=== PATIENT | female | born 1935 | race Caucasian/White ===

== ENCOUNTER 2018-05-22 12:25 | Inpatient (IN) | payer OTHER ==
[2018-05-22 13:43] LABS: Absolute Monocytes 0.8 K/uL (0.1-1.3); Basophils % 2.3 % (0-1.3); Eosinophils % 0.6 % (0-4.4); Hematocrit 46.8 % (36.0-45.0); Lymphocytes % 16.2 % (15.3-44.8); MPV 9.7 fL (7.6-11.3); Monocytes % 6.2 % (3.3-12.3); RBC Red Blood Cell Count 5.02 M/uL (3.86-4.86)
[2018-05-22] MEDS ORDERED: NA CHLORIDE 0.9% 500 ML ONE (13:52)
[2018-05-22 13:54] LABS: Albumin 3.4 g/dL (3.4-5.0); Bilirubin Direct 0.4 mg/dL (0-0.2); Bilirubin Total 2.5 mg/dL (0.2-1.0); Potassium 3.9 mmol/L (3.5-5.1); Protein, Total 7.4 g/dL (6.4-8.2)
--- NOTE | 2018-05-22 15:28 | RAD REPORT ---
EXAM DESCRIPTION: CT - Abdomen Pelvis W Contrast - 05/22/2018 3:15 pm CLINICAL HISTORY: Abdominal pain. Left lower quadrant pain COMPARISON: 2015 TECHNIQUE: Computed axial tomography of the abdomen and pelvis was obtained. 100 cc Isovue-300 is ad ministered intravenously. Oral contrast was given. All CT scans are performed using dose optimization technique as appropriate and may include automated exposure control or mA/KV adjustment according to patient size. FINDINGS: The liver, spleen, pancreas, adrenals and kidneys do not demonstrate a significant abnormality. . Diverticula stem from the colon. Mild to moderate stranding is present adjacent to the distal descend ing colon. The wall is thickened. An abscess is not noted. Free air is not seen 5.5 centimeter submucosal fibroid suspected. Spondylosis involves lumbar spine resulting in spinal stenosis IMPRESSION: Mild to moderate diverticulitis involving the descending colon
--- NOTE | 2018-05-22 15:42 | ER ---
Nurse's Notes [facility] Name: Sigifredo Kiran Age: 83 yrs Sex: Female : 1935 Arrival Date: 05/22/2018 Time: 12:36 Bed 13 Private MD: Victoriano Nava Diagnosis: Diverticulitis of large intestine without perforation or abscess without bleeding Presentation: 05/22 12:47 Presenting complaint: Patient states: LLQ abd pain for one day, had normal BM this la1 yesterday. Pain is worse if she lays on her right side. Denies N/V/D. Transition of care: patient was not received from another setting of care. Onset of symptoms was May 22, 2018. Risk Assessment: Do you want to hurt yourself or someone else? Patient reports no desire to harm self or others. Initial Sepsis Screen: Does the patient meet any 2 criteria? No. Patient's initial sepsis screen is negative. Does the patient have a suspected source of infection? No. Patient's initial sepsis screen is negative. Care prior to arrival: None. 12:47 Method Of Arrival: Ambulatory la1 12:47 Acuity: CLARI 3 la1 Historical: - Allergies: 12:47 Levaquin; la1 12:47 PENICILLINS; la1 - PMHx: 12:47 Atrial Fib; Hypertension; Hypothyroidism; la1 - PSHx: 12:49 Appendectomy; Cholecystectomy; Knee surgery; shoulder sx; la1 - Immunization history:: Adult Immunizations up to date. - Social history:: Smoking status: Patient/guardian denies using tobacco. - Ebola Screening: : No symptoms or risks identified at this time. - Family history:: not pertinent. - Hospitalizations: : No recent hospitalization is reported. Screenin:55 Abuse screen: Denies threats or abuse. Nutritional screening: decreased appetite . rb1 Tuberculosis screening: No symptoms or risk factors identified. Fall Risk None identified. Assessment: 12:55 General: Appears in no apparent distress. comfortable, obese, Behavior is calm, rb1 cooperative, Denies fever. Pain: Complains of pain in left upper quadrant and left lower quadrant Pain currently is 7 out of 10 on a pain scale. Quality of pain is described as crampy, Aggravated by increased activity. Neuro: Level of Consciousness is awake, alert, obeys commands, Oriented to person, place, time, situation. Cardiovascular: Capillary refill < 3 seconds is brisk in bilateral fingers. Respiratory: Airway is patent Respiratory effort is even, unlabored, Respiratory pattern is regular, symmetrical. GI: No signs and/or symptoms were reported involving the gastrointestinal system. : No signs and/or symptoms were reported regarding the genitourinary system. Derm: Skin is pink, warm \T\ dry. Musculoskeletal: Range of motion: intact in all extremities. 13:55 Reassessment: Patient appears in no apparent distress at this time. No changes from rb1 previously documented assessment. Family at bedside. 14:55 Reassessment: Patient appears in no apparent distress at this time. Patient and/or rb1 family updated on plan of care and expected duration. Pain level reassessed. Patient is alert, oriented x 3, equal unlabored respirations, skin warm/dry/pink. 16:08 Reassessment: Patient appears in no apparent distress at this time. Patient and/or rb1 family updated on plan of care and expected duration. Pain level reassessed. Patient is alert, oriented x 3, equal unlabored respirations, skin warm/dry/pink. 17:17 Reassessment: Attempted to call report, COOKIE Mclean will call me back. rb1 17:34 Reassessment: COOKIE Hays called to get report. Information from the SBAR was sent. All rb1 questions asked and answered. Vital Signs: 12:50 BP 118 / 80; Pulse 104; Resp 18; Temp 99.0; Pulse Ox 98% on R/A; Weight 104.33 kg; la1 Height 5 ft. 7 in. (170.18 cm); Pain 7/10; 13:50 BP 147 / 96; Pulse 95; Resp 19; Pulse Ox 95% on R/A; rb1 14:50 BP 139 / 69; Pulse 78; Resp 17; Pulse Ox 96% ; Pain 6/10; rb1 15:50 BP 139 / 89; Pulse 79; Resp 17; Pulse Ox 97% on R/A; rb1 16:50 BP 115 / 72; Pulse 71; Resp 16; Temp 97.8(O); Pulse Ox 98% on R/A; Pain 5/10; rb1 17:40 BP 124 / 76; Pulse 81; Resp 19; Pulse Ox 99% on R/A; rb1 12:50 Body Mass Index 36.02 (104.33 kg, 170.18 cm) la1 ED Course: 12:36 Patient arrived in ED. sb2 12:36 Victoriano Nava MD is Private Physician. sb2 12:49 Triage completed. la1 12:49 Arm band placed on right wrist. la1 12:55 José Manuel Ramesh MD is Attending Physician. rn 12:55 Patient has correct armband on for positive identification. Placed in gown. Bed in low rb1 position. Call light in reach. Side rails up X 1. Pulse ox on. NIBP on. Warm blanket given. 13:16 Niyah Glass, RN is Primary Nurse. rb1 13:18 Missed attempt(s): 22 gauge in right antecubital area. Bleeding controlled, band aid dh3 applied, catheter tip intact. 13:20 Initial lab(s) drawn, by me, sent to lab. Inserted saline lock: 20 gauge in left dh3 antecubital area, using aseptic technique. Blood collected. 15:[address] via stretcher. kw1 15:15 CT Abd/Pelvis - W/Contrast In Process Unspecified. EDMS 15:16 CT completed. Patient tolerated procedure well. Patient moved back from CT. kw1 15:40 Reinier Manning DO is Hospitalizing Provider. rn 15:59 Hospitalizing Provider role handed off by Reinier Manning DO rn 15:59 Victoriano Nava MD is Hospitalizing Provider. rn 17:45 No provider procedures requiring assistance completed. Patient admitted, IV remains in rb1 place. Administered Medications: 13:45 Drug: NS 0.9% 500 ml Route: IV; Rate: bolus; Site: left antecubital; rb1 14:27 Follow up: IV Status: Completed infusion rb1 15:55 Drug: Rocephin - (cefTRIAXone) 1 grams Route: IVPB; Infused Over: 30 mins; Site: left rb1 antecubital; 16:25 Follow up: Response: No adverse reaction; IV Status: Completed infusion rb1 16:00 Drug: Flagyl 500 mg Volume: 100 ml; Route: IVPB; Rate: 200 ml/hr; Infused Over: 30 rb1 mins; Site: left antecubital; 16:34 Follow up: Response: No adverse reaction; IV Status: Completed infusion rb1 Outcome: 15:40 Decision to Hospitalize by Provider. rn 17:45 Patient left the ED. rb1 17:45 Admitted to Tele accompanied by tech, via wheelchair, room 406, with chart, Report rb1 called to COOKIE Rodriguez. Information from the SBAR was given. All questions asked and answered. 17:45 Condition: stable 17:45 Instructed on the need for admit. Signatures: Dispatcher [employer] EDMS José Manuel Ramesh MD MD rn Attema, Lee, RN RN la1 Niyah Glass RN RN rb1 Francine Jordan 3 Ruthie Art1 Hilda Hidalgo sb2 Corrections: (The following items were deleted from the chart) 12:52 12:47 Presenting complaint: Patient states: LLQ abd pain for one day, had normal BM la1 this morning. Pain is worse if she lays on her right side. Denies N/V/D. la1 19:41 19:03 Patient left the ED. rb1 rb1
--- NOTE | 2018-05-22 15:42 | EDPHYS ---
Physician Documentation [facility] Name: Sigifredo Kiran Age: 83 yrs Sex: Female : 1935 Arrival Date: 05/22/2018 Time: 12:36 Bed 13 Private MD: Victoriano Nava ED Physician José Manuel Ramesh HPI: 05/22 13:18 This 83 yrs old Female presents to ER via Ambulatory with complaints of LEFT rn SIDE ABD PAIN. 13:18 The patient presents with abdominal pain in the left lower quadrant. Onset: The rn symptoms/episode began/occurred today. The symptoms do not radiate. Associated signs and symptoms: none. Pertinent negatives: nausea and vomiting, anorexia, diarrhea, dysuria, fever, shortness of breath, vomiting. The symptoms are described as achy, crampy. Modifying factors: The symptoms are alleviated by nothing, the symptoms are aggravated by movement, pressure, touching the area. Severity of pain: At its worst the pain was moderate in the emergency department the pain is unchanged. The patient has not experienced similar symptoms in the past. Historical: - Allergies: 12:47 Levaquin; la1 12:47 PENICILLINS; la1 - PMHx: 12:47 Atrial Fib; Hypertension; Hypothyroidism; la1 - PSHx: 12:49 Appendectomy; Cholecystectomy; Knee surgery; shoulder sx; la1 - Immunization history:: Adult Immunizations up to date. - Social history:: Smoking status: Patient/guardian denies using tobacco. - Ebola Screening: : No symptoms or risks identified at this time. - Family history:: not pertinent. - Hospitalizations: : No recent hospitalization is reported. ROS: 13:18 Constitutional: Negative for fever, chills, and weight loss, Eyes: Negative for injury, rn pain, redness, and discharge, Neck: Negative for injury, pain, and swelling, Cardiovascular: Negative for chest pain, palpitations, and edema, Respiratory: Negative for shortness of breath, cough, wheezing, and pleuritic chest pain, Abdomen/GI: Negative for nausea, vomiting, diarrhea, and constipation MS/Extremity: Negative for injury and deformity, Skin: Negative for injury, rash, and discoloration, Neuro: Negative for headache, weakness, numbness, tingling, and seizure. Exam: 13:18 Constitutional: This is a well developed, well nourished patient who is awake, alert, rn and in no acute distress. Head/Face: Normocephalic, atraumatic. Cardiovascular: Regular rate and rhythm. No pulse deficits. Respiratory: Lungs have equal breath sounds bilaterally, clear to auscultation. No increased work of breathing, no retractions or nasal flaring. Abdomen/GI: soft, + LLQ tenderness, no rebound Skin: Warm, dry with normal turgor. Normal color with no rashes, no lesions, and no evidence of cellulitis. MS/ Extremity: Pulses equal, no cyanosis. Neurovascular intact. Full, normal range of motion. Equal circumference. Neuro: Awake and alert, GCS 15, oriented to person, place, time, and situation. Cranial nerves II-XII grossly intact. Motor strength 5/5 in all extremities. Sensory grossly intact. Vital Signs: 12:50 BP 118 / 80; Pulse 104; Resp 18; Temp 99.0; Pulse Ox 98% on R/A; Weight 104.33 kg; la1 Height 5 ft. 7 in. (170.18 cm); Pain 7/10; 13:50 BP 147 / 96; Pulse 95; Resp 19; Pulse Ox 95% on R/A; rb1 14:50 BP 139 / 69; Pulse 78; Resp 17; Pulse Ox 96% ; Pain 6/10; rb1 15:50 BP 139 / 89; Pulse 79; Resp 17; Pulse Ox 97% on R/A; rb1 16:50 BP 115 / 72; Pulse 71; Resp 16; Temp 97.8(O); Pulse Ox 98% on R/A; Pain 5/10; rb1 17:40 BP 124 / 76; Pulse 81; Resp 19; Pulse Ox 99% on R/A; rb1 12:50 Body Mass Index 36.02 (104.33 kg, 170.18 cm) la1 MDM: 12:55 Patient medically screened. rn 15:39 Differential diagnosis: diverticulitis, non-specific abd pain. Data reviewed: vital rn signs, nurses notes, lab test result(s), radiologic studies, CT scan, and as a result, I will admit patient. Counseling: I had a detailed discussion with the patient and/or guardian regarding: the historical points, exam findings, and any diagnostic results supporting the discharge/admit diagnosis, lab results, radiology results, the need for further work-up and treatment in the hospital. Response to treatment: the patient's symptoms have mildly improved after treatment, and as a result, I will admit patient. Admission orders: after a detailed discussion of the patient's condition and case, the admit orders are written by me. ED course: Pt still in pain and uncomfortable going home, will admit with IV abx and pain control to Dr. Manning. . 05/22 13:02 Order name: Basic Metabolic Panel; Complete Time: 13:55 rn 05/22 13:02 Order name: CBC with Diff rn 05/22 13:02 Order name: Hepatic Function; Complete Time: 13:55 rn 05/22 13:02 Order name: Lipase; Complete Time: 13:55 rn 05/22 13:02 Order name: CT Abd/Pelvis - W/Contrast; Complete Time: 15:29 rn 05/22 17:24 Order name: CBC Smear Scan EDNJ 05/22 13:02 Order name: IV Saline Lock; Complete Time: 13:16 rn 05/22 13:02 Order name: Labs collected and sent; Complete Time: 13:16 rn Administered Medications: 13:45 Drug: NS 0.9% 500 ml Route: IV; Rate: bolus; Site: left antecubital; rb1 14:27 Follow up: IV Status: Completed infusion rb1 15:55 Drug: Rocephin - (cefTRIAXone) 1 grams Route: IVPB; Infused Over: 30 mins; Site: left rb1 antecubital; 16:25 Follow up: Response: No adverse reaction; IV Status: Completed infusion rb1 16:00 Drug: Flagyl 500 mg Volume: 100 ml; Route: IVPB; Rate: 200 ml/hr; Infused Over: 30 rb1 mins; Site: left antecubital; 16:34 Follow up: Response: No adverse reaction; IV Status: Completed infusion rb1 Disposition: 05/22/18 15:40 Hospitalization ordered by Victoriano Nava for Inpatient Admission. Preliminary diagnosis is Diverticulitis of large intestine without perforation or abscess without bleeding. - Bed requested for Telemetry/MedSurg (Inpatient). - Status is Inpatient Admission. rb1 - Condition is Stable. - Problem is new. - Symptoms have improved. UTI on Admission? No Signatures: Dispatcher [employer] EDNJ José Manuel Ramesh MD MD rn Attema, Lee, RN RN la1 Niyah Glass, RN RN rb1 Monik Mckeon eb Corrections: (The following items were deleted from the chart) 15:59 15:40 Hospitalization Ordered by Reinier Manning DO for Inpatient Admission. Preliminary rn diagnosis is Diverticulitis of large intestine without perforation or abscess without bleeding. Bed requested for Telemetry/MedSurg (Inpatient). Status is Inpatient Admission. Condition is Stable. Problem is new. Symptoms have improved. UTI on Admission? No. rn 16:56 15:59 05/22/2018 15:40 Hospitalization Ordered by Victoriano Nava MD for Inpatient eb Admission. Preliminary diagnosis is Diverticulitis of large intestine without perforation or abscess without bleeding. Bed requested for Telemetry/MedSurg (Inpatient). Status is Inpatient Admission. Condition is Stable. Problem is new. Symptoms have improved. UTI on Admission? No. rn 19:03 16:56 05/22/2018 15:40 Hospitalization Ordered by Victoriano Nava MD for Inpatient rb1 Admission. Preliminary diagnosis is Diverticulitis of large intestine without perforation or abscess without bleeding. Bed requested for Telemetry/MedSurg (Inpatient). Status is Inpatient Admission. Condition is Stable. Problem is new. Symptoms have improved. UTI on Admission? No. eb
[2018-05-22] MEDS ORDERED: CEFTRIAXONE/SWI 1gm 1 GM/10 ML SYR ONE (16:06)
[2018-05-22] MEDS ORDERED: METRONIDAZOLE 500mg IVPB 500 MG/100 ML BAG IV ONE (16:06)
[2018-05-22 17:23] LABS: Blood Morphology Comment NOT SEEN (NOT SEEN); Platelet Estimate ADEQ; Urine White Blood Cell Casts OK
[2018-05-22] MEDS ORDERED: ONDANSETRON 4 MG/2 ML VIAL IV PRN (18:21)
[2018-05-22] MEDS ORDERED: MORPHINE 2 MG/ML SYR IV PRN (18:21)
[2018-05-22] MEDS: ACETAMINOPHEN 500 MG TAB PO PRN (18:41)
[2018-05-22 18:42] VITALS: BMI 36.0
[2018-05-22] MEDS: D5 0.45 NS 1,000 ML IV SCH (18:42)
[2018-05-22] MEDS: RIVAROXABAN 10 MG TABLET PO SCH (21:52)
[2018-05-22] MEDS: METRONIDAZOLE 500mg IVPB 500 MG/100 ML BAG IV SCH (23:50)
[2018-05-23] MEDS: D5 0.45 NS 1,000 ML IV SCH ×4 (04:07→16:23)
[2018-05-23] MEDS: LEVOTHYROXINE SOD 0.075 MG TAB PO SCH (05:41)
[2018-05-23 06:18] LABS: Absolute Lymphocytes (CBC) 2.3 K/uL (0.7-4.9); Absolute Monocytes 0.8 K/uL (0.1-1.3); Absolute Neutrophil 4.1 K/uL (1.8-8.0); Basophils % 0.5 % (0-1.3); Eosinophils % 3.5 % (0-4.4); Hematocrit 43.2 % (36.0-45.0); Lymphocytes % 30.6 % (15.3-44.8); MPV 9.6 fL (7.6-11.3); Monocytes % 10.9 % (3.3-12.3); RBC Red Blood Cell Count 4.62 M/uL (3.86-4.86)
[2018-05-23] MEDS: METOPROLOL TAR 50 MG TAB PO SCH (08:57)
[2018-05-23] MEDS: METRONIDAZOLE 500mg IVPB 500 MG/100 ML BAG IV SCH ×2 (08:58→16:21)
[2018-05-23] MEDS: DIGOXIN 0.125 MG TABLET PO SCH (08:58)
[2018-05-23] MEDS: ACETAMINOPHEN 500 MG TAB PO PRN (11:17)
[2018-05-23] MEDS ORDERED: CEFTRIAXONE 1 GM/NS 50 ML 1 GM/50 ML BAG IV SCH (16:00)
[2018-05-23] MEDS: RIVAROXABAN 10 MG TABLET PO SCH (16:20)
[2018-05-23] MEDS: CEFTRIAXONE/SWI 1gm 1 GM/10 ML SYR IV SCH (16:22)
--- NOTE | 2018-05-23 19:25 | PN ---
Date of Progress Note: 05/23/2018 The patient states she feels considerably better today. She still has some tenderness on deep palpat ion and questionable rebound tenderness. Otherwise, she feels things are improving. Her appetite gonzalez s improved somewhat. She has been mobile. We will continue IV antibiotics at least another 24 hours . Her vital signs are stable. HR/MODL Voice ID: [id number] Report ID: [id number]
[2018-05-23 20:21] LABS: Digoxin Level 0.6 ng/mL (0.80-2.00); Thyroid Stimulating Hormone 2.77 uIU/mL (0.360-3.740)
--- NOTE | 2018-05-23 20:34 | HP ---
Date of Admission: 05/22/2018 Entrance Complaint: Abdominal pain. History Of Present Illness: The patient states 2 days prior to coming to the emergency room, she sta rted to have some discomfort in the left lower quadrant and states she just did not quite feel well o idlaia the next period of time; however, she developed what she felt was a chill, although it was not a tremor associated with increasing discomfort. It kept her awake, has not had prior episodes of such, and therefore, she presented to the emergency room with a diagnosis of acute diverticulitis, mild-to -moderate was made on the CT scan. Past History: The patient had an appendectomy many years ago, had a colonoscopy a number of times wi th numerous polyps. No mention apparently was made of diverticular disease and to her knowledge, she has never been diagnosed with diverticulitis. She denies a history of back problems, cardiovascular problem all of which seem to be under relatively good control. She is quite active for her age. Family History: Noncontributory. Social History: Nonsmoker, nondrinker, although the patient does state she drinks a fair amount of c affeine in the form of coffee and Cokes. She was told this might be aggravating factor temporarily w hile the diverticular disease is going on. Physical Examination: General: The patient is obviously uncomfortable, moderately obese, elderly female. Vital Signs: Stable. Head/Neck: Normocephalic. Pupils equal and react to light and accommodation. Fundi negative. Trac hea midline. Thyroid not palpable. ENT: Negative. Chest: Clear to P and A. Cardiovascular: PMI in midclavicular line. Heart sounds normal. Peripheral pulses present and equa l bilaterally. Abdomen: Tenderness in left lower quadrant. No guarding. Rebound tenderness is questionable. No r igidity. Bowel sounds hyperactive. Extremities: Minimally dehydrated. Good tone and movement bilaterally. Reflexes are physiologic. Rectal/Pelvic: Deferred. Impression: Acute diverticulitis. Plan: The patient will be placed on IV antibiotics, dietary control. Maintain her usual cardiac med ications. Depending on her progress, may or may not require GI consultation. HR/MODL Voice ID: [id number]
[2018-05-24] MEDS: METRONIDAZOLE 500mg IVPB 500 MG/100 ML BAG IV SCH ×3 (00:17→16:37)
[2018-05-24] MEDS: D5 0.45 NS 1,000 ML IV SCH ×4 (00:23→22:52)
[2018-05-24] MEDS: METOPROLOL TAR 50 MG TAB PO SCH (10:10)
[2018-05-24] MEDS: DIGOXIN 0.125 MG TABLET PO SCH (10:21)
[2018-05-24] MEDS: LEVOTHYROXINE SOD 0.075 MG TAB PO SCH (10:22)
[2018-05-24] MEDS: RIVAROXABAN 10 MG TABLET PO SCH (16:00)
[2018-05-24] MEDS: CEFTRIAXONE/SWI 1gm 1 GM/10 ML SYR IV SCH (16:37)
[2018-05-24] MEDS: DICYCLOMINE HCL 10 MG CAP PO SCH (20:36)
[2018-05-24] MEDS ORDERED: TEMAZEPAM 15 MG CAP PO ONE (22:10)
[2018-05-25] MEDS: METRONIDAZOLE 500mg IVPB 500 MG/100 ML BAG IV SCH ×3 (00:38→16:13)
[2018-05-25] MEDS: LEVOTHYROXINE SOD 0.075 MG TAB PO SCH (05:38)
[2018-05-25] MEDS: DIGOXIN 0.125 MG TABLET PO SCH (08:29)
[2018-05-25] MEDS: DICYCLOMINE HCL 10 MG CAP PO SCH (08:29)
[2018-05-25] MEDS: METOPROLOL TAR 50 MG TAB PO SCH (08:29)
[2018-05-25 10:00] VITALS: O2SAT 96
[2018-05-25] MEDS: ACETAMINOPHEN 500 MG TAB PO PRN (11:01)
[2018-05-25] MEDS: D5 0.45 NS 1,000 ML IV SCH (11:02)
[2018-05-25 14:40] LABS: Urine Appearance CLEAR; Urine Bilirubin NEGATIVE (NEG); Urine Blood NEGATIVE (NEG); Urine Color YELLOW; Urine Glucose NEGATIVE (NEG); Urine Protein NEGATIVE (NEG); Urine Specific Gravity <=1.005 (1.005-1.030); Urine Urobilinogen 0.2 mg/dL (0.2-1.0)
[2018-05-25 14:47] LABS: Urine Microscopic Reflex NO UMIC
--- NOTE | 2018-05-25 14:54 | PN ---
Date of Progress Note: 05/24/2018 She says she is feeling somewhat better. Appetite has improved. Tender. Advance her diet in the mo rning as tolerated. Probably can be discharged on p.o. antibiotics. HR/MODL Voice ID: [id number] Report ID: [id number]
[2018-05-25] MEDS: CEFTRIAXONE/SWI 1gm 1 GM/10 ML SYR IV SCH (16:12)
[2018-05-25 16:29] VITALS: BP 154/99; TEMP 98
[2018-05-25] MEDS ORDERED: RIVAROXABAN 20 MG TABLET PO SCH (17:00)
--- NOTE | 2018-05-26 00:47 | PN ---
Date of Progress Note: 05/25/2018 The patient feels much better today. She is eating, more active. Minimal tenderness on deep palpati on of the left lower quadrant. She was discharged on Keflex, Flagyl, and Bentyl, to follow up in 2 w [facility]. HR/MODL Voice ID: [id number] Report ID: [id number]
[2018-05-26] MEDS ORDERED: METOPROLOL TAR 25 MG TAB PO SCH (08:00)
== END 2018-05-25 16:53 | disposition home or self-care (01) | DRG 392 ==
LOC: ER 12:25 → ERHOLD 16:04 → 4TH 17:36
PROVIDERS: ADMIT Family Medicine; ATTEND Family Medicine
DX: K57.32 Diverticulitis of large intestine without perforation or abscess without bleeding (principal); Z88.0 Allergy status to penicillin; I10 Essential (primary) hypertension; E03.9 Hypothyroidism, unspecified; I48.91 Unspecified atrial fibrillation; E66.9 Obesity, unspecified; Z68.36 Body mass index [BMI] 36.0-36.9, adult
CPT/HCPCS: 36415; 74177; 80048; 80076; 80162; 81003; 83690; 84443; 85025; 87493; 96361; 96365; 99285; J0696; Q9967

== ENCOUNTER 2018-06-26 12:17 | Emergency (ER) | payer OTHER ==
--- NOTE | 2018-06-26 14:42 | ER ---
Nurse's Notes [facility] Name: Sigifredo Kiran Age: 83 yrs Sex: Female : 1935 Arrival Date: 06/26/2018 Time: 12:19 Bed 23 Private MD: Victoriano Nava Diagnosis: Sebaceous cyst Presentation: 06/26 12:32 Presenting complaint: Patient states: "I've had a cyst on my head for years and this aa5 morning it decided to rupture so I went to urgent care but they don't want to take care of it so they sent me here". Transition of care: patient was not received from another setting of care. Onset of symptoms was June 26, 2018. Risk Assessment: Do you want to hurt yourself or someone else? Patient reports no desire to harm self or others. Initial Sepsis Screen: Does the patient meet any 2 criteria? No. Patient's initial sepsis screen is negative. Does the patient have a suspected source of infection? No. Patient's initial sepsis screen is negative. Care prior to arrival: None. 12:32 Method Of Arrival: Ambulatory aa5 12:32 Acuity: CLARI 4 aa5 Historical: - Allergies: 12:34 Levaquin; aa5 12:34 PENICILLINS; aa5 - PMHx: 12:34 Atrial Fib; Hypertension; Hypothyroidism; aa5 - PSHx: 12:34 Appendectomy; Cholecystectomy; Knee surgery; shoulder sx; aa5 - Immunization history:: Flu vaccine is up to date. - Social history:: Smoking status: Patient/guardian denies using tobacco. - Ebola Screening: : No symptoms or risks identified at this time. Screenin:05 Abuse screen: Denies threats or abuse. Nutritional screening: No deficits noted. la1 Tuberculosis screening: No symptoms or risk factors identified. Fall Risk None identified. Assessment: 15:04 General: Appears in no apparent distress. Behavior is calm, cooperative. Pain: Denies la1 pain. Neuro: No deficits noted. Cardiovascular: No deficits noted. Derm: cyst noted scalp. Vital Signs: 12:34 BP 147 / 91; Pulse 76; Resp 16 S; Temp 98.2(TE); Pulse Ox 98% on R/A; Weight 102.06 kg aa5 (R); Height 5 ft. 7 in. (170.18 cm) (R); Pain 0/10; 12:34 Body Mass Index 35.24 (102.06 kg, 170.18 cm) aa5 ED Course: 12:19 Patient arrived in ED. mr 12:20 Victoriano Nava MD is Private Physician. mr 12:32 Arm band placed on. aa5 12:34 Triage completed. aa5 14:30 Hamlet Hernandez, RN is Primary Nurse. la1 14:32 [facility] pm1 14:32 José Manuel Ramesh MD is Attending Physician. pm1 15:05 No provider procedures requiring assistance completed. Patient did not have IV access la1 during this emergency room visit. 15:06 Call light in reach. la1 Administered Medications: No medications were administered Outcome: 14:42 Discharge ordered by . pm1 15:05 Discharged to home ambulatory. la1 15:05 Condition: stable 15:05 Discharge instructions given to patient, Instructed on discharge instructions, follow up and referral plans. medication usage, Demonstrated understanding of instructions, follow-up care, medications. 15:06 Patient left the ED. la1 Signatures: Denisha Pettit mr FraserStephanie, RN RN aa5 Hamlet Hernandez RN RN la1 Lb Tellez NP PORT[employer] MANAGER pm1
--- NOTE | 2018-06-26 14:43 | EDPHYS ---
Physician Documentation [facility] Name: Sigifredo Kiran Age: 83 yrs Sex: Female : 1935 Arrival Date: 06/26/2018 Time: 12:19 Bed 23 Private MD: Victoriano Nava ED Physician José Manuel Ramesh HPI: 06/26 14:41 This 83 yrs old Female presents to ER via Ambulatory with complaints of Cyst. pm1 14:41 the patient presents with a swollen area of the top of head. Description: sebaceous pm1 cyst. Onset: The symptoms/episode began/occurred today. Associated signs and symptoms: Pertinent negatives: fever. Modifying factors: the symptoms are alleviated by nothing, the symptoms are aggravated by nothing. The patient has experienced similar episodes in the past, chronically. The patient has been recently seen at an urgent care, just prior to arrival. Patient with sebaceous cyst on her scalp that opened ant drained spontaneously today. Went to urgent care and was redirected to the ER for evaluation. No fever or prior redness to area prior to spontaneous discharge. Historical: - Allergies: 12:34 Levaquin; aa5 12:34 PENICILLINS; aa5 - PMHx: 12:34 Atrial Fib; Hypertension; Hypothyroidism; aa5 - PSHx: 12:34 Appendectomy; Cholecystectomy; Knee surgery; shoulder sx; aa5 - Immunization history:: Flu vaccine is up to date. - Social history:: Smoking status: Patient/guardian denies using tobacco. - Ebola Screening: : No symptoms or risks identified at this time. ROS: 14:41 Constitutional: Negative for fever, chills, and weight loss, Eyes: Negative for injury, pm1 pain, redness, and discharge, ENT: Negative for injury, pain, and discharge, Neck: Negative for injury, pain, and swelling, Cardiovascular: Negative for chest pain, palpitations, and edema, Respiratory: Negative for shortness of breath, cough, wheezing, and pleuritic chest pain, Abdomen/GI: Negative for abdominal pain, nausea, vomiting, diarrhea, and constipation, Back: Negative for injury and pain, : Negative for injury, bleeding, discharge, and swelling, MS/Extremity: Negative for injury and deformity. 14:41 Skin: Positive for of the top of head, cyst, Negative for cellulitis. Exam: 14:41 Constitutional: This is a well developed, well nourished patient who is awake, alert, pm1 and in no acute distress. Head/Face: Normocephalic, atraumatic. Eyes: Pupils equal round and reactive to light, extra-ocular motions intact. Lids and lashes normal. Conjunctiva and sclera are non-icteric and not injected. Cornea within normal limits. Periorbital areas with no swelling, redness, or edema. ENT: Nares patent. No nasal discharge, no septal abnormalities noted. Tympanic membranes are normal and external auditory canals are clear. Oropharynx with no redness, swelling, or masses, exudates, or evidence of obstruction, uvula midline. Mucous membranes moist. Neck: Trachea midline, no thyromegaly or masses palpated, and no cervical lymphadenopathy. Supple, full range of motion without nuchal rigidity, or vertebral point tenderness. No Meningismus. Chest/axilla: Normal chest wall appearance and motion. Nontender with no deformity. No lesions are appreciated. Cardiovascular: Regular rate and rhythm with a normal S1 and S2. No gallops, murmurs, or rubs. Normal PMI, no JVD. No pulse deficits. Respiratory: Lungs have equal breath sounds bilaterally, clear to auscultation and percussion. No rales, rhonchi or wheezes noted. No increased work of breathing, no retractions or nasal flaring. Abdomen/GI: Soft, non-tender, with normal bowel sounds. No distension or tympany. No guarding or rebound. No evidence of tenderness throughout. Back: No spinal tenderness. No costovertebral tenderness. Full range of motion. 14:41 Skin: Appearance: normal except for affected area, abscess, not appreciated, cellulitis, is not appreciated, sebaceous cyst on scalp without any discharge, redness, surround cellulitis. Vital Signs: 12:34 BP 147 / 91; Pulse 76; Resp 16 S; Temp 98.2(TE); Pulse Ox 98% on R/A; Weight 102.06 kg aa5 (R); Height 5 ft. 7 in. (170.18 cm) (R); Pain 0/10; 12:34 Body Mass Index 35.24 (102.06 kg, 170.18 cm) aa5 MDM: 14:35 Patient medically screened. pm1 14:41 Data reviewed: vital signs. Data interpreted: Pulse oximetry: on room air is 98 %. pm1 Interpretation: normal. Counseling: I had a detailed discussion with the patient and/or guardian regarding: the historical points, exam findings, and any diagnostic results supporting the discharge/admit diagnosis, the need for outpatient follow up, for definitive care, a general surgeon, a plastic surgeon, to return to the emergency department if symptoms worsen or persist or if there are any questions or concerns that arise at home. Administered Medications: No medications were administered Disposition: 15:41 Co-signature as Attending Physician, José Manuel Ramesh MD. rn Disposition: 06/26/18 14:42 Discharged to Home. Impression: Sebaceous cyst. - Condition is Stable. - Discharge Instructions: Epidermal Cyst. - Prescriptions for Bactrim DS 800- 160 mg Oral Tablet - take 1 tablet by ORAL route every 12 hours for 10 days; 20 tablet. - Medication Reconciliation Form, Thank You Letter, Antibiotic Education form. - Follow up: Emergency Department; When: As needed; Reason: Worsening of condition. Follow up: Private Physician; When: 2 - 3 days; Reason: Recheck today's complaints, Continuance of care, Re-evaluation by your physician. - Problem is new. - Symptoms have improved. Signatures: José Manuel Ramesh MD MD rn Calderon, Audri RN RN aa5 Hamlet Hernandez RN RN la1 Lb Tellez, TASHA LIGHTNING PROTECTION INSTALLER pm1 Corrections: (The following items were deleted from the chart) 15:06 14:42 06/26/2018 14:42 Discharged to Home. Impression: Sebaceous cyst. Condition is la1 Stable. Forms are Medication Reconciliation Form, Thank You Letter, Antibiotic Education, Prescription Opioid Use. Follow up: Emergency Department; When: As needed; Reason: Worsening of condition. Follow up: Private Physician; When: 2 - 3 days; Reason: Recheck today's complaints, Continuance of care, Re-evaluation by your physician. Problem is new. Symptoms have improved. pm1
[2018-06-26 15:13] VITALS: BP 147/91; TEMP 98.2; O2SAT 98
== END 2018-06-26 15:06 | disposition home or self-care (01) ==
LOC: ER 12:17
DX: L72.3 Sebaceous cyst (principal); I48.91 Unspecified atrial fibrillation; I10 Essential (primary) hypertension; E03.9 Hypothyroidism, unspecified; Z88.1 Allergy status to other antibiotic agents; Z88.0 Allergy status to penicillin
CPT/HCPCS: 99281

== ENCOUNTER 2018-07-01 18:34 | Emergency (ER) | payer OTHER ==
[2018-07-01 21:56] LABS: Potassium 4.1 mmol/L (3.5-5.1)
[2018-07-01 21:58] LABS: Absolute Lymphocytes (CBC) 2.1 K/uL (0.7-4.9); Absolute Monocytes 1.1 K/uL (0.1-1.3); Absolute Neutrophil 2.5 K/uL (1.8-8.0); Basophils % 0.7 % (0-1.3); Eosinophils % 1.4 % (0-4.4); Hematocrit 49.3 % (36.0-45.0); Lymphocytes % 35.7 % (15.3-44.8); MPV 9.5 fL (7.6-11.3); Monocytes % 18.3 % (3.3-12.3); RBC Red Blood Cell Count 5.26 M/uL (3.86-4.86)
[2018-07-01 22:33] LABS: Urine Blood 1+ (NEG); Urine Glucose NEGATIVE (NEG); Urine Protein TRACE (NEG); Urine Specific Gravity >1.030 (1.005-1.030); Urine pH 5.5 (5.0-7.0)
[2018-07-01 22:34] LABS: Urine Mucus 1+ /HPF (NONE SEEN)
[2018-07-01 22:35] LABS: Urine Culture Reflex Order NOT NEEDED
[2018-07-01 22:36] LABS: Urine Bacteria <20 /HPF (<20); Urine RBC NONE SEEN /HPF (NONE SEEN)
[2018-07-01 23:31] LABS: Blood Morphology Comment NOT SEEN (NOT SEEN); Platelet Estimate ADEQ
[2018-07-01] MEDS ORDERED: NA CHLORIDE 0.9% 500 ML ONE (23:39)
--- NOTE | 2018-07-02 00:30 | EDPHYS ---
Physician Documentation [facility] Name: Sigifredo Kiran Age: 83 yrs Sex: Female : 1935 Arrival Date: 07/01/2018 Time: 18:36 Bed 5 Private MD: Victroiano Nava ED Physician José Manuel Ramesh HPI: 07/01 21:33 This 83 yrs old Female presents to ER via Wheelchair with complaints of rn Dizziness, Cough. 21:33 The patient presents with dizziness, feeling faint, generalized weakness. Onset: The rn symptoms/episode began/occurred at an unknown time. Modifying factors: The symptoms are alleviated by holding head still, the symptoms are aggravated by standing up, changing position. Severity of symptoms: At their worst the symptoms were mild in the emergency department the symptoms are unchanged. The patient has experienced similar episodes in the past. Reports long standing vertigo/dizzy spells, worse over last few days, fell while trying to sit on commode, + mild fever, + mild cough, no sob, no abd pain/vomiting/diarrhea, no chest pain. NO LOC or syncope. NO focal neurological problems or complaints. NO urinary symptoms.. Historical: - Allergies: 19:27 PENICILLINS; jd3 19:27 Levaquin; jd3 - PMHx: 19:27 Atrial Fib; Hypertension; Hypothyroidism; jd3 - PSHx: 19:27 Appendectomy; Cholecystectomy; Knee surgery; shoulder sx; D \T\ C; jd3 - Immunization history:: Adult Immunizations up to date. - Social history:: Smoking status: Patient/guardian denies using tobacco. - Ebola Screening: : Patient negative for fever greater than or equal to 101.5 degrees Fahrenheit, and additional compatible Ebola Virus Disease symptoms. - Family history:: not pertinent. - Hospitalizations: : No recent hospitalization is reported. ROS: 21:33 Constitutional: + fever Eyes: Negative for injury, pain, redness, and discharge, ENT: rn Negative for injury, pain, and discharge, Neck: Negative for injury, pain, and swelling, Cardiovascular: Negative for chest pain, palpitations, and edema, Respiratory: + cough, neg for sob Abdomen/GI: Negative for abdominal pain, nausea, vomiting, diarrhea, and constipation, MS/Extremity: Negative for injury and deformity, Skin: Negative for injury, rash, and discoloration, Neuro: + generalized weakness and dizziness Exam: 21:33 Constitutional: This is a well developed, well nourished patient who is awake, alert, rn and in no acute distress. Head/Face: Normocephalic, atraumatic. Eyes: Pupils equal round and reactive to light, extra-ocular motions intact. Lids and lashes normal. Conjunctiva and sclera are non-icteric and not injected. Cornea within normal limits. Periorbital areas with no swelling, redness, or edema. ENT: dry MM, no stridor Neck: Trachea midline, no thyromegaly or masses palpated, and no cervical lymphadenopathy. Supple, full range of motion without nuchal rigidity, or vertebral point tenderness. No Meningismus. Cardiovascular: Irregular rate and rhythm, no murmur Respiratory: Lungs have equal breath sounds bilaterally, clear to auscultation. No increased work of breathing, no retractions or nasal flaring. Abdomen/GI: soft, non-tender Skin: Warm, dry MS/ Extremity: Pulses equal, no cyanosis. Neurovascular intact. Full, normal range of motion. Equal circumference. Neuro: Awake and alert, GCS 15, oriented to person, place, time, and situation. Cranial nerves II-XII grossly intact. Motor strength 5/5 in all extremities. Sensory grossly intact. Cerebellar exam normal. Vital Signs: 19:27 BP 110 / 80; Pulse 90; Resp 18 S; Temp 99.1(O); Pulse Ox 97% on R/A; Weight 102.06 kg jd3 (R); Height 5 ft. 7 in. (170.18 cm) (R); Pain 0/10; 20:30 BP 133 / 94; Pulse 73; Resp 20; Pulse Ox 95% on R/A; aa1 21:30 BP 161 / 95; Pulse 95; Resp 18; Pulse Ox 94% on R/A; aa1 22:30 BP 167 / 100; Pulse 83; Resp 18; Temp 98.9; Pulse Ox 94% on R/A; aa1 23:30 BP 137 / 98; Pulse 88; Resp 18; Pulse Ox 94% on R/A; Pain 0/10; aa1 07/02 00:50 BP 121 / 91; Pulse 92; Resp 20; Pulse Ox 96% on R/A; Pain 0/10; aa1 07/01 19:27 Body Mass Index 35.24 (102.06 kg, 170.18 cm) jd3 MDM: 07/01 20:41 Patient medically screened. rn 07/02 00:28 Differential diagnosis: generalized weakness, hypovolemia, idiopathic dizziness, rn vertigo, influenza, pneumonia. Data reviewed: vital signs, nurses notes, lab test result(s), EKG, radiologic studies, CT scan, plain films, and as a result, I will discharge patient. Counseling: I had a detailed discussion with the patient and/or guardian regarding: the historical points, exam findings, and any diagnostic results supporting the discharge/admit diagnosis, lab results, radiology results, the need for outpatient follow up, to return to the emergency department if symptoms worsen or persist or if there are any questions or concerns that arise at home. Response to treatment: the patient's symptoms have markedly improved after treatment, and as a result, I will discharge patient. Special discussion: I discussed with the patient/guardian in detail that at this point there is no indication for admission to the hospital. It is understood, however, that if the symptoms persist or worsen the patient needs to return immediately for re-evaluation. 07/01 20:58 Order name: CBC with Diff; Complete Time: 23:35 rn 07/01 20:58 Order name: Basic Metabolic Panel; Complete Time: 22:51 07/01 20:58 Order name: Urine Culture rn 07/01 20:58 Order name: Urine Microscopic Only; Complete Time: 22:51 07/01 20:58 Order name: Flu; Complete Time: 23:35 07/01 22:01 Order name: Manual Differential; Complete Time: 23:35 EDMS 07/01 20:58 Order name: IV Start; Complete Time: 21:51 rn 07/01 20:58 Order name: XRAY Chest (1 view) rn 07/01 20:58 Order name: CT Head Brain wo Cont rn 07/01 20:58 Order name: EKG; Complete Time: 20:58 rn 07/01 22:24 Order name: Urine Dipstick--Ancillary (enter results); Complete Time: 22:51 ar5 07/01 22:24 Order name: Urine --Ancillary (enter results); Complete Time: 22:51 [facility] 07/01 20:58 Order name: Urine Dipstick-Ancillary (obtain specimen); Complete Time: 22:21 rn 07/01 20:58 Order name: EKG - Nurse/Tech; Complete Time: 21:51 rn Administered Medications: 07/01 23:35 Drug: NS 0.9% 500 ml Route: IV; Rate: bolus; Site: left antecubital; aa1 07/02 00:45 Drug: Tamiflu 75 mg Route: PO; aa1 00:55 Follow up: Response: Medication administered at discharge. aa Disposition: 07/02/18 00:29 Discharged to Home. Impression: Influenza due to identified novel influenza A virus, Dehydration. - Condition is Stable. - Discharge Instructions: Influenza, Adult, Dehydration, Adult, [id number]. - Prescriptions for Tamiflu 75 mg Oral Capsule - take 1 capsule by ORAL route every 12 hours for 5 days; 10 capsule. - Medication Reconciliation Form, Thank You Letter, Antibiotic Education, Prescription Opioid Use form. - Follow up: Private Physician; When: As needed; Reason: Recheck today's complaints, Re-evaluation by your physician. - Problem is new. - Symptoms have improved. Signatures: Dispatcher [employer] EDMS Leticia Roberts RN RN aa1 José Manuel Ramesh MD MD rn Davies, Jonathon, RN RN jd3 Corrections: (The following items were deleted from the chart) 00:57 00:29 07/02/2018 00:29 Discharged to Home. Impression: Influenza due to identified aa1 novel influenza A virus; Dehydration. Condition is Stable. Forms are Medication Reconciliation Form, Thank You Letter, Antibiotic Education, Prescription Opioid Use. Follow up: Private Physician; When: As needed; Reason: Recheck today's complaints, Re-evaluation by your physician. Problem is new. Symptoms have improved. rn
--- NOTE | 2018-07-02 00:30 | ER ---
Nurse's Notes [facility] Name: Sigifredo Kiran Age: 83 yrs Sex: Female : 1935 Arrival Date: 07/01/2018 Time: 18:36 Bed 5 Private MD: Victoriano Nava Diagnosis: Influenza due to identified novel influenza A virus;Dehydration Presentation: 07/01 19:25 Presenting complaint: Patient states: "I am having vertigo as well as a cough that jd3 causes a headache.". Transition of care: patient was not received from another setting of care. Onset of symptoms was July 01, 2018. Risk Assessment: Do you want to hurt yourself or someone else? Patient reports no desire to harm self or others. Initial Sepsis Screen: Does the patient meet any 2 criteria? No. Patient's initial sepsis screen is negative. Does the patient have a suspected source of infection? No. Patient's initial sepsis screen is negative. Care prior to arrival: None. 19:25 Method Of Arrival: Wheelchair jd3 19:25 Acuity: CLARI 3 jd3 Historical: - Allergies: 19:27 PENICILLINS; jd3 19:27 Levaquin; jd3 - PMHx: 19:27 Atrial Fib; Hypertension; Hypothyroidism; jd3 - PSHx: 19:27 Appendectomy; Cholecystectomy; Knee surgery; shoulder sx; D \\T\\ C; jd3 - Immunization history:: Adult Immunizations up to date. - Social history:: Smoking status: Patient/guardian denies using tobacco. - Ebola Screening: : Patient negative for fever greater than or equal to 101.5 degrees Fahrenheit, and additional compatible Ebola Virus Disease symptoms. - Family history:: not pertinent. - Hospitalizations: : No recent hospitalization is reported. Screenin:50 Abuse screen: Denies threats or abuse. Denies injuries from another. Nutritional aa1 screening: No deficits noted. Tuberculosis screening: No symptoms or risk factors identified. Fall Risk None identified. Assessment: 20:50 General: Appears in no apparent distress. comfortable, Behavior is calm, cooperative, aa1 appropriate for age. Pain: Denies pain. Neuro: Level of Consciousness is awake, alert, obeys commands, Oriented to person, place, time, situation, Moves all extremities. Full function. Neuro: Reports headache. Cardiovascular: Heart tones S1 S2 present Rhythm is regular. Respiratory: Reports cough that is non-productive, persistent Airway is patent Respiratory effort is even, unlabored, Respiratory pattern is regular, symmetrical, Breath sounds are clear bilaterally. GI: No signs and/or symptoms were reported involving the gastrointestinal system. : No signs and/or symptoms were reported regarding the genitourinary system. EENT: No signs and/or symptoms were reported regarding the EENT system. Derm: Skin is intact, is healthy with good turgor, Skin is pink, warm \\T\\ dry. Musculoskeletal: Circulation, motion, and sensation intact. Capillary refill < 3 seconds. 21:40 Reassessment: Patient appears in no apparent distress at this time. Patient and/or aa1 family updated on plan of care and expected duration. Pain level reassessed. Patient is alert, oriented x 3, equal unlabored respirations, skin warm/dry/pink. biological science technician fish reports pt's IV accidentally came out. Will reinsert IV after labs resulted if needed. 22:30 Reassessment: Patient appears in no apparent distress at this time. Patient and/or aa1 family updated on plan of care and expected duration. Pain level reassessed. Patient is alert, oriented x 3, equal unlabored respirations, skin warm/dry/pink. Awaiting completion of test results Patient denies pain at this time. 23:30 Reassessment: Patient appears in no apparent distress at this time. Patient and/or aa1 family updated on plan of care and expected duration. Pain level reassessed. Patient is alert, oriented x 3, equal unlabored respirations, skin warm/dry/pink. NS bolus initiated at this time. 07/02 00:50 Reassessment: Patient appears in no apparent distress at this time. Patient is alert, aa1 oriented x 3, equal unlabored respirations, skin warm/dry/pink. Discussed d/c \\T\\ f/u instructions with pt \\T\\ family; denies questions or concerns at this time Patient denies pain at this time. Vital Signs: 07/01 19:27 BP 110 / 80; Pulse 90; Resp 18 S; Temp 99.1(O); Pulse Ox 97% on R/A; Weight 102.06 kg jd3 (R); Height 5 ft. 7 in. (170.18 cm) (R); Pain 0/10; 20:30 BP 133 / 94; Pulse 73; Resp 20; Pulse Ox 95% on R/A; aa1 21:30 BP 161 / 95; Pulse 95; Resp 18; Pulse Ox 94% on R/A; aa1 22:30 BP 167 / 100; Pulse 83; Resp 18; Temp 98.9; Pulse Ox 94% on R/A; aa1 23:30 BP 137 / 98; Pulse 88; Resp 18; Pulse Ox 94% on R/A; Pain 0/10; aa1 07/02 00:50 BP 121 / 91; Pulse 92; Resp 20; Pulse Ox 96% on R/A; Pain 0/10; aa1 07/01 19:27 Body Mass Index 35.24 (102.06 kg, 170.18 cm) jd3 ED Course: 07/01 18:36 Patient arrived in ED. rg4 18:36 Victoriano Nava MD is Private Physician. rg4 19:26 Triage completed. jd3 19:28 Arm band placed on Patient notified of wait time. jd3 20:41 José Manuel Ramesh MD is Attending Physician. rn 20:50 Patient has correct armband on for positive identification. Placed in gown. Bed in low aa1 position. Call light in reach. Pulse ox on. NIBP on. Warm blanket given. 21:07 Leticia Roberts, COOKIE is Primary Nurse. aa1 21:28 XRAY Chest (1 view) In Process Unspecified. EDMS 21:36 CT completed. Patient tolerated procedure well. Patient moved to CT via wheelchair. nj Patient moved back from CT. 21:36 Inserted saline lock: 22 gauge in left antecubital area, using aseptic technique. Blood ag4 collected. 21:45 CT Head Brain wo Cont In Process Unspecified. EDMS 23:30 Inserted saline lock: 20 gauge in left antecubital area, using aseptic technique. aa1 07/02 00:55 No provider procedures requiring assistance completed. IV discontinued, intact, aa1 bleeding controlled, No redness/swelling at site. Pressure dressing applied. Administered Medications: 07/01 23:35 Drug: NS 0.9% 500 ml Route: IV; Rate: bolus; Site: left antecubital; aa1 07/02 00:45 Drug: Tamiflu 75 mg Route: PO; aa1 00:55 Follow up: Response: Medication administered at discharge. aa1 Outcome: 00:29 Discharge ordered by . rn 00:55 Discharged to home via wheelchair, with family. aa1 00:55 Condition: good 00:55 Discharge instructions given to patient, family, Instructed on discharge instructions, follow up and referral plans. medication usage, Demonstrated understanding of instructions, follow-up care, medications, Prescriptions given X 1. 00:57 Patient left the ED. aa1 Signatures: Dispatcher [employer] EDLeticia Manning RN RN aa1 José Manuel Ramesh MD MD rn Garcia, Joselyn rg4 Augie Schultz Jonathon, RN RN jd3 Dawson, Talha ag4
[2018-07-02] MEDS ORDERED: OSELTAMIVIR 75 MG CAP ONE (00:50)
[2018-07-02 01:17] VITALS: O2SAT 94
[2018-07-02 01:18] VITALS: TEMP 98.9
[2018-07-02 01:20] VITALS: BP 137/98
--- NOTE | 2018-07-02 06:00 | EKG ---
Test Date: 2018-07-01 Test Time: 21:14:53 Spiral Runner: AG3 MEASUREMENT RESULTS: Intervals: Rate: 108 UT: QRSD: 84 QT: 308 QTc: 412 [place]: P: UT: QRS: -26 T: 37 INTERPRETIVE STATEMENTS: Atrial fibrillation with rapid ventricular response Possible Anterior infarct, age undetermined Abnormal ECG Compared to ECG 05/14/2014 06:05:35 Myocardial infarct finding now present Electronically Signed On 07-02-18 05:59:17 CDT by Crispin Timmons
--- NOTE | 2018-07-02 07:26 | RAD REPORT ---
EXAM DESCRIPTION: RAD - Chest Single View - 07/01/2018 9:28 pm CLINICAL HISTORY: Cough COMPARISON: March 2017 TECHNIQUE: AP portable chest image was obtained 2114 hours . FINDINGS: Lung volumes are low accentuating baseline interstitial pattern. Substantial change from 2 017 is not suspected. No mass, consolidation or significant failure. Heart size and vasculature are n ormal range and stable. No measurable pleural effusion and no pneumothorax. No acute bone findings se en. Postsurgical changes are present in the right shoulder. No acute aortic findings suspected. IMPRESSION: No acute cardiopulmonary process. No significant change from comparison.
--- NOTE | 2018-07-02 11:10 | RAD REPORT ---
EXAM DESCRIPTION: CT - Head Brain Wo Cont - 07/01/2018 10:04 pm CLINICAL HISTORY: 83 years old and is Female; dizziness, fall, head injury TECHNIQUE: Axial computed tomography images of the head/brain without intravenous contrast. Sagitt al and coronal reformatted images were created and reviewed. EXAM COMPLETED DATE AND APPROX. TIME: 07/01/2018 9:[address] exam was performed using one or more of the following dose reducti on techniques: automated exposure control, adjustment of the mA and/or kV according to patient size , and/or use of iterative reconstruction technique. COMPARISON: No relevant prior studies available. FINDINGS: Limitations: None. Brain: There is age related cortical atrophy and periventricular white matter hypodensity most c onsistent with chronic small ischemic change. No acute infarct, hemorrhage or mass. Ventricles: Unremarkable. No ventriculomegaly. Bones/joints: Unremarkable. No acute fracture. Soft tissues: Multiple incidental calcified scalp nodules compatible with sebaceous cysts or luisa rofibromas. Vasculature: Vertebral and carotid artery calcification present. Sinuses: Unremarkable as visualized. No acute sinusitis. Mastoid air cells: Unremarkable as visualized. No mastoid effusion. IMPRESSION: No acute findings. Electronically signed by: Gianna Monroy MD 07/01/2018 9:53 PM CDT Due to temporary technical issues with the PACS/Fluency reporting system, reports are being signed by the in house radiologist as a courtesy to ensure prompt reporting. The interpreting radiologist is f ully responsible for the content of the report.
== END 2018-07-02 00:57 | disposition home or self-care (01) ==
LOC: ER 18:34
DX: J10.1 Influenza due to other identified influenza virus with other respiratory manifestations (principal); E86.0 Dehydration; I48.2 Chronic atrial fibrillation; I10 Essential (primary) hypertension; E03.9 Hypothyroidism, unspecified; Z88.1 Allergy status to other antibiotic agents; Z88.0 Allergy status to penicillin
CPT/HCPCS: 36415; 70450; 71045; 80048; 81003; 81015; 81025; 85025; 87086; 87088; 87804; 93005; 99284

== ENCOUNTER 2018-08-03 07:00 | Day surgery (SDC) | payer OTHER ==
[2018-08-03] MEDS ORDERED: Ringers Lactate 1,000 ML IV ONE (07:27)
[2018-08-03] MEDS: BUPIVACA 0.25%/EPI 0.0005% MDV 50 ML VIAL ONE ×2 (07:41→08:00)
[2018-08-03] MEDS ORDERED: PROPOFOL 200 MG/20 ML VIAL IV ONE (07:55)
[2018-08-03] MEDS ORDERED: FENTANYL CITR 100 MCG/2 ML ONE (07:56)
[2018-08-03] MEDS ORDERED: LIDOCAINE 2% MPF 5 ML VIAL ONE (07:56)
--- NOTE | 2018-08-03 08:33 | P.OP ---
Preoperative diagnosis: LEFT scalp infected sebaceous cyst Postoperative diagnosis: LEFT scalp infected sebaceous cyst Primary procedure: Excision of LEFT scalp infected sebaceous cyst Anesthesia: MAC + Local Estimated blood loss: <2cc Specimen: Sebaceous cysts Findings: LEFT scalp infected sebaceous cyst Complications: None Transferred to: Recovery Room Condition: Good
[2018-08-03] MEDS ORDERED: ONDANSETRON 4 MG/2 ML VIAL ONE (08:47)
[2018-08-03 09:01] VITALS: TEMP 97; O2SAT 99
[2018-08-03 09:21] VITALS: BP 117/63
--- NOTE | 2018-08-03 19:34 | OP ---
Date of Procedure: 08/03/2018 Surgeon: Jessee Perez MD, Preoperative Diagnosis: Left scalp infected sebaceous cyst. Postoperative Diagnosis: Left scalp infected sebaceous cyst. Procedure Performed: Excision of left scalp infected sebaceous cyst. Anesthesia: MAC plus local with 0.25% Marcaine with epinephrine. Estimated Blood Loss: Less than 2 cc. Specimen: Sebaceous cyst. Findings: Left scalp infected sebaceous cyst of approximately 4 cm x 3 cm down to the galea, but not involving the galea. It was in the region of the left scalp just approximately 0.5 cm into the hair line. Disposition: Transferred to recovery room in good condition. Procedure In Detail: After informed consent was obtained, the patient was brought to the operating r oom, prepped and draped in the usual sterile fashion. After adequate anesthesia was achieved, an ell ipse of skin was taken out around the draining site from an infected sebaceous cyst of the left scalp as described above. The ellipse of skin was taken down with the scalpel down to subcutaneous tissue s. Electrocautery was used to dissect down into the subcutaneous layer and dissection continued down to both blunt dissection as well as electrocautery to circumferentially dissect out the ruptured joseph aceous cyst sac. This was removed in its entirety in a piecemeal fashion. The area was copiously ir rigated and was noted to go down to the galea but not investing into the galea. Electrocautery was u sed to achieve hemostasis quite easily. The area was copiously irrigated once again and closed with 3 sutures, 2 vertical mattress sutures and 1 simple interrupted suture of a 2-0 Prolene type. A ster ile dressing was then placed over the top. The patient tolerated the procedure well without evidence of complication, transferred to the PACU in good condition. All counts were correct at the end of the case. MYRANDA/DES Voice ID: [id number] Report ID: [id number]
== END 2018-08-03 09:25 | disposition home or self-care (01) ==
LOC: OR 07:00
PROVIDERS: ATTEND Surgery
PROC: 0JB00ZX Excision of Scalp Subcutaneous Tissue and Fascia, Open Approach, Diagnostic (ICD-10-PCS; principal; 2018-08-03 08:00)
DX: L72.11 Pilar cyst (principal); E03.8 Other specified hypothyroidism; I10 Essential (primary) hypertension; I48.91 Unspecified atrial fibrillation; Z79.01 Long term (current) use of anticoagulants; Z79.899 Other long term (current) drug therapy
CPT/HCPCS: 11426; 12032; 88304; J2704; J3010; J2405

== ENCOUNTER 2018-08-20 14:41 | Emergency (ER) | payer OTHER ==
--- NOTE | 2018-08-20 15:11 | RAD REPORT ---
EXAM DESCRIPTION: CT - Ct Stroke Brain Wo Cont - 08/20/2018 3:02 pm CLINICAL HISTORY: Right-sided weakness, facial numbness CLINICAL HISTORY: Comparison CT July 01, 2018, CT head July 2009 TECHNIQUE: Axial 5 millimeter thick images of the head were obtained without IV contrast. All CT scans are performed using dose optimization technique as appropriate and may include automated exposure control or mA/KV adjustment according to patient size. FINDINGS: No intracranial hemorrhage, mass, or cerebral edema. No acute infarction identifiable. No cortical edema or sulcal effacement. Billingsley matter-white matter differentiation is preserved. Moderate atrophy changes are present with ventricular size in proportion. This is similar to comparis on. Mild to moderate chronic ischemic changes are present also seen as stable from the short interval 2018 study. Visualized portions of the mastoid air cells, paranasal sinuses, and orbits are unremarkable. Findings telephoned to Rachelle in the emergency department at 1457 hours. The comparison study was not available at time of the verbal report. IMPRESSION: No intracranial hemorrhage and no acute cortical based infarction identified. Moderate atrophy and chronic ischemic changes are present. These match the July 01, 2018 study. Corporate Auditor bryant ischemic change can mask nonhemorrhagic acute CVA.
[2018-08-20 15:18] LABS: Absolute Monocytes 0.7 K/uL (0.1-1.3); Absolute Neutrophil 3.9 K/uL (1.8-8.0); Basophils % 0.7 % (0-1.3); Lymphocytes % 38.1 % (15.3-44.8); MPV 9.3 fL (7.6-11.3); Monocytes % 9.2 % (3.3-12.3); RBC Red Blood Cell Count 4.97 M/uL (3.86-4.86)
[2018-08-20 15:21] LABS: Protime INR 1.61
[2018-08-20 15:26] LABS: Potassium 4.4 mmol/L (3.5-5.1)
[2018-08-20 15:43] LABS: Magnesium 2.2 mg/dL (1.8-2.4); Troponin (Emerg Dept Use Only) < 0.02 ng/mL (0.0-0.045)
--- NOTE | 2018-08-20 15:50 | RAD REPORT ---
EXAM DESCRIPTION: RAD - Chest Single View - 08/20/2018 3:24 pm CLINICAL HISTORY: Code stroke chest film COMPARISON: July 01, 2018 TECHNIQUE: AP portable chest image was obtained 1522 hours . FINDINGS: Lung volumes are low. No peripheral mass or consolidation. Lung markings are similar to co mparison. Heart and vasculature are normal. No measurable pleural effusion and no pneumothorax. No ac renetta bony abnormality seen. No acute aortic findings suspected. IMPRESSION: No acute cardiopulmonary process. No significant change comparison.
--- NOTE | 2018-08-20 16:12 | EKG ---
Test Date: 2018-08-20 Test Time: 14:59:43 Teletype Technician: AMANDA MEASUREMENT RESULTS: Intervals: Rate: 98 CT: QRSD: 84 QT: 326 QTc: 416 [place]: P: CT: QRS: -26 T: 20 INTERPRETIVE STATEMENTS: Atrial fibrillation Abnormal ECG Compared to ECG 07/01/2018 21:14:53 Myocardial infarct finding no longer present Electronically Signed On 08-20-18 16:11:32 CDT by Tomy Menezes
--- NOTE | 2018-08-20 16:28 | RAD REPORT ---
EXAM DESCRIPTION: MRI - Brain Wo Cont - 08/20/2018 4:05 pm CLINICAL HISTORY: Right-sided leg weakness and tingling, stroke-like symptoms COMPARISON: CT head same date, MR brain October 2012 TECHNIQUE: Sagittal T1-weighted images were obtained along with axial PD, heavily T2-weighted and T2 -FLAIR images. Axial DWI and ADC mapping sequences were also obtained along with coronal heavily T2-w eighted images. FINDINGS: No intracranial hemorrhage is present. Diffusion-weighted imaging shows a 10 x 3 mm area o f abnormal diffusion signal in the lateral left thalamus near the posterior limb internal capsule. In this location this could explain right extremity symptoms. There is a corresponding diminished signa l on ADC mapping. No other area of an acute infarction. No mass lesions seen. No cerebral edema. Patient has moderate atrophy and moderate chronic ischemic c hange in the cerebral white matter. Ventricles are in proportion to volume loss. No cerebral edema or shift of midline structures. No extra-axial fluid collections. Billingsley-matter/white matter junction is preserved. Signal voids are seen as a normal finding in the major intracranial vessels. No globe or orbital content abnormality. No sella or supra sella abnormality. Mastoid air cells and paranasal sinuses are clear. IMPRESSION: Acute nonhemorrhagic CVA 10 x 3 mm in size lateral margin of the left thalamus at the po sterior limb internal capsule. Right extremity symptoms would be explained by a CVA in this location. Underlying moderate atrophy and chronic ischemic change. Ventricles are in proportion. No other acute finding.
--- NOTE | 2018-08-20 17:04 | ER ---
Nurse's Notes [facility] Name: Sigifredo Kiran Age: 83 yrs Sex: Female : 1935 Arrival Date: 08/20/2018 Time: 14:42 Bed 4 Private MD: Victoriano Nava Diagnosis: Acute non-hemorrhagic left thalamic CVA Presentation: 08/20 14:45 Presenting complaint: Child states: about 2 hours ago she noticed right arm tingling tw2 and my face tingling and my right leg. Transition of care: patient was not received from another setting of care. Onset of symptoms was August 20, 2018. Risk Assessment: Do you want to hurt yourself or someone else? Patient reports no desire to harm self or others. Initial Sepsis Screen: Does the patient meet any 2 criteria? No. Patient's initial sepsis screen is negative. Does the patient have a suspected source of infection? No. Patient's initial sepsis screen is negative. Care prior to arrival: None. 14:45 Method Of Arrival: Wheelchair tw2 14:45 Acuity: CLARI 2 tw2 14:48 An acute neurological deficit is present. The patient has been moved to a treatment aa5 area. Pre-hospital glucose is not applicable to this patient. Triage Assessment: 14:48 General: Appears in no apparent distress. obese, Behavior is calm, cooperative, tw2 appropriate for age. Pain: Denies pain. Neuro: Level of Consciousness is awake, alert, obeys commands, Exterminator Helper are weak on right Weakness in right hand(s) Gait is unsteady, Speech is normal, Facial droop on right, pt reports tingling on right face, right arm, and right leg. 15:00 The onset of the patients symptoms was August 20, 2018 at 12:48. aa5 Stroke Activation: Symptom onset < 3 hours Physician: Stroke Attending; Name: ; Notified At: ; Arrived At: Physician: Chief Stroke Resident; Name: ; Notified At: ; Arrived At: Physician: Stroke Resident; Name: ; Notified At: ; Arrived At: Physician: ED Attending; Name: ; Notified At: ; Arrived At: Physician: ED Resident; Name: ; Notified At: ; Arrived At: Historical: - Allergies: 14:47 Levaquin; tw2 14:47 PENICILLINS; tw2 - Home Meds: 15:10 Xarelto oral oral [Active]; metoprolol [Active]; unknown thyroid medication [Active]; aa5 - PMHx: 14:47 Atrial Fib; Hypertension; Hypothyroidism; tw2 - PSHx: 14:47 Appendectomy; Knee surgery; Cholecystectomy; shoulder sx; D \T\ C; tw2 - Immunization history:: Adult Immunizations. - Social history:: Smoking status: . - Ebola Screening: : Patient denies travel to an Ebola-affected area in the 21 days before illness onset. Screenin:20 Abuse screen: Denies threats or abuse. Nutritional screening: No deficits noted. aa5 Tuberculosis screening: No symptoms or risk factors identified. Fall Risk Secondary diagnosis (15 points) possible CVA at this time. . IV access (20 points). Total Chapin Fall Scale indicates Low Risk Score (25-44 pts). Fall prevention measures have been instituted. Side Rails Up X 2 Placed close to Nursing Station. Assessment: 14:59 Reassessment: Pt back from CT via wheelchair, pt was accompanied by Desi Tena RN to CT aa5 . 15:00 VAN Scoring: Arm Drift: Minor drift Visual Disturbance: No visual disturbance noted. aa5 Aphasia: No aphasia noted. Neglect: No neglect noted. 15:00 General: Appears comfortable, Behavior is calm, cooperative. Pain: Denies pain. Neuro: aa5 Level of Consciousness is awake, alert, obeys commands, Oriented to person, place, time, situation, Exterminator Helper are weak on right Weakness in right arm(s) leg(s) Speech is normal, Facial symmetry appears normal, Pupils are PERRLA, Reports numbness in right side of face, right arm, and right leg. Cardiovascular: Heart tones S1 S2 present Rhythm is atrial fibrillation. Respiratory: Airway is patent Respiratory effort is even, unlabored, Respiratory pattern is regular, symmetrical, Breath sounds are clear bilaterally. GI: Abdomen is round Bowel sounds present X 4 quads. Abd is soft and non tender X 4 quads. : No signs and/or symptoms were reported regarding the genitourinary system. EENT: No signs and/or symptoms were reported regarding the EENT system. Derm: Skin is pink, warm \T\ dry. Musculoskeletal: Range of motion: intact in all extremities. 15:08 Reassessment: Dr. Aguilera at bedside . aa5 15:10 T-PA (Activase) Screening: Indications: No evidence of intracranial hemorrhage or CT of aa5 head and no evidence of peripheral hemorrhage or recent CVA: Yes. 15:15 Reassessment: Patient is alert, oriented x 3, equal unlabored respirations, skin aa5 warm/dry/pink. 15:40 Patient has been NPO before screening. The patient is alert, and able to follow aa5 commands. The patient does not exhibit slurred or garbled speech. The patient is not exhibiting difficulty speaking. The patient does not exhibit difficulty understanding words. The patient is able to swallow own secretions with no drooling or need for suction. Patient tolerated one teaspoon of water. No drooling, immediate coughing, gurgling, or clearing of the throat was noted. The patient tolerated 90mL of water. No drooling, immediate coughing, gurgling, or clearing of the throat was noted. The patient passed the bedside swallow screening. Oral medications may be given as ordered. Contact Physician for further diet orders. Provider notified of bedside swallow screening results: Ramez Aguilera MD. Reassessment: Patient is alert, oriented x 3, equal unlabored respirations, skin warm/dry/pink. Patient denies pain at this time. Awaiting MRI, pt notified of wait time. . 15:42 Reassessment: MD contacting Dr. Moser (neurologist), PT and PTT elevated at this aa5 time and anticoagulant use of Xarelto. . 16:20 Reassessment: Patient is alert, oriented x 3, equal unlabored respirations, skin aa5 warm/dry/pink. Pt back from MRI. Pt assisted with bedpan, pt voided x 1. . 17:20 Reassessment: Patient is alert, oriented x 3, equal unlabored respirations, skin aa5 warm/dry/pink. Patient denies pain at this time. 18:20 Reassessment: Report given to COOKIE Baca at [facility] . aa5 18:28 Reassessment: Patient is alert, oriented x 3, equal unlabored respirations, skin aa5 warm/dry/pink. Patient denies pain at this time. Awaiting EMS for transfer, pt notified of wait time. . Vital Signs: 14:48 BP 147 / 124; Pulse 97; Resp 18; Temp 97.3(TE); Pulse Ox 98% on R/A; Weight 104.33 kg iw (R); Height 5 ft. 7 in. (170.18 cm) (R); Pain 0/10; 15:09 BP 129 / 74; Pulse 93; Resp 16 S; Pulse Ox 98% on R/A; Pain 0/10; aa5 16:20 BP 137 / 98; Pulse 74; Resp 18 S; Pulse Ox 99% on R/A; aa5 17:15 BP 147 / 99; Pulse 88; Resp 16 S; Temp 98.1(O); Pulse Ox 99% on R/A; Pain 0/10; aa5 18:45 BP 149 / 85; Pulse 83; Resp 16 S; Pulse Ox 98% on R/A; Pain 0/10; aa5 14:48 Body Mass Index 36.02 (104.33 kg, 170.18 cm) iw NIH Stroke Scale Scores: 15:00 NIHSS Score: 4 aa5 15:15 NIHSS Score: 3 aa5 15:20 NIHSS Score: 2 kdr 15:40 NIHSS Score: 3 aa5 16:20 NIHSS Score: 3 aa5 17:20 NIHSS Score: 3 aa5 18:28 NIHSS Score: 3 aa5 ED Course: 14:42 Patient arrived in ED. mr 14:44 Victoriano Nava MD is Private Physician. mr 14:46 Triage completed. tw2 14:48 Arm band placed on. tw2 14:52 Stephanie Fraser, RN is Primary Nurse. aa5 14:59 EKG done, by client technologies analyst. reviewed by Victoriano Nava MD. at1 15:00 Patient has correct armband on for positive identification. Placed in gown. Bed in low aa5 position. Call light in reach. Side rails up X2. 15:00 Initial lab(s) drawn, by me, sent to lab. Inserted saline lock: 20 gauge in left aa5 antecubital area, using aseptic technique. Blood collected. 15:02 CT Stroke Brain w/o Contrast In Process Unspecified. EDMS 15:13 Ramez Aguilera MD is Attending Physician. kdr 15:23 Stroke CXR 1 View In Process Unspecified. EDMS 16:05 Patient moved to MRI via stretcher. em2 16:06 MRI - Brain Wo Cont In Process Unspecified. EDMS 16:31 MRI completed. Patient tolerated well. Patient moved back from MRI. em2 17:06 initiated a transfer with Gissel Saleem RN and the [facility]. eb 17:[address] Diaz the neurologist talent acquisition relationship manager for [facility] with Dr. Aguilera for eb patient transfer consultation. 17:[address] Dukes the medical hospitalist talent acquisition relationship manager for. [facility] with Dr. Willy martínez for patient transfer consultation. 18:04 administrative approval given by Gissel Saleem RN/ patient has been accepted at the [facility] 22 tower Bed 2219/ report to be called [phone]/ jeanine Royal has accepted the patient in transfer/. 19:00 Report given to COOKIE Thomson and COOKIE Kelly. aa5 19:49 No provider procedures requiring assistance completed. Patient transferred, IV remains tl2 in place. Administered Medications: No medications were administered Point of Care Testing: Blood Glucose: 15:02 Blood Glucose: 109 mg/dL; aa5 Ranges: Outcome: 17:03 ER care complete, transfer ordered by MD. kdr 19:49 Transferred by ground EMS Transfer form completed. tl2 19:49 Condition: stable 19:49 Discharge instructions given to patient, family, Instructed on the need for transfer. 19:51 Patient left the ED. tl2 NIH Stroke Scale - NIH Stroke Score Date: 08/20/2018 Time: 15:00 Total Score = 4 1a. Level of Consciousness (LOC) - 0(Alert) 1b. Level of Consciousness (LOC) (Year \T\ Age) - 0(Both) 1c. LOC Commands (Open \T\ Closes Eyes/Senior Vice President And Chief Information Officer) - 0(Both) 2. Best Gaze (Lateral Gaze Paresis) - 0(Normal) 3. Visual Field Loss - 0(No visual loss) 4. Facial Palsy - 0(Normal) 5a. Left Arm: Motor (10-second hold) - 0(No drift) 5b. Right Arm: Motor (10-second hold) - 1(Drift) 6a. Left Leg: Motor (5-second hold - always test supine) - 0(No drift) 6b. Right Leg: Motor (5-second hold - always test supine) - 2(Drift, some effort against gravity) 7. Limb Ataxia (finger/nose \T\ heel/shipley - test with eyes open) - 0(Absent) 8. Sensory Loss (pinprick arms/legs/face) - 1(Mild to moderate loss) 9. Best Language: Aphasia (description/naming/reading) - 0(No aphasia) 10. Dysarthria (speech clarity - read or repeat words) - 0(Normal) 11. Extinction and Inattention (visual/tactile/auditory/spatial/personal) - 0(No abnormality) Initials: aa5 NIH Stroke Scale - NIH Stroke Score Date: 08/20/2018 Time: 15:15 Total Score = 3 1a. Level of Consciousness (LOC) - 0(Alert) 1b. Level of Consciousness (LOC) (Year \T\ Age) - 0(Both) 1c. LOC Commands (Open \T\ Closes Eyes/Senior Vice President And Chief Information Officer) - 0(Both) 2. Best Gaze (Lateral Gaze Paresis) - 0(Normal) 3. Visual Field Loss - 0(No visual loss) 4. Facial Palsy - 0(Normal) 5a. Left Arm: Motor (10-second hold) - 0(No drift) 5b. Right Arm: Motor (10-second hold) - 1(Drift) 6a. Left Leg: Motor (5-second hold - always test supine) - 0(No drift) 6b. Right Leg: Motor (5-second hold - always test supine) - 1(Drift) 7. Limb Ataxia (finger/nose \T\ heel/shipley - test with eyes open) - 0(Absent) 8. Sensory Loss (pinprick arms/legs/face) - 1(Mild to moderate loss) 9. Best Language: Aphasia (description/naming/reading) - 0(No aphasia) 10. Dysarthria (speech clarity - read or repeat words) - 0(Normal) 11. Extinction and Inattention (visual/tactile/auditory/spatial/personal) - 0(No abnormality) Initials: aa5 NIH Stroke Scale - NIH Stroke Score Date: 08/20/2018 Time: 15:20 Total Score = 2 1a. Level of Consciousness (LOC) - 0(Alert) 1b. Level of Consciousness (LOC) (Year \T\ Age) - 0(Both) 1c. LOC Commands (Open \T\ Closes Eyes/Senior Vice President And Chief Information Officer) - 0(Both) 2. Best Gaze (Lateral Gaze Paresis) - 0(Normal) 3. Visual Field Loss - 0(No visual loss) 4. Facial Palsy - 0(Normal) 5a. Left Arm: Motor (10-second hold) - 0(No drift) 5b. Right Arm: Motor (10-second hold) - 1(Drift) 6a. Left Leg: Motor (5-second hold - always test supine) - 0(No drift) 6b. Right Leg: Motor (5-second hold - always test supine) - 0(No drift) 7. Limb Ataxia (finger/nose \T\ heel/shipley - test with eyes open) - 0(Absent) 8. Sensory Loss (pinprick arms/legs/face) - 1(Mild to moderate loss) 9. Best Language: Aphasia (description/naming/reading) - 0(No aphasia) 10. Dysarthria (speech clarity - read or repeat words) - 0(Normal) 11. Extinction and Inattention (visual/tactile/auditory/spatial/personal) - 0(No abnormality) Initials: [facility] NIH Stroke Scale - NIH Stroke Score Date: 08/20/2018 Time: 15:40 Total Score = 3 1a. Level of Consciousness (LOC) - 0(Alert) 1b. Level of Consciousness (LOC) (Year \T\ Age) - 0(Both) 1c. LOC Commands (Open \T\ Closes Eyes/Senior Vice President And Chief Information Officer) - 0(Both) 2. Best Gaze (Lateral Gaze Paresis) - 0(Normal) 3. Visual Field Loss - 0(No visual loss) 4. Facial Palsy - 0(Normal) 5a. Left Arm: Motor (10-second hold) - 0(No drift) 5b. Right Arm: Motor (10-second hold) - 1(Drift) 6a. Left Leg: Motor (5-second hold - always test supine) - 0(No drift) 6b. Right Leg: Motor (5-second hold - always test supine) - 1(Drift) 7. Limb Ataxia (finger/nose \T\ heel/shipley - test with eyes open) - 0(Absent) 8. Sensory Loss (pinprick arms/legs/face) - 1(Mild to moderate loss) 9. Best Language: Aphasia (description/naming/reading) - 0(No aphasia) 10. Dysarthria (speech clarity - read or repeat words) - 0(Normal) 11. Extinction and Inattention (visual/tactile/auditory/spatial/personal) - 0(No abnormality) Initials: aa5 NIH Stroke Scale - NIH Stroke Score Date: 08/20/2018 Time: 16:20 Total Score = 3 1a. Level of Consciousness (LOC) - 0(Alert) 1b. Level of Consciousness (LOC) (Year \T\ Age) - 0(Both) 1c. LOC Commands (Open \T\ Closes Eyes/Senior Vice President And Chief Information Officer) - 0(Both) 2. Best Gaze (Lateral Gaze Paresis) - 0(Normal) 3. Visual Field Loss - 0(No visual loss) 4. Facial Palsy - 0(Normal) 5a. Left Arm: Motor (10-second hold) - 0(No drift) 5b. Right Arm: Motor (10-second hold) - 1(Drift) 6a. Left Leg: Motor (5-second hold - always test supine) - 0(No drift) 6b. Right Leg: Motor (5-second hold - always test supine) - 1(Drift) 7. Limb Ataxia (finger/nose \T\ heel/shipley - test with eyes open) - 0(Absent) 8. Sensory Loss (pinprick arms/legs/face) - 1(Mild to moderate loss) 9. Best Language: Aphasia (description/naming/reading) - 0(No aphasia) 10. Dysarthria (speech clarity - read or repeat words) - 0(Normal) 11. Extinction and Inattention (visual/tactile/auditory/spatial/personal) - 0(No abnormality) Initials: aa5 NIH Stroke Scale - NIH Stroke Score Date: 08/20/2018 Time: 17:20 Total Score = 3 1a. Level of Consciousness (LOC) - 0(Alert) 1b. Level of Consciousness (LOC) (Year \T\ Age) - 0(Both) 1c. LOC Commands (Open \T\ Closes Eyes/Senior Vice President And Chief Information Officer) - 0(Both) 2. Best Gaze (Lateral Gaze Paresis) - 0(Normal) 3. Visual Field Loss - 0(No visual loss) 4. Facial Palsy - 0(Normal) 5a. Left Arm: Motor (10-second hold) - 0(No drift) 5b. Right Arm: Motor (10-second hold) - 1(Drift) 6a. Left Leg: Motor (5-second hold - always test supine) - 0(No drift) 6b. Right Leg: Motor (5-second hold - always test supine) - 1(Drift) 7. Limb Ataxia (finger/nose \T\ heel/shipley - test with eyes open) - 0(Absent) 8. Sensory Loss (pinprick arms/legs/face) - 1(Mild to moderate loss) 9. Best Language: Aphasia (description/naming/reading) - 0(No aphasia) 10. Dysarthria (speech clarity - read or repeat words) - 0(Normal) 11. Extinction and Inattention (visual/tactile/auditory/spatial/personal) - 0(No abnormality) Initials: aa5 NIH Stroke Scale - NIH Stroke Score Date: 08/20/2018 Time: 18:28 Total Score = 3 1a. Level of Consciousness (LOC) - 0(Alert) 1b. Level of Consciousness (LOC) (Year \T\ Age) - 0(Both) 1c. LOC Commands (Open \T\ Closes Eyes/Senior Vice President And Chief Information Officer) - 0(Both) 2. Best Gaze (Lateral Gaze Paresis) - 0(Normal) 3. Visual Field Loss - 0(No visual loss) 4. Facial Palsy - 0(Normal) 5a. Left Arm: Motor (10-second hold) - 0(No drift) 5b. Right Arm: Motor (10-second hold) - 1(Drift) 6a. Left Leg: Motor (5-second hold - always test supine) - 0(No drift) 6b. Right Leg: Motor (5-second hold - always test supine) - 1(Drift) 7. Limb Ataxia (finger/nose \T\ heel/shipley - test with eyes open) - 0(Absent) 8. Sensory Loss (pinprick arms/legs/face) - 1(Mild to moderate loss) 9. Best Language: Aphasia (description/naming/reading) - 0(No aphasia) 10. Dysarthria (speech clarity - read or repeat words) - 0(Normal) 11. Extinction and Inattention (visual/tactile/auditory/spatial/personal) - 0(No abnormality) Initials: aa5 Signatures: Dispatcher [employer] Ramez Ocampo MD MD [facility] Wilver, Denisha mr Keyonna Pena RN RN iw Stephanie Fraser RN RN aa5 Kiran Lange em2 Kateryna Paul, airport attendant EKG Tat1 Desi Tena RN RN tw2 Alix Clark, RN RN tl2 Monik Mckeon Corrections: (The following items were deleted from the chart) 15:01 15:00 BP 147 / 124; Pulse 97bpm; Resp 18bpm; Pulse Ox 98% RA; Temp 97.3F iw Temporal; 104.33 kg Reported; Height 5 ft. 7 in. Reported; BMI: 36.0; Pain 0/10; iw 15:48 15:40 Reassessment: Patient is alert, oriented x 3, equal unlabored aa5 respirations, skin warm/dry/pink. Patient denies pain at this time. aa5 19:14 18:28 Reassessment: Patient is alert, oriented x 3, equal unlabored aa5 respirations, skin warm/dry/pink. Patient denies pain at this time. aa5
--- NOTE | 2018-08-20 17:04 | EDPHYS ---
Physician Documentation [facility] Name: Sigifredo Kiran Age: 83 yrs Sex: Female : 1935 Arrival Date: 08/20/2018 Time: 14:42 Bed 4 Private MD: Victoriano Nava ED Physician Ramez Aguilera HPI: 08/20 18:41 This 83 yrs old Female presents to ER via Wheelchair with complaints of kdr Numbness Of Face, right side weakness. 18:41 The patient's problem is reported as a facial droop, on right, paresthesias, in right kdr upper extremity, in right lower extremity, in right side of face, weakness, in the right upper extremity, in the right lower extremity, in the right side of face. 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 Duration: This was a single incident, The episode is continuous. Context: the episode(s) was witnessed, by family, occurred at home, occurred while the patient was at rest. The symptoms are alleviated by nothing. The symptoms are aggravated by nothing. Associated signs and symptoms: The patient has no apparent associated signs or symptoms. Severity of symptoms: At their worst the symptoms were mild in the emergency department the symptoms have improved moderately. Patient's baseline: Neuro: alert and fully oriented, Motor: no deficits, Ambulation: walks without assistance, Speech: normal. The patient has not experienced similar symptoms in the past. The patient has not recently seen a physician. Historical: - Allergies: 14:47 Levaquin; tw2 14:47 PENICILLINS; tw2 - Home Meds: 15:10 Xarelto oral oral [Active]; metoprolol [Active]; unknown thyroid medication [Active]; aa5 - PMHx: 14:47 Atrial Fib; Hypertension; Hypothyroidism; tw2 - PSHx: 14:47 Appendectomy; Knee surgery; Cholecystectomy; shoulder sx; D \T\ C; tw2 - Immunization history:: Adult Immunizations. - Social history:: Smoking status: . - Ebola Screening: : Patient denies travel to an Ebola-affected area in the 21 days before illness onset. ROS: 18:41 Constitutional: Negative for fever, chills, and weight loss, Eyes: Negative for injury, kdr pain, redness, and discharge, ENT: Negative for injury, pain, and discharge, Neck: Negative for injury, pain, and swelling, Cardiovascular: Negative for chest pain, palpitations, and edema, Respiratory: Negative for shortness of breath, cough, wheezing, and pleuritic chest pain, Abdomen/GI: Negative for abdominal pain, nausea, vomiting, diarrhea, and constipation, Back: Negative for injury and pain, : Negative for injury, bleeding, discharge, and swelling, MS/Extremity: Negative for injury and deformity, Skin: Negative for injury, rash, and discoloration, Psych: Negative for depression, anxiety, suicide ideation, homicidal ideation, and hallucinations, Allergy/Immunology: Negative for hives, rash, and allergies, Endocrine: Negative for neck swelling, polydipsia, polyuria, polyphagia, and marked weight changes, Hematologic/Lymphatic: Negative for swollen nodes, abnormal bleeding, and unusual bruising. 18:41 Neuro: Positive for tingling, weakness, of the right side of head, right arm and right leg. Exam: 18:41 Constitutional: This is a well developed, well nourished patient who is awake, alert, kdr and in no acute distress. Head/Face: Normocephalic, atraumatic. Eyes: Pupils equal round and reactive to light, extra-ocular motions intact. Lids and lashes normal. Conjunctiva and sclera are non-icteric and not injected. Cornea within normal limits. Periorbital areas with no swelling, redness, or edema. ENT: Nares patent. No nasal discharge, no septal abnormalities noted. Tympanic membranes are normal and external auditory canals are clear. Oropharynx with no redness, swelling, or masses, exudates, or evidence of obstruction, uvula midline. Mucous membranes moist. Neck: Trachea midline, no thyromegaly or masses palpated, and no cervical lymphadenopathy. Supple, full range of motion without nuchal rigidity, or vertebral point tenderness. No Meningismus. Chest/axilla: Normal chest wall appearance and motion. Nontender with no deformity. No lesions are appreciated. Cardiovascular: Regular rate and rhythm with a normal S1 and S2. No gallops, murmurs, or rubs. Normal PMI, no JVD. No pulse deficits. Respiratory: Lungs have equal breath sounds bilaterally, clear to auscultation and percussion. No rales, rhonchi or wheezes noted. No increased work of breathing, no retractions or nasal flaring. Abdomen/GI: Soft, non-tender, with normal bowel sounds. No distension or tympany. No guarding or rebound. No evidence of tenderness throughout. Back: No spinal tenderness. No costovertebral tenderness. Full range of motion. Skin: Warm, dry with normal turgor. Normal color with no rashes, no lesions, and no evidence of cellulitis. MS/ Extremity: Pulses equal, no cyanosis. Neurovascular intact. Full, normal range of motion. Psych: Awake, alert, with orientation to person, place and time. Behavior, mood, and affect are within normal limits. 18:41 Neuro: Orientation: is normal, Mentation: is normal, Cranial nerves: is grossly normal based on the patient's age, no acute changes, Cerebellar function: is grossly normal based on the patient's age, normal finger to nose testing, heel to shipley testing is normal, Sensation: slightly diminished on the RLE. 18:46 Radiologist reports: Age related changes kdr Vital Signs: 14:48 BP 147 / 124; Pulse 97; Resp 18; Temp 97.3(TE); Pulse Ox 98% on R/A; Weight 104.33 kg iw (R); Height 5 ft. 7 in. (170.18 cm) (R); Pain 0/10; 15:09 BP 129 / 74; Pulse 93; Resp 16 S; Pulse Ox 98% on R/A; Pain 0/10; aa5 16:20 BP 137 / 98; Pulse 74; Resp 18 S; Pulse Ox 99% on R/A; aa5 17:15 BP 147 / 99; Pulse 88; Resp 16 S; Temp 98.1(O); Pulse Ox 99% on R/A; Pain 0/10; aa5 18:45 BP 149 / 85; Pulse 83; Resp 16 S; Pulse Ox 98% on R/A; Pain 0/10; aa5 14:48 Body Mass Index 36.02 (104.33 kg, 170.18 cm) NIH Stroke Scale Scores: 15:00 NIHSS Score: 4 aa5 15:15 NIHSS Score: 3 aa5 15:20 NIHSS Score: 2 kdr 15:40 NIHSS Score: 3 aa5 16:20 NIHSS Score: 3 aa5 17:20 NIHSS Score: 3 aa5 18:28 NIHSS Score: 3 aa5 MDM: 15:20 ED course: tPA not given due to Xerelto. kdr 15:46 ED course: D/w Dr. Moser, agrees that given minimal defecits, on Xarelto, elevated kdr INR, risk currently outweighs the benefit.. 17:03 Patient medically screened. kdr 18:41 Data reviewed: vital signs, nurses notes, lab test result(s), radiologic studies. kdr Counseling: I had a detailed discussion with the patient and/or guardian regarding: the historical points, exam findings, and any diagnostic results supporting the discharge/admit diagnosis, lab results, radiology results, the need to transfer to another facility. 08/20 15:10 Order name: Basic Metabolic Panel 08/20 15:10 Order name: CBC with Diff; Complete Time: 17:00 08/20 15:10 Order name: Protime (+inr); Complete Time: 17: 08/20 15:10 Order name: Ptt, Activated; Complete Time: 17: 08/20 15:11 Order name: Basic Metabolic Panel; Complete Time: 17:00 EDSD 08/20 15:00 Order name: CT Stroke Brain w/o Contrast; Complete Time: 17: 08/20 15:10 Order name: Stroke CXR 1 View; Complete Time: 17:00 08/20 15:10 Order name: EKG; Complete Time: 15:12 08/20 15:10 Order name: Accucheck; Complete Time: 15:45 08/20 15:10 Order name: Cardiac monitoring; Complete Time: 15: 08/20 15:15 Order name: Troponin (emerg Dept Use Only); Complete Time: 17:00 [facility] 08/20 15:15 Order name: Magnesium; Complete Time: 17:00 [facility] 08/20 15:20 Order name: MRI - Brain Wo Cont; Complete Time: 17: [facility] 08/20 15:10 Order name: EKG - Nurse/Tech; Complete Time: 15:25 08/20 15:10 Order name: IV Saline Lock; Complete Time: 15:25 08/20 15:10 Order name: Labs collected and sent; Complete Time: 15: 08/20 15:10 Order name: NPO; Complete Time: : 08/20 15:10 Order name: O2 Per Protocol; Complete Time: 15:25 iw 08/20 15:10 Order name: O2 Sat Monitoring; Complete Time: 15: iw 08/20 15:10 Order name: Stroke Swallow Screen; Complete Time: 15:46 iw Administered Medications: No medications were administered Point of Care Testing: Blood Glucose: 15:02 Blood Glucose: 109 mg/dL; aa5 Ranges: Critical Glucose Levels:Adult <50 mg/dl or >400 mg/dl <40 mg/dl or >180 mg/dl Disposition: 08/20/18 17:03 Transfer ordered to [facility]. Diagnosis is Acute non-hemorrhagic left thalamic CVA. - Reason for transfer: Higher level of care. - Accepting physician is Brielleoni. - Condition is Fair. - Problem is new. - Symptoms have improved. NIH Stroke Scale - NIH Stroke Score Date: 08/20/2018 Time: 15:00 Total Score = 4 1a. Level of Consciousness (LOC) - 0(Alert) 1b. Level of Consciousness (LOC) (Year \T\ Age) - 0(Both) 1c. LOC Commands (Open \T\ Closes Eyes/Wellness Educator) - 0(Both) 2. Best Gaze (Lateral Gaze Paresis) - 0(Normal) 3. Visual Field Loss - 0(No visual loss) 4. Facial Palsy - 0(Normal) 5a. Left Arm: Motor (10-second hold) - 0(No drift) 5b. Right Arm: Motor (10-second hold) - 1(Drift) 6a. Left Leg: Motor (5-second hold - always test supine) - 0(No drift) 6b. Right Leg: Motor (5-second hold - always test supine) - 2(Drift, some effort against gravity) 7. Limb Ataxia (finger/nose \T\ heel/shipley - test with eyes open) - 0(Absent) 8. Sensory Loss (pinprick arms/legs/face) - 1(Mild to moderate loss) 9. Best Language: Aphasia (description/naming/reading) - 0(No aphasia) 10. Dysarthria (speech clarity - read or repeat words) - 0(Normal) 11. Extinction and Inattention (visual/tactile/auditory/spatial/personal) - 0(No abnormality) Initials: aa5 NIH Stroke Scale - NIH Stroke Score Date: 08/20/2018 Time: 15:15 Total Score = 3 1a. Level of Consciousness (LOC) - 0(Alert) 1b. Level of Consciousness (LOC) (Year \T\ Age) - 0(Both) 1c. LOC Commands (Open \T\ Closes Eyes/Wellness Educator) - 0(Both) 2. Best Gaze (Lateral Gaze Paresis) - 0(Normal) 3. Visual Field Loss - 0(No visual loss) 4. Facial Palsy - 0(Normal) 5a. Left Arm: Motor (10-second hold) - 0(No drift) 5b. Right Arm: Motor (10-second hold) - 1(Drift) 6a. Left Leg: Motor (5-second hold - always test supine) - 0(No drift) 6b. Right Leg: Motor (5-second hold - always test supine) - 1(Drift) 7. Limb Ataxia (finger/nose \T\ heel/shipley - test with eyes open) - 0(Absent) 8. Sensory Loss (pinprick arms/legs/face) - 1(Mild to moderate loss) 9. Best Language: Aphasia (description/naming/reading) - 0(No aphasia) 10. Dysarthria (speech clarity - read or repeat words) - 0(Normal) 11. Extinction and Inattention (visual/tactile/auditory/spatial/personal) - 0(No abnormality) Initials: aa5 NIH Stroke Scale - NIH Stroke Score Date: 08/20/2018 Time: 15:20 Total Score = 2 1a. Level of Consciousness (LOC) - 0(Alert) 1b. Level of Consciousness (LOC) (Year \T\ Age) - 0(Both) 1c. LOC Commands (Open \T\ Closes Eyes/Wellness Educator) - 0(Both) 2. Best Gaze (Lateral Gaze Paresis) - 0(Normal) 3. Visual Field Loss - 0(No visual loss) 4. Facial Palsy - 0(Normal) 5a. Left Arm: Motor (10-second hold) - 0(No drift) 5b. Right Arm: Motor (10-second hold) - 1(Drift) 6a. Left Leg: Motor (5-second hold - always test supine) - 0(No drift) 6b. Right Leg: Motor (5-second hold - always test supine) - 0(No drift) 7. Limb Ataxia (finger/nose \T\ heel/shipley - test with eyes open) - 0(Absent) 8. Sensory Loss (pinprick arms/legs/face) - 1(Mild to moderate loss) 9. Best Language: Aphasia (description/naming/reading) - 0(No aphasia) 10. Dysarthria (speech clarity - read or repeat words) - 0(Normal) 11. Extinction and Inattention (visual/tactile/auditory/spatial/personal) - 0(No abnormality) Initials: kdr NIH Stroke Scale - NIH Stroke Score Date: 08/20/2018 Time: 15:40 Total Score = 3 1a. Level of Consciousness (LOC) - 0(Alert) 1b. Level of Consciousness (LOC) (Year \T\ Age) - 0(Both) 1c. LOC Commands (Open \T\ Closes Eyes/Wellness Educator) - 0(Both) 2. Best Gaze (Lateral Gaze Paresis) - 0(Normal) 3. Visual Field Loss - 0(No visual loss) 4. Facial Palsy - 0(Normal) 5a. Left Arm: Motor (10-second hold) - 0(No drift) 5b. Right Arm: Motor (10-second hold) - 1(Drift) 6a. Left Leg: Motor (5-second hold - always test supine) - 0(No drift) 6b. Right Leg: Motor (5-second hold - always test supine) - 1(Drift) 7. Limb Ataxia (finger/nose \T\ heel/shipley - test with eyes open) - 0(Absent) 8. Sensory Loss (pinprick arms/legs/face) - 1(Mild to moderate loss) 9. Best Language: Aphasia (description/naming/reading) - 0(No aphasia) 10. Dysarthria (speech clarity - read or repeat words) - 0(Normal) 11. Extinction and Inattention (visual/tactile/auditory/spatial/personal) - 0(No abnormality) Initials: aa5 NIH Stroke Scale - NIH Stroke Score Date: 08/20/2018 Time: 16:20 Total Score = 3 1a. Level of Consciousness (LOC) - 0(Alert) 1b. Level of Consciousness (LOC) (Year \T\ Age) - 0(Both) 1c. LOC Commands (Open \T\ Closes Eyes/Wellness Educator) - 0(Both) 2. Best Gaze (Lateral Gaze Paresis) - 0(Normal) 3. Visual Field Loss - 0(No visual loss) 4. Facial Palsy - 0(Normal) 5a. Left Arm: Motor (10-second hold) - 0(No drift) 5b. Right Arm: Motor (10-second hold) - 1(Drift) 6a. Left Leg: Motor (5-second hold - always test supine) - 0(No drift) 6b. Right Leg: Motor (5-second hold - always test supine) - 1(Drift) 7. Limb Ataxia (finger/nose \T\ heel/shipley - test with eyes open) - 0(Absent) 8. Sensory Loss (pinprick arms/legs/face) - 1(Mild to moderate loss) 9. Best Language: Aphasia (description/naming/reading) - 0(No aphasia) 10. Dysarthria (speech clarity - read or repeat words) - 0(Normal) 11. Extinction and Inattention (visual/tactile/auditory/spatial/personal) - 0(No abnormality) Initials: aa5 NIH Stroke Scale - NIH Stroke Score Date: 08/20/2018 Time: 17:20 Total Score = 3 1a. Level of Consciousness (LOC) - 0(Alert) 1b. Level of Consciousness (LOC) (Year \T\ Age) - 0(Both) 1c. LOC Commands (Open \T\ Closes Eyes/Wellness Educator) - 0(Both) 2. Best Gaze (Lateral Gaze Paresis) - 0(Normal) 3. Visual Field Loss - 0(No visual loss) 4. Facial Palsy - 0(Normal) 5a. Left Arm: Motor (10-second hold) - 0(No drift) 5b. Right Arm: Motor (10-second hold) - 1(Drift) 6a. Left Leg: Motor (5-second hold - always test supine) - 0(No drift) 6b. Right Leg: Motor (5-second hold - always test supine) - 1(Drift) 7. Limb Ataxia (finger/nose \T\ heel/shipley - test with eyes open) - 0(Absent) 8. Sensory Loss (pinprick arms/legs/face) - 1(Mild to moderate loss) 9. Best Language: Aphasia (description/naming/reading) - 0(No aphasia) 10. Dysarthria (speech clarity - read or repeat words) - 0(Normal) 11. Extinction and Inattention (visual/tactile/auditory/spatial/personal) - 0(No abnormality) Initials: aa5 NIH Stroke Scale - NIH Stroke Score Date: 08/20/2018 Time: 18:28 Total Score = 3 1a. Level of Consciousness (LOC) - 0(Alert) 1b. Level of Consciousness (LOC) (Year \T\ Age) - 0(Both) 1c. LOC Commands (Open \T\ Closes Eyes/Wellness Educator) - 0(Both) 2. Best Gaze (Lateral Gaze Paresis) - 0(Normal) 3. Visual Field Loss - 0(No visual loss) 4. Facial Palsy - 0(Normal) 5a. Left Arm: Motor (10-second hold) - 0(No drift) 5b. Right Arm: Motor (10-second hold) - 1(Drift) 6a. Left Leg: Motor (5-second hold - always test supine) - 0(No drift) 6b. Right Leg: Motor (5-second hold - always test supine) - 1(Drift) 7. Limb Ataxia (finger/nose \T\ heel/shipley - test with eyes open) - 0(Absent) 8. Sensory Loss (pinprick arms/legs/face) - 1(Mild to moderate loss) 9. Best Language: Aphasia (description/naming/reading) - 0(No aphasia) 10. Dysarthria (speech clarity - read or repeat words) - 0(Normal) 11. Extinction and Inattention (visual/tactile/auditory/spatial/personal) - 0(No abnormality) Initials: aa5 Signatures: Dispatcher [employer] EDSD Ramez Aguilera MD MD kdr Keyonna Pena RN RN iw Stephanie Fraser RN RN aa5 Desi Tena RN RN tw2 Alix Clark, COOKIE RN tl2 Corrections: (The following items were deleted from the chart) 15:23 15:16 BASIC METABOLIC PANEL+[id number].LAB.BRZ ordered. [facility] 19:51 17:03 08/20/2018 17:03 Transfer ordered to [facility]. tl2 Diagnosis is Acute non-hemorrhagic left thalamic CVA. Reason for transfer: Higher level of care. Accepting physician is Brielleoni. Condition is Fair. Problem is new. Symptoms have improved. kdr
[2018-08-20 21:08] VITALS: TEMP 98.1
[2018-08-20 21:09] VITALS: BP 149/85; O2SAT 98
== END 2018-08-20 19:51 | disposition short-term general hospital (02) ==
LOC: ER 14:41
DX: I63.89 Other cerebral infarction (principal); I48.91 Unspecified atrial fibrillation; I10 Essential (primary) hypertension; E78.5 Hyperlipidemia, unspecified; Z79.01 Long term (current) use of anticoagulants; Z88.1 Allergy status to other antibiotic agents; Z88.0 Allergy status to penicillin
CPT/HCPCS: 36415; 70450; 70551; 71045; 80048; 82962; 83735; 84484; 85025; 85610; 85730; 93005; 99285

== ENCOUNTER 2019-01-16 14:08 | Emergency (ER) | payer OTHER ==
[2019-01-16 16:05] LABS: Absolute Lymphocytes (CBC) 2.6 K/uL (0.7-4.9); Basophils % 0.6 % (0-1.3); Hematocrit 42.2 % (36.0-45.0); Lymphocytes % 30.2 % (15.3-44.8); MPV 9.6 fL (7.6-11.3); RBC Red Blood Cell Count 4.54 M/uL (3.86-4.86)
[2019-01-16 16:23] LABS: Albumin 3.7 g/dL (3.4-5.0); Bilirubin Direct 0.3 mg/dL (0-0.2); Bilirubin Total 2.5 mg/dL (0.2-1.0); Potassium 4.2 mmol/L (3.5-5.1); Protein, Total 7.5 g/dL (6.4-8.2)
--- NOTE | 2019-01-16 17:11 | RAD REPORT ---
EXAM DESCRIPTION: CT - Abdomen Pelvis W Contrast - 01/16/2019 5:01 pm CLINICAL HISTORY: left flank pain COMPARISON: CT imaging May 2018 TECHNIQUE: Biphasic, helical CT imaging of the abdomen and pelvis was performed following 100 ml non -ionic IV contrast. Oral contrast was given. All CT scans are performed using dose optimization technique as appropriate and may include automated exposure control or mA/KV adjustment according to patient size. FINDINGS: No suspicious findings in the lung bases. The liver, spleen, and pancreas show no suspicious findings. Cholecystectomy clips are present. No bi liary tree dilatation. Symmetric renal function is seen with no hydronephrosis or suspicious renal mass. No pyelonephritis o r acute parenchymal process. No bladder abnormalities. No adrenal abnormalities. No stomach or small bowel acute finding. Right-side colon and transverse colon show no acute findings . Distal descending colon shows 5 centimeter long segment of circumferential wall thickening. There i s adjacent inflammatory stranding. No abscess or extraluminal free air. Prominent diverticulosis of t he sigmoid colon. No free air, free fluid or pneumatosis. No other site of inflammatory stranding. No hernia, mass or bulky lymphadenopathy. Large bulky uterus is present. No ovarian acute finding. No suspicious bony findings. IMPRESSION: Acute diverticulitis of the distal descending colon. No abscess, free air or other surgi krish emergent complication. May study showed diverticulitis in a similar location.
[2019-01-16 17:27] LABS: Urine Bacteria <20 /HPF (<20); Urine Culture Reflex Order NOT NEEDED; Urine RBC <5 /HPF (NONE SEEN)
[2019-01-16 17:28] LABS: Urine Blood TRACE (NEG); Urine Glucose NEGATIVE (NEG); Urine Protein NEGATIVE (NEG); Urine Specific Gravity 1.015 (1.005-1.030)
--- NOTE | 2019-01-16 17:36 | ER ---
Nurse's Notes [facility] Name: Sigifredo Kiran Age: 83 yrs Sex: Female : 1935 Arrival Date: 01/16/2019 Time: 14:10 Bed 13 Private MD: Victoriano Nava Diagnosis: Diverticulitis of large intestine without perforation or abscess without bleeding Presentation: 01/16 14:41 Presenting complaint: Patient states: "I think its diverticulitis, I've had it before aj1 and its just the same pain in my left side" Patient reports LLQ pain since this morning. Denies N/V/D. Denies fever. Transition of care: patient was not received from another setting of care. Onset of symptoms was January 16, 2019. Risk Assessment: Do you want to hurt yourself or someone else? Patient reports no desire to harm self or others. Initial Sepsis Screen: Does the patient meet any 2 criteria? HR > 90 bpm. No. Patient's initial sepsis screen is negative. Does the patient have a suspected source of infection? No. Patient's initial sepsis screen is negative. Care prior to arrival: None. 14:41 Method Of Arrival: Ambulatory aj 14:41 Acuity: CLARI 3 aj1 Triage Assessment: 14:45 General: Appears in no apparent distress. uncomfortable, Behavior is calm, cooperative, aj1 appropriate for age. Pain: Complains of pain in left lower quadrant Pain currently is 5 out of 10 on a pain scale. Neuro: Level of Consciousness is awake, alert, obeys commands. Cardiovascular: Patient's skin is warm and dry. Respiratory: Airway is patent Respiratory effort is even, unlabored, Respiratory pattern is regular, symmetrical. GI: Reports lower abdominal pain. Historical: - Allergies: 14:45 Levaquin; aj1 14:45 PENICILLINS; aj1 - Home Meds: 14:45 Vitamin B-12 Oral [Active]; atorvastatin 20 mg oral tab 1 tab once daily [Active]; aj1 metoprolol [Active]; levothyroxine oral [Active]; Xarelto Oral [Active]; - PMHx: 14:45 Atrial Fib; Hypertension; Hypothyroidism; CVA; Diverticulitis; aj1 - PSHx: 15:10 Appendectomy; Knee surgery; Cholecystectomy; shoulder sx; D \\T\\ C; rb1 - Immunization history:: Flu vaccine is not up to date. - Social history:: Smoking status: Patient/guardian denies using tobacco. - Ebola Screening: : Patient denies travel to an Ebola-affected area in the 21 days before illness onset. Screenin:10 Abuse screen: Denies threats or abuse. Nutritional screening: No deficits noted. rb1 Tuberculosis screening: No symptoms or risk factors identified. Fall Risk None identified. Assessment: 15:10 General: Appears in no apparent distress. comfortable, Behavior is calm, cooperative, rb1 Denies fever. Pain: Complains of pain in left lower quadrant Pain began this morning. Neuro: Level of Consciousness is awake, alert, obeys commands, Oriented to person, place, time, situation. Cardiovascular: Capillary refill < 3 seconds is brisk in bilateral fingers. Respiratory: Airway is patent Respiratory effort is even, unlabored, Respiratory pattern is regular, symmetrical. GI: Bowel sounds present X 4 quads. : No signs and/or symptoms were reported regarding the genitourinary system. Derm: Skin is pink, warm \\T\\ dry. Musculoskeletal: Range of motion: intact in all extremities. 16:10 Reassessment: Patient appears in no apparent distress at this time. No changes from rb1 previously documented assessment. Family at bedside. 17:10 Reassessment: Patient appears in no apparent distress at this time. Patient and/or rb1 family updated on plan of care and expected duration. Pain level reassessed. Patient is alert, oriented x 3, equal unlabored respirations, skin warm/dry/pink. Pain 6/10. 17:56 Reassessment: Discharge pending completion of IV ABX. hb 18:10 Reassessment: Patient appears in no apparent distress at this time. No changes from rb1 previously documented assessment. IV infusing. 18:50 Reassessment: Patient appears in no apparent distress at this time. Patient and/or rb1 family updated on plan of care and expected duration. Pain level reassessed. Patient is alert, oriented x 3, equal unlabored respirations, skin warm/dry/pink. Patient states feeling better. Vital Signs: 14:45 BP 119 / 90; Pulse 96; Resp 20; Temp 97.0; Pulse Ox 96% on R/A; Weight 106.59 kg (R); aj1 Height 5 ft. 7 in. (170.18 cm) (R); Pain 5/10; 17:10 BP 136 / 91; Pulse 76; Resp 19; Pulse Ox 97% on R/A; Pain 6/10; rb1 18:10 BP 128 / 74; Pulse 88; Resp 17; Temp 97.8(TE); Pulse Ox 99% on R/A; rb1 14:45 Body Mass Index 36.81 (106.59 kg, 170.18 cm) aj1 ED Course: 14:10 Patient arrived in ED. as 14:11 Victoriano Nava MD is Private Physician. as 14:43 Triage completed. aj1 14:45 Arm band placed on Patient placed in waiting room, Patient notified of wait time. aj1 15:10 Patient has correct armband on for positive identification. Bed in low position. Call rb1 light in reach. Side rails up X 1. Pulse ox on. NIBP on. 15:10 Warm blanket given. rb1 15:16 Eric Valles PA is PHCP. cp 15:16 José Manuel Ramesh MD is Attending Physician. cp 15:35 Niyah Glass, COOKIE is Primary Nurse. rb1 15:45 Radiology exam delayed due to lab results not completed at this time. (BUN/Creatinine). mw3 16:03 Inserted saline lock: 22 gauge in left antecubital area, using aseptic technique. jd2 17:02 CT Abd/Pelvis - IV Contrast Only In Process Unspecified. EDMS 17:03 CT completed. Patient tolerated procedure well. Patient moved back from CT. mw3 17:35 Jakob Mijares MD is Referral Physician. cp 18:54 No provider procedures requiring assistance completed. IV discontinued, intact, rb1 bleeding controlled, No redness/swelling at site. Pressure dressing applied. Administered Medications: 17:55 Drug: Rocephin - (cefTRIAXone) 1 grams Route: IVPB; Infused Over: 30 mins; Site: left hb antecubital; 18:21 Follow up: Response: No adverse reaction; IV Status: Completed infusion hb 17:55 Drug: metroNIDAZOLE 500 mg Volume: 100 ml; Route: IVPB; Infused Over: 30 mins; Site: hb left antecubital; 18:21 Follow up: Response: No adverse reaction; IV Status: Completed infusion hb Outcome: 17:35 Discharge ordered by . cp 18:54 Patient left the ED. rb1 18:54 Discharged to home ambulatory, with family. rb1 18:54 Condition: stable 18:54 Discharge instructions given to patient, Instructed on discharge instructions, follow up and referral plans. medication usage, Demonstrated understanding of instructions, follow-up care, medications, Prescriptions given X 4. Signatures: Dispatcher [employer] EDMS Olinda Cortes RN RN aj1 Missy Armijo Corey, PA PA cp Barber, Rebecca, RN RN rb1 Dolores Patel RN RN Marco Antonio Singhd2 Jessica Hernandez mw3 Corrections: (The following items were deleted from the chart) 16:53 15:10 Patient has correct armband on for positive identification. Bed in low position. rb1 Call light in reach. Side rails up X 1. rb1
--- NOTE | 2019-01-16 17:36 | EDPHYS ---
Physician Documentation [facility] Name: Sigifredo Kiran Age: 83 yrs Sex: Female : 1935 Arrival Date: 01/16/2019 Time: 14:10 Bed 13 Private MD: Victoriano Nava ED Physician José Manuel Ramesh HPI: 01/16 15:35 This 83 yrs old Female presents to ER via Ambulatory with complaints of cp Abdominal Pain. 15:35 The patient presents with abdominal pain left flank. Onset: The symptoms/episode cp began/occurred intermittent since last week, became persistent this morning. The symptoms do not radiate. The patient has experienced similar episodes in the past, today's symptoms are similar, to when the patient was apparently diagnosed with diverticulitis. 15:35 Associated signs and symptoms: Pertinent negatives: anorexia, blood in stools, chest cp pain, constipation, diarrhea, fever. Historical: - Allergies: 14:45 Levaquin; aj1 14:45 PENICILLINS; aj1 - Home Meds: 14:45 Vitamin B-12 Oral [Active]; atorvastatin 20 mg oral tab 1 tab once daily [Active]; aj1 metoprolol [Active]; levothyroxine oral [Active]; Xarelto Oral [Active]; - PMHx: 14:45 Atrial Fib; Hypertension; Hypothyroidism; CVA; Diverticulitis; aj1 - PSHx: 15:10 Appendectomy; Knee surgery; Cholecystectomy; shoulder sx; D \T\ C; rb1 - Immunization history:: Flu vaccine is not up to date. - Social history:: Smoking status: Patient/guardian denies using tobacco. - Ebola Screening: : Patient denies travel to an Ebola-affected area in the 21 days before illness onset. ROS: 15:45 Constitutional: Negative for body aches, chills, fever, poor PO intake. cp 15:45 Eyes: Negative for injury, pain, redness, and discharge. cp 15:45 Cardiovascular: Negative for chest pain, palpitations. 15:45 Respiratory: Negative for cough, shortness of breath, wheezing. 15:45 Abdomen/GI: Positive for abdominal pain, Negative for vomiting, diarrhea, constipation, black/tarry stool, rectal bleeding. 15:45 Back: Negative for radiated pain. 15:45 : Positive for flank pain, Negative for urinary symptoms. 15:45 Skin: Negative for rash. 15:45 Neuro: Negative for altered mental status, dizziness, headache, weakness. 15:45 All other systems are negative. Exam: 15:50 Constitutional: The patient appears in no acute distress, alert, awake, cp non-diaphoretic, non-toxic, well developed, well nourished. 15:50 Head/Face: Normocephalic, atraumatic. cp 15:50 Eyes: Periorbital structures: appear normal, Conjunctiva: normal, no exudate, no cp injection, Sclera: no appreciated abnormality, Lids and lashes: appear normal, bilaterally. 15:50 ENT: External ear(s): are unremarkable, Nose: is normal, Mouth: is normal, Posterior pharynx: is normal, airway is patent, no erythema, no exudate. 15:50 Chest/axilla: Inspection: normal, Palpation: is normal, no crepitus, no tenderness. 15:50 Cardiovascular: Rate: normal, Rhythm: regular. 15:50 Respiratory: the patient does not display signs of respiratory distress, Respirations: normal, no use of accessory muscles, no retractions, no splinting, no tachypnea, labored breathing, is not present, Breath sounds: are clear throughout, no decreased breath sounds, no stridor, no wheezing. 15:50 Abdomen/GI: Inspection: abdomen appears normal, Bowel sounds: active, all quadrants, Palpation: soft, in all quadrants, mild abdominal tenderness, in the anterior aspect of left lateral abdomen, rebound tenderness, is not appreciated, voluntary guarding, is not appreciated, involuntary guarding, is not appreciated. 15:50 Back: pain, is absent, ROM is normal. 15:50 Skin: no rash present. cp Vital Signs: 14:45 BP 119 / 90; Pulse 96; Resp 20; Temp 97.0; Pulse Ox 96% on R/A; Weight 106.59 kg (R); aj1 Height 5 ft. 7 in. (170.18 cm) (R); Pain 5/10; 17:10 BP 136 / 91; Pulse 76; Resp 19; Pulse Ox 97% on R/A; Pain 6/10; rb1 18:10 BP 128 / 74; Pulse 88; Resp 17; Temp 97.8(TE); Pulse Ox 99% on R/A; rb1 14:45 Body Mass Index 36.81 (106.59 kg, 170.18 cm) aj1 MDM: 15:23 Patient medically screened. cp 16:00 Differential diagnosis: diverticulitis, Pyelonephritis, Ureterolithiasis, urinary tract cp infection, colitis. 17:35 Data reviewed: vital signs, nurses notes, lab test result(s), radiologic studies, CT cp scan, I have discussed the patient's presentation/case with the attending Emergency Department Physician; and as a result, I will discharge patient. 17:35 Counseling: I had a detailed discussion with the patient and/or guardian regarding: the cp historical points, exam findings, and any diagnostic results supporting the discharge/admit diagnosis, lab results, radiology results, the need for outpatient follow up, a director of pediatric rehabilitation, to return to the emergency department if symptoms worsen or persist or if there are any questions or concerns that arise at home. Response to treatment: the patient's symptoms have markedly improved after treatment, VSS. Pain controlled. Will discharge to home for continued monitoring. 01/16 15:27 Order name: Basic Metabolic Panel; Complete Time: 17:10 cp 01/16 17:10 Interpretation: Normal except: GFR 65. cp 01/16 15:27 Order name: CBC with Diff; Complete Time: 16:17 cp 01/16 16:17 Interpretation: Normal except: PLT 137. cp 01/16 15:27 Order name: Creatinine for Radiology; Complete Time: 17:10 cp 01/16 15:27 Order name: Hepatic Function; Complete Time: 17:10 01/16 17:11 Interpretation: Normal except: BILIT 2.5; BILID 0.3; GLOB 3.8; A/G 1.0. cp 01/16 15:27 Order name: Lipase; Complete Time: 17:10 cp 01/16 15:27 Order name: Urine Microscopic Only; Complete Time: 17:28 cp 01/16 15:27 Order name: IV Saline Lock; Complete Time: 16:05 cp 01/16 15:27 Order name: Labs collected and sent; Complete Time: 16:05 cp 01/16 15:27 Order name: Urine Dipstick-Ancillary (obtain specimen); Complete Time: 16:29 cp 01/16 15:27 Order name: CT Abd/Pelvis - IV Contrast Only; Complete Time: 17:24 cp 10/06 16:37 Order name: Urine Dipstick--Ancillary (enter results); Complete Time: 17:31 gm 01/16 17:28 Order name: PO challenge; Complete Time: 17:35 cp Administered Medications: 17:55 Drug: Rocephin - (cefTRIAXone) 1 grams Route: IVPB; Infused Over: 30 mins; Site: left antecubital; 18:21 Follow up: Response: No adverse reaction; IV Status: Completed infusion hb 17:55 Drug: metroNIDAZOLE 500 mg Volume: 100 ml; Route: IVPB; Infused Over: 30 mins; Site: left antecubital; 18:21 Follow up: Response: No adverse reaction; IV Status: Completed infusion hb Disposition: 18:57 Co-signature as Attending Physician, José Manuel Ramesh MD. rn Disposition: 01/16/19 17:35 Discharged to Home. Impression: Diverticulitis of large intestine without perforation or abscess without bleeding. - Condition is Stable. - Discharge Instructions: Clear Liquid Diet, Adult, High-Fiber Diet, Diverticulitis. - Prescriptions for Metronidazole 500 mg Oral Tablet - take 1 tablet by ORAL route every 8 hours; 30 tablet. cefpodoxime 200 mg Oral Tablet - take 1 tablet by ORAL route every 12 hours for 10 days with food; 20 tablet. Bentyl 20 mg Oral Tablet - take 1 tablet by ORAL route every 6 hours As needed; 20 tablet. Zofran 4 mg Oral Tablet - take 1 tablet by ORAL route every 12 hours As needed; 20 tablet. - Medication Reconciliation Form, Thank You Letter, Antibiotic Education, Prescription Opioid Use form. - Follow up: Jakob Mijares MD; When: 2 - 3 days; Reason: Recheck today's complaints. - Problem is new. - Symptoms have improved. Signatures: Dispatcher [employer] Olinda Cordero RN RN aj1 José Manuel Ramesh MD MD rn Page, Corey, PA PA cp Niyah Glass RN RN rb1 Dolores Patel RN RN Corrections: (The following items were deleted from the chart) 18:54 17:35 01/16/2019 17:35 Discharged to Home. Impression: Diverticulitis of large rb1 intestine without perforation or abscess without bleeding. Condition is Stable. Forms are Medication Reconciliation Form, Thank You Letter, Antibiotic Education, Prescription Opioid Use. Follow up: Jakob Mijares; When: 2 - 3 days; Reason: Recheck today's complaints. Problem is new. Symptoms have improved. cp
[2019-01-16] MEDS ORDERED: CEFTRIAXONE/SWI 1gm 1 GM/10 ML SYR ONE (17:49)
[2019-01-16] MEDS ORDERED: METRONIDAZOLE 500mg IVPB 500 MG/100 ML BAG IV ONE (17:49)
[2019-01-16 19:32] VITALS: BP 136/91; O2SAT 97
[2019-01-16 19:33] VITALS: TEMP 97
== END 2019-01-16 18:54 | disposition home or self-care (01) ==
LOC: ER 14:08
DX: K57.92 Diverticulitis of intestine, part unspecified, without perforation or abscess without bleeding (principal); I10 Essential (primary) hypertension; E03.9 Hypothyroidism, unspecified; I48.91 Unspecified atrial fibrillation; Z79.01 Long term (current) use of anticoagulants; Z88.0 Allergy status to penicillin; Z88.1 Allergy status to other antibiotic agents
CPT/HCPCS: 96365; 96368; 85025; 80048; 36415; 80076; 83690; 74177; 99284; Q9967; J0696; 81003; 81015

== ENCOUNTER 2019-03-21 08:49 | Day surgery (SDC) | payer OTHER ==
[2019-03-17 17:01] LABS: Absolute Lymphocytes (CBC) 2.5 K/uL (0.7-4.9); Basophils % 0.5 % (0-1.3); Hematocrit 41.7 % (36.0-45.0); Lymphocytes % 38.3 % (15.3-44.8); MPV 9.6 fL (7.6-11.3); RBC Red Blood Cell Count 4.44 M/uL (3.86-4.86)
[2019-03-17 17:14] LABS: Potassium 4.4 mmol/L (3.5-5.1)
[2019-03-21] MEDS ORDERED: propofoL 200 MG/20 ML VIAL IV ONE (08:57)
[2019-03-21] MEDS ORDERED: FENTANYL CITR 100 MCG/2 ML ONE (08:58)
[2019-03-21] MEDS ORDERED: LIDOCAINE 2% MPF 5 ML VIAL ONE (08:58)
[2019-03-21] MEDS ORDERED: Ringers Lactate 1,000 ML IV ONE (09:13)
--- OUTSIDE RECORDS SUMMARY | 2019-03-21 09:20 | XMS REPORT ---
:1935 [facility] Address [address] [place] [address] [address] [place] [address] Care Team Providers Name Role Phone GE DIAZ Unavailable Unavailable Problems This patient has no known problems. Allergies, Adverse Reactions, Alerts This patient has no known allergies or adverse reactions. Medications This patient has no known medications. Results Test Description Test Time Test Comments Text Results Atomic Results Result Comments BASIC METABOLIC PANEL 2018-08-23 06:31:00 Test Item Value Reference Range Comments SODIUM (BEAKER) (test 138 meq/L 136-145 tqcq=122) POTASSIUM (BEAKER) (test 4.0 meq/L 3.5-5.1 ziyr=425) CHLORIDE (BEAKER) (test 105 meq/L 98-107 xpkm=692) CO2 (BEAKER) (test zqru=082) 26 meq/L 22-29 BLOOD UREA NITROGEN (BEAKER) 15 mg/dL 7-21 (test crne=188) CREATININE (BEAKER) (test 0.75 mg/dL 0.57-1.25 havt=670) GLUCOSE RANDOM (BEAKER) 106 mg/dL 70-105 (test gajz=912) CALCIUM (BEAKER) (test 9.5 mg/dL 8.4-10.2 jspd=863) EGFR (BEAKER) (test 74 mL/min/1.73 sq m ESTIMATED GFR IS NOT noko=6019) ACCURATE CREATININE CLEARANCE IN PREDICTING GLOMERULAR FILTRATION RATE. ESTIMATED GFR IS NOT APPLICABLE FOR DIALYSIS PATIENTS. BASIC METABOLIC [id number] 06:27:00 Test Item Value Reference Range Comments SODIUM (BEAKER) (test 140 meq/L 136-145 kqtc=690) POTASSIUM (BEAKER) (test 4.0 meq/L 3.5-5.1 Specimen slightly supj=254) hemolyzed CHLORIDE (BEAKER) (test 106 meq/L 98-107 plel=188) CO2 (BEAKER) (test 24 meq/L 22-29 jrkc=205) BLOOD UREA NITROGEN 16 mg/dL 7-21 (BEAKER) (test pndo=375) CREATININE (BEAKER) (test 0.77 mg/dL 0.57-1.25 Specimen slightly aeke=334) hemolyzed GLUCOSE RANDOM (BEAKER) 131 mg/dL 70-105 (test jubv=641) CALCIUM (BEAKER) (test 9.3 mg/dL 8.4-10.2 eeag=832) EGFR (BEAKER) (test 72 mL/min/1.73 sq m ESTIMATED GFR IS NOT iias=2408) ACCURATE CREATININE CLEARANCE IN PREDICTING GLOMERULAR FILTRATION RATE. ESTIMATED GFR IS NOT APPLICABLE FOR DIALYSIS PATIENTS. CT, CTANG [id number] 12:08:00FINAL REPORT CLINICAL HISTORY: Stroke TECHNIQUE: Initially, noncontrast head CT images were performed. Contiguous contrast-enhanced axial images through the neck followed by axial images through the head with coronal and sagittal reformations to assess the arterial circulation. 3-D reconstructions were performed using a volume rendered technique separately on a workstation. This exam was performed according to the departmental dose optimization program which includes automatedexposure control, adjustment of the mA and/or kV according to the patient size, and/or use of an iterative reconstruction technique. COMPARISON: MRI 08/10/2009 FINDINGS: There is no CT evidence of acuteinfarct or hemorrhage. There is periventricular and subcortical white matter hypodensity which is nonspecific but compatible with chronic microvascular ischemic change. There are atherosclerotic calcifications of the intracranial circulation. There is generalized parenchymal volume loss without hydrocephalus, midline shift, or apparent mass effect. The skull is intact. There is no evidence for a [place] proximal branch vessel occlusion. No aneurysms are seen. There is a origin of theleft posterior cerebral artery. The major intradural venous sinuses are patent. There is mild atherosclerotic disease at the bilateral carotid bifurcations without hemodynamically significant stenosis of either cervical internal carotid artery by NASCET criteria. The vertebral arteries in the neckare patent including their origins. There is left vertebral dominance. The nondominant right vertebral artery essentially terminates in the posterior inferior cerebellar artery. There are dorsal spondylitic changes in the cervical spine. There are scattered subcentimeter lymph nodes in the neck. Thereare patchy groundglass opacities in the visualized lung apices. IMPRESSION : No CT evidence of acuteinfarct or hemorrhage. No evidence for a [place] proximal branch vessel occlusion. No evidence of hemodynamically significant stenosis in the cervical carotid or vertebral arteries by NASCET criteria. Signed: Escobar Galdamez MDReport Verified Date/Time: 08/21/2018 12:08: 39 Reading Location: [address] Neuro Reading Room CT, CAROTID, [id number] 12: 08:00FINAL REPORT CLINICAL HISTORY: Stroke TECHNIQUE: Initially, noncontrast head CT images were performed. Contiguous contrast- enhanced axial images through the neck followed by axial images through the head with coronal and sagittal reformations to assess the arterial circulation. 3-D reconstructions were performed using a volume rendered technique separately on a workstation. This exam was performed according to the departmental dose optimization program which includes automatedexposure control, adjustment of the mA and/or kV according to the patient size, and/or use of an iterative reconstruction technique. COMPARISON: MRI 08/10/2009 FINDINGS: There is no CT evidence of acuteinfarct or hemorrhage. There is periventricular and subcortical white matter hypodensity which is nonspecific but compatible with chronic microvascular ischemic change. There are atherosclerotic calcifications of the intracranial circulation. There is generalized parenchymal volume loss without hydrocephalus, midline shift, or apparent mass effect. The skull is intact. There is no evidence for a [place] proximal branch vessel occlusion. No aneurysms are seen. There is a origin of theleft posterior cerebral artery. The major intradural venous sinuses are patent. There is mild atherosclerotic disease at the bilateral carotid bifurcations without hemodynamically significant stenosis of either cervical internal carotid artery by NASCET criteria. The vertebral arteries in the neckare patent including their origins. There is left vertebral dominance. The nondominant right vertebral artery essentially terminates in the posterior inferior cerebellar artery. There are dorsal spondylitic changes in the cervical spine. There are scattered subcentimeter lymph nodes in the neck. Thereare patchy groundglass opacities in the visualized lung apices. IMPRESSION: No CT evidence of acuteinfarct or hemorrhage. No evidence for a [place] proximal branch vessel occlusion. No evidence of hemodynamically significant stenosis in the cervical carotid or vertebral arteries by NASCET criteria. Signed: Escobar Galdamez MDReport Verified Date/Time: 08/21/2018 12:08:39 Reading Location: [facility] Neuro Reading Room HEMOGLOBIN [id number] 07:01:00 Test Item Value Reference Range Comments HEMOGLOBIN A1C (BEAKER) (test nvqj=572) 5.9 % 4.3-6.1 TSH/FREE T4 IF [id number] 06:21:00 Test Item Value Reference Range Comments THYROID STIMULATING HORMONE (BEAKER) (test 2.41 uIU/mL 0.35-4.94 txzn=171) VITAMIN B12 AND [id number] 06:21:00 Test Item Value Reference Range Comments VITAMIN B12 (BEAKER) (test rmvj=607) 341 pg/mL 213-816 FOLATE (BEAKER) (test icmg=569) 3.9 ng/mL >=7.0 BASIC METABOLIC [id number] 06:02:00 Test Item Value Reference Range Comments SODIUM (BEAKER) (test 137 meq/L 136-145 pvzz=341) POTASSIUM (BEAKER) (test 4.0 meq/L 3.5-5.1 npll=292) CHLORIDE (BEAKER) (test 101 meq/L 98-107 emrq=450) CO2 (BEAKER) (test 28 meq/L 22-29 ytyo=412) BLOOD UREA NITROGEN 14 mg/dL 7-21 (BEAKER) (test qfed=610) CREATININE (BEAKER) (test 0.77 mg/dL 0.57-1.25 aqvp=741) GLUCOSE RANDOM (BEAKER) 98 mg/dL 70-105 (test wegt=678) CALCIUM (BEAKER) (test 9.8 mg/dL 8.4-10.2 dmtq=387) EGFR (BEAKER) (test 72 mL/min/1.73 sq m ESTIMATED GFR IS NOT uqcw=8179) ACCURATE CREATININE CLEARANCE IN PREDICTING GLOMERULAR FILTRATION RATE. ESTIMATED GFR IS NOT APPLICABLE FOR DIALYSIS PATIENTS. Specimen slightly ictericLIPID [id number] 06:02:00 Test Item Value Reference Range Comments TRIGLYCERIDES (BEAKER) (test plcr=118) 104 mg/dL CHOLESTEROL (BEAKER) (test ztpl=837) 169 mg/dL HDL CHOLESTEROL (BEAKER) (test yyyo=648) 42 mg/dL LDL CHOLESTEROL CALCULATED (BEAKER) (test 106 mg/dL lcmv=248) Triglyceride Reference Range: Low Risk <150 Borderline 150- 199 High Risk 200-499 Very High Risk >=500Cholesterol Reference Range: Low Risk <200 Borderline 200-239 High Risk > 240HDL Cholesterol Reference Range: Low Risk >=60 High Risk <40LDL Cholesterol Reference Range: Optimal <100 Near Optimal 100-129 Borderline 130-159 High 160-189 Very High >=190 Specimen slightly ictericCBC W/PLT COUNT & AUTO [id number] 05:29:00 Test Item Value Reference Range Comments WHITE BLOOD CELL COUNT (BEAKER) (test gevi=123) 7.4 K/ L 3.5-10.5 RED BLOOD CELL COUNT (BEAKER) (test ltfn=971) 4.81 M/ L 3.93-5.22 HEMOGLOBIN (BEAKER) (test pieh=168) 15.1 GM/DL 11.2-15.7 HEMATOCRIT (BEAKER) (test auuy=627) 45.1 % 34.1-44.9 MEAN CORPUSCULAR VOLUME (BEAKER) (test ixsg=882) 93.8 fL 79.4-94.8 MEAN CORPUSCULAR HEMOGLOBIN (BEAKER) (test 31.4 pg 25.6-32.2 yguz=944) MEAN CORPUSCULAR HEMOGLOBIN CONC (BEAKER) (test 33.5 GM/DL 32.2-35.5 yasw=325) RED CELL DISTRIBUTION WIDTH (BEAKER) (test 13.0 % 11.7-14.4 xltq=779) PLATELET COUNT (BEAKER) (test dhhx=611) 157 K/CU MM 150-450 MEAN PLATELET VOLUME (BEAKER) (test tzrg=823) 10.8 fL 9.4-12.3 NUCLEATED RED BLOOD CELLS (BEAKER) (test 0 /100 WBC 0-0 tzhs=083) NEUTROPHILS RELATIVE PERCENT (BEAKER) (test 49 % jsnl=067) LYMPHOCYTES RELATIVE PERCENT (BEAKER) (test 39 % yarx=241) MONOCYTES RELATIVE PERCENT (BEAKER) (test 8 % hgud=622) EOSINOPHILS RELATIVE PERCENT (BEAKER) (test 3 % fydu=725) BASOPHILS RELATIVE PERCENT (BEAKER) (test 1 % gziq=495) NEUTROPHILS ABSOLUTE COUNT (BEAKER) (test 3.65 K/ L 1.56-6.13 yopi=654) LYMPHOCYTES ABSOLUTE COUNT (BEAKER) (test 2.90 K/ L 1.18-3.74 vvmh=609) MONOCYTES ABSOLUTE COUNT (BEAKER) (test 0.60 K/ L 0.24-0.36 lhzz=129) EOSINOPHILS ABSOLUTE COUNT (BEAKER) (test 0.19 K/ L 0.04-0.36 lkjf=777) BASOPHILS ABSOLUTE COUNT (BEAKER) (test 0.05 K/ L 0.01-0.08 hlzc=296) IMMATURE GRANULOCYTES-RELATIVE PERCENT (BEAKER) 0 % 0-1 (test cywr=9977)
[2019-03-21] MEDS ORDERED: ONDANSETRON 4 MG/2 ML VIAL ONE (09:23)
--- NOTE | 2019-03-21 10:25 | P.BOP ---
Preoperative diagnosis: ulcerated tender scalp mass Postoperative diagnosis: same Primary procedure: Wide excision of ulcerated tender scalp mass 3x3 cm Pourer Off: Patricia Rodriguez) Estimated blood loss: <10cc Specimen: mass Findings: cystic mass with ulceration Anesthesia: General Complications: None Transferred to: Recovery Room Condition: Good
[2019-03-21 10:48] VITALS: O2SAT 94
[2019-03-21] MEDS ORDERED: CODEINE 30MG/APAP 300MG TAB ONE (11:44)
[2019-03-21 15:47] VITALS: BP 149/97; TEMP 97.5
--- NOTE | 2019-03-21 21:56 | OP ---
Date of Procedure: 03/21/2019 Surgeon: Mario Armijo MD Assistant Dean: Patricia Vale. Preoperative Diagnosis: Ulcerated tender scalp mass. Postoperative Diagnosis: Ulcerated tender scalp mass. Procedure: Wide excision of ulcerated tender scalp mass, 3 x 3 cm. Estimated Blood Loss: Less than 10 mL. Anesthesia: General plus local. Findings: Cystic mass with ulceration. Indication: This is the case of an 84-year-old patient with a mass on the right temporal region scal p area, that has an ulceration associated with it. Benefits, alternatives, and risks of excision ful ly explained which include, but are not limited to infection, bleeding, damage to adjacent structures , anesthesia complication, OK, or even . She also understands this may not relieve any symptoms . She might need more than one surgical intervention. She understood and signed a consent. Description Of Procedure: Patient was brought to the operating room, placed in supine position. Ane sthesia was done without complication. Prior to that, marked the area by me and the patient in the h olding room. A time-out was called. Local anesthetic was applied. We made a wedge incision in the skin to do wide excision of this mass. The mass was completely excised. It looked like it was a cys tic component associated with it. Mass was completely excised. The area was irrigated. Hemostasis obtained. Then, the area was closed with the a 3-0 nylon in a suture mattress fashion interrupted mu ltiple. Patient tolerated procedure well. Patient was sent to recovery in stable condition. Sponge count and instrument counts were correct. Disposition: Home. Activity: As tolerated. No heavy lifting. Followup: Follow up in my office in 1 week. Call for appointment [phone]. Keep area dry for 48 ho urs, then may shower. May place triple antibiotics over the area. Medications: Include Bactrim DS p.o. b.i.d., and Tylenol No. 3 q.4 hours p.r.n. pain. VIELKA/DES Voice ID: [id number] Report ID: [id number]
== END 2019-03-21 12:15 | disposition home or self-care (01) ==
LOC: OR 08:49
PROVIDERS: ATTEND Surgery
PROC: 0HB0XZZ Excision of Scalp Skin, External Approach (ICD-10-PCS; principal; 2019-03-21 10:00)
DX: L72.9 Follicular cyst of the skin and subcutaneous tissue, unspecified (principal); I10 Essential (primary) hypertension; I48.91 Unspecified atrial fibrillation; E07.9 Disorder of thyroid, unspecified; Z79.01 Long term (current) use of anticoagulants; Z79.899 Other long term (current) drug therapy; Z88.0 Allergy status to penicillin; Z88.3 Allergy status to other anti-infective agents; Z86.73 Personal history of transient ischemic attack (TIA), and cerebral infarction without residual deficits; Z90.49 Acquired absence of other specified parts of digestive tract
CPT/HCPCS: 85025; 80048; 36415; 88304; 11423; J2704; J3010; J7120; J2405

== ENCOUNTER 2019-03-24 18:17 | Observation (INO) | payer OTHER ==
--- OUTSIDE RECORDS SUMMARY | 2019-03-24 18:19 | XMS REPORT ---
:1935 [facility] Address [address] [place] [address] Care Team Providers Name Role Phone GE DIAZ CHANDRA Unavailable Unavailable Problems This patient has no known problems. Allergies, Adverse Reactions, Alerts This patient has no known allergies or adverse reactions. Medications This patient has no known medications. Results Test Description Test Time Test Comments Text Results Atomic Results Result Comments BASIC METABOLIC PANEL 2018-08-23 06:31:00 Test Item Value Reference Range Comments SODIUM (BEAKER) (test 138 meq/L 136-145 mgsd=693) POTASSIUM (BEAKER) (test 4.0 meq/L 3.5-5.1 hllo=121) CHLORIDE (BEAKER) (test 105 meq/L 98-107 lafd=721) CO2 (BEAKER) (test bjxi=651) 26 meq/L 22-29 BLOOD UREA NITROGEN (BEAKER) 15 mg/dL 7-21 (test wuqw=324) CREATININE (BEAKER) (test 0.75 mg/dL 0.57-1.25 ndfg=463) GLUCOSE RANDOM (BEAKER) 106 mg/dL 70-105 (test xola=381) CALCIUM (BEAKER) (test 9.5 mg/dL 8.4-10.2 fadg=862) EGFR (BEAKER) (test 74 mL/min/1.73 sq m ESTIMATED GFR IS NOT xwge=5635) ACCURATE CREATININE CLEARANCE IN PREDICTING GLOMERULAR FILTRATION RATE. ESTIMATED GFR IS NOT APPLICABLE FOR DIALYSIS PATIENTS. BASIC METABOLIC [id number] 06:27:00 Test Item Value Reference Range Comments SODIUM (BEAKER) (test 140 meq/L 136-145 opyc=099) POTASSIUM (BEAKER) (test 4.0 meq/L 3.5-5.1 Specimen slightly drny=314) hemolyzed CHLORIDE (BEAKER) (test 106 meq/L 98-107 zuwm=212) CO2 (BEAKER) (test 24 meq/L 22-29 yjvd=761) BLOOD UREA NITROGEN 16 mg/dL 7-21 (BEAKER) (test eitm=529) CREATININE (BEAKER) (test 0.77 mg/dL 0.57-1.25 Specimen slightly dvxv=043) hemolyzed GLUCOSE RANDOM (BEAKER) 131 mg/dL 70-105 (test syfw=825) CALCIUM (BEAKER) (test 9.3 mg/dL 8.4-10.2 dxir=490) EGFR (BEAKER) (test 72 mL/min/1.73 sq m ESTIMATED GFR IS NOT guft=7570) ACCURATE CREATININE CLEARANCE IN PREDICTING GLOMERULAR FILTRATION RATE. ESTIMATED GFR IS NOT APPLICABLE FOR DIALYSIS PATIENTS. CT, [facility] [id number] 12:08:00FINAL REPORT CLINICAL HISTORY: Stroke TECHNIQUE: Initially, [...] intact. There is no evidence for a [place] proximal branch vessel occlusion. No [...] acuteinfarct or hemorrhage. No evidence for a [place] proximal branch vessel occlusion. No evidence of hemodynamically significant stenosis in the cervical carotid or vertebral arteries by NASCET criteria. Signed: Escobar Galdamez MDReport Verified Date/Time: 08/21/2018 12:08: 39 Reading Location: [address] Neuro Reading Room CT, CAROTID, [id number] 12: 08:00FINAL REPORT CLINICAL HISTORY: Stroke TECHNIQUE: [...] intact. There is no evidence for a [place] proximal branch vessel occlusion. No [...] acuteinfarct or hemorrhage. No evidence for a [place] proximal branch vessel occlusion. No evidence of hemodynamically significant stenosis in the cervical carotid or vertebral arteries by NASCET criteria. Signed: Escobar Galdamez MDReport Verified Date/Time: 08/21/2018 12:08:39 Reading Location: [facility] C013V Neuro Reading Room HEMOGLOBIN [id number] 07:01:00 Test Item Value Reference Range Comments HEMOGLOBIN A1C (BEAKER) (test lbev=515) 5.9 % 4.3-6.1 TSH/FREE T4 IF [id number] 06:21:00 Test Item Value Reference Range Comments THYROID STIMULATING HORMONE (BEAKER) (test 2.41 uIU/mL 0.35-4.94 urld=407) VITAMIN B12 AND [id number] 06:21:00 Test Item Value Reference Range Comments VITAMIN B12 (BEAKER) (test gncc=353) 341 pg/mL 213-816 FOLATE (BEAKER) (test utqi=658) 3.9 ng/mL >=7.0 BASIC METABOLIC [id number] 06:02:00 Test Item Value Reference Range Comments SODIUM (BEAKER) (test 137 meq/L 136-145 vopc=999) POTASSIUM (BEAKER) (test 4.0 meq/L 3.5-5.1 klbz=517) CHLORIDE (BEAKER) (test 101 meq/L 98-107 jqrj=299) CO2 (BEAKER) (test 28 meq/L 22-29 moof=654) BLOOD UREA NITROGEN 14 mg/dL 7-21 (BEAKER) (test tylw=791) CREATININE (BEAKER) (test 0.77 mg/dL 0.57-1.25 lijo=403) GLUCOSE RANDOM (BEAKER) 98 mg/dL 70-105 (test pdhh=624) CALCIUM (BEAKER) (test 9.8 mg/dL 8.4-10.2 ften=624) EGFR (BEAKER) (test 72 mL/min/1.73 sq m ESTIMATED GFR IS NOT gwrv=6378) ACCURATE CREATININE CLEARANCE IN PREDICTING GLOMERULAR FILTRATION RATE. ESTIMATED GFR IS NOT APPLICABLE FOR DIALYSIS PATIENTS. Specimen slightly ictericLIPID [id number] 06:02:00 Test Item Value Reference Range Comments TRIGLYCERIDES (BEAKER) (test yiqy=255) 104 mg/dL CHOLESTEROL (BEAKER) (test gale=259) 169 mg/dL HDL CHOLESTEROL (BEAKER) (test zwrb=277) 42 mg/dL LDL CHOLESTEROL CALCULATED (BEAKER) (test 106 mg/dL dyuq=169) Triglyceride Reference Range: Low Risk <150 Borderline 150- 199 High Risk 200-499 Very High Risk >=500Cholesterol Reference Range: Low Risk <200 Borderline 200-239 High Risk > 240HDL Cholesterol Reference Range: Low Risk >=60 High Risk <40LDL Cholesterol Reference Range: Optimal <100 Near Optimal 100-129 Borderline 130-159 High 160-189 Very High >=190 Specimen slightly ictericCBC W/PLT COUNT & AUTO [id number] 05:29:00 Test Item Value Reference Range Comments WHITE BLOOD CELL COUNT (BEAKER) (test wxsc=207) 7.4 K/ L 3.5-10.5 RED BLOOD CELL COUNT (BEAKER) (test hlhq=976) 4.81 M/ L 3.93-5.22 HEMOGLOBIN (BEAKER) (test zpba=711) 15.1 GM/DL 11.2-15.7 HEMATOCRIT (BEAKER) (test zlfj=186) 45.1 % 34.1-44.9 MEAN CORPUSCULAR VOLUME (BEAKER) (test pnps=863) 93.8 fL 79.4-94.8 MEAN CORPUSCULAR HEMOGLOBIN (BEAKER) (test 31.4 pg 25.6-32.2 syrk=179) MEAN CORPUSCULAR HEMOGLOBIN CONC (BEAKER) (test 33.5 GM/DL 32.2-35.5 vewm=887) RED CELL DISTRIBUTION WIDTH (BEAKER) (test 13.0 % 11.7-14.4 quax=725) PLATELET COUNT (BEAKER) (test yatz=349) 157 K/CU MM 150-450 MEAN PLATELET VOLUME (BEAKER) (test ssoz=777) 10.8 fL 9.4-12.3 NUCLEATED RED BLOOD CELLS (BEAKER) (test 0 /100 WBC 0-0 zjul=114) NEUTROPHILS RELATIVE PERCENT (BEAKER) (test 49 % qnfk=447) LYMPHOCYTES RELATIVE PERCENT (BEAKER) (test 39 % tlaq=299) MONOCYTES RELATIVE PERCENT (BEAKER) (test 8 % xllb=429) EOSINOPHILS RELATIVE PERCENT (BEAKER) (test 3 % kmri=898) BASOPHILS RELATIVE PERCENT (BEAKER) (test 1 % jumx=386) NEUTROPHILS ABSOLUTE COUNT (BEAKER) (test 3.65 K/ L 1.56-6.13 wnsi=615) LYMPHOCYTES ABSOLUTE COUNT (BEAKER) (test 2.90 K/ L 1.18-3.74 nvmi=242) MONOCYTES ABSOLUTE COUNT (BEAKER) (test 0.60 K/ L 0.24-0.36 dgeb=790) EOSINOPHILS ABSOLUTE COUNT (BEAKER) (test 0.19 K/ L 0.04-0.36 ghaw=414) BASOPHILS ABSOLUTE COUNT (BEAKER) (test 0.05 K/ L 0.01-0.08 hmxp=008) IMMATURE GRANULOCYTES-RELATIVE PERCENT (BEAKER) 0 % 0-1 (test kpqu=1559)
[2019-03-24 21:13] LABS: Absolute Lymphocytes (CBC) 2.7 K/uL (0.7-4.9); Basophils % 0.7 % (0-1.3); Hematocrit 43.6 % (36.0-45.0); MPV 9.3 fL (7.6-11.3); RBC Red Blood Cell Count 4.61 M/uL (3.86-4.86)
[2019-03-24 21:18] LABS: Protime INR 1.63
[2019-03-24 21:27] LABS: ALT/SGPT 25 U/L (12-78); AST/SGOT 23 U/L (15-37); Albumin 3.6 g/dL (3.4-5.0); Alkaline Phosphatase 104 U/L (45-117); BUN Blood Urea Nitrogen 15 mg/dL (7-18); Bicarbonate 31 mmol/L (21-32); Bilirubin Direct 0.4 mg/dL (0-0.2); Bilirubin Total 1.1 mg/dL (0.2-1.0); CKMB Creatine Kinase MB 1.2 ng/mL (0.3-3.6); Creatine Phosphokinase 80 U/L (26-192); Glucose Level 102 mg/dL (74-106); Lipase 120 U/L (73-393); Magnesium 2.3 mg/dL (1.8-2.4); Potassium 4.2 mmol/L (3.5-5.1); Protein, Total 7.7 g/dL (6.4-8.2); Sodium Level 138 mmol/L (136-145); Troponin (Emerg Dept Use Only) < 0.02 ng/mL (0.0-0.045)
[2019-03-24 21:29] LABS: Urine Blood TRACE (NEG); Urine Glucose NEGATIVE (NEG); Urine Protein NEGATIVE (NEG)
--- NOTE | 2019-03-25 00:15 | ER ---
Nurse's Notes [facility] Name: Sigifredo Kiran Age: 84 yrs Sex: Female : 1935 Arrival Date: 03/24/2019 Time: 18:19 Bed 17 Private MD: Victoriano Nava Diagnosis: Ataxia, unspecified Presentation: 03/24 18:20 Presenting complaint: Patient states: i had a stroke in August, i am feeling weak and it tw2 started earlier today, daughter: after her mammogram today she just said she felt weak. Transition of care: patient was not received from another setting of care. Onset of symptoms was March 24, 2019. Risk Assessment: Do you want to hurt yourself or someone else? Patient reports no desire to harm self or others. Initial Sepsis Screen: Does the patient meet any 2 criteria? No. Patient's initial sepsis screen is negative. Does the patient have a suspected source of infection? No. Patient's initial sepsis screen is negative. Care prior to arrival: None. 18:20 Method Of Arrival: Wheelchair tw2 18:20 Acuity: CLARI 3 tw2 Triage Assessment: 18:21 General: Appears in no apparent distress. well groomed, Behavior is calm, cooperative, tw2 appropriate for age. Pain: Denies pain. Historical: - Allergies: 18:23 PENICILLINS; tw2 18:23 Levaquin; tw2 - Home Meds: 18:23 Xarelto Oral [Active]; metoprolol [Active]; Vitamin B-12 Oral [Active]; levothyroxine tw2 oral [Active]; atorvastatin 20 mg Oral tab 1 tab once daily [Active]; - PMHx: 18:23 Atrial Fib; CVA; Diverticulitis; Hypertension; Hypothyroidism; tw2 - PSHx: 18:23 Appendectomy; Knee surgery; Cholecystectomy; shoulder sx; D \T\ C; cyst removed thursday, tw2 behind Right ear; - Immunization history:: Adult Immunizations. - Social history:: Smoking status: . - Ebola Screening: : Patient denies travel to an Ebola-affected area in the 21 days before illness onset. Screenin:40 Abuse screen: Denies threats or abuse. Denies injuries from another. Nutritional aj1 screening: No deficits noted. Tuberculosis screening: No symptoms or risk factors identified. 22:35 Fall Risk Total Chapin Fall Scale indicates High Risk Score (45 or more points). Fall lp1 prevention measures have been instituted. Side Rails Up X 2 As available patient and family educated on Fall Prevention Program and Strategies. Assessment: 18:40 General: Appears in no apparent distress. comfortable, Behavior is calm, cooperative, aj1 appropriate for age. Pain: Complains of pain in neck Pain does not radiate. Pain currently is 6 out of 10 on a pain scale. Neuro: Level of Consciousness is awake, alert, obeys commands, Oriented to person, place, time, situation, Moves all extremities. Speech is normal, Facial symmetry appears normal, Reports dizziness, generalized weakness. Denies blurred vision paresthesias numbness headache unilateral weakness. Cardiovascular: Denies chest pain, nausea, palpitations, shortness of breath, syncope, Heart tones S1 S2 S4 Patient's skin is warm and dry. Rhythm is atrial fibrillation. Respiratory: Airway is patent Respiratory effort is even, unlabored, Respiratory pattern is regular, symmetrical, Denies shortness of breath. GI: No signs and/or symptoms were reported involving the gastrointestinal system. : No signs and/or symptoms were reported regarding the genitourinary system. EENT: No signs and/or symptoms were reported regarding the EENT system. Derm: No signs and/or symptoms reported regarding the dermatologic system. Skin is pink, warm \T\ dry. normal. Musculoskeletal: No signs and/or symptoms reported regarding the musculoskeletal system. Circulation, motion, and sensation intact. 19:56 Reassessment: Patient appears in no apparent distress at this time. Patient is alert, lp1 oriented x 3, equal unlabored respirations, skin warm/dry/pink. Pain: Denies pain. Neuro: Reports weakness in right leg and left leg since this afternoon. Derm: Wound noted Other: site to scalp with scab, no redness, hx of cyst removal to right side of scalp. 20:45 Reassessment: Patient appears in no apparent distress at this time. Assisted patient to lp1 bedside commode, states feeling unsteady on her feet. 22:35 Reassessment: Patient appears in no apparent distress at this time. Patient and/or lp1 family updated on plan of care and expected duration. Pain level reassessed. Patient is alert, oriented x 3, equal unlabored respirations, skin warm/dry/pink. Patient aware of waiting for lab and radiology results. 23:30 Reassessment: Patient appears in no apparent distress at this time. No changes from lp1 previously documented assessment. Patient and/or family updated on plan of care and expected duration. Pain level reassessed. 03/25 00:03 Reassessment: Hospitalist at bedside with patient and family. lp1 01:00 Reassessment: Patient appears in no apparent distress at this time. Patient and/or lp1 family updated on plan of care and expected duration. Pain level reassessed. Daughter going home at this time, aware of waiting for room assignment. Vital Signs: 03/24 18:21 BP 119 / 83; Pulse 58; Resp 18; Temp 97.5(TE); Pulse Ox 95% on R/A; Weight 104.33 kg tw2 (R); Height 5 ft. 7 in. (170.18 cm) (R); Pain 0/10; 19:58 BP 118 / 75; Pulse 90; Resp 20; Pulse Ox 97% on R/A; Pain 0/10; lp1 20:45 BP 117 / 80; Pulse 87; Resp 14; Pulse Ox 97% on R/A; lp1 22:30 BP 120 / 89; Pulse 89; Resp 19; Pulse Ox 95% on R/A; lp1 23:30 BP 103 / 66; Pulse 81; Resp 20; Pulse Ox 96% on R/A; lp1 03/25 00:30 BP 143 / 97; Pulse 93; Resp 18; Pulse Ox 98% on R/A; lp1 01:30 BP 108 / 71; Pulse 89; Resp 19; Pulse Ox 98% on R/A; Pain 0/10; lp1 03/24 18:21 Body Mass Index 36.02 (104.33 kg, 170.18 cm) tw2 ED Course: 03/24 18:19 Patient arrived in ED. mr 18:20 Victoriano Nava MD is Private Physician. mr 18:21 Triage completed. tw2 18:21 Arm band placed on. tw2 18:40 Patient has correct armband on for positive identification. aj1 18:40 No provider procedures requiring assistance completed. aj1 18:42 monitoring analyst on. Pulse ox on. NIBP on. aj1 19:16 Wicho uV MD is Attending Physician. tw4 19:36 Garrett, Zeina, RN is Primary Nurse. lp1 21:04 Inserted saline lock: 20 gauge in right antecubital area, using aseptic technique. oe Blood collected. 21:25 CT Head Brain wo Cont In Process Unspecified. EDMS 03/25 00:13 Jennifer Bernal MD is Hospitalizing Provider. tw4 01:29 Patient admitted, IV remains in place. lp1 Administered Medications: No medications were administered Outcome: 00:14 Decision to Hospitalize by Provider. tw4 01:29 Condition: stable lp1 01:29 Instructed on the need for admit. 01:46 Admitted to Tele via wheelchair, room 404, with chart, Report called to COOKIE Kwan lp1 01:51 Patient left the ED. lp1 Signatures: Dispatcher [employer] EDAR Olinda Cortes, RN RN aj1 Denisha Pettit mr Zeina Garrett, RN RN lp1 Desi Tena RN RN tw2 Yazan Arguello Terrence, MD MD tw4
--- NOTE | 2019-03-25 00:16 | EDPHYS ---
Physician Documentation [facility] Name: Sigifredo Kiran Age: 84 yrs Sex: Female : 1935 Arrival Date: 03/24/2019 Time: 18:19 Bed 17 Private MD: Victoriano Nava ED Physician Wicho Vu HPI: 03/25 04:44 This 84 yrs old Female presents to ER via Wheelchair with complaints of tw4 Trouble Walking. 04:44 The patient presents to the emergency department with difficult walking, the patient is tw4 off balance. Onset: The symptoms/episode began/occurred today. Context: occurred at home. Associated signs and symptoms: The patient has no apparent associated signs or symptoms. Severity of symptoms: At their worst the symptoms were mild in the emergency department the symptoms are unchanged. Patient's baseline: Neuro: alert and fully oriented, Motor: no deficits, Ambulation: walks without assistance. The patient has experienced a previous episode. Historical: - Allergies: 03/24 18:23 PENICILLINS; tw2 18:23 Levaquin; tw2 - Home Meds: 18:23 Xarelto Oral [Active]; metoprolol [Active]; Vitamin B-12 Oral [Active]; levothyroxine tw2 oral [Active]; atorvastatin 20 mg Oral tab 1 tab once daily [Active]; - PMHx: 18:23 Atrial Fib; CVA; Diverticulitis; Hypertension; Hypothyroidism; tw2 - PSHx: 18:23 Appendectomy; Knee surgery; Cholecystectomy; shoulder sx; D \T\ C; cyst removed thursday, tw behind Right ear; - Immunization history:: Adult Immunizations. - Social history:: Smoking status: . - Ebola Screening: : Patient denies travel to an Ebola-affected area in the 21 days before illness onset. ROS: 03/25 04:44 Constitutional: Negative for fever, chills, and weight loss, Eyes: Negative for injury, tw4 pain, redness, and discharge, Cardiovascular: Negative for chest pain, palpitations, and edema, Respiratory: Negative for shortness of breath, cough, wheezing, and pleuritic chest pain, Abdomen/GI: Negative for abdominal pain, nausea, vomiting, diarrhea, and constipation, Back: Negative for injury and pain, MS/Extremity: Negative for injury and deformity, Skin: Negative for injury, rash, and discoloration. Neuro: Positive for gait disturbance, weakness, Negative for altered mental status, dizziness, numbness, speech changes, syncope, near syncope. Exam: 04:44 Constitutional: This is a well developed, well nourished patient who is awake, alert, tw4 and in no acute distress. Head/Face: Normocephalic, atraumatic. Eyes: Pupils equal round and reactive to light, extra-ocular motions intact. Lids and lashes normal. Conjunctiva and sclera are non-icteric and not injected. Cornea within normal limits. Periorbital areas with no swelling, redness, or edema. Chest/axilla: Normal chest wall appearance and motion. Nontender with no deformity. No lesions are appreciated. Cardiovascular: Regular rate and rhythm with a normal S1 and S2. No gallops, murmurs, or rubs. Normal PMI, no JVD. No pulse deficits. Respiratory: Lungs have equal breath sounds bilaterally, clear to auscultation and percussion. No rales, rhonchi or wheezes noted. No increased work of breathing, no retractions or nasal flaring. Abdomen/GI: Soft, non-tender, with normal bowel sounds. No distension or tympany. No guarding or rebound. No evidence of tenderness throughout. Back: No spinal tenderness. No costovertebral tenderness. Full range of motion. MS/ Extremity: Pulses equal, no cyanosis. Neurovascular intact. Full, normal range of motion. Neuro: Awake and alert, GCS 15, oriented to person, place, time, and situation. Cranial nerves II-XII grossly intact. Motor strength 5/5 in all extremities. Sensory grossly intact. Cerebellar exam normal. Normal gait. Vital Signs: 03/24 18:21 BP 119 / 83; Pulse 58; Resp 18; Temp 97.5(TE); Pulse Ox 95% on R/A; Weight 104.33 kg tw2 (R); Height 5 ft. 7 in. (170.18 cm) (R); Pain 0/10; 19:58 BP 118 / 75; Pulse 90; Resp 20; Pulse Ox 97% on R/A; Pain 0/10; lp1 20:45 BP 117 / 80; Pulse 87; Resp 14; Pulse Ox 97% on R/A; lp1 22:30 BP 120 / 89; Pulse 89; Resp 19; Pulse Ox 95% on R/A; lp1 23:30 BP 103 / 66; Pulse 81; Resp 20; Pulse Ox 96% on R/A; lp1 03/25 00:30 BP 143 / 97; Pulse 93; Resp 18; Pulse Ox 98% on R/A; lp1 01:30 BP 108 / 71; Pulse 89; Resp 19; Pulse Ox 98% on R/A; Pain 0/10; lp1 03/24 18:21 Body Mass Index 36.02 (104.33 kg, 170.18 cm) tw2 MDM: 03/24 22:34 Patient medically screened. tw4 03/25 04:44 Data reviewed: vital signs, nurses notes. Data interpreted: cadastral engineer: Pulse tw4 oximetry:. Counseling: I had a detailed discussion with the patient and/or guardian regarding: the historical points, exam findings, and any diagnostic results supporting the discharge/admit diagnosis. Special discussion: I discussed with the patient/guardian in detail that at this point there is no indication for admission to the hospital. It is understood, however, that if the symptoms persist or worsen the patient needs to return immediately for re-evaluation. 03/24 20:35 Order name: Basic Metabolic Panel; Complete Time: 22:23 tw4 03/24 22:24 Interpretation: Normal except: GFR 51. tw03/24 20:35 Order name: CBC with Diff; Complete Time: 22:23 tw4 03/24 22:24 Interpretation: Normal except: WBC 8.6; PLT 142. tw4 03/24 20:35 Order name: Ckmb; Complete Time: 22:23 tw4 03/24 22:25 Interpretation: Within normal limits: CKMB 1.2. tw03/24 20:35 Order name: CPK; Complete Time: 22:23 tw4 03/24 20:35 Order name: Hepatic Function; Complete Time: 22:23 tw4 03/24 22:24 Interpretation: Normal except: BILIT 1.1; BILID 0.4; A/G 0.9; GLOB 4.1. tw4 03/24 20:35 Order name: Lipase; Complete Time: 22:23 tw4 03/24 22:25 Interpretation: Normal except: LIP 120. tw03/24 20:35 Order name: CT Head Brain wo Cont tw4 03/24 20:35 Order name: Magnesium; Complete Time: 22:23 tw4 03/24 22:25 Interpretation: Within normal limits: MG 2.3. tw4 03/24 20:35 Order name: Protime (+inr); Complete Time: 22:23 tw4 03/24 22:24 Interpretation: Normal except: PT 18.9. tw4 03/24 20:35 Order name: Ptt, Activated; Complete Time: 22:23 tw4 03/24 22:24 Interpretation: Normal except: PTT 42.6. tw4 03/24 20:35 Order name: Troponin (emerg Dept Use Only); Complete Time: 22:23 tw4 03/24 22:25 Interpretation: Within normal limits: TROPED < 0.02. tw4 03/24 20:35 Order name: EKG; Complete Time: 20:37 tw4 03/24 20:35 Order name: Cardiac monitoring; Complete Time: 20:50 tw4 03/24 21:07 Order name: Urine Dipstick--Ancillary (enter results); Complete Time: 22:23 tn5 03/24 22:25 Interpretation: Normal except: UBLD TRACE. tw4 03/24 20:35 Order name: EKG - Nurse/Tech; Complete Time: 21:40 tw4 03/24 20:35 Order name: IV Saline Lock; Complete Time: 21:40 tw4 03/24 20:35 Order name: Labs collected and sent; Complete Time: 21:40 tw4 03/24 20:35 Order name: NPO; Complete Time: 20:50 tw4 03/24 20:35 Order name: O2 Per Protocol; Complete Time: 20:50 tw4 03/24 20:35 Order name: O2 Sat Monitoring; Complete Time: 20:50 tw4 03/24 20:35 Order name: Urine Dipstick-Ancillary (obtain specimen); Complete Time: 20:50 tw4 EC/12 23:46 Rate is 87 beats/min. Rhythm is irregularly irregular, A fib. QRS [place] is Normal. [place] tw4 interval is normal. QRS interval is normal. QT interval is normal. No Q waves. T waves are Normal. No ST changes noted. Clinical impression: Atrial Fibrillation. Interpreted by me. Reviewed by me. Administered Medications: No medications were administered Disposition: 03/25/19 00:14 Hospitalization ordered by Jennifer Bernal for Inpatient Admission. Preliminary diagnosis is Ataxia, unspecified. - Bed requested for Telemetry/MedSurg (Inpatient). - Status is Inpatient Admission. lp1 - Condition is Stable. - Problem is new. - Symptoms have improved. UTI on Admission? No Signatures: Dispatcher [employer] EDMS Zeina Garrett RN RN lp1 Franci Hernandez RN RN Desi Tena RN RN tw2 Wicho Vu MD MD tw4 Corrections: (The following items were deleted from the chart) 03/25 01:23 00:14 Hospitalization Ordered by Jennifer Bernal MD for Inpatient Admission. Preliminary cg diagnosis is Ataxia, unspecified. Bed requested for Telemetry/MedSurg (Inpatient). Status is Inpatient Admission. Condition is Stable. Problem is new. Symptoms have improved. UTI on Admission? No. tw4 01:51 01:23 03/25/2019 00:14 Hospitalization Ordered by Jennifer Bernal MD for Inpatient lp1 Admission. Preliminary diagnosis is Ataxia, unspecified. Bed requested for Telemetry/MedSurg (Inpatient). Status is Inpatient Admission. Condition is Stable. Problem is new. Symptoms have improved. UTI on Admission? No. cg
[2019-03-25] MEDS ORDERED: ACETAMINOPHEN 500 MG TAB PO PRN (01:28)
[2019-03-25] MEDS ORDERED: ONDANSETRON 4 MG/2 ML VIAL IV PRN (01:28)
[2019-03-25] MEDS ORDERED: DOCUSATE NA 100 MG CAP PO PRN (01:34)
[2019-03-25] MEDS ORDERED: MELATONIN 3 MG TABLET PO PRN (01:34)
[2019-03-25] MEDS ORDERED: HYDROCODONE/APAP 5/325 MG TAB PO PRN (01:34)
--- NOTE | 2019-03-25 01:39 | P.HP ---
Certification for Inpatient Patient admitted to: Observation With expected LOS: <2 Midnights Practitioner: I am a practitioner with admitting privileges, knowledge of patient current condition, hospital course, and medical plan of care. Services: Services provided to patient in accordance with Admission requirements found in Title 42 Section 412.3 of the Code of Federal Regulations Patient History Date of Service: 03/25/19 Reason for admission: ataxia History of Present Illness: shirin carlson is a 84yoF w/ pmhx of HTN, chronic Afib on chronic AC, hypothyroidism, diverticulitis, and recent CVA (august 2018) who presents to the [facility] with ataxia and weakness. she reports that she was in her normal state of health when she awoke this morning however, per her daughter and grand- daughter she had notable disequilibrium progressed by the afternoon that progressively worsened. she states that she was sitting on the sofa and when standing immediately fell back into the chair - this happened 3x until she was able to stand up. she states she was unable to stand due to her legs feeling weak. she states that similar s/s on the last episode of CVA. she had plans to attend a meeting and thus due to her weakness, used her walker, but per the family she almost fell even with the walker. she denies cp,n/v/gonzalez/f/c/sob/ le swelling. she denies etoh and drugs and is a former tobacco use. Allergies levofloxacin [From Levaquin] Allergy (Intermediate, Verified 03/25/19 02:17) Unknown Penicillins Allergy (Verified 03/25/19 02:17) Shortness of breath, swollen tongue Home Medications: Metoprolol Tartrate [Lopressor*] 25 mg PO DAILY WITH BREAKFAST 02/16/14 Rivaroxaban [Xarelto] 20 mg PO DAILY 6PM 02/16/14 Levothyroxine [Synthroid*] 88 mcg PO DAILY 05/22/18 Sulfamethoxazole/Trimethoprim [Bactrim Ds Tablet] 1 each PO BID #12 tablet 03/21 Atorvastatin Calcium [Lipitor] 20 mg PO BEDTIME 03/25/19 - Past Medical/Surgical History Diabetic: No -: BRONCHITIS -: CHRONIC BACK PAIN -: OSTEOARTHRITIS -: HTN -: AFIB -: MRSA (MORE THAN 5 YRS AGO) -: HYPOTHYROIDISM -: CATARACT SX BILATERAL EYES -: CHOLECYSTECTOMY -: SHOULDER/RIGHT ROTATOR CUFF -: APPENDECTOMY -: R KNEE ARTHROPLASTY -: I/D BACK -: CHOLECYSTECTOMY -: ROTATOR CUFF - Family History Mother -: Heart disease - Social History Alcohol use: Yes CD- Drugs: No Caffeine use: Yes Review of Systems General: Weakness, As per HPI Eyes: Unremarkable ENT: Unremarkable Respiratory: Unremarkable Cardiovascular: Unremarkable Gastrointestinal: Unremarkable Genitourinary: Unremarkable Musculoskeletal: Neck Pain, As per HPI, Unremarkable Integumentary: Unremarkable Neurological: Weakness, Incoordination Physical Examination - Physical Exam General: Alert, In no apparent distress, Oriented x3, Cooperative, Other (very jovial interactive, conversational, a/ox3, NAD) HEENT: Atraumatic, EOMI Neck: Supple, Other (discomfort) Respiratory: Clear to auscultation bilaterally, Normal air movement Cardiovascular: No edema, No murmurs, Other (tachycardia ), Irregular heart rate /rhythm Capillary refill: <2 Seconds Gastrointestinal: Normal bowel sounds, Soft and benign, Non-distended, No rebound, No guarding Musculoskeletal: No swelling Integumentary: No rashes, No cyanosis Neurological: Normal speech, Cranial nerves 3-12 intact, Other (gait not tested ) External genitalia: Deferred Rectal: Deferred - Studies Laboratory Data (last 24 hrs) 03/24/19 21:00: PT 18.9 H, INR 1.63, APTT 42.6 H 03/24/19 21:00: WBC 8.6 D, Hgb 14.7, Hct 43.6, Plt Count 142 L 03/24/19 21:00: Sodium 138, Potassium 4.2, BUN 15, Creatinine 1.04, Glucose 102 , Magnesium 2.3, Total Bilirubin 1.1 H, AST 23, ALT 25, Alkaline Phosphatase 104 , Lipase 120 Assessment and Plan - Plan 84yoF admitted w/ ataxia - concern for new onset CVA will obtain a1c, tsh, lipid panel MRI/MRA brain and neck, carotid US 2/2 pt w/ hx of atherosclerosis will consult PT, speech and neuro will obtain TTE and monitor on tele will trend CE supplemental o2 as needed will obtain MRI c-spine : pt mentions vague neck pain x 1 month afib w/ chronic AC c/w AC therapy and BB will c/t monitor for signs of RVR trend CE h/o CVA Plan as above HTN monitor BP restart home meds add PRN as needed DVT ppx - c/w AC and SCD - Advance Directives Does patient have a Living Will: No Does patient have a Durable POA for Healthcare: No
[2019-03-25 02:22] LABS: CKMB Creatine Kinase MB 1.3 ng/mL (0.3-3.6); Troponin I < 0.02 ng/mL (0.0-0.045)
[2019-03-25 02:30] VITALS: BMI 36.0
[2019-03-25 04:50] LABS: Basophils % 0.6 % (0-1.3); Hematocrit 39.6 % (36.0-45.0); Lymphocytes % 40.4 % (15.3-44.8); MPV 9.2 fL (7.6-11.3); RBC Red Blood Cell Count 4.27 M/uL (3.86-4.86)
[2019-03-25 05:07] LABS: Albumin 3.1 g/dL (3.4-5.0); Bilirubin Total 1.6 mg/dL (0.2-1.0); Magnesium 2.2 mg/dL (1.8-2.4); Potassium 4.2 mmol/L (3.5-5.1); Protein, Total 6.7 g/dL (6.4-8.2); Thyroid Stimulating Hormone 1.78 uIU/mL (0.360-3.740)
[2019-03-25 05:08] LABS: Protime INR 1.54
--- NOTE | 2019-03-25 07:07 | EKG ---
Test Date: 2019-03-24 Test Time: 21:24:41 Hair Mixer: SARA MEASUREMENT RESULTS: Intervals: Rate: 87 ID: [id number] QT: 366 QTc: 440 [place]: P: ID: [id number] T: 32 INTERPRETIVE STATEMENTS: Atrial fibrillation Abnormal ECG Compared to ECG 08/20/2018 14:59:43 No significant changes Electronically Signed On 03-25-19 07:06:45 PAID SEARCH MARKETING ANALYST by Tomy Menezes
--- NOTE | 2019-03-25 10:05 | RAD REPORT ---
EXAM DESCRIPTION: MRI - Brain W/Wo Cont - 03/25/2019 9:21 am CLINICAL HISTORY: TIA/ataxia COMPARISON: August 2018 TECHNIQUE: Axial, sagittal, and coronal magnetic images of the brain were obtained. 20 cc MultiHance administered intravenously FINDINGS: Mild to moderate signal within periventricular, deep and subcortical white matter probably ischemic changes secondary to small vessel disease Small relatively old left thalamic infarct. The ventricles are normal in caliber. Diffusion-weighted/ ADC mapping sequences do not demonstrate evidence of an acute infarction. No abnormal enhancement within the brain is seen. An extra-axial fluid collection is not noted. Stable skin lesions likely benign Fluid within the sinuses/mastoids is not seen IMPRESSION: No acute abnormality displayed
--- NOTE | 2019-03-25 10:08 | RAD REPORT ---
EXAM DESCRIPTION: MRI - MRA Head Wo Cont - 03/25/2019 9:21 am CLINICAL HISTORY: TIA COMPARISON: None. TECHNIQUE: Magnetic resonance angiogram was performed. 3D MIPS reconstruction performed FINDINGS: origin left posterior cerebral artery The anterior cerebral, middle cerebral, posterior cerebral, distal internal carotid and basilar arter ies do not demonstrate a significant stenosis. An aneurysm is not displayed. IMPRESSION: No acute abnormalities displayed
--- NOTE | 2019-03-25 10:15 | RAD REPORT ---
EXAM DESCRIPTION: MRI - MRA Neck W/Wo Cont - 03/25/2019 9:21 am CLINICAL HISTORY: TIA COMPARISON: None. TECHNIQUE: Magnetic resonance angiogram of the neck was performed. 20 cc MultiHance was administered intravenously. 3D MIPS reconstruction performed FINDINGS: Mild plaque is present within the left internal carotid artery. The bilateral common carotid, external carotid and right internal carotid artery are unremarkable Not demonstrate a significant stenosis. An aneurysm is not seen. The left vertebral artery is more dominant than the right. No abnormality noted IMPRESSION: Mild plaque within the left internal carotid artery NASCET criteria used. Mild 0-49% stenosis Moderate 50-69% stenosis Severe 70-99% stenosis
--- NOTE | 2019-03-25 10:24 | RAD REPORT ---
EXAM DESCRIPTION: USCarotid Artery Byjyeaahz82/13/2019 9:39 am CLINICAL HISTORY: TIA COMPARISON: None FINDINGS: The velocity of the right internal carotid artery equals 95 cm/sec. The right ICA/CCA rati o 1.2 The velocity of the left internal carotid artery equals 66 cm/sec. The left ICA/CCA ratio 1.3 Mild plaque is present within the left internal carotid artery The vertebral arteries demonstrate antegrade flow IMPRESSION: Mild plaque within the left internal carotid artery without evidence of a hemodynamicall y significant stenosis NASCET criteria used. Mild 0-49% stenosis Moderate 50-69% stenosis Severe 70-99% stenosis
[2019-03-25 10:32] LABS: CKMB Creatine Kinase MB 1.5 ng/mL (0.3-3.6); Troponin I < 0.02 ng/mL (0.0-0.045)
--- NOTE | 2019-03-25 10:33 | RAD REPORT ---
EXAM DESCRIPTION: MRI - C Spine Wo Cont - 03/25/2019 9:20 am CLINICAL HISTORY: Ataxia COMPARISON: 2016 TECHNIQUE: Magnetic resonance imaging of the cervical spine was obtained with coronal and sagittal r econstruction FINDINGS: Minimal spondylosis C2-3 Disc bulge with annular fissure C3-4. Osteophytes. Thecal sac measures 6.5 millimeters. Mild to moder ate narrowing of the right neural foramina. Facet hypertrophy Disc bulge, osteophytes and facet hypertrophy C4-5. Thecal sac measures 8 millimeters. Mild narrowing of the left and moderate narrowing of the right neural foramina Disc bulge and osteophytes C5-6. Thecal sac measures 9 millimeters. Mild narrowing of the left and mo derate narrowing of the right neural foramina Disc bulge and osteophytes C6-7. Thecal sac measures 8 millimeters. Mild to moderate narrowing of the neural foramina Mild spondylosis C7-T1 Mild spondylosis T1-2 . Spinal cord demonstrates normal signal. 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
--- NOTE | 2019-03-25 10:49 | RAD REPORT ---
EXAM DESCRIPTION: CT - Head Brain Wo Cont - 03/24/2019 9:25 pm CLINICAL HISTORY: 84 years Female WEAKNESS COMPARISON: CT abdomen MRI brain without contrast dated 08/20/2018 TECHNIQUE: Contiguous axial images of the brain were obtained without the administration of intraven ous contrast.This exam was performed according to our departmental dose-optimization program which in cludes use of Automated Exposure Control, adjustment of the mA and/or kV according to patient size an d/or use of iterative reconstruction technique. DLP: 869 mGy*cm FINDINGS: Brain: Scattered bilateral ill-defined gangliocapsular hypodensities, likely prior lacunar infarct. No acute intracranial hemorrhage. No extra-axial collection. No mass effect or herniation. Prominence of the sulci and cisterns. Confluent periventricular and subcortical white matter hypode nsity is noted. Ventricles: Allowing for underlying cerebral volume loss, ventricular size appears within normal limi ts.. Globes and orbits: Prior cataract surgery. No acute abnormality. Bones: No acute osseous finding Paranasal sinuses: Paranasal sinuses are clear. Mastoid air cells: Well pneumatized. Soft tissues: Within normal limits. Partially calcified right frontal scalp soft tissue nodule. IMPRESSION: No acute intracranial hemorrhage, hydrocephalus or herniation.. Cerebral volume loss, chronic small vessel ischemic changes and prior gangliocapsular lacunar infarct s. If persistent clinical concern for acute ischemia, consider MRI brain without contrast for further evaluation. Electronically signed by: Pascual Richards DO 03/24/2019 9:54 PM END MAKER Due to temporary technical issues with the PACS/Fluency reporting system, reports are being signed by the in house radiologist as a courtesy to ensure prompt reporting. The interpreting radiologist is f ully responsible for the content of the report.
--- NOTE | 2019-03-25 15:57 | ECHO ---
HEIGHT: 5 ft 7 in WEIGHT: 229 lb 14.4 oz DATE OF STUDY: 03/25/[address]: Jennifer Bernal 2-DIMENSIONAL: YES M.MODE: YES DOPPLER: YES COLOR FLOW: YES TDS: NO PORTABLE: NO DEFINITY: NO BUBBLE STUDY: NO DIAGNOSIS: STROKE CARDIAC HISTORY: CATHERIZATION: NO SURGERY: NO PROSTHETIC VALVE: NO PACEMAKER: NO MEASUREMENTS (cm) DIASTOLIC (NORMALS) SYSTOLIC (NORMALS) IVSd 1.4 (0.6-1.2) LA Diam 4.8 (1.9-4.0) LVEF 53% LVIDd 3.6 (3.5-5.7) LVIDs 2.6 (2.0-3.5) %FS 27% LVPWd 1.5 (0.6-1.2) Ao Diam 3.1 (2.0-3.7) 2 DIMENSIONAL ASSESSMENT: RIGHT ATRIUM: NORMAL LEFT ATRIUM: DILATED RIGHT VENTRICLE: NORMAL LEFT VENTRICLE: LEFT VENTRICULAR HYPERTROPHY TRICUSPID VALVE: NORMAL MITRAL VALVE: MITRAL ANNULAR CALCIFICATION PULMONIC VALVE: NORMAL AORTIC VALVE: SCLEROSIS PERICARDIAL EFFUSION: NONE AORTIC ROOT: NORMAL LEFT VENTRICULAR WALL MOTION: NORMAL DOPPLER/COLOR FLOW: MILD TRICUSPID REGURGITATION. COMMENTS: NORMAL LEFT VENTRICULAR FUNCTION. MILD TRICUSPID REGURGITATION. NORMAL RIGHT VENTRICULAR SYSTOLIC PRESSURE. MITRAL ANNULAR CALCIFICATION. AORTIC SCLEROSIS WITH NO STENOSIS. LEFT VENTRICULAR HYPERTROPHY. NO THROMBUS. NO VEGETATION. TECHNOLOGIST: Aman BURGOS
[2019-03-25 18:05] LABS: CKMB Creatine Kinase MB 1.2 ng/mL (0.3-3.6); Troponin I < 0.02 ng/mL (0.0-0.045)
[2019-03-25] MEDS ORDERED: ATORVASTATIN 20 MG TAB PO SCH (21:00)
--- NOTE | 2019-03-25 22:12 | PN ---
Date of Progress Note: 03/25/2019 Subjective: Patient is seen and examined. Chart reviewed and case discussed with RN as well as Dr. Moser. Patient reports difficulty ambulating and weakness. Medications: List reviewed. Code Status: Full. Physical Examination: Vital Signs: Temperature 96.9, heart rate 85, blood pressure 106/72, respirations 20, O2 of 95% on r oom air. General: Awake, alert, oriented x3, not in any acute distress. Elderly female, obese, BMI 36. CV: S1, S2. Irregularly irregular rhythm. Peripheral pulses present. Respiratory: Moving air well bilaterally. No wheezing or stridor. Gastrointestinal: Abdomen is soft, nontender, nondistended. Positive bowel sounds. No guarding or rigidity. Extremities: No clubbing, cyanosis, or edema. Neurologic: Nonfocal. Laboratory Data: Sodium 139, potassium 4.2, chloride 106, CO2 of 29, BUN 14, creatinine 1.04, glucos e 146. Hemoglobin A1c is 5.7%. Calcium 8.9, magnesium 2.2, total bilirubin 1.6. Troponin less than 0.02. Albumin 3.1. Triglycerides 66, cholesterol 100, LDL 30, HDL 57, TSH 1.7. WBC 7.4, H and H o f 13.9 and 39.6, platelets 117. INR 1.54. Echocardiogram shows EF 53%. Mitral annular calcificatio n. Aortic sclerosis with no stenosis. Left ventricular hypertrophy. No thrombus. No vegetation. Neck MRA shows some mild plaque within the left internal carotid artery. Cervical spine MRI shows sp ondylosis, most marked at C3-4 resulting in moderate central spinal stenosis. Brain MRI with MRA magnolia ws no acute abnormalities. MRI of the brain shows no acute abnormality. Carotid artery ultrasound s hows mild plaque within the left internal carotid artery without evidence of hemodynamically signific ant stenosis. Patient does have chronic small-vessel ischemic changes on head CT scan and prior gang lial capsular lacunar infarcts. Assessment: An 84-year-old female with: 1.Ataxia, possible transient ischemic attack versus cerebrovascular accident. MRI is negative. Cer ebrovascular accident has been ruled out. Dr. Moser of Neurology has been consulted. Continue wi statin, aspirin. Patient does have some mild plaquing in the carotids. Echocardiogram showed nor mal EF. We will continue to monitor on telemetry. 2.Neck pain. C-spine MRI does show some central spinal canal stenosis. We will give steroids. Fol low up with Neurology. 3.Atrial fibrillation, chronic, permanent. Continue anticoagulation and beta-blockers. 4.Previous history of cerebrovascular accident. Patient has lacunar infarcts. 5.Essential hypertension. Resume home medications as appropriate. 6.Obesity, BMI 36. 7.Chronic back pain. 8.Generalized osteoarthritis. 9.Hyperbilirubinemia, likely acute phase reactant. 10.Hypertensive heart disease. Echocardiogram shows left ventricular hypertrophy. Plan: DVT prophylaxis with Lovenox. Continue workup. PT/OT eval. Speech eval. Patient will likel y benefit from physical therapy versus rehab. SA/MODL Voice ID: [id number] Report ID: [id number]
--- NOTE | 2019-03-26 01:58 | CON ---
Reason For Consultation: Consultation called because of possible stroke. History Of Present Illness: Qiana is an 84-year-old right-handed patient with multiple str tierney risk factors including hypertension, chronic atrial fibrillation, prior stroke with good recovery , who comes to [facility] earlier on the after having noticed more difficulty with her ba ranjana and coordination when she tried to get up from a sofa. She was unable to stand and fell backwa rd several times and had vertiginous symptoms. She did not have any new focal weakness in the face, arm, or leg, but her daughters were worried that she may have a new stroke and they brought her for e valuation at [facility] her head CT scan showed no acute ischemic or hemorrhagic change. St udy was done at 9:25 p.m. on 03/24. The study did show old small-vessel ischemic disease and prior g anglial capsular lacunar infarcts. Subsequent brain MRI done the following day as , today ruled ou t the presence of an acute ischemic or hemorrhagic stroke, but did identify small-vessel ischemic dis ease and has mild to moderate changes. No mention of any significant deficits related to a prior str tierney and this was expected to be lacunar strokes. She did have a cervical spine, MRI identifying spon dylosis most marked at C3-4 resulting in moderate central spinal stenosis. Carotid artery ultrasound showed no evidence of hemodynamically significant stenosis. There was mild plaque in the left inter nal carotid artery by NASCET criteria. She was given IV fluids, and continue on the Lipitor and Xare lto for atrial fibrillation, with beta pippa and Synthroid and the patient does report that her sym ptoms are significantly improved since hospitalization. Past Medical History: As indicated in addition to chronic back pain, osteoarthritis, history of MRSA many years ago, hypothyroidism. Past Surgical History: Cataracts, bilaterally then removed; cholecystectomy; shoulder rotator cuff s urgery; appendectomy; right knee arthroscopy. Family History: Heart disease in mother. Allergies: OFLOXACIN AND PENICILLIN. Medications: At home, metoprolol 25 mg twice daily, Xarelto 20 mg daily, Synthroid 88 mcg daily, tri methoprim sulfamethoxazole twice daily and she is completing a 6-day course, Lipitor 20 mg at bedtime . Review of Systems: Aside from above, no recent fevers, chills, nausea, vomiting, myalgias, arthralgias, headaches, weigh t change, psychiatric complaints. No gastrointestinal or genitourinary issues. Physical Examination: Vital Signs: Blood pressure 112/62, pulse 89, respiratory rate 16, temperature 97.2, oxygen saturati on 98% on room air. Weight 222 pounds, height 5 feet 7 inches, BMI 36. General: Ms. Kiran is resting in bed. She is in no acute distress. HEENT: She is normocephalic, atraumatic. Sclerae anicteric. Oropharynx pink and moist. Neck: Supple. Chest: Clear. Heart: Irregular irregular. Abdomen: Soft. Extremities: No significant edema or cyanosis. Neurological: She is alert and oriented to situation, place, and person. Follows all commands appro priately. Cranial nerve examination revealed no focal deficits on 2 through 12. Motor examination i n the upper lower extremity, mild weakness in the upper and lower extremities without focal findings. She has 5-/5 bilaterally. Sensory exam, mild stocking-glove, loss to light touch, temperature. Re flexes are increased slightly in the lower extremities compared to upper extremities at 2 to 3+ and s he does have a slightly unsteady, wide-based gait. Laboratory Studies: Complete blood count with differential is normal. INR 1.54. Chemistries remark able for slightly elevated glucose of 146. Hemoglobin A1c 5.7. Liver function studies are normal. Total bilirubin elevated to 1.6. Albumin is low at 3.1. TSH 1.78, that is normal. HDL cholesterol 57, LDL cholesterol 30. Her cholesterol HDL ratio is 1.7. Lipase 120. Urinalysis shows trace of bl ood. Assessment: Ms. Kiran is an 84-year-old patient with multiple stroke risk factors. She has not had a stroke by clinical examination by MRI. Her risk factors, however, strong for stroke. She does hav e cervical cord compression, which may be a component for her gait instability. She should be evalua tyrone by Neurosurgery for possible decompression. Plan: 1.Patient may be discharged with outpatient physical therapy and then evaluated by Neurosurgery. 2.Continue Xarelto for atrial fibrillation, stroke risk reduction. 3.Continue Lipitor for dyslipidemia. 4.Aggressive management of hypertension and she is actually doing well at this point. 5.She should follow up with Dr. Moser 1 month after discharge. DEBBI/DES Voice ID: [id number] Report ID: [id number]
[2019-03-26] MEDS ORDERED: LEVOTHYROXINE SOD 0.088 MG TAB PO SCH (06:30)
[2019-03-26 06:41] LABS: Absolute Lymphocytes (CBC) 2.6 K/uL (0.7-4.9); Basophils % 0.6 % (0-1.3); Hematocrit 42.6 % (36.0-45.0); Lymphocytes % 41.6 % (15.3-44.8); MPV 9.6 fL (7.6-11.3); RBC Red Blood Cell Count 4.55 M/uL (3.86-4.86)
[2019-03-26 06:58] LABS: Albumin 3.2 g/dL (3.4-5.0); Bilirubin Total 1.7 mg/dL (0.2-1.0); Potassium 4.4 mmol/L (3.5-5.1); Protein, Total 6.9 g/dL (6.4-8.2)
[2019-03-26] MEDS ORDERED: METOPROLOL TAR 25 MG TAB PO SCH (08:00)
[2019-03-26 08:08] VITALS: O2SAT 97
[2019-03-26 13:02] VITALS: BP 109/72; TEMP 99.2
[2019-03-26] MEDS ORDERED: RIVAROXABAN 20 MG TABLET PO SCH (18:00)
--- NOTE | 2019-03-27 01:11 | DS ---
Date of Discharge: 03/26/2019 Consultants: Dr. Moser with Neurology. Admitting Diagnoses: 1.Ataxia, transient ischemic attack versus new-onset cerebrovascular accident. 2.Atrial fibrillation, chronic, rate controlled, permanent on anticoagulation. 3.History of cerebrovascular accident with minimal ataxia. 4.Essential hypertension. 5.Obesity BMI 36. Discharge Diagnoses: 1.Ataxia, possible transient ischemic attack, cerebrovascular accident was ruled out. 2.Central cervical spine canal stenosis. 3.Atrial fibrillation, chronic permanent, on anticoagulation, rate controlled. 4.Prior history of cerebrovascular accident with lacunar infarcts. 5.Essential hypertension. 6.Obesity, BMI 36. 7.Chronic back pain, midline, without sciatica. 8.Generalized osteoarthritis. 9.Hyperbilirubinemia. 10.Hypertensive heart disease. Hospital Course: Patient is an 84-year-old female with past medical history of hypertension, stroke, atrial fibrillation, on anticoagulation, comes in with ataxia and weakness. Patient was admitted to rule out new-onset stroke. Workup including MRI of the brain, MRA of the brain, and neck MRA was do ne, which did not reveal any new strokes. Did show her old lacunar strokes. Patient was also seen b kecia Moser with Neurology, who recommended continuing the Xarelto for stroke prophylaxis and sett ing up home health with PT. The patient's echocardiogram showed hypertensive heart disease, EF was n ormal. Patient's ataxia improved. She did complain of neck pain and cervical spine MRI was done to rule out any stenosis. She was found to have central spinal canal stenosis in the cervical spine. S he will need to be evaluated by Neurosurgery for possible decompression. This may be leading to her ataxia. Patient did well with physical therapy, ambulated with assist. She will need to be set up w [facility], with PT and to follow up with Neurology in 1 month and to follow up with Neurosurger y in 1-2 weeks. She can contact Dr. Moser's office for referral. She is to follow up with [facility] care physician Dr. Victoriano Nava in 2-3 days once he is back in town. Diet: Heart healthy. Activity: Fall precautions, ambulate with assist. Physical Examination: General: Awake, alert, and oriented x3. Elderly female, obese. CV: S1, S2. Irregularly irregular. Respiratory: Moving air well bilaterally. Abdomen: Soft, nontender, nondistended. Positive bowel sounds. Extremities: No clubbing, cyanosis, or edema. Neurologic: Nonfocal. SA/MODL Voice ID: [id number] Report ID: [id number]
== END 2019-03-26 12:39 | disposition home health service (06) ==
LOC: ER 18:17 → ERHOLD 03-25 01:25 → 4TH 03-25 01:47
PROVIDERS: ADMIT Internal Medicine; ATTEND Internal Medicine
DX: R27.0 Ataxia, unspecified (principal); M48.02 Spinal stenosis, cervical region; I48.20 Chronic atrial fibrillation, unspecified; E03.9 Hypothyroidism, unspecified; E66.9 Obesity, unspecified; Z68.36 Body mass index [BMI] 36.0-36.9, adult; M54.9 Dorsalgia, unspecified; M15.9 Polyosteoarthritis, unspecified; E80.6 Other disorders of bilirubin metabolism; I11.9 Hypertensive heart disease without heart failure; Z86.73 Personal history of transient ischemic attack (TIA), and cerebral infarction without residual deficits; Z79.01 Long term (current) use of anticoagulants; Z88.0 Allergy status to penicillin
CPT/HCPCS: 93005; 93306; 85025 ×3; 80048; 36415 ×2; 83735 ×2; 82550; 85610 ×2; 80061; 80076; 85730; 84443; 81003; 83036; 84484 ×4; 82553 ×4; 83690; 80053 ×2; 70450; 93880; 72141; 70553; 70544; 70549; 92610; 97110; 97116; 97161; 94760 ×4; 99285; A9577; G0378 ×3

== ENCOUNTER 2020-10-19 19:23 | Emergency (ER) | payer OTHER ==
--- OUTSIDE RECORDS SUMMARY | 2020-10-19 19:27 | XMS REPORT | Continuity of Care Document ---
:1935 Author Organization [facility] t Address [address] [place] [address] Care Team Providers Name Role Phone Brandy CORTEZ Primary Care Physician CHANDRA DIAZ Attending Clinician Unavailable CHANDRA DIAZ Admitting Clinician Unavailable Problems Condition Condition Condition Status Onset Resolution Last Treating Co mments Source Name Details Category Date Date Treatment Clinician Date Stroke Stroke Disease Active [facility] 5-10 Barbara kes - [facility]:00: Medical 00 Center Allergies, Adverse Reactions, Alerts Allergy Allergy Status Severity Reaction(s) Onset Inactive Treating Comm ents Source Name Type Date Date Clinician Penicill Propensi Active [facility] reaction 00 Center s Social History Social Habit Start Date Stop Date Quantity Comments Source Sex Assigned At [facility] History of tobacco [facility] sm[facility] Tobacco use and 2018-08-23 2018-08-23 Never used [facility] St Barbara kes - exposure 00:00:00 00:00:00 [facility] Cigarettes smoked 2018-08-23 2018-08-[address] [facility] - current (pack per 00:00:00 00:00:00 Medical Center day) - Reported Cigarette 2018-08-23 2018-08-[address] [facility] - pack-years 00:00:00 00:00:00 Medical Center Smoking Status Start Date Stop Date Source Former smoker 2018-08-23 00:00:00 2018-08-23 00:00:[address] [facility] [address] [facility] Medications Ordered Filled Start Stop Current Ordering Indication Dosage Frequency Signature Comments Components Source Medication Medication Date Date Medication? Clinician (SIG) Name Name metoprolol Yes 25mg QD Take [address] (TOPROL-XL) 5-13 by mouth [facility] - 25 MG 24 hr 14:48: daily. Medi kitty tablet 48 Center levothyroxi Yes 75ug Take [address] ne 5-13 mcg by [facility] - (SYNTHROID, 14:48: mouth Medic al LEVOTHROID) 48 Every Center 75 MCG morning on tablet an empty stomach. rivaroxaban Yes Take by [facility] (XARELTO) 5-13 mouth [facility] - 20 mg Tab 14:48: daily with Me dical tablet 48 dinner. Center Procedures This patient has no known procedures. Plan of Care Planned Activity Planned Date Details Comments Source Future Scheduled 2019-12-13 INFLUENZA VACCINE (#1) [facility] - Test 00:00:00 [code = INFLUENZA Medical Ce nter VACCINE (#1)] Future Scheduled 2019-04-[address] [facility] - Test 00:00:00 WELLNESS (YEAR 2 or Medical Center FIRST YEAR if no IPPE) [code = MEDICARE ANNUAL WELLNESS (YEAR 2 or FIRST YEAR if no IPPE)] Future Scheduled 2001-01-19 PNEUMOCOCCAL 65+ YRS [facility] - Test 00:00:00 (1 of 1 - Medical Center [id number]) [code = PNEUMOCOCCAL 65+ YRS (1 of 1 - [id number] PCV13)] Results Test Description Test Time Test Comments Results Result Comments Source BASIC METABOLIC PANEL 2018-08-23 06:31:00 Test Item Value Reference Range Interpretation Comme nts SODIUM (BEAKER) (test code 138 meq/L 136-145 = 381) POTASSIUM (BEAKER) (test 4.0 meq/L 3.5-5.1 code = 379) CHLORIDE (BEAKER) (test 105 meq/L 98-107 code = 382) CO2 (BEAKER) (test code = 26 meq/L 22-29 355) BLOOD UREA NITROGEN 15 mg/dL 7-21 (BEAKER) (test code = 354) CREATININE (BEAKER) (test 0.75 mg/dL 0.57-1.25 code = 358) GLUCOSE RANDOM (BEAKER) 106 mg/dL 70-105 H (test code = 652) CALCIUM (BEAKER) (test code 9.5 mg/dL 8.4-10.2 = 697) EGFR (BEAKER) (test code = 74 mL/min/1.73 sq m ESTIMATED GFR IS NOT 1092) ACCURATE CRE ATININE CLEARANCE IN [place] EDICTING GLOMERULAR FILT RATION RATE. ESTIMATED GFR IS NOT APPLICABLE FOR DIALYSIS PATIENTS. BASIC METABOLIC [id number] 06:27:00 Test Item Value Reference Range Interpretation Comments SODIUM (BEAKER) 140 meq/L 136-145 (test code = 381) POTASSIUM (BEAKER) 4.0 meq/L 3.5-5.1 Specimen slightly (test code = 379) hemolyzed CHLORIDE (BEAKER) 106 meq/L 98-107 (test code = 382) CO2 (BEAKER) (test 24 meq/L 22-29 code = 355) BLOOD UREA NITROGEN 16 mg/dL 7-21 (BEAKER) (test code = 354) CREATININE (BEAKER) 0.77 mg/dL 0.57-1.25 Specimen slightly (test code = 358) hemolyzed GLUCOSE RANDOM 131 mg/dL 70-105 H (BEAKER) (test code = 652) CALCIUM (BEAKER) 9.3 mg/dL 8.4-10.2 (test code = 697) EGFR (BEAKER) (test 72 mL/min/1.73 ESTIMA YURY GFR IS code = 1092) sq m NOT ACCURATE CREATININE CLEARANCE IN PREDICTING GLOMERULAR FILTRATION RATE . ESTIMATED GFR I S NOT APPLICABLE FOR DIALYSIS PATIEN TS. CT, CTANGIO [id number] 12:08:00FINAL REPORT CLINICAL HISTORY: Stroke TECHNIQUE: Initially, noncontrast head CT images were performed. Contiguous contrast-enhanced axial images through the neck followed by axial images through the head with coronal and sagittal reformations to assess the arterial circulation. 3-D reconstructions were performed using a volume rendered technique separately on a workstation. This exam was performed according to the departmental dose optimization program which includes automated exposure control, adjustment of the mA and/or kV [...] intact. There is no evidence for a [place] proximal branch vessel occlusion. No [...] acuteinfarct or hemorrhage. No evidence for a [place] proximal branch vessel occlusion. No evidence of hemodynamically significant stenosis in the cervical carotid or vertebral arteries by NASCET criteria. Signed: Escobar Galdamez MDReport Verified Date/Time: 08/21/2018 12:08:39 Reading Location: [facility] C013 Neuro Reading [facility] CAROTID, [id number] 12:08:00FINAL REPORT CLINICAL HISTORY: Stroke TECHNIQUE: Initially, [...] intact. There is no evidence for a [place] proximal branch vessel occlusion. No aneurysms are seen. There is a origin of theleft posterior cerebral artery. The major intradural venous sinuses are patent. There is mild atheros clerotic disease at the bilateral carotid bifurcations without [...] acuteinfarct or hemorrhage. No evidence for a [place] proximal branch vessel occlusion. No evidence of hemodynamically significant stenosis in the cervical carotid or vertebral arteries by NASCET criteria. Signed: Escobar Galdamez MDReport Verified Date/Time: 08/21/2018 12:08:39 Reading Location: [address] Neuro Reading Room GLOBIN [id number] 07:01:00 Test Item Value Reference Range Interpretation Comments HEMOGLOBIN A1C (BEAKER) (test code = 5.9 % 4.3-6.1 368) TSH/FREE T4 IF [id number] 06:21:00 Test Item Value Reference Range Interpretation Comments THYROID STIMULATING HORMONE 2.41 uIU/mL 0.35-4.94 (BEAKER) (test code = 772) VITAMIN B12 AND [id number] 06:21:00 Test Item Value Reference Range Interpretation Comments VITAMIN B12 (BEAKER) (test code = 341 pg/mL 213-816 774) FOLATE (BEAKER) (test code = 362) 3.9 ng/mL >=7.0 L BASIC METABOLIC [id number] 06:02:00 Test Item Value Reference Range Interpretation Comments SODIUM (BEAKER) 137 meq/L 136-145 (test code = 381) POTASSIUM (BEAKER) 4.0 meq/L 3.5-5.1 (test code = 379) CHLORIDE (BEAKER) 101 meq/L 98-107 (test code = 382) CO2 (BEAKER) (test 28 meq/L 22-29 code = 355) BLOOD UREA NITROGEN 14 mg/dL 7-21 (BEAKER) (test code = 354) CREATININE (BEAKER) 0.77 mg/dL 0.57-1.25 (test code = 358) GLUCOSE RANDOM 98 mg/dL 70-105 (BEAKER) (test code = 652) CALCIUM (BEAKER) 9.8 mg/dL 8.4-10.2 (test code = 697) EGFR (BEAKER) (test 72 mL/min/1.73 ESTIMA YURY GFR IS code = 1092) sq m NOT ACCURATE CREATININE CLEARANCE IN PREDICTING GLOMERULAR FILTRATION RATE . ESTIMATED GFR I S NOT APPLICABLE FOR DIALYSIS PATIEN TS. Specimen slightly ictericLIPID [id number] 06:02:00 Test Item Value Reference Range Interpretation Comments TRIGLYCERIDES (BEAKER) (test code = 104 mg/dL 540) CHOLESTEROL (BEAKER) (test code = 169 mg/dL 631) HDL CHOLESTEROL (BEAKER) (test code 42 mg/dL = 976) LDL CHOLESTEROL CALCULATED (BEAKER) 106 mg/dL (test code = 633) Triglyceride Reference Range: Low Risk <150 Borderline 150-199 High Risk 200-499 Very High Risk >=500Cholesterol Reference Range: Low Risk <200 Borderline 200-239 High Risk >240HDL Cholesterol Reference Range: Low Risk >=60 High Risk <40LDL Cholesterol Reference Range: Optimal <100 Near Optimal 100-129 Borderline 130-159 High 160-189 Very High >=190 Specimen slightly ictericCBC W/PLT COUNT & AUTO DIFFERENTIAL 2018-08-21 05:29:00 Test Item Value Reference Range Interpretation Comments WHITE BLOOD CELL COUNT (BEAKER) 7.4 K/ L 3.5-10.5 (test code = 775) RED BLOOD CELL COUNT (BEAKER) 4.81 M/ L 3.93-5.22 (test code = 761) HEMOGLOBIN (BEAKER) (test code = 15.1 GM/DL 11.2-15.7 410) HEMATOCRIT (BEAKER) (test code = 45.1 % 34.1-44.9 H 411) MEAN CORPUSCULAR VOLUME (BEAKER) 93.8 fL 79.4-94.8 (test code = 753) MEAN CORPUSCULAR HEMOGLOBIN 31.4 pg 25.6-32.2 (BEAKER) (test code = 751) MEAN CORPUSCULAR HEMOGLOBIN CONC 33.5 GM/DL 32.2-35.5 (BEAKER) (test code = 752) RED CELL DISTRIBUTION WIDTH 13.0 % 11.7-14.4 (BEAKER) (test code = 412) PLATELET COUNT (BEAKER) (test 157 K/CU MM 150-450 code = 756) MEAN PLATELET VOLUME (BEAKER) 10.8 fL 9.4-12.3 (test code = 754) NUCLEATED RED BLOOD CELLS 0 /100 WBC 0-0 (BEAKER) (test code = 413) NEUTROPHILS RELATIVE PERCENT 49 % (BEAKER) (test code = 429) LYMPHOCYTES RELATIVE PERCENT 39 % (BEAKER) (test code = 430) MONOCYTES RELATIVE PERCENT 8 % (BEAKER) (test code = 431) EOSINOPHILS RELATIVE PERCENT 3 % (BEAKER) (test code = 432) BASOPHILS RELATIVE PERCENT 1 % (BEAKER) (test code = 437) NEUTROPHILS ABSOLUTE COUNT 3.65 K/ L 1.56-6.13 (BEAKER) (test code = 670) LYMPHOCYTES ABSOLUTE COUNT 2.90 K/ L 1.18-3.74 (BEAKER) (test code = 414) MONOCYTES ABSOLUTE COUNT (BEAKER) 0.60 K/ L 0.24-0.36 H (test code = 415) EOSINOPHILS ABSOLUTE COUNT 0.19 K/ L 0.04-0.36 (BEAKER) (test code = 416) BASOPHILS ABSOLUTE COUNT (BEAKER) 0.05 K/ L 0.01-0.08 (test code = 417) IMMATURE GRANULOCYTES-RELATIVE 0 % 0-1 PERCENT (BEAKER) (test code = 5867)
[2020-10-19 21:57] LABS: Absolute Lymphocytes (CBC) 2.2 K/uL (0.7-4.9); Basophils % 0.8 % (0-1.3); Hematocrit 42.6 % (36.0-45.0); Lymphocytes % 39.1 % (15.3-44.8); MPV 9.2 fL (7.6-11.3); RBC Red Blood Cell Count 4.63 M/uL (3.86-4.86)
[2020-10-19 22:08] LABS: Protime INR 1.64
[2020-10-19 22:09] LABS: Albumin 3.6 g/dL (3.4-5.0); Bilirubin Direct 0.2 mg/dL (0-0.2); Bilirubin Total 1.2 mg/dL (0.2-1.0); Protein, Total 7.8 g/dL (6.4-8.2)
[2020-10-19 22:10] LABS: Potassium 4.9 mmol/L (3.5-5.1)
[2020-10-19] MEDS ORDERED: TETRACAINE HCL 0.5% 4ML OPTH ONE (22:42)
[2020-10-19] MEDS ORDERED: FLUORESCEIN SODIUM 1 MG/WRAP ONE (22:42)
--- NOTE | 2020-10-19 23:23 | EDPHYS ---
Physician Documentation [facility] Name: Sigifredo Kiran Age: 85 yrs Sex: Female : 1935 Arrival Date: 10/19/2020 Time: 19:27 Bed 26 Private MD: Victoriano Nava ED Physician Fawad Arevalo HPI: 10/19 22:10 This 85 yrs old Female presents to ER via Ambulatory with complaints of Eye mh7 Problem. 22:10 The patient is experiencing redness, The patient sustained None. to the left eye, mh7 caused by an unknown mechanism. Onset: The symptoms/episode began/occurred yesterday. Duration: the symptoms are continuous. Aggravated by nothing. Alleviated by nothing. Associated signs and symptoms: Pertinent negatives: chills, dizziness, ear ache, fever, headache, runny nose. Patient wears glasses. Severity of symptoms: At their worst the symptoms were mild last night, in the emergency department the symptoms are unchanged. States that a friend noticed red area to left eye yesterday. Denies any injury, pain, visual disturbance.. Historical: - Allergies: 19:36 Levaquin; vg1 19:36 PENICILLINS; vg1 - Home Meds: 19:36 atorvastatin 20 mg Oral tab 1 tab once daily [Active]; Xarelto Oral [Active]; vg1 levothyroxine oral [Active]; metoprolol [Active]; - PMHx: 19:36 Atrial Fib; CVA; Diverticulitis; Hypertension; Hypothyroidism; vg1 - Immunization history:: Adult Immunizations up to date, Client reports receiving the 2nd dose of the Covid vaccine. - Social history:: Smoking status: Patient denies any tobacco usage or history of. ROS: 22:10 Constitutional: Negative for fever, chills, and weight loss, ENT: Negative for injury, mh7 pain, and discharge, Neck: Negative for injury, pain, and swelling, Cardiovascular: Negative for chest pain, palpitations, and edema, Respiratory: Negative for shortness of breath, cough, wheezing, and pleuritic chest pain, Abdomen/GI: Negative for abdominal pain, nausea, vomiting, diarrhea, and constipation, Back: Negative for injury and pain, : Negative for injury, bleeding, discharge, and swelling, MS/Extremity: Negative for injury and deformity, Skin: Negative for injury, rash, and discoloration, Neuro: Negative for headache, weakness, numbness, tingling, and seizure, Psych: Negative for depression, anxiety, suicide ideation, homicidal ideation, and hallucinations, Allergy/Immunology: Negative for hives, rash, and allergies, Endocrine: Negative for neck swelling, polydipsia, polyuria, polyphagia, and marked weight changes, Hematologic/Lymphatic: Negative for swollen nodes, abnormal bleeding, and unusual bruising. Exam: 22:10 Constitutional: This is a well developed, well nourished patient who is awake, alert, mh7 and in no acute distress. Head/Face: Normocephalic, atraumatic. Neck: Trachea midline, no thyromegaly or masses palpated, and no cervical lymphadenopathy. Supple, full range of motion without nuchal rigidity, or vertebral point tenderness. No Meningismus. Chest/axilla: Normal chest wall appearance and motion. Nontender with no deformity. No lesions are appreciated. Cardiovascular: Regular rate and rhythm with a normal S1 and S2. No gallops, murmurs, or rubs. Normal PMI, no JVD. No pulse deficits. Respiratory: Lungs have equal breath sounds bilaterally, clear to auscultation and percussion. No rales, rhonchi or wheezes noted. No increased work of breathing, no retractions or nasal flaring. Abdomen/GI: Soft, non-tender, with normal bowel sounds. No distension or tympany. No guarding or rebound. No evidence of tenderness throughout. Back: No spinal tenderness. No costovertebral tenderness. Full range of motion. Skin: Warm, dry with normal turgor. Normal color with no rashes, no lesions, and no evidence of cellulitis. MS/ Extremity: Pulses equal, no cyanosis. Neurovascular intact. Full, normal range of motion. Neuro: Awake and alert, GCS 15, oriented to person, place, time, and situation. Cranial nerves II-XII grossly intact. Motor strength 5/5 in all extremities. Sensory grossly intact. Cerebellar exam normal. Normal gait. Psych: Awake, alert, with orientation to person, place and time. Behavior, mood, and affect are within normal limits. 23:18 Eyes: Periorbital structures: appear normal, Pupils: equal, round, and reactive to mh7 light and accomodation, Extraocular movements: intact throughout, Conjunctiva: subconjunctival hemorrhage(s), seen in the left eye, at 9 o'clock, Corneas: are normal, no evidence of abrasion, no foreign body, a fluorescein strip employed to appreciate the findings, Sclera: no appreciated abnormality, Lids and lashes: appear normal, funduscopic exam reveals no obvious abnormalities, Visual davis: are intact, Nystagmus: is not appreciated, Examination of the other eye reveals no obvious gross abnormality. Vital Signs: 19:34 BP 147 / 84; Pulse 70; Resp 18; Temp 98.8; Pulse Ox 100% ; Weight 122.47 kg; Height 5 vg1 ft. 7 in. (170.18 cm); Pain 0/10; 21:20 BP 148 / 92; Pulse 64; Resp 16; Pulse Ox 100% ; zb 22:38 BP 127 / 90; Pulse 70; Resp 16; Pulse Ox 100% ; zb 23:43 BP 140 / 85; Pulse 74; Resp 16; Pulse Ox 100% on R/A; zb 19:34 Body Mass Index 42.29 (122.47 kg, 170.18 cm) vg1 MDM: 23:18 Differential diagnosis: Corneal abrasion of left eye. [facility] 23:18 Data reviewed: vital signs, nurses notes, lab test result(s), CBC, electrolytes. [facility] Counseling: I had a detailed discussion with the patient and/or guardian regarding: the historical points, exam findings, and any diagnostic results supporting the discharge/admit diagnosis, lab results, the need for outpatient follow up, to return to the emergency department if symptoms worsen or persist or if there are any questions or concerns that arise at home. Response to treatment: the patient's symptoms have mildly improved after treatment. 23:22 Patient medically screened. [facility] 10/19 21:39 Order name: CBC with Diff; Complete Time: 22:38 [facility] 10/19 21:39 Order name: Basic Metabolic Panel; Complete Time: 22:38 [facility] 10/19 21:39 Order name: LFT's; Complete Time: 22:38 [facility] 10/19 21:39 Order name: Protime (+inr); Complete Time: 22:38 [facility] 10/19 21:39 Order name: Ptt, Activated; Complete Time: 22:38 [facility] 10/19 23:42 Order name: Eye Tray; Complete Time: 23:42 zb Administered Medications: 23:00 Drug: Tetracaine Drops 0.5 % 1 drops {Note: Administered by ecp .} Route: Ophthalmic; zb Site: left eye; 23:42 Follow up: Response: No adverse reaction zb Disposition Summary: 10/19/20 23:22 Discharge Ordered Location: Home [facility] Problem: new mh7 Symptoms: have improved mh Condition: Stable mh7 Diagnosis - Subconjunctival Hemorrhage, Left Eye mh7 Followup: 7 - With: Private Physician - When: 1 - 2 days - Reason: Worsening of condition, Recheck today's complaints, Continuance of care, Re-evaluation by your physician Followup: 7 - With: Mireya Arzola MD - When: 1 - 2 days - Reason: Worsening of condition, Recheck today's complaints Discharge Instructions: - Discharge Summary Sheet 7 - Subconjunctival Hemorrhage [facility] Forms: - Medication Reconciliation Form [facility] - Thank You Letter [facility] - Antibiotic Education [facility] - Prescription Opioid Use [facility] Signatures: Dispatcher [employer] Pamela Warren RN RN vg1 Fawad Arevalo MD MD mh7 Michaela Bonner RN RN zb
--- NOTE | 2020-10-19 23:23 | ER ---
Nurse's Notes [facility] Name: Sigifredo Kiran Age: 85 yrs Sex: Female : 1935 Arrival Date: 10/19/2020 Time: 19:27 Bed 26 Private MD: Victoriano Nava Diagnosis: Subconjunctival Hemorrhage, Left Eye Presentation: 10/19 19:34 Chief complaint: Patient states: Yesterday Pt noticed Left eye was red and has become vg1 redder today. Denies any injury. States is taking Xarelto. Pt also states 'slight headache'. Coronavirus screen: Client denies travel out of the [place] in the last 14 days. Ebola Screen: Patient negative for fever greater than or equal to 101.5 degrees Fahrenheit, and additional compatible Ebola Virus Disease symptoms. Initial Sepsis Screen: Does the patient meet any 2 criteria? No. Patient's initial sepsis screen is negative. Does the patient have a suspected source of infection? No. Patient's initial sepsis screen is negative. Risk Assessment: Do you want to hurt yourself or someone else? Patient reports no desire to harm self or others. Onset of symptoms was October 18, 2020. 19:34 Method Of Arrival: Ambulatory vg1 19:34 Acuity: CLARI 3 vg1 Triage Assessment: 19:36 General: Appears in no apparent distress. comfortable, Behavior is calm, cooperative. vg1 Pain: Denies pain. EENT: Sclera/Cornea are reddened in inner aspect of conjunctiva of left eye. Historical: - Allergies: 19:36 Levaquin; vg1 19:36 PENICILLINS; vg1 - Home Meds: 19:36 atorvastatin 20 mg Oral tab 1 tab once daily [Active]; Xarelto Oral [Active]; vg1 levothyroxine oral [Active]; metoprolol [Active]; - PMHx: 19:36 Atrial Fib; CVA; Diverticulitis; Hypertension; Hypothyroidism; vg1 - Immunization history:: Adult Immunizations up to date, Client reports receiving the 2nd dose of the Covid vaccine. - Social history:: Smoking status: Patient denies any tobacco usage or history of. Screenin:22 Abuse screen: Denies threats or abuse. Denies injuries from another. Nutritional zb screening: No deficits noted. Tuberculosis screening: No symptoms or risk factors identified. Fall Risk None identified. Assessment: 20:29 General: Appears in no apparent distress. comfortable, Behavior is calm, cooperative. zb Pain: Denies pain. Neuro: Level of Consciousness is awake, alert. Cardiovascular: Patient's skin is warm and dry. Respiratory: Airway is patent Respiratory effort is even, unlabored, Respiratory pattern is regular, symmetrical. GI: No deficits noted. EENT: Sclera/Cornea are reddened in inner aspect of conjunctiva of left eye Denies blurred vision photophobia. Derm: Skin is intact, is healthy with good turgor, Skin is dry, Skin is normal. Musculoskeletal: Range of motion: intact in all extremities. 21:00 Reassessment: Patient appears in no apparent distress at this time. Patient and/or zb family updated on plan of care and expected duration. Pain level reassessed. Patient is alert, oriented x 3, equal unlabored respirations, skin warm/dry/pink. Patient denies pain at this time. 22:39 Reassessment: Patient appears in no apparent distress at this time. Patient and/or zb family updated on plan of care and expected duration. Pain level reassessed. Patient is alert, oriented x 3, equal unlabored respirations, skin warm/dry/pink. family at bedside. eye exam and supplies placed at bedside. notified ecp. 23:43 Reassessment: Patient appears in no apparent distress at this time. Patient and/or zb family updated on plan of care and expected duration. Pain level reassessed. Patient is alert, oriented x 3, equal unlabored respirations, skin warm/dry/pink. d/c instructions given . patient ambulated out with family. gait even and steady with cane. Vital Signs: 19:34 BP 147 / 84; Pulse 70; Resp 18; Temp 98.8; Pulse Ox 100% ; Weight 122.47 kg; Height 5 vg1 ft. 7 in. (170.18 cm); Pain 0/10; 21:20 BP 148 / 92; Pulse 64; Resp 16; Pulse Ox 100% ; zb 22:38 BP 127 / 90; Pulse 70; Resp 16; Pulse Ox 100% ; zb 23:43 BP 140 / 85; Pulse 74; Resp 16; Pulse Ox 100% on R/A; zb 19:34 Body Mass Index 42.29 (122.47 kg, 170.18 cm) vg1 ED Course: 19:27 Patient arrived in ED. am4 19:28 Victoriano Nava MD is Private Physician. am4 19:36 Triage completed. vg1 19:36 Arm band placed on Patient placed in waiting room, Patient notified of wait time. vg1 20:22 Michaela Bonner, RN is Primary Nurse. zb 20:23 Patient has correct armband on for positive identification. Bed in low position. Call zb light in reach. Pulse ox on. NIBP on. 20:26 Fawad Arevalo MD is Attending Physician. mh7 23:21 Mireya Arzola MD is Referral Physician. [facility] 23:43 No provider procedures requiring assistance completed. Patient did not have IV access zb during this emergency room visit. Administered Medications: 23:00 Drug: Tetracaine Drops 0.5 % 1 drops {Note: Administered by ecp .} Route: Ophthalmic; zb Site: left eye; 23:42 Follow up: Response: No adverse reaction zb Outcome: 23:22 Discharge ordered by . 7 23:43 Discharged to home ambulatory. zb 23:43 Condition: stable 23:43 Discharge instructions given to patient, Instructed on discharge instructions, follow up and referral plans. Demonstrated understanding of instructions, follow-up care. 23:44 Patient left the ED. zb Signatures: Pamela Hernandez, RN RN vg1 Fawad Arevalo MD MD [facility] Michaela Bonner RN RN zRachel Velarde am4
[2020-10-19 23:57] VITALS: TEMP 98.8; O2SAT 100
[2020-10-20 00:25] VITALS: BP 140/85
== END 2020-10-19 23:44 | disposition home or self-care (01) ==
LOC: ER 19:23
DX: H11.32 Conjunctival hemorrhage, left eye (principal); I10 Essential (primary) hypertension; E03.9 Hypothyroidism, unspecified; I48.91 Unspecified atrial fibrillation; Z79.01 Long term (current) use of anticoagulants; Z88.0 Allergy status to penicillin; Z88.1 Allergy status to other antibiotic agents
CPT/HCPCS: 36415; 80048; 80076; 85025; 85610; 85730; 99283

== ENCOUNTER 2021-12-20 21:38 | Emergency (ER) | payer OTHER ==
--- OUTSIDE RECORDS SUMMARY | 2021-12-20 21:41 | XMS REPORT | Clinical Summary ---
:1935 Author Organization [facility] MD [facility] Address [address] [place] [address] Care Team Providers Name Role Phone Victoriano Nava MD Unavailable Abi Cuba MD Primary Care Provider Victoriano Nava MD Unavailable Allergies Active Allergy Reactions Severity Noted Date Comments Levofloxacin 08/28/2021 Penicillins Anaphylaxis, Swelling High 08/20/2018 Other reaction(s): Shortness of breath, swol sam tongue Medications Medication Sig Dispensed Refills Start Date End Date Status Xarelto 20 mg tablet 0 06/17/2021 Active metoprolol succinate 0 07/14/2021 Active (TOPROL XL) 25 mg 24 hr tablet levothyroxine 0 07/15/2021 Activ e (SYNTHROID, LEVOTHROID) 88 mcg tablet atorvastatin (LIPITOR) 0 06/20/2021 Active 10 mg tablet cholecalciferol, vitamin Take by mouth. 0 Active D3, (REPLESTA ORAL) cyanocobalamin, vitamin Take 2,500 mg by 0 Active B-12, (VITAMIN B-12 mouth daily. 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 , including hip (Primary Dx) after 12/20/2020 Surgical History Surgery Date Site/Laterality Comments APPENDECTOMY 194 Child COLONOSCOPY 2015 BRONCHOSCOPY 1989 CHOLECYSTECTOMY 2009 KNEE ARTHROPLASTY 2015 SHOULDER SURGERY 2004 Medical History Medical History Date Comments Hypertension 1979 Personal history of stroke 2018 Irregular heart beat 1994 Tooth disorder 1959 Diverticulitis 2005 Urinary incontinence 1989 Arthritis 1994 Disorder of thyroid gland 1974 Squamous cell carcinoma in situ of skin 2021 Social History Tobacco Use Types Packs/Day Years Used Date Former Smoker 0.25 5 04/13/1954 - 1 Smokeless Tobacco: Never Used Comments: Very light smoker - consider s ocial smoker Alcohol Use Standard Drinks/Week Comments Not Currently 0 (1 standard drink = 0.6 oz pure occasi onal social - not in last 30 alcohol) years Alcohol Habits Answer Date Recorded How often do you have a drink Not asked containing alcohol? How many drinks containing alcohol Not asked do you have on a typical day when you are drinking? How often do you have six or more Not asked drinks on one occasion? Comment: occasional social - not in last 30 08/28 years Sex Assigned at Date Recorded Not on file Job Start Date Occupation Industry Not on file Not on file Not on file Obstetrics History Last Filed Vital Signs Vital Sign Reading Time Taken Comments Blood Pressure 132/86 08/28/2021 1:18 PM CDT Pulse 66 08/28/2021 1:18 PM CDT Temperature 36.9 C (98.4 F) 08/28/2021 1:18 PM CDT Respiratory Rate 14 08/28/2021 1:18 PM CDT Oxygen Saturation 98% 08/28/2021 1:18 PM CDT Inhaled Oxygen Concentration - - Weight - - Height - - Body Mass Index - - Plan of Treatment Health Maintenance Due Date Last Done Comments COVID-19 Vaccination (3 - Booster for 11/17/2020 06/17/2020 , 05/20/2020 Moderna series) Procedures Procedure Name Priority Date/Time Associated Comments Diagnosis PATHOLOGY BIOPSY Routine 08/28/2021 1:43 PM Neoplasm of Resul ts for this INTERPRETATION CDT uncertain behavior procedu re are in of skin the results section. PATHOLOGY OUTSIDE Routine 07/03/2021 Results fo r this INTERPRETATION procedure are in the results section. after 12/20/2020 Results Pathology Biopsy Interpretation (08/28/2021 1:43 PM CDT) Component Value Ref Test Analysis Performed Pathologis t Range Method Time At Signature Correction This report has 09/06/2021 [facility] History been amended by 7:13 AM on CDT 09/05/2021 to correct a typographical error in comment from "Patient liver tissue" to " 'Additional deeper tissue' sections. The diagnosis remains otherwise as previously stated. Results were communicated to Dr. Cuba and ARLET Peterson by email on 09/06/2021. Submitted A: Squamous cell carcinoma vs prurigo vs scar 09/06/2021 [facility] Clinical Neoplasm of uncertain behavior of skin [D48.5] 7:13 AM History CDT Diagnosis A: Skin, left proximal pretibia, punch: 09/06/2021 [facility] Amendment Dermal fibrosis in the backg round of stasis and actinic changes, present at tissue edges; unequivocal squamous cell carcinoma not identified. 7:13 AM electronically See comment. CDT signed by Romario Garcia MD on 09/06/2021 at 7:13 AM Electronic ally signed by Romario Garcia MD on 08/29/2021 at 5:48 PM Comment Sections reveal a 09/06/2021 [facility] punch biopsy of 7:13 AM skin to include CDT superficial subcutis showing dermis with superficial dermal fibrosis in a background of stasis changes and focal dermal purpura. Rare dermal interstitial eosinophils are noted, in association with sparse perivascular lymphohistiocytic infiltrate. Additional deeper tissue sections have been cut and examined, unequivocal atypical squamous proliferation is not identified. A periodic acid-Jesica stain fails to reveal unequivocal fungal organisms within viable tissue or basement membrane thickening. Gross A: 09/06/2021 [facility] Description Skin, left proximal pretibia : A pale pink skin punch biopsy measuring 0.3 cm in diameter and 0.4 cm in depth. The specimen is inked, bisected, entirely submitted in A1. GM 7:13 AM CDT Biomarker NA 09/06/2021 [facility] Block(s) 7:13 AM CDT Disclaimer "Some tests 09/06/2021 [facility] reported here may 7:13 AM have been developed CDT and performance characteristics determined by [facility] Pathology and Laboratory Medicine. These tests have not been specifically cleared or approved by the U.S. Food and Drug Administration. If applicable, controls were reviewed and showed appropriate reactivity." Specimen Anatomical Collection Method Collection Time Receive d Time (Source) Location / / Volume Laterality Tissue (Skin) 08/28/2021 1:43 PM 08/29/19 3:27 CDT PM CDT Abi Cuba MD LAB PATHOLOGY ORDERABLES Performing Organization Address City/State/ZIP Code Phon e Number [facility] [place] [address] [id number] [facility] Pathology Outside Interpretation (07/03/2021) Component Value Ref Test Analysis Performed Pathologis t Range Method Time At [facility] Materials Accession#, Stained, Block, Unstained Collected Received 08/22/2021 [facility] Received A. 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 MD Radha on Associated hyperplastic acti bryant keratosis with adnexal extension and verrucous features, present at tissue edges. 08/22/2021 at Background actinic and stasis changes. 7:04 AM See comment. GW/PN Comment Sections reveal an 08/22/2021 [facility] endophytic squamous 7:04 AM proliferation with CDT focal cytologic atypia and verrucous features, in association with dermal fibrosis and sparse lymphohistiocytic infiltrate, supporting the above interpretation. Clinical-pathologic correlation is necessary. Biomarker N/A 08/22/2021 [facility] Block(s) 7:04 AM CDT Disclaimer "Some tests reported 08/22/2021 [facility] here may have been 7:04 AM developed and CDT performance characteristics determined by [facility] Pathology and Laboratory Medicine. These tests have not been specifically cleared or approved by the U.S. Food and Drug Administration. If applicable, controls were reviewed and showed appropriate reactivity." Specimen (Source) Anatomical Collection Method Collection Time Re ceived Time Location / / Volume Laterality Tissue 07/03/2021 08/21/2021 12:1 6 PM CDT Pamela Miller MD LAB PATHOLOGY ORDERABLES Performing Organization Address City/State/ZIP Code Phon e Number [facility] [place] [address] [facility] after 12/20/2020 Insurance Payer Benefit Plan / Subscriber ID Effective Phone Address T ype Group Dates [employer] MEDICARE [id number] 2021-Prese [address] Medicare HEALTHCARE ADVANTAGE [place] [employer] [id number] (Home) [place] [address] Sigifredo Kiran Personal/Family Self [address] [place] [address] (Home) [place] [address] Care Teams Utilities [employer]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
--- OUTSIDE RECORDS SUMMARY | 2021-12-20 21:42 | XMS REPORT | Continuity of Care Document ---
:1935 Author Organization [place] [facility] t Address [address] [place] [address] Care Team Providers Name Role Phone [phone] Primary Care Physician Unavailable SYSTEM, PROVIDER NOT IN Attending Clinician Unavailable Nicholas GARY, Joe Barry Attending Clinician Unavailable Abi Cuba MD Attending Clinician Tonya Wesley MD Attending Clinician TONYA WESLEY Attending Clinician Unavailable Shyam Willoughby MD Attending Clinician Pamela Miller MD Attending Clinician Samuel Pickard MD Attending Clinician Brandy CORTEZ, Victoriano Fong Attending Clinician GE DIAZ Attending Clinician Unavailable GE DIAZ Admitting Clinician Unavailable Payers Payer Name Policy Type Policy Number Effective Date Expiration Date S ource Problems Condition Condition Condition Status Onset Resolution Last Treating Co mments Source Name Details Category Date Date Treatment Clinician Date Stroke Stroke Disease Active [facility]) 5-10 Barbara kes [facility]: [facility] Center Allergies, Adverse Reactions, Alerts Allergy Allergy Status Severity Reaction(s) Onset Inactive Treating Comm ents Source Name Type Date Date Clinician Levoflox Propensi Active Univer s acin ty to 5-18 ity of adverse 00:00: [place] reaction 00 [facility] Penicill Propensi Active [facility] to 5[facility]10 [facility] adverse 00:[facility]: Medical reaction 00 Center s Penicill Drug Active Swelling Other Univer s ins Allergy 5-10 reaction( ity of 00:00: s): [place] 00 [facility] n swollen [facility] Social History Social Habit Start Date Stop Date Quantity Comments Source History [facility] University o f Alcohol Frequency [facility] History [facility] o f Alcohol Std Drinks [facility] History [facility] o f Alcohol Binge [place] MD Wendy carter [facility] Cigarettes smoked 2021-08-28 2021-08-28 Univers ity of current (pack per 00:00:00 00:00:00 [facility] ) - Reported Cancer Ce nter Cigarette 2021-08-28 2021-08-28 University of pack-years 00:00:00 00:00:00 [place] MD Alberto hickey [facility] Tobacco use and 2021-08-28 2021-08-28 Smokeless tobacco Un iversity of exposure 00:00:00 00:00:00 non-user [place] MD Alberto hickey [facility] Alcohol intake 2021-08-28 2021-08-28 Ex-drinker University of 00:00:00 00:00:00 (finding) [place] Alberto hickey [facility] History SDOH 2021-08-28 2021-08-28 occasional social Unive rsity of Alcohol Comment 00:00:00 00:00:00 - not in last 30 Awais as MD Barboza [facility] Tobacco Comment 2021-08-28 2021-08-28 Very light smoker Un iversity of 00:00:00 00:00:00 - consider social [facility] smoker Cancer Center History of tobacco 1954-04-13 1972-04-12 Current smoker Un iversity of use 00:00:00 00:00:00 [place] MD Alberto hickey [facility] Sex Ass[birth year] At [birth year] Universit y of 00:00:00 00:00:00 [place] Alberto hickey [facility] Smoking Status Start Date Stop Date Source Ex-smoker 2021-08-28 00:00:00 2021-08-28 00:00:00 Universi ty of [facility] Medications Ordered Filled Start Stop Current Ordering Indication Dosage Frequency Signature Comments Components Source Medication Medication Date Date Medication? Clinician (SIG) Name Name cholecalcif Yes Take by Uni vers alicia, 5-18 mouth. ity of vitamin D3, 13:34: [place] (REPLESTA 51 ORAL) [facility] cyanocobala Yes 2500mg Take 2,500 Univers min, 5-18 mg by ity of vitamin 13:34: mouth Pa B-12, 51 daily. (VITAMIN Anderso B-12 ORAL) shasha [facility] levothyroxi Yes Univer s ne 4-04 ity of (SYNTHROID, 00:00: [place] LEVOTHROID) 00 88 mcg Anderso tablet [facility] metoprolol Yes Univers succinate 4-03 ity of (TOPROL XL) 00:00: [place] 25 mg 24 hr 00 [facility] atorvastati Yes Lyly pulliam (LIPITOR) 3-10 ity of 10 mg 00:00: [place] tablet 00 MD Poole [facility] Xarelto 20 Yes Univers mg tablet 3-07 ity of 00:00: [place] 00 MD Virgilio pulliam [facility] metoprolol Yes 25mg QD Take [address] (TOPROL-XL) 5-13 by mouth Luke s 25 MG 24 hr 14:48: daily. Medi kitty tablet 48 Center levothyroxi Yes 75ug Take [address] ne 5-13 mcg by [facility] (SYNTHROID, 14:48: mouth Medic al LEVOTHROID) 48 Every Center 75 MCG morning on tablet an empty stomach. rivaroxaban Yes Take by [facility] (XARELTO) 5-13 mouth [facility] 20 mg Tab 14:48: daily with Me dical tablet 48 dinner. Center Vital Signs Vital Name Observation Time Observation Value Comments Source Systolic blood 2021-08-28 18:18:50 132 mm[Hg] Univer sity of pressure Pa [facility] Center Diastolic blood 2021-08-28 18:18:50 86 mm[Hg] Unive rsity of pressure Pa [facility] Heart rate 2021-08-28 18:18:50 66 /min Universi ty of [facility] Body temperature 2021-08-28 18:18:50 36.89 Nayely [facility] MD [facility] Respiratory rate 2021-08-28 18:18:50 14 /min [facility] Oxygen saturation in 2021-08-28 18:18:50 98 /min [facility] blood by Pa hankins Pulse oximetry Cancer Center Procedures Procedure Date / Time Performing Clinician Source Performed PATHOLOGY BIOPSY 2021-08-28 18:43:00 Abi Cuba it of [place] INTERPRETATION [facility] Center PATHOLOGY OUTSIDE 2021-07-03 00:00:00 Pamela Miller [facility] INTERPRETATION [facility] Plan of Care Planned Activity Planned Date Details Comments Source Future Scheduled 2021-09-13 COVID-19 Vaccination Uni [facility] Test 06:34:05 (3 - Booster for MD Jabari Cancer Moderna series) [code Center = COVID-19 Vaccination (3 - Booster for Moderna series)] Encounters Start End Encounter Admission Attending Care Care Encounter Source Date/Time Date/Time Type Type Clinicians Facility Department ID 2021-08-13 Outpatient SYSTEM, [facility] [id number] 17:18:16 PROVIDER Elton pulliam 2021-09-05 2021-09-05 Telephone Nciholas, 1.2.840.1 [id number] Univers 00:00:00 00:00:00 Joe Barry [id number] i ty of 3.412.2.7 [place] .[id number] MD [facility] 2021-09-05 2021-09-05 Telephone Nicholas, 1.2.840.1 [id number] Univers 00:00:00 00:00:00 Joe Barry [id number] i ty of 3.412.2.7 [place] .[id number] MD Justin Poole [facility] Center 2021-08-28 2021-08-28 Office Bereket 1Mar2.840.1 [id number] Univers 13:30:00 14:03:55 Visit Abi Nolan.1.1 ity of 3.412.2.7 [place] .3.057807 MD Anderson [facility] [place] 2021-08-28 2021-08-28 NPR Abdelrahman, 1.2.840.1 [id number] Univers 13:00:00 13:00:00 Tonya 15318.1.1 ity of 3.412.2.7 [place] .[id number] MD Anderson [facility] [place] 2021-08-28 2021-08-28 Outpatient JENNY WESLEY [facility] [id number] 12:41:39 12:53:47 TONYA Alberto [facility] 2021-08-28 2021-08-28 Travel 1.2.840.1 [id number] Univers 00:00:00 00:00:00 [id number] ity of 3.412.2.7 [id number] [place] .3.280944 084.8 MD Anderson [facility] [place] 2021-08-21 2021-08-21 Lab Shyam Willoughby 1.2.840.1 [id number] Univers 00:00:00 00:00:00 Pamela Hall [id number] ity of n 3.412.2.7 [place] .[id number] MD Anderson [facility] [place] 2021-08-14 2021-08-14 Orders Neeraj, 1.2.840.1 [id number] Univers 00:00:00 00:00:00 Only Samuel [id number] ity of 3.412.2.7 [place] .3.113166 MD Anderson [facility] [place] 2021-08-02 2021-08-02 Community Brandy, 1.2.840.1 [id number] Univers 00:00:00 00:00:00 Orders Victoriano Fong 66310.1.1 ity of 3.412.2.7 [place] .[id number] MD Anderson [facility] [place] Results Test Description Test Time Test Comments Results Result Comments Source Pathology Biopsy Interpretation 2021-09-06 12:13:37 Test Item Value Reference Range Interpretation Comme nts Correction d4omiJPlJRPunMI1GNRhMEAhr7vtu2UdkTZfdPUsSJnnrQVhtaOsok54sQU1nQ35TU0iPWNqHmZ9MUXi dlD5Vhp3JGAwYXZemCPrY714w8zbp1emzaCgtHR6bFgpNWHgzkmlFnW7UIdjHCSzozoaHZx5RIgcDJWy rKM2XIIxyFNqA3EpTOKkNJ4leaz5QWV0CKscZYMcNjW History 3MHCucHQkTXYxmNjgRTvto297PYN3AtVgBVRaeeTpnOfonH7dSvMqZZJIaPimRSUldY8ftUDgXZHcLhD bnmOiwRCtRSBxFUS0HOPfLg3fM1HcNLacxiVbemXmGV9oUz1yRZEsSIOwQDQfytBoS9XtFMH9lGOiG9O csCvhM6MyJEEzpr2iEIjaMNOofK4lfcYbHsXkaHFqPN (test code I9jJWkuJGftQYjonE4oRGerMYtDLNtXSImS6XjRXx1oP7fYAkpIWHslSNkSVXwx8T6OPrdw0QufHsett LtNJNlECYryYXxbv0nhNJybdAoRHcigcRpzJoaagobe7ViSLTvjUCndecotDAlfYDthKD7BBLuBCUfi4 MciCPni5XeFRGwq06xeH6aN0V8GHQxcU3yIRSdXG8pG = 9843) 3AkmshsbbIqUG4aAPEBWR7aiPu8NPV7IAEtKArkCZ5hSFD4FkP6EbI wMjIuXHBhcn0= Submitted v5gxhFKjYEFdvYN5UUSbUOPid2pwg1RrbSHsbSGxLViibDFbbfKugd07nKZ1iQ62ND3pTDEoZrK0USEf vyF2Wos4HNZdYNLhkPRvJ885a7hgv2atqwVnsKR3rXclMULdbsvfGfD7SArfEIUruhunNLx9ATekQQLm rOG5XVRwyQQrJ0XtNYCdSN6mvbe8DFS6XYhwLBLvMdZ Clinical 5IECkaIYfPTDphFtzEZcvp255ZUN5MiUlJCHoncTorDsmeP6jMpHhEAQCAzANiBBogV54vwJsKVyhLSE oytEhjv6fTQO9xfJbfnEbxRjvOOJiSBEwFDXkBYMgogXGIJ3qoUEpeAMrTjX0naUwklSahY4dAdAjRCU el3Aak4Tlo4wecnOtOGD8YqPkITOoby5= History (test code = 32753) Diagnosis c9zyoYUbAWIdbIM6MFAeVZCay1fmd8MhpPKtjOHnFOrnzZKwqqEkld21aDZ4lS44AW8vMXFeKnW8VVTf tiB5Ioz8KLKmRWOfgLTiA640h5mlv0oadeBniDJ2OZWgWQBwH3YgNK8vZVFvfQQtG33yhNZoNMG7MDHu FBGnoMNrMZJmGYR0YEDwvBMlN0vvXFDyKA5lgomsXLi (test code bXWdxHFDvdOQ2ESQzzDKbG5NvBRWaXZqqUNNjpem5PiOhPs5rlDQwpXftSFivYQUhUQMrPOdmUIUwSxJ jM5EjAUQ6EMMrzO0yWCfqUvUjqVBkoPdsCIxhmUJkoLeycHWvQID4vdNyZjjzSEWnhEv0TyFpfIwvCiW uGDLsVUVZXPMoFUcpLscyqk8tkTBguZ0lhBawHBJmJ2 = 34) edpu60svMds2Dgw0Sob7euSYJqPANyB9KpjasfIIQoQE7ePYGzGBHiRYRujrKnIYAgxZlcw6LyYHTxF3 WmIyS0xnXkmOs5b9EilDHggOEbtW88caQkZCznUMCadkOlzq3rWZEcm0UfgXCuxxFdKdglNT4vvMpnDV NNATHgH28ufFGitA0zeRRicP== Comment d7flmSKzYFTcrIQ5VWYoYFUrd4rtm4LedUHtuPKnUEyieWTiicAvlq02zFB2iS45LP2zREJgRoJ5ZJEe gkU4Eux8QHEyXWXwhYNbC311n6llm5teqiSzpSD7hJpqFODukpveIwX6RXnoNKMldutnDIb5OUznODXj xHY0ATVmhDUpI0OtOLLhUB6rwxi1LQE2COryOEPmUdD (test code 4YSXskOKsDVQoaQqhXMpwc377THK9SdAwXJRxgyOzlWzjjK2nCyLwZERUZEL7vL3ldeIsKKJhZFtuCDF dyB5ioPOmhW4bp6hxa9Xcf9gqytF0arAuodQghRGuEJQ7kFPjKpddkBCnJUY9RxW6sKojJFFci5lqvpg yUBNkfTnsLLkwuMqvf5LrQFLzkPYfJEogNMGyjWCiPY = 9835) YkEjOwq6kjVLmpCBTtOxGxy1zci4JvOMGjKfLcfOHkqZDzE2lzkzguzoQrnyQnFa7tXVabFJOurNNvFS I6zwJ2wwCiQDQQJHKkEHLmtg5maSPomcUtbxK2lIBrCRmcVR8upF7alRuiaYHjNVMfJN6gsKJyXNWxkj Nuu1UeI7nioJvupiK9lACnPZQnFXJqWHGzNSIzuqEzP 9WmPVAvfYhvrJjlaVawcRznA5t6iXDiwC9mdLg6hlI8DL2dZMWpQJj2hI0cGOumAMAdqXSaIQHas6I6M BFoHUK8mU1fjwEzBJRjATIbWL7jM1K6HOTiXGNkyADlyC4kKQrzqJ7adDEvfg8wOImbRLV7jVvqYZkor 7Y5RE0egGExjAKvwAkzTLQbtNzqfzVysjCrm0EvtNEv biAeXckyOG7uQSRgJCCaf4PzLtHhS3dtNAJmyOaaBdDsmJDsjzFzGIenjtR0cmOmOHLfJLujoF1omCLd ch0xQRwmTxTtR4CmRO5hX7BreOZssbO4lMUwzA1lzcpzPaenSWFrl8J2HWPnqeZmYIQofOWixVBoXR9u slMoSFL5dLguf4FxbQ7yMsSwqSKkmQ== Gross h3xdmIKwOOQsbVVZNYszSVguvgIaIDGduKScM1ThutzmLWypFB5sTN2nsIohmPWonSVvTQ2MALSqSyJx KUPxrFVoemYnXiRiCWOyaFEmlBD1YGZrUY1iemjgREmhYIhbONZajoB4EWOazHZvL3VfXRYhXN5dgsxn FYJ4NPlidZ1vrdHOLnitXr7uwKXliDswArQbItHpKAR Description iFJNuJVQgqWhyEKBbNWt8sL3RPqxbT49ei9O6Jvg4CEMoLBCiO2BtOH4wXGXijXMmL12JOcwyYQH0AFR NNztoMKRzBS3Dk4alUXUaqYHwJEJ4JEniqGKyMLBtLZClMJq8HCYpCZkkkPAjQH2qqYowAgkhfHbnj2F kfSByENjcJBCiGDNjXJenNIFxZL4DFtJpIYZiYBF7Ut (test code fdDLp6GOp5MZ4MBoNxNEViNLA6FMKqRhIcQUa6ZFmhUF8SPDPoJNK9DZBmFLUoNCXrYTRiXVl4EWXsLV ptHDYooGKpOGueYtInVQRmDOtaFdGzYTAdWOkubgQ3KMOpGNqhWUOnMjGnOKUOEncdQZXkFJeajXruyL 7gVQSlC51at4JYp1EfNG0XMWx3ulZjuenprS3pRTFjg = xEnTQkhjODkW8wmFbpwJsLvNqNrLTLBh2qxHMOpNEO8DNQbq6zbuUIzFSKrPZMuKfnwHdjmVTcgRvAyL RKrcDSgKSOpjC7dYMBqoV9mjOMaL9gwKftooGR8QS4vAHJ3hqifXqVbXrRyG36onF9oVLkvyWL3WSUjQ L7zCBGeRFCdyWNwfbGbCYS6fP8oOZcxDMKoVAVvtDHu [id number]) LVctGUwvu6EcYKNrkPBfG3XkFXckEA50gHMsjGonf9UfyRp9pCYtZRcbHGYaNpFzJHXxa5SeB3T0WWHf NRvoq8shLCAxRLydy4LiHGwUZQBTGK3GVV0vaBI5YSvRA0AZR9yTeFVvEND6oAP0KFYWRkgqzJP3eEH2 tL23ZAYcNFSzgTHtJNcuH297I780QFOhGYzjs0gxDGT cHOhin1LtGWlPVHREAZ1VAI9tjKM1VTtMC6CHBVgjFERwImeqyLEEZVH9KHfpfUfdlAy4q1pmgKLxi5u 2AByhLKD4yGizsPXlgguicDWryPutobGnQR3SSHUobUNYXYP4JG1bMQh7NRywNCXcD9CjU8IuvfTglFN jGKWbvvWhz5ghAFS8ZMAfjOWmmQMcQqPnQalcAKD1ZP HiUTjwVB8ZQKFiSMW0HCnbgJ33kDCnIX2AGGJfSWkfQSHcFZMfqqT0DJPdiHRsFAC1EU1oeMbikIIjya vambP9MW6IjG== Biomarker i5nxkZEeFCDreQL7EBGyMUHns6fec7UajTFdbRIwKVylgYKjwmJkpl59uWO0uW31YD2yNJLhFiU4YEPz oqA3Lbv3UQJjSZWmmYTjW764f9tef1tungRhpAG4nOxuAKRtqxgxUrE2XUtfYBPjdeusURn6KVlhLJCr uAE8BJUenCVjW2GwGKByKQ1nckp8SGY5OZszKCGuYnA Block(s) 2EFIsrVGbFEDazVduGNgrb091SOU8UiXqQLIaguLxrMhzcM5pTkJaM CBOQVxwYXJ9 (test code = 9841) Disclaimer k0lmkGOrLZAcaNUdPlCrPXCiYOHhr2eqRMPorZJkLmTjDwLtFmRoJztemBMqBAEtXkRdv4bvv289bWGz h0vkEFEgMoG4cADcGNKjcKXuY111FVMbLNcel5lbz3NjXJTzgVZbi2W6ECVJwndevAf5xBznQ38rs0R6 MvhwW2iyFSUlXZUjF9CdZV9iCIBcUps4QEF2GIP4NIR (test code vMSVmY2AgOQ1bIEMyoPMkFEz8j1siuQweQDVzYPV3e3tmNZvfphBwDN7tzj6qjLx2r3jcsvLxWMOhPBE qmVDQIJMiR0KxpIntJk2bsBu1tRzeYeknUIY9Jaq6GG8ucr03pqj8mYthPTNjvrnbItT9CGbsCMMvojz lLSj1TWxlCFUziVE9KMHqvZOgL3VkAVLjHF2snnw4HM = 9844) F5IUctLIPxIfP8QLTebNFwMBQccXieNSrsb360YZZ1CnVqKZ8uG8Ypf4J2mE3fqQDaPWJtwHLsZnHsVW Tvqo3dqBHqQQbrw9TmLVA9zbL9oCRlwQWkPHYaVA01Joifx1XlPetbEDN8DQSrioZda4Zkz7azJjEyty KgZ2rkG7VkCTNdQKAtRPZjYtRcohPdw2Lkj5ZzjBKec Ps7c0cjULDzVBViyMsok3avMQB5XOToO5V3zNQpi1ccWCjaQPThiRM8noE2YINwrEHhS1DfzH6kYUFeW N9glch7a1cuUQQ5MFngKAKdAmL0maV7EKSucXYaNMTakXmmOPivt497TRB7QuTxPTNvt4IuV0UniVhlK 63syBozW84yLVAnoUvtpT5zwEdkzB1pHbNrNaFaUCmr uQjdmQYdomrtNSrjeoJ4ZMmgobpdDEZwHNxoO3bwEcDqRMGmePquSVfkb3TvPHYwYWIbSbecduQ5DDBM h49cKLHvk9IuXAKecS9qhJLnVTyubyTagMB1XJwswaVrXhZhgcPsWJDkiF4bJBHlUT4pPCVssoJdgz8c cuKrNQDvJGVdR8JguglviGdasrZaFIZwuf0ihgYjEZW 6DSGRZW3QTWOiHVFla19eWIBuaZjvpG5tyNSvqkXvDKBvz4BavW1fvSXUDEDuP1cbVA2kGErdz2YmpQT tyMHqfQH4YPFeu7MnWhMttxNyyTMxhUHxU0HykIfqU5iuPHVxSNFubbRcpHMju1YfZRIhvCU0eBJyCJ1 RKmRYe82wHHOnAMGPlpNmPUHarJxanBL5mpD2lB6bHf HTYwHvuTPgwZXdCakxJQUox060di9zamB8HTQjBUZexzrdm2VjKEIwKXHisG57TNTrUSEaqx5vudaxrE ZjdqEzU0Kdurs0wW4kUHPbVQdsSLXcQMMvMzMpaZLiWjIwAjIjhKkhwKbcDPceTjJdPLSvWImjW7bbJx FcZnMyMlxwYXJ9 [facility] Interpretation 2021-08-22 12:04:07 Test Item Value Reference Range Interpretation Comments Materials Received (test g6zxrXJgBLWezZPuCdJf code = 9973) XZBvQGMif5twXHUwwEFe ZzEwMzNcZnRuYmpcdWMx NTCtOsOox6mng653kUEc c5ulJXRhFvV2uXEiOKJo lCMeB253SRKcNFdyn0nf p6OjWUQcpPSiz4F2VIAT kfgprCb8xJpeT59om7S3 YafrV7rmKMHbFUWqY0Qd KT7oEUZaQst2EYR4ZHH2 GTCcLRKcE9BtFY3wKDQk gEGeVPw4b3jpsTshAKDi JUB1p8toEDcpgdOuNL9o aq6clHp8u5delhZgOHUt WQGbjXFTTGXmS3BgqMih Gp0mvEo0mIokGgvaZFC3 Wzl4KY9ctb57bmd5yXeb TDUuiupbXxH1FRylYJJz vhqsBXg8HTzgUVPghSer MFxtYXJncjcyMFxtYXJn zVD0TGHhcWUjQ9ThIDIk FDzqEBTqldc4FwWqAn8r dBErbCraPWfjs2qnc2yq iTUxDqt3RSWkOlXgBcmu HFyjh9Ven4ovGDPczy5e ILL9vBJryXnmh1P8zQWw ZKJgcNRtqxFtKDGrsz09 uYGixNOxvECbja0dsdZl iAIhsZGkDOQ5hUTyaaEk JQQqlVYyKZByYM1znVUq ZYJovY1oytauBJHaUeNp gimyOECwwDfsksYdDj2n zCbsHNM5GEodH8cjwC6o XnP4YUyfB0dvyT3tODc9 BWaclSF4ZIJsdH8cQF6p lcjug1xxCqEoQF3oufaz m5ntViWfCA3plsu3d1mp TSI4JAxpMZEzVzH9wjG2 NDBcaGVhZGVyeTcyMFxm x069LXL6UkMwJFKut9Dx R1YfoTzlP78tuIulL11s GKQmuAsyaQ7mlOxxrJ4a KkBwKxVoAJh5ug44HWw4 zcywhTxaBTt7nuCvVXOz ZBL7JNWreMOlISQkB0t3 wpWhZGEvTPZ9WCNdoRLq WZUuZ5k3dsGpUBF7BHb5 cnBhZGRmdDNcdHJwYWRk YjBcdHJwYWRkZmIzXHRy iOPqoAOsbIDtxH0sdKyq FUHmrIRrwJ6kFQM4NZUg cmgzMjBcdHJoZHJcbHRy cx49GTEmygWqrWYnmOfm wFWzPLL8AOZmHVGpJGLx ESI6PWMwSqBpqdPzHOot bGJyZHJiXGJyZHJzXGJy TDB1KOZrEtXwlgQuUMsf bGJyZHJsXGJyZHJzXGJy JUX0MNKtSiKinqLpMBbx bGJyZHJyXGJyZHJzXGJy LKV2DWJlZmAirmYaCKke bHBhZHQxMFxjbHBhZGZ0 I2njlQExRWQjYQwkkVQs AJZxO4hzbBDmJGuqJHBu cGFkZmwzXGNscGFkYjBc I7wuSIGnKxXzW3RodLm9 MDAwXGNsdmVydGFsdFxj jGJaURD3WWRxUIDoGSOh ZKB3MERuOgFfzyNoETch bGJyZHJiXGJyZHJzXGJy VMR7UIDgMtJknpKiSGcb bGJyZHJsXGJyZHJzXGJy OAH8MJUvDdPfdeYhKOtc bGJyZHJyXGJyZHJzXGJy DJU2VMDzXwWvesUdJUva bHBhZHQxMFxjbHBhZGZ0 M0sntWJtYWMfXEhhvEQf KTNbX1wgfYKsPYtaYGIt cGFkZmwzXGNscGFkYjBc Q2nuLOEjOfEzI6WumDh6 NjAwXGNsdmVydGFsdFxj jDIeSWI7WSEhMHMwDZAc MQQ3UACqUzEuhdKdCOim bGJyZHJiXGJyZHJzXGJy GKS1PXGbImRjvtIwOFtk bGJyZHJsXGJyZHJzXGJy KWW8GXCqYkLntzDgGBqk bGJyZHJyXGJyZHJzXGJy TKA9TDZhCdCmbiNxTQzf bHBhZHQxMFxjbHBhZGZ0 B0ouzAVhPLAqNWsjsYDc RENxC8wgnHReADwvVRPu cGFkZmwzXGNscGFkYjBc E5gpRRCcVdLwE2SarZd9 NySsAWGmcoRqlW67Brqq p3VnNRQzCWS9DTdyVXig bFxwbGFpblxmMVxmczIw KAnrufijHAUaSWknK5uo BqNvPMWbwAcsRThlj5Cy XGYxXGNmMlxmczIwXGIg QBCuBYUpjQ0kFsmlC5Qe cO0vXLqrHitkF9zzMUFm l9WcrD9qAJllaCMztztv MVxmczIwXGxhbmcxMDMz OLsyD8rnHlXaOQAvkQsx BTlth8IaDJAmMAEbKbpv skZuYNq0xfHwHZYdvSem vWPtCNfqivOzfKxgm4Sr btZfvJkcRXEiXOe9juOe qbnuqEk9nEFrgSkjWYRp zAbprG7vAbTlSoAsJYcd bGFpblxmMVxmczIwXGxh ctoxEZPsWVpfC9kpTcJy VUCmqFhkDGllb0AmZNOj MUQnXllxfcNkVARhA95x bGVjdGVkXHBsYWluXGYx XGZzMjBcbGFuZzEwMzNc aGljaFxmMVxkYmNoXGYx WThrF7odUpQjT1WsWNAk YfZexXHtQ5vhO4ArcEid YXJkXGludGJsXHNzcGFy VCN6cYVxhpBihTRdqGCa GCMnZSnpOPR2vPQfraef xDQimamwQFgpphV5BJPt YWluXGYxXGZzMjBcbGFu ZzEwMzNcaGljaFxmMVxk QzJvRPKpLXxgV8nxUqRx N7SxPTNnFuNnEjPHJVWk aXZlZFxwbGFpblxmMVxm czIwXGxhbmcxMDMzXGhp F4qdQyHdJNLpyCtxGYsp h6QpGRYbUBTtWnkykbAx BOw2buCvFYIcxLbzxJ92 Jyzgue54MEOde2qwAEEe G7MehNUaZBWstRMmDIwr MDhcdHJwYWRkZmwzXHRy cGFkZHIxMDhcdHJwYWRk ZnIzXHRycGFkZHQwXHRy tBRgXWM2V5s2ppVzHSAi HDo6ckOxKPZfQnMrmLMj EKG9OWn0LbwtplU0xIBs O4s4DfqmdsKhDXjzmUDx re48BYWhosJasMGeyJzv rLAnZLF9VCQzMDQzTMUb WBQ8CJLxVmKksyCuFHbq bGJyZHJiXGJyZHJzXGJy ZXB1DFYoNeQpffYgVUcs bGJyZHJsXGJyZHJzXGJy IXF3WIBhVuLcfnQnNOts bGJyZHJyXGJyZHJzXGJy JCL2SHOeVqDtssDuGOrw bHBhZHQxMFxjbHBhZGZ0 A9pfmKFvZNBtRMsuwJDw AETdK4yaxHAdYRfdTKIs cGFkZmwzXGNscGFkYjBc V1mpRHEiVxPcP0MpxIs3 MDAwXGNsdmVydGFsdFxj uEGvJZN7KBLeDFAdFOCg HKO0XJIvKlGlndRuJOeb bGJyZHJiXGJyZHJzXGJy GHT7CZQoZkMqdgWpHTjc bGJyZHJsXGJyZHJzXGJy TXU5GENvPwZdpsSqOCmm bGJyZHJyXGJyZHJzXGJy BBP6YYPbDoOqvlTiDKid bHBhZHQxMFxjbHBhZGZ0 A0sroJKfNPTlLNrcwCNg XWEwF4byvLEzYUbfJAZy cGFkZmwzXGNscGFkYjBc J5eiCULuAgXuD1NzaHs1 NjAwXGNsdmVydGFsdFxj dYZoRMJ0MCOzZYQqPEXn FSE9DGOdCpYvbiFyYZoa bGJyZHJiXGJyZHJzXGJy CMD4RPEkFuVvpqFmDFej bGJyZHJsXGJyZHJzXGJy CHA8MSBgVpRwwbGqBOkk bGJyZHJyXGJyZHJzXGJy RHX3CODbKrCicnZbDZdd bHBhZHQxMFxjbHBhZGZ0 C2ueoKVkRGHdZQmxoEQy DCEfT7ieoZUnQTaiSUPt cGFkZmwzXGNscGFkYjBc O6mzJLJbDpLzE1YnoAu6 ArKgDHOcxfNodY83Fgyl p9JkSAIkKUJ3ITxqUUnb bFxwbGFpblxmMFxmczI0 XHBsYWluXGYxXGZzMjBc bGFuZzEwMzNcaGljaFxm TJrpKmBgEVJsCLqiZ5ob IrGkS6AuAADuUtRoAR3l VPJzTk2wGjp3YPSoCOZJ ZPSkURSUQ7RMApbkLKBK N5VacKsvtG5rAgSrCqKu WZikVO5hQUYaD2uagLQt EJWwFCHtX9pvCeTvrS4s aFxmMVxjZjJcZnMyMFxs dHJjaFxjZWxsXHBhcmRc yK61Iopys7LwGDVuWEE1 MFxzMFxxbFxwbGFpblxm STfgfnI8VCTtEJdkGWNt XGZzMjBcbGFuZzEwMzNc aGljaFxmMVxkYmNoXGYx CNfhW0jiLgWsW3RtIKVi WsVpKq9pHz2pZQCeCVAp YWluXGYxXGZzMjBcbGFu ZzEwMzNcaGljaFxmMVxk FnVeWONeHLzgH7dePmQl Q3YxFQMwCkHulFNlG1fw S3JqkOxnRTNnFQskeGZi UBXyrSYuLTR2wKPpnjNr bNshkQwrrD2eMpBmPdJz NFxwbGFpblxmMVxmczIw IAbbwecySDZdJRceN3ty XzBzYPQuuBvxUOtlx6Oq XGYxXGNmMlxmczIwIDUv MTEvMjAyMlxwbGFpblxm MVxmczIwXGxhbmcxMDMz YGswU8ksKvPwPKBrnDev JLgob0WgTSSaVMQoNexw drXmYPg4kaPuCZPwkWtg wR80Tibiai23WCUgueHg j2IoQTJfFBZ1BHerWGyd bFxwbGFpblxmMFxmczI0 XHBsYWluXGYxXGZzMjBc bGFuZzEwMzNcaGljaFxm AEusGyCoCQChZXowD1zh ZjFcZnMyMFxwYXJ9 Diagnosis (test code = z5kekHVhUCSsfSQ3UoFy 34) WFNih7sph8ItzDNwvHVh IWtywEGuyzCffg14lIH2 pU03SC6lIGTwOsW7QDEv bbV7Edy7FEVqPVOyyLWz V466w6ful9yimxPewMC2 CHTlXNNbK4EfEE2tLEWc iWTkH22hpHQeYPR8XKVg CHTfrMHyLVAkCNH7HNKa pZLoD3alAKWkNI6udybn ASojNUawMLTneHW1SOWg oDUgD1NhONHvBZeeFWGg dxe7NpRkRr7urJKisCvh MFxwYXJkXHBsYWluXGZz PlYxZ0WwXZ47oYCdBWOk YIoRAtQiBpS3YTewIZZN GgwyAJSYSD9QG6IqBUEq POYVSUDow0guVUR5MPSx j72yBa7kRt9aRVObJOzr cGFyXGNmMFxwYXJcbGk3 MjBcbGluNzIwIExlZnQg cHJveGltYWwgcHJldGli dMZeRIWeJ6jkooeyw7dz pmGxbND8VYGoCJI1QJVN LpASTTa1NCRdrlykdII5 UDWftKueRKI5CXKCoRnu rMThsUCqqIPxyH28ltGm lv5fgPLcjoG8yX1uTNCi g85lWEPuWnjzHLaumLrq d5QkQSBnnGKrKBjyMKEz LXF4JQ5qGNIrH7Gwo9Bz woeqy7QzGZYcNKZphuLg y84gEQWktkSxGE28LZY6 MKJxeuexjQSsNAmrOO8i HNDtORVmvHtqj3VtJIZi Y7FvAjwqtP8uWPLhf26h qBV1ITXuiWrqYAYiqSZh aUtmOPNnmLpaaZJip4Wk WUBtw2ydBJeahKpvBRKr OZnytVMrcJKycyWfa72z DP5yISBjxiA6A845wyQp NWT1zJQmfvofoRMas7Ll jMXipVR2iTUkfSIfEDOu OOLwSRwsfhUeTkZsn7zk j6YgMTIrW7MqwehsVPMi ZVHwkDYhyESdV9njvdlm ck6stKaqWDBYOCBqG93i wNOcaM4tsZFlQIgwSUlj tK8uTTFslaTWRg4ABwjl YXJ9 Comment (test code = s1jurNBpBFMmbMW2UrNz 9835) LTNol2ejy0LnqPPxkBFb CMyjeXGkrlRisz32xPT7 zK51UP2tJZMxYuK1MXOb qzL1Flm7UXMzHTVaxJMj A475b1jdm7hbzwDczMC3 tGzvUZMvinddWjA7MOqi VKPbjoljIPp3MSizVKId rGU8HNUyfIOtF9KnLBJv HH5zces4KFS7KGtmNIIa VxZ4PDLhcVOuXWAbmMdc QMvsx234LNK2OoXbZMNp poEghPwuhY2uXpQkRRVY EZT9eG1kisPvAFPbIBmr LX6jGU9sx5PbyTMzRrWk zZEdgE65ubFrky8mfMRl uvY5tD1uXYyxdYvqEm2i PMvlW6a7h4bgT1psLXC9 eXBpYSBhbmQgdmVycnVj o6YeMGFeBBH4djGfSVZg yiJzk5HcF6hsiHyxzjA1 yKBwROVkzo0tkADrlWOl x6QkxaSofzZhl0OqduFt IPj7vHQsl2fma7Pum4J2 dGljIGluZmlsdHJhdGUs ZVF0dFUiwlIxjqjfbRbm WBRgj7JgHUcsoJHtuJFn pQM8aA4fIeBWgDrrnUEk uF1sFSYmw7trI5qgKNEq pzIyhJP8lF9bRKhxVO8c B5Pzv3CzdA7lZDroQMS0 [employer]omarker [employer](s) (test l9ubuHUkLSDurZJ7XyNq code = 9841) RLMfj8ugt1UkxPXllKCw MRodaSTegdJfjb47cVQ6 lA61QE6qECPcXsU2XDNa gzP5Gpj1VUBzUOAldQYx X870t2mln9cwenPrvAR8 cEpvKFEeaikuExR3BNcy RONnwnheXVp4MFltIHBn bWE5PSIzaLUoE6LfBMWe UK8zjji5MQO2XRvxGLZn RkY1QRFwaTHxTRMopYna GQuqf236EUX1FbDjBXIr gxKnjEjhsH1yAzJoUJUI V4XorMOncM== Disclaimer (test code = r1dnuVFwLHMrnBWbWxCg 9844) HEUxSQLbb0vjLGCnuPTo ZzEwMzNcZnRuYmpcdWMx AHEcUpPwg3zhb625rFTf j5msONYcRmT7mUCiDYIm mGEpC183VRTkBZpah0hy h2JwCMFneILro5R3RTRH xfsbeUf0mLhsY47yz1C7 TnxbH5vwXVEgWCBlW9Ov OS9oHCKuZys1JPS8YPV1 SXCgHRKbT3KkBR5rHLUu xGNwTRf4n7okqDvdIANr MBR0h2nkJIstkqLdDW1y aa5hsDm5o3mhutYaPOVp NRHspOIGVJKaN9SdnPly Mc3lnVz5hNryKovzMWF7 Rgn9KD4xvo27xcn7zPqb DURoljosNoP0RTovBNPi rjzgODl9UNrdHOIxjVG8 TPBldVQyP5UeYTStTU1t hof5MRH3GTxgDAXeAhW0 NDBcaGVhZGVyeTcyMFxm z598YZI9VrPgOL2pL2Sv f1V6jH4epXRwDKGswBUw ZxKoVTQhle8iePKgBCfw f2IwXGG4rbZ7yXIfuRLm UWBiKG81Gpsop9LaBqsf TTK4CTLxplYoy9Wig7an VwYiluMfD6ddT7PkJTQb BZYmSVTzEfOeclRzu3Th c5TmiXHwlDw0s6ihYLNd GNUdeJvjj1uaNRX3LJNg S3K2yVVvc8olXZajZNFe eDS2keV7NHIdbLKdE2Gv xA6cRLFhFN0xtoe5a5sv IVG3KHrbOSKpTbL9kfM9 NDBcaGVhZGVyeTcyMFxm i841AWX5FgGuNZYed7Nv J4BroUodL66fuIurC27v ASFzoXqokQ7jkVtsoU3k ZjBcZnMyNFxxbFxwbGFp bouyVSkyjeO5KBqejvfh YREwQSxjB8zlJcVfSLLp lUttSPmxc8DxPSRlEIYj PzrwfbR3WTAUh53gFDPa s3BoFPNxfY8dzRRnSKhg gdDcmOL9CTszmqNsItEc qgUgCVUtaF8uNHZwYM6q NLEjsfUrch4roaQtIKQk SDWcD0OqnxjkpSlnykHv ZDUjxf0lphVlCFU1PWEF EO2AAIPhMVOjy56sGAXp xHcxkE7gmAZewtQqFBAa x9YwpD7soDEPPHWcQ4zi XI6rKIddo7JidQWdfGJx oAW6RYNvb2PpFkQrxdUa rGTpxILlP0HgdMjcT5sx EVKdIVAvrqTssCMyu7Wq DMKrhLC8oHTrLD8UFiPX t52kVRXfHCEQouIdVCJd cPegcCC5yyJ3uF0oJfMI ZiBhcHBsaWNhYmxlLCBj b684ms5reaK2NYBrYCGe bauaw7PtOLScPMLlvE45 PLEiWKCgxb4oufkgpHJn gfLwS9Ddagi6lZ8pVHRr YWluXGYxXGZzMjJcbGFu ZzEwMzNcaGljaFxmMVxk KuArPFMtVLguC2yvHlVw ZnMyMlxwYXJ9 [facility] METABOLIC [id number] 06:31:00 Test Item Value Reference Range Interpretation Comments SODIUM (BEAKER) 138 meq/L 136-145 (test code = 381) POTASSIUM (BEAKER) 4.0 meq/L 3.5-5.1 (test code = 379) CHLORIDE (BEAKER) 105 meq/L 98-107 (test code = 382) CO2 (BEAKER) (test 26 meq/L 22-29 code = 355) BLOOD UREA NITROGEN 15 mg/dL 7-21 (BEAKER) (test code = 354) CREATININE (BEAKER) 0.75 mg/dL 0.57-1.25 (test code = 358) GLUCOSE RANDOM 106 mg/dL 70-105 H (BEAKER) (test code = 652) CALCIUM (BEAKER) 9.5 mg/dL 8.4-10.2 (test code = 697) EGFR (BEAKER) (test 74 mL/min/1.73 ESTIMA YURY GFR IS code = 1092) sq m NOT ACCURATE CREATININE CLEARANCE IN PREDICTING GLOMERULAR FILTRATION RATE . ESTIMATED GFR I S NOT APPLICABLE FOR DIALYSIS PATIEN TS. BASIC METABOLIC [id number] 06:27:00 Test Item Value Reference Range Interpretation [...] APPLICABLE FOR DIALYSIS PATIEN TS. CT, CTANGIO [id number] 12:08:00FINAL REPORT CLINICAL HISTORY: Stroke TECHNIQUE: Initially, noncontrast head CTimages were performed. Contiguous contrast-enhanced axial images through the neck followed by axial i mages through the head with coronal and sagittal [...] FINDINGS: There is no CT evidence of acute infarct or hemorrhage. There is periventricular and subcortical white matter hypodensity which is nonspecific but compatible with chronic microvascular ischemic change. There are atherosclerotic calcifications of the intracranial circulation. There is generalized parenchymal volume loss without hydrocephalus, midline shift, or apparent mass effect. The skull is intact. There is no evidence for a circleof Hernandez proximal branch vessel occlusion. No aneurysms are seen. There is a origin of the left posterior cerebral artery. The major intradural venous sinuses are patent. There is mild atherosclerotic disease at the bilateral carotid bifurcations without hemodynamically significant stenosis of either cervical internal carotid artery by NASCET criteria. The vertebral arteries in the neck are patent including their origins. There is left vertebral dominance. The nondominant right vertebral artery essentially terminates in the posterior inferior cerebellar artery. There are dorsal spondylitic changes in the cervical spine. There are scattered subcentimeter lymph nodes in the neck. There are pat larisa groundglass opacities in the visualized lung apices. IMPRESSION: No CT evidence of acute infarctor hemorrhage. No evidence for a [place] of Hernandez proximal branch vessel occlusion. No evidence of hemodynamically significant stenosis in the cervical carotid or vertebral arteries by NASCET criteria. Signed: Escobar Joshua MDReport Verified Date/Time: 08/21/2018 12:08:39 Reading Location: [address] Neuro Reading Room CT, CAROTID, [id number] 12:08:00FINAL REPORT CLINICAL HISTORY: Stroke TECHNIQUE: Initially, noncontrast head CTimages were performed. Contiguous contrast-enhanced axial images through [...] FINDINGS: There is no CT evidence of acute infarct or hemorrhage. There is periventricular and subcortical white matter hypodensity which is nonspecific but compatible with chronic microvascular ischemic change. There are atherosclerotic calcifications of the intracranial circulation. There is generalized parenchymal volume loss without hydrocephalus, midline shift, or apparent mass effect. The skull is intact. There is no evidence for a circleof Hernandez proximal branch vessel occlusion. No aneurysms are seen. There is a origin of the left posterior cerebral artery. The major intradural venous sinuses are patent. There is mild atherosclerotic disease at the bilateral carotid bifurcations without hemodynamically significant stenosis of either cervical internal carotid artery by NASCET criteria. The vertebral arteries in the neck are patent including their origins. There is left vertebral dominance. The nondominant right vertebral artery essentially terminates in the posterior inferior cerebellar artery. There are dorsal spondylitic changes in the cervical spine. There are scattered subcentimeter lymph nodes in the neck. There are patchy groundglass opacities in the visualized lung apices. IMPRESSION: No CT evidence of acute infarctor hemorrhage. No evidence for a [place] cro[place] of Hernandez proximal branch vessel occlusion. No evidence of hemodynamically significant stenosis in the cervical carotid or vertebral arteries by NASCET criteria.Signed: Escobar Joshua MDReport Verified Date/Time: 08/21/2018 12:08:39 Reading Location: [facility] C0[facility] Neuro Reading Room HEMOGLOBIN [id number] 07:01:00 Test Item Value Reference Range Interpretation Comments HEMOGLOBIN A1C (BEAKER) (test code = 5.9 % 4.3-6.1 368) TSH/FREE T4 IF [id number] 06:21:00 Test Item Value Reference Range Interpretation Comments THYROID STIMULATING HORMONE 2.41 uIU/mL 0.35-4.94 (BEAKER) (test code = 772) VITAMIN B12 AND [id number] 06:21:00 Test Item Value Reference Range Interpretation Comments VITAMIN B12 (BEAKER) (test code = 341 pg/mL 213-816 774) FOLATE (BEAKER) (test code = 362) 3.9 ng/mL >=7.0 L BASIC METABOLIC [id number] 06:02:00 Test Item Value Reference Range Interpretation [...] FOR DIALYSIS PATIEN TS. Specimen slightly ictericLIPID [id number] 06:02:00 Test Item Value Reference Range Interpretation Comments TRIGLYCERIDES (BEAKER) (test code = 104 mg/dL 540) CHOLESTEROL (BEAKER) (test code = 169 mg/dL 631) HDL CHOLESTEROL (BEAKER) (test code 42 mg/dL = 976) LDL CHOLESTEROL CALCULATED (BEAKER) 106 mg/dL (test code = 633) Triglyceride Reference Range: Low Risk <150 Borderline 150-199 High Risk 200- 499 Very High Risk >=500Cholesterol Reference Range: Low Risk <200 Borderline 200-239 High Risk >240HDL Cholesterol Reference Range: Low Risk >=60 High Risk <40LDL Cholesterol Reference Range: Optimal <100 Near Optimal 100-129 Borderline 130-159 High 160-189 Very High >=190 Specimen slightly ictericCBC W/PLT COUNT & AUTO [id number] 05:29:00 Test Item Value Reference Range Interpretation [...] % 0-1 PERCENT (BEAKER) (test code = 2801)
--- NOTE | 2021-12-20 22:54 | RAD REPORT ---
EXAM DESCRIPTION: CT - Head C Spine Mpr Wo Con - 12/20/2021 10:39 pm CLINICAL HISTORY: Head and neck injury status post fall. Head and neck pain COMPARISON: 2019 TECHNIQUE: Computed axial tomography of the head and cervical spine was obtained. Sagittal and coronal reconstruction was performed. All CT scans are performed using dose optimization technique as appropriate and may include automated exposure control or mA/KV adjustment according to patient size. FINDINGS: An intracranial bleed is not seen. The ventricles are normal in caliber. An extra-axial fluid collection is not noted.Fluid within the visualized sinuses and mastoids is not seen multiple scalp lesions are again demonstrated. A cervical fracture is not visualized. No dislocation is noted. Spondylosis. Fullness right [id number]/vallecula IMPRESSION: No acute intracranial abnormality is seen. A cervical fracture is not visualized. If the patient continues to have symptoms to suggest intracra nial /spinal cord pathology then MRI would be recommended Fullness right base tongue/vallecula may indicate a mass. Direct visualization recommended
--- NOTE | 2021-12-20 23:00 | RAD REPORT ---
EXAM DESCRIPTION: CTSpine Lumbar Wo Con12/20/2021 10:39 pm CLINICAL HISTORY: Back pain status post fall COMPARISON: None TECHNIQUE: Computed axial tomography lumbar spine was obtained with coronal and sagittal reconstruct ion. All CT scans are performed using dose optimization technique as appropriate and may include automated exposure control or mA/KV adjustment according to patient size. FINDINGS: No fracture is seen. No dislocation Mild chronic posterior subluxation L2 on L3. Mild chronic anterior subluxation L5 on S1. Spondylosis L2-3, L3-4 and L4-5 resulting in moderate to marked central spinal stenosis IMPRESSION: Negative for a lumbar fracture.
--- NOTE | 2021-12-20 23:05 | RAD REPORT ---
EXAM DESCRIPTION: CTThoracic Spine W/o Cont12/20/2021 10:39 pm CLINICAL HISTORY: Back injury back pain status post fall COMPARISON: None TECHNIQUE: Computed axial tomography of thoracic spine was obtained with coronal and sagittal recons truction. All CT scans are performed using dose optimization technique as appropriate and may include automated exposure control or mA/KV adjustment according to patient size. FINDINGS: No fracture is seen. No dislocation is noted. Mild to moderate spondylosis No high-grade stenosis seen IMPRESSION: Negative for a thoracic fracture If the patient has clinical symptoms to suggest spinal cord pathology then MRI would be recommended.
--- NOTE | 2021-12-20 23:10 | RAD REPORT ---
EXAM DESCRIPTION: CT - Pelvis Wo Cont - 12/20/2021 10:39 pm CLINICAL HISTORY: Pelvic pain status post fall COMPARISON: None. TECHNIQUE: Computed axial tomography of the pelvis was obtained. Coronal and sagittal reconstruction performed All CT scans are performed using dose optimization technique as appropriate and may include automated exposure control or mA/KV adjustment according to patient size. FINDINGS: The bones are osteoporotic. No fracture or dislocation is seen. Mild osteoarthritis involves the hips Muscles are normal size and density. A subcutaneous contusion is not noted IMPRESSION: No fracture seen
--- NOTE | 2021-12-20 23:38 | EDPHYS ---
Physician Documentation [facility] Name: Sigifredo Kiran Age: 86 yrs Sex: Female : 1935 Arrival Date: 12/20/2021 Time: 21:53 Bed 6 Private MD: ED Physician José Manuel Ramesh HPI: 12/20 23:32 This 86 yrs old Female presents to ER via EMS with complaints of fall from standing. rn 23:32 Details of fall: The patient fell from an upright position, while standing. Onset: The rn symptoms/episode began/occurred just prior to arrival. Associated injuries: The patient sustained upper back injury, injury to the low back. Severity of symptoms: At their worst the symptoms were mild, in the emergency department the symptoms are unchanged. The patient has not experienced similar symptoms in the past. The patient has not recently seen a physician. . Pt states fall from standing, fell backward and landed on buttocks, no other injury. on xarelto. Not sure if hit head. No LOC. Reports pain to spine and buttocks/pelvis. Ambulatory after fall. . Historical: - Allergies: 22:02 Levaquin; ke1 22:02 PENICILLINS; ke1 - PMHx: 22:02 Atrial Fib; CVA; Diverticulitis; Hypertension; Hypothyroidism; ke1 - Family history:: not pertinent. - Hospitalizations: : No recent hospitalization is reported. ROS: 23:32 Constitutional: Negative for fever, chills, and weight loss, Eyes: Negative for injury, rn pain, redness, and discharge, Neck: Negative for injury, pain, and swelling, Cardiovascular: Negative for chest pain, palpitations, and edema, Respiratory: Negative for shortness of breath, cough, wheezing, and pleuritic chest pain, Abdomen/GI: Negative for abdominal pain, nausea, vomiting, diarrhea, and constipation, Back: + mid and lower back pain MS/Extremity: Negative for injury and deformity, Skin: Negative for injury, rash, and discoloration, Neuro: Negative for headache, weakness, numbness, tingling, and seizure. Exam: 23:32 Constitutional: This is a well developed, well nourished patient who is awake, alert, rn and in no acute distress. Head/Face: Normocephalic, atraumatic. Neck: NO midline cervical tenderness Chest/axilla: Normal chest wall appearance and motion. Nontender with no deformity. No lesions are appreciated. Cardiovascular: Regular rate and rhythm. No pulse deficits. Respiratory: No increased work of breathing, no retractions or nasal flaring. Abdomen/GI: Soft, non-tender Back: No spinal tenderness. Skin: Warm, dry with normal turgor. Normal color with no rashes, no lesions, and no evidence of cellulitis. MS/ Extremity: Pulses equal, no cyanosis. Neurovascular intact. Full, normal range of motion. Equal circumference. Neuro: Awake and alert, GCS 15, oriented to person, place, time, and situation. Cranial nerves II-XII grossly intact. Motor strength 5/5 in all extremities. Sensory grossly intact. Cerebellar exam normal. Vital Signs: 21:56 BP 142 / 101; Pulse 68; Resp 17; Temp 98.5(O); Pulse Ox 100% on R/A; Weight 104.33 kg; ke1 Height 5 ft. 5 in. (165.10 cm); 23:25 BP 132 / 86; Pulse 73; Resp 17; Pulse Ox 95% ; ll3 21:56 Body Mass Index 38.27 (104.33 kg, 165.10 cm) ke1 MDM: 21:56 Patient medically screened. rn 23:32 Differential diagnosis: closed head injury, contusion, fracture. Data reviewed: vital rn signs, nurses notes, radiologic studies, CT scan, and as a result, I will discharge patient. Counseling: I had a detailed discussion with the patient and/or guardian regarding: the historical points, exam findings, and any diagnostic results supporting the discharge/admit diagnosis, radiology results, the need for outpatient follow up, to return to the emergency department if symptoms worsen or persist or if there are any questions or concerns that arise at home. Response to treatment: the patient's symptoms have mildly improved after treatment, and as a result, I will discharge patient. Special discussion: I discussed with the patient/guardian in detail that at this point there is no indication for admission to the hospital. It is understood, however, that if the symptoms persist or worsen the patient needs to return immediately for re-evaluation. I discussed with the patient the need to follow-up with the PCP/specialist for the noted incidental finding on X-ray/CT scanning. ED course: No acute traumatic findings on CT imaging. + incidental possible pharyngeal mass, discussed with patient and knows to f/u. . 12/20 21:56 Order name: CT Head C Spine; Complete Time: 23:32 rn 12/20 21:56 Order name: CT Lumbar Spine Wo Con rn 12/20 21:56 Order name: CT Pelvis wo Cont; Complete Time: 23:32 rn 12/20 22:03 Order name: Thoracic Spine W/o Cont; Complete Time: 23:32 EDMS 12/20 22:14 Order name: Spine Lumbar Wo Con; Complete Time: 23:32 EDMS Administered Medications: 23:49 Drug: HYDROcodone-acetaminophen 5 mg-325 mg 2 tabs Route: PO; ll3 12/21 00:07 Follow up: Response: No adverse reaction; Medication administered at discharge. ll3 Disposition Summary: 12/20/21 23:37 Discharge Ordered Location: Home rn Problem: new rn Symptoms: have improved rn Condition: Stable rn Diagnosis - Fall on same level, unspecified rn - Contusion of lower back and pelvis rn Followup: rn - With: Virginia Jordan MD - When: As needed - Reason: Recheck today's complaints, Re-evaluation by your physician Discharge Instructions: - Discharge Summary Sheet rn - Contusion rn Forms: - Medication Reconciliation Form rn - Thank You Letter rn - Antibiotic rn ent - Prescription Opioid Use rn Signatures: Dispatcher [employer] José Manuel Henry MD MD rn Loubet, Lynsea RN RN ll3 Ji Salgado, RN RN ke1
--- NOTE | 2021-12-20 23:38 | ER ---
Nurse's Notes [facility] Name: Sigifredo Kiran Age: 86 yrs Sex: Female : 1935 Arrival Date: 12/20/2021 Time: 21:53 Bed 6 Private MD: Diagnosis: Fall on same level, unspecified;Contusion of lower back and pelvis Presentation: 12/20 21:56 Chief complaint: EMS states: Patient fell from standing position while trying to p/u ke1 something on the table. She lost her balance and fell on her buttocks, denies hitting her head. Coronavirus screen: Vaccine status: Patient reports receiving the 2nd dose of the covid vaccine. Ebola Screen: No symptoms or risks identified at this time. Initial Sepsis Screen: Does the patient meet any 2 criteria? No. Patient's initial sepsis screen is negative. Does the patient have a suspected source of infection? No. Patient's initial sepsis screen is negative. Risk Assessment: Do you want to hurt yourself or someone else? Patient reports no desire to harm self or others. Onset of symptoms was December 20, 2021 at 21:20. 21:56 Method Of Arrival: EMS: [facility] ke1 21:56 Acuity: CLARI 3 ke1 Triage Assessment: 22:03 General: Appears in no apparent distress. Behavior is appropriate for age. ke1 Historical: - Allergies: 22:02 Levaquin; ke1 22:02 PENICILLINS; ke1 - PMHx: 22:02 Atrial Fib; CVA; Diverticulitis; Hypertension; Hypothyroidism; ke1 - Family history:: not pertinent. - Hospitalizations: : No recent hospitalization is reported. Screenin/10 00:07 Abuse screen: Denies threats or abuse. Denies injuries from another. Nutritional ll3 screening: No deficits noted. Tuberculosis screening: No symptoms or risk factors identified. Fall Risk No fall in past 12 months (0 pts). No secondary diagnosis (0 pts). No IV (0 pts). Ambulatory Aid- Crutches/Cane/Walker (15 pts). Gait- Weak (10 pts.). Mental Status- Oriented to own ability (0 pts). Total Chapin Fall Scale indicates Low Risk Score (25-44 pts). Fall prevention measures have been instituted. Side Rails Up X 2 Placed close to Nursing Station Family Present and informed to notify staff if they need to leave bedside As available Patient and Family Educated on Fall Prevention Program and strategies. Vital Signs: 12/20 21:56 BP 142 / 101; Pulse 68; Resp 17; Temp 98.5(O); Pulse Ox 100% on R/A; Weight 104.33 kg; ke1 Height 5 ft. 5 in. (165.10 cm); 23:25 BP 132 / 86; Pulse 73; Resp 17; Pulse Ox 95% ; ll3 21:56 Body Mass Index 38.27 (104.33 kg, 165.10 cm) ke1 ED Course: 21:53 Patient arrived in ED. rn 21:56 José Manuel Ramesh MD is Attending Physician. rn 21:56 Ji Salgado RN is Primary Nurse. ke1 22:02 Triage completed. ke1 22:41 CT Head C Spine In Process Unspecified. EDMS 22:41 Thoracic Spine W/o Cont In Process Unspecified. EDMS 22:41 Spine Lumbar Wo Con In Process Unspecified. EDMS 22:41 CT Pelvis wo Cont In Process Unspecified. EDMS 23:36 Virginia Jordan MD is Referral Physician. rn 12/21 00:07 Patient has correct armband on for positive identification. Bed in low position. Call ll3 light in reach. Side rails up X 1. Adult w/ patient. 00:07 No provider procedures requiring assistance completed. Patient did not have IV access ll3 during this emergency room visit. Administered Medications: 12/20 23:49 Drug: HYDROcodone-acetaminophen 5 mg-325 mg 2 tabs Route: PO; ll3 12/21 00:07 Follow up: Response: No adverse reaction; Medication administered at discharge. ll3 Medication: 00:08 VIS not applicable for this client. ll3 Outcome: 12/20 23:37 Discharge ordered by . rn 12/21 00:07 Discharged to home via wheelchair, with family. ll3 Condition: stable Discharge instructions given to patient, family, Instructed on discharge instructions, follow up and referral plans. Demonstrated understanding of instructions, follow-up care. 00:08 Patient left the ED. ll3 Signatures: Dispatcher [employer] EDMS José Manuel Ramesh MD MD rn Loubet, Lynsea, RN RN 3 Ebrottie, Kouassi, RN RN ke1
[2021-12-20] MEDS ORDERED: HYDROCODONE/APAP 5/325 MG TAB ONE (23:53)
[2021-12-21 05:14] VITALS: TEMP 98.5
[2021-12-21 05:16] VITALS: BP 132/86; O2SAT 95
== END 2021-12-21 00:08 | disposition home or self-care (01) ==
LOC: ER 21:38
DX: S30.0XXA Contusion of lower back and pelvis, initial encounter (principal); W18.30XA Fall on same level, unspecified, initial encounter; I10 Essential (primary) hypertension; I48.91 Unspecified atrial fibrillation; Z79.01 Long term (current) use of anticoagulants; Z88.0 Allergy status to penicillin; Z88.1 Allergy status to other antibiotic agents
CPT/HCPCS: 70450; 72125; 72128; 72131; 72192; 99283

== ENCOUNTER 2021-12-24 11:05 | Inpatient (IN) | payer OTHER ==
--- OUTSIDE RECORDS SUMMARY | 2021-12-24 11:09 | XMS REPORT | Clinical Summary ---
:1935 Author Organization [facility] MD Dominguez [facility] Center Address [address] [place] [address] Care Team Providers Name Role Phone Victoriano [...] Visit Elena Cuba, Neoplasm of [facility] josee Alex MD behavior of ski n [...] limb , including hip (Primary Dx) after 12/24/2020 Surgical History Surgery Date Site/Laterality Comments APPENDECTOMY [...] procedure are in the results section. after 12/24/2020 Results Pathology Biopsy Interpretation (08/28/2021 1:43 PM CDT) Component Value Ref Test Analysis Performed Pathologis t Range Method Time At Signature Correction This report has 09/06/2021 [facility] History been amended by 7:13 AM on CDT 09/05/2021 to correct a typographical error in comment from "Patient liver tissue" to " 'Additional deeper tissue' sections. The diagnosis remains otherwise as previously stated. Results were communicated to Dr. Cuba and ARLET Peterson by email on 09/06/2021. Submitted A: Squamous cell carcinoma vs prurigo vs scar 09/06/2021 [facility] Clinical Neoplasm of uncertain behavior of skin [D48.5] 7:13 AM History CDT Diagnosis A: Skin, left proximal pretibia, punch: 09/06/2021 [facility] Amendment Dermal fibrosis in the backg round of stasis and actinic changes, present at tissue edges; unequivocal squamous cell carcinoma not identified. 7:13 AM electronically See comment. CDT signed by Romario Garcia MD on 09/06/2021 at 7:13 AM Electronic ally signed by Romario Garcia MD on 08/29/2021 at 5:48 PM Comment Sections reveal a 09/06/2021 [facility] punch biopsy of 7:13 AM [...] or basement membrane thickening. Gross A: 09/06/2021 [facility] Description Skin, left proximal pretibia : A pale pink skin punch biopsy measuring 0.3 cm in diameter and 0.4 cm in depth. The specimen is inked, bisected, entirely submitted in A1. GM 7:13 AM CDT Biomarker NA 09/06/2021 [facility] Block(s) 7:13 AM CDT Disclaimer "Some tests 09/06/2021 [facility] reported here may 7:13 AM have been developed CDT and performance characteristics determined by [facility] Pathology and Laboratory Medicine. These tests [...] Organization Address City/State/ZIP Code Phon e Number [facility] [place] [id number] [facility] Pathology Outside Interpretation (07/03/2021) Component Value Ref Test Analysis Performed Pathologis t Range Method Time At [facility] Materials Accession#, Stained, Block, Unstained Collected Received 08/22/2021 [facility] Received A. [id number], 1 SS, 0 BLOCKS, 0 USS 07/03/2021 08/21/2021 7:04 AM CDT Diagnosis Outside ([id number], 1 SS, 0 BLOCKS, 0 USS, collected o n 07/03/2021): 08/22/2021 [facility] Electronically 7:04 AM signed by Left [...] comment. GW/PN Comment Sections reveal an 08/22/2021 [facility] endophytic squamous 7:04 AM proliferation with CDT focal cytologic atypia and verrucous features, in association with dermal fibrosis and sparse lymphohistiocytic infiltrate, supporting the above interpretation. Clinical-pathologic correlation is necessary. Biomarker N/A 08/22/2021 [facility] Block(s) 7:04 AM CDT Disclaimer "Some tests reported 08/22/2021 [facility] here may have been 7:04 AM developed and CDT performance characteristics determined by [facility] Pathology and Laboratory Medicine. These tests [...] Organization Address City/State/ZIP Code Phon e Number 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
--- OUTSIDE RECORDS SUMMARY | 2021-12-24 11:10 | XMS REPORT | Continuity of Care Document ---
:1935 Author Organization [facility] t Address [address] [place] [address] Care Team Providers Name Role Phone Abi Cuba MD Primary Care Physician [phone] SYSTEM, PROVIDER NOT IN Attending Clinician Unavailable Rex Beltre Attending Clinician REX HOLCOMB Attending Clinician Unavailable Joe Peterson RN Attending Clinician Unavailable Bereket CORTEZ, Abi Attending Clinician Abdelrahman CORTEZ, Tonya Attending Clinician Shyam Willoughby MD Attending Clinician Paul CORTEZ, Pamela Corona Attending Clinician Samuel Pickard MD Attending Clinician Victoriano Nava MD Attending Clinician GE DIAZ Attending Clinician Unavailable GE DIAZ Admitting Clinician Unavailable Payers Payer Name Policy Type Policy Number Effective Date Expiration Date S ource Problems Condition Condition Condition Status Onset Resolution Last Treating Co mments Source Name Details Category Date Date Treatment Clinician Date Stroke Stroke Disease Active [address] [facility] (cerebrum) 5-10 Barbara kes 00:00: Medical 00 Center Allergies, Adverse Reactions, Alerts Allergy Allergy Status Severity Reaction(s) Onset Inactive Treating Comm ents Source Name Type Date Date Clinician Levoflox Propensi Active Unknown - Uni vers acin ty to See comments 9-10 ity of adverse 00:00: [place] reaction 00 Medical s Branch Penicill Propensi Active Unknown - Uni vers ins ty to See comments 9-10 ity of adverse 00:00: [place] reaction 00 Medical s Branch LEVOFLOX DRUG Active Unknown-Cmnt Un víctor ACIN INGREDI 9-10 ity of 00:00: [place] [facility] PENICILL Drug Active Unknown-Cmnt Un víctor INS Class 9-10 ity of 00:00: [place] [facility] Levoflox Propensi Active Univer s acin ty to 5-18 ity of adverse 00:00: [place] reaction 00 [facility] Penicill Propensi Active [facility] adverse 00:[facility]: Medical reaction 00 Center s Penicill Drug Active Swelling Other Univer s ins Allergy 5-10 reaction( ity of 00:00: s): [place] Paulina CORTEZ of [facility] breath, n swollen Cancer tongue Center NO KNOWN Drug Active Univers ALLERGIE Class ity of S [facility] Social History Social Habit Start Date Stop Date Quantity Comments Source History [facility] o f Alcohol Frequency [facility] [place] History [facility] o f Alcohol Std Drinks [place] [facility] History [facility] o f Alcohol Binge [place] MD [facility] Exposure to 2021-12-11 2021-12-21 Not sure University of SARS-CoV-2 (event) 00:00:00 14:55:00 [facility] Alcohol intake 2021-08-28 2021-08-28 Ex-drinker University of 00:00:00 00:00:00 (finding) [place] MD [facility] History SDOH 2021-08-28 2021-08-28 occasional social Unive rsity of Alcohol Comment 00:00:00 00:00:00 - not in last 30 Awais as MD [facility] Tobacco Comment 2021-08-28 2021-08-28 Very light smoker Un iversity of 00:00:00 00:00:00 - consider social [facility] smoker [facility] Center Cigarettes smoked 2018-08-21 2018-08-[address] [facility] current (pack per 00:00:00 00:00:00 Medical Center day) - Reported Cigarette 2018-08-21 2018-08-[address] [facility] pack-years 00:00:00 00:00:00 [facility] Tobacco use and 2018-08-21 2018-08-[address] [facility] [address] Barbara kes exposure 00:00:00 00:00:00 [facility] History of tobacco 1954-04-13 1972-04-12 Smoker Univer sity of use 00:00:00 00:00:00 Pa CORTEZ Alberto [facility] Center Sex Assigned At [birth year] MARLEN Jackson 00:00:00 00:00:00 [facility] Smoking Status Start Date Stop Date Source Tobacco [place] [facility] [place] consumption unknown Medical Bran ch Ex-smoker 2021-08-28 00:00:00 2021-08-28 University o f Pa CORTEZ 00:00:00 [facility] Medications Ordered Filled Start Stop Current Ordering Indication Dosage Frequency Signature Comments Components Source Medication Medication Date Date Medication? Clinician (SIG) Name Name ondansetron No 4mg 4 mg, Slow Univers (ZOFRAN 12-21 IV Push, ity of (PF)) 21:15: 21:27 ONCE, 1 [place] injection 4 00 :00 dose, On Medi kitty mg Sat Branch 12/21/21 at 1615, BERTRAM morpHINE (4 No 4mg 4 mg, Slow Univers mg/mL) 12-21 IV Push, ity of injection 4 21:15: 21:27 [place] 1 [place] mg [place] :[place] dose, On Medical Sat Branch 12/21/21 at 1615, STAT HYDROcodone 2021- No 1{tbl} 1 tablet, Univers -acetaminop 12-21 Oral, ity of hen (NORCO 20:00: 19:54 ONCE, 1 [place] as 5) 5-325 mg 00 :00 dose, On Medi kitty tablet 1 Sat Branch tablet 12/21/21 at 1500, BERTRAM acetaminoph 2021- Yes 4647 1{tbl} Take 1 U nivers en-codeine 12-21 tablet by ity of 300-30 mg 00:00: 04:59 mouth [place] tablet 00 :00 every 6 Medical (six) Branch hours as needed for Pain (scale 7-10) for up to 7 days. Indication s: acute pain cholecalcif 0 Yes Take by Uni vers alicia, 5-18 mouth. ity of vitamin D3, 13:34: [place] (REPLESTA [address]) [facility] cyanocobala Yes 2500mg Take 2,500 Univers min, 5-18 mg by ity of vitamin 13:34: mouth [place] B-12, 51 daily. (VITAMIN Anderso B-12 ORAL) [facility] cholecalcif 0 Yes Take by Uni vers alicia, 5-18 mouth. ity of vitamin D3, 13:34: [place] (REPLESTA [address]) [facility] cyanocobala Yes 2500mg Take 2,500 Univers min, 5-18 mg by ity of vitamin 13:34: mouth [place] B-12, 51 daily. (VITAMIN Anderso B-12 ORAL) [facility] levothyroxi Yes Lyly hogue 4-04 ity of (SYNTHROID, 00:00: [place] LEVOTHROID) 00 88 mcg Anderso tablet [facility] levothyroxi Yes Lyly hogue 4-04 ity of (SYNTHROID, 00:00: [place] LEVOTHROID) 00 88 mcg Anderso tablet [facility] metoprolol Yes Univers succinate 4-03 ity of (TOPROL XL) 00:00: [place] 25 mg [address] [facility] metoprolol Yes Univers succinate 4-03 ity of (TOPROL XL) 00:00: [place] 25 mg [address] [facility] atorvastati Yes Lyly pulliam (LIPITOR) 3-10 ity of 10 mg 00:00: [place] tablet 00 MD Poole [facility] atorvastati Yes Lyly pulliam (LIPITOR) 3-10 ity of 10 mg 00:00: [place] tablet [facility] 0 Yes Univers mg tablet 3-07 ity of 00:00: [place] 00 [facility] Xarelto 20 Yes Univers mg tablet 3-07 ity of 00:00: [place] 00 MD [facility] metoprolol Yes 25mg QD Take 25 mg [...] with Me dical tablet 48 dinner. Center levothyroxi Yes 75ug Take [address] [facility] ne 5-13 mcg by [facility]ukes (SYNTHROID, 14:48: mouth Medic al LEVOTHROID) 48 Every Center 75 MCG morning on tablet an empty stomach. rivaroxaban Yes Take by [facility] (XARELTO) 5-13 mouth [facility]ukes 20 mg Tab 14:48: daily with Me dical tablet 48 dinner. Center metoprolol Yes 25mg QD Take [address] (TOPROL-XL) 5-13 by mouth Luke s 25 MG 24 hr 14:48: daily. Medi kitty tablet 48 Center Immunizations Ordered Filled Immunization Date Status Comments [facility] e Immunization Name Name SARS-COV-2 COVID-19 2020-06-17 Completed Unive rsity of MODERNA 12+ YRS 00:00:00 [facility] VACCINE Branch SARS-COV-2 COVID-19 2020-05-20 Completed Unive rsity of MODERNA 12+ YRS 00:00:00 [facility] VACCINE Branch Vital Signs Vital Name Observation Time Observation Value Comments Source Systolic blood 2021-12-22 00:10:00 132 mm[Hg] Univer sity of pressure [facility] Diastolic blood 2021-12-22 00:10:00 96 mm[Hg] Unive rsity of pressure [facility] Heart rate 2021-12-22 00:10:00 96 /min [facility] Respiratory rate 2021-12-22 00:10:00 17 /min Univ [facility] Oxygen saturation in 2021-12-22 00:10:00 94 /min University of Arterial blood by [facility] Pulse oximetry Branch Body temperature 2021-12-21 19:21:00 36.83 [facility] Body weight 2021-12-21 19:21:00 106.595 kg [facility] Systolic blood 2021-08-28 18:18:50 132 mm[Hg] Univer sity of pressure [place] [facility] Diastolic blood 2021-08-28 18:18:50 86 mm[Hg] [facility] Heart rate 2021-08-28 18:18:50 66 /min [facility] MD [facility] Body temperature 2021-08-28 18:18:50 36.89 Nayely [facility] MD [facility] Respiratory rate 2021-08-28 18:18:50 14 /min [facility] MD [facility] Oxygen saturation in 2021-08-28 18:18:50 98 /min University of Arterial blood by Pa hankins Pulse oximetry [facility] Center Procedures Procedure Date / Time Performing Clinician Source Performed URINALYSIS 2021-12-21 22:22:00 [facility] / INR 2021-12-21 21:26:00 [facility] N-TERMINAL PRO-BNP 2021-12-21 21:26:00 Rex Holcomb [facility] COVID-19 (ID NOW RAPID 2021-12-21 21:26:00 Rex Holcomb [facility] TESTING) [facility] TROPONIN I 2021-12-21 21:26:00 [facility]. METABOLIC PANEL 2021-12-21 21:26:00 Rex Holcomb [facility] ([id number]) [facility] CBC WITH DIFF 2021-12-21 21:26:00 Rex Holcomb [facility] [place] [facility] XR HIPS 2 VW LEFT 2021-12-21 20:03:41 Rex Holcomb [facility] XR PELVIS <3 VW 2021-12-21 20:03:41 Rex Holcomb [facility] [place] [facility] CONSENT/REFUSAL FOR 2021-12-21 19:14:07 Doctor UnassMarshall kendrick [facility] DIAGNOSIS AND TREATMENT [facility] PATHOLOGY BIOPSY 2021-08-28 18:43:00 Abi Cuba [facility] INTERPRETATION [facility] er Center PATHOLOGY OUTSIDE 2021-07-03 00:00:00 Pamela Miller [facility] INTERPRETATION [facility] Plan of Care Planned Activity Planned Date Details Comments Source Future Scheduled 2021-09-13 COVID-19 Vaccination Uni versity of [place] Test 06:34:05 (3 - Booster for MD [facility] Moderna series) [code Center = COVID-19 Vaccination (3 - Booster for Moderna series)] Future Scheduled 2021-09-13 COVID-19 Vaccination Uni versity of [place] Test 06:34:05 (3 - Booster for MD [facility] Moderna series) [code Center = COVID-19 Vaccination (3 - Booster for Moderna series)] Encounters Start End Encounter Admission Attending Care Care Encounter Source Date/Time Date/Time Type Type Clinicians Facility Department ID 2021-08-13 Outpatient SYSTEM, [facility] [id number] 17:18:16 PROVIDER Elton pulliam 2021-12-21 2021-12-21 Emergency Holcomb, [facility] [id number] Univers 14:24:00 21:32:00 Rex GALVAN 350.1.13.10 i ty of [facility] 4.2.7.2.686 [facility] [id number] [place] [address] Branch 2021-12-21 2021-12-21 Emergency [facility] [id number] Univers 14:24:00 21:32:00 REX rodriguez [facility] 2021-09-05 2021-09-05 Telephone Malit, 1.2.840.1 [id number] Univers 00:00:00 00:00:00 Joe Barry 67630.1.1 i ty of 3.412.2.7 [place] .3.678409 .8 [facility] 2021-09-05 2021-09-05 Telephone Malit, 1.2.840.1 [id number] Univers 00:00:00 00:00:00 Joe Jhonny 05113.1.1 i ty of 3.412.2.7 [place] .3.776025 MD [facility] 2021-09-05 2021-09-05 Telephone Malit, 1.2.840.1 [id number] Univers 00:00:00 00:00:00 Reynigor Jhonny 55222.1.1 i ty of 3.412.2.7 [place] .3.065601 MD Manuel8 [facility] 2021-09-05 2021-09-05 Telephone Malit, 1.2.840.1 [id number] Univers 00:00:00 00:00:00 Joe Jhonny 00178.1.1 i ty of 3.412.2.7 [place] .3.779865 MD [facility] 2021-08-28 2021-08-28 Office Bereket, 1.2.840.1 [id number] Univers 13:30:00 14:03:55 Visit Abi 23918.1.1 ity of 3.412.2.7 [place] .3.824344 MD Manuel8 [facility] 2021-08-28 2021-08-28 Office Bereket, 1.2.840.1 [id number] Univers 13:30:00 14:03:55 Visit Abi 44666.1.1 ity of 3.412.2.7 [place] .3.550138 MD Manuel8 [facility] 2021-08-28 2021-08-28 NPR Abdelrahman, 1.2.840.1 [id number] Univers 13:00:00 13:00:00 Castaneda 53040.1.1 ity of 3.412.2.7 [place] .3.265420 MD Manuel8 [facility] 2021-08-28 2021-08-28 NPR JENNY Quick, 1.2.840.1 [id number] Univers 13:00:00 13:00:00 Castaneda 02614.1.1 ity of 3.412.2.7 [place] .3.455240 MD [facility] 2021-08-28 2021-08-28 Travel 1.2.840.1 [id number] [id number] Univers 00:00:00 00:00:00 09265.1.1 350.1.13.41 ity of 3.412.2.7 2.[place].7.3.698 [place] .3.432837 084.[address] [facility] 2021-08-28 2021-08-28 Travel 1.2.840.1 1.2.384.241 [id number] Univers 00:00:00 00:00:00 66408.1.1 350.1.13.41 ity of 3.412.2.7 2.2.7.3.698 [place] .3.179674 084.Krystin [facility] 2021-08-21 2021-08-21 Lab Shyam Willoughby 1.2.840.1 [id number] Univers 00:00:00 00:00:00 Pamela Hall 59149.1.1 ity of n 3.412.2.7 [place] .3.865945 MD [facility] 2021-08-21 2021-08-21 Lab Shyam Willoughby 1.2.840.1 [id number] Univers 00:00:00 00:00:00 Pamela Hall 28407.1.1 ity of n 3.412.2.7 [place] .3.984954 MD [facility] 2021-08-14 2021-08-14 Dee Pickard 1.2.840.1 [id number] Univers 00:00:00 00:00:00 Only Samuel 56110.1.1 ity of 3.412.2.7 [place] .3.677032 MD [facility] 2021-08-14 2021-08-14 Orders Pickard, 1.2.840.1 [id number] Univers 00:00:00 00:00:00 Only Samuel 14310.1.1 ity of 3.412.2.7 [place] .3.627612 MD [facility] 2021-08-02 2021-08-02 [facility] Brandy, 1.2.840.1 [id number] Univers 00:00:00 00:00:00 Orders Victoriano Fong 92069.1.1 ity of 3.412.2.7 [place] .3.831759 MD Manuel8 [facility] 2021-08-02 2021-08-02 [facility] Brandy, 1.2.840.1 [id number] Univers 00:00:00 00:00:00 Orders Victoriano Fong 27387.1.1 ity of 3.412.2.7 [place] .3.251982 MD [facility] Results Test Description Test Time Test Comments Results Result Comments Source TROPONIN I 2021-12-21 22:14:37 Test Item Value Reference Range Interpretation Comme nts TROPONIN I (test code = 0.007 ng/mL See_Comment [Au tomated message] The [id number]) system which ge nerated this result tra nsmitted reference range : <=0.034. The reference r jessi was not used to int erpret this result as normal/abnormal . LISANDRO (test code = LISANDRO) Reference (Normal) Range (defined by the 99th percentile reference limit): <= 0.034 ng/mL Note: Cardiac troponin begins to rise 3-4 hours after the onset of ischemia. Repeat in 4-6 hours if the sample was drawn within 3-4 hours of the onset of the symptom and found normal. Diagnosis of myocardial injury is made with acute changes in cTn concentrations with at least one serial sample above the 99th percentile upper reference limit (URL), taken together with the patient's clinical presentation. Biotin has been reported to cause a negative bias, interpret results relative to patient's use of biotin. Lab Interpretation Normal (test code = 38187-4) [facility] [place] [facility] [id number] 22:05:34 Test Item Value Reference Range Interpretation Comments NT-proBNP (test code 1390 pg/mL See_Comment H [Autom ated = 6423443718) message] The system which generated this result transmitted reference range : <=450. The reference range was not used to interpret this result as normal/abnormal . LISANDRO (test code = LISANDRO) Biotin has been reported to cause a negative bias, interpret results relative to patient's use of biotin. Lab Interpretation Abnormal (test code = 07513-7) [facility] [place] [facility] / [id number] 22:00:01 Test Item Value Reference Range Interpretation Comments PROTIME PATIENT (test See_Comment H [Auto mated message] code = 5964-2) The system wh ich generated this result transmitted ref erence range: 12.0 - 1 4.7 Seconds. The reference range was not used to int erpret this result as normal/abnormal . INR (test code = 6301-6) Nor mal INR <1.1; Warfarin Therap eutic range 2.0 to 3. 0 or 2.5 to 3.5, dep ending upon the indica tions. Lab Interpretation (test Abnormal code = 28743-8) [facility] WITH [id number] 21:55:19 Test Item Value Reference Range Interpretation Comments WBC (test code = See_Comment [Automated 2890-2) message] The sy stem which generated this result transmitted reference range : 4.30 - 11.10 10*3/?L. The reference range was not used to interpret this result as normal/abnormal . RBC (test code = See_Comment [Automated 599-8) message] The sy stem which generated this result transmitted reference range : 3.93 - 5.25 10*6/?L. The reference range was not used to interpret this result as normal/abnormal . HGB (test code = 15.6 g/dL 11.6-15 H 718-7) HCT (test code = 45.6 % 35.7-45.2 H 4544-3) MCV (test code = 93.4 fL 80.6-95.5 787-2) MCH (test code = 32.0 pg 25.9-32.8 785-6) MCHC (test code = 34.2 g/dL 31.6-35.1 786-4) RDW-SD (test code = 45.1 fL 39-49.9 41911-6) RDW-CV (test code = 13.2 % 12-15.5 788-0) PLT (test code = See_Comment L [Automated 777-3) message] The sy stem which generated this result transmitted reference range : 166 - 358 10*3/ ?L. The reference r jessi was not used to interpret this result as normal/abnormal . MPV (test code = 10.5 fL 9.5-12.9 72026-2) NRBC/100 WBC (test See_Comment [Automat ed code = 5202740907) message] The system which generated this result transmitted reference range : 0.0 - 10.0 /100 WBCs. The refer ence range was not u sed to interpret th is result as normal/abnormal . NRBC x10^3 (test code See_Comment [Auto mated = 9563814580) message] The s ystem which generated this result transmitted reference range : 10*3/?L. The reference range was not used to interpret this result as normal/abnormal . GRAN MAT (NEUT) % 63.8 % (test code = 770-8) IMM GRAN % (test code 0.40 % = 1245126301) LYMPH % (test code = 23.1 % 736-9) MONO % (test code = 9.6 % 5905-5) EOS % (test code = 2.7 % 713-8) BASO % (test code = 0.4 % 706-2) GRAN MAT x10^3(ANC) 4.47 10*3/uL 1.88-7.09 (test code = 8906754504) IMM GRAN x10^3 (test 0.03 10*3/uL 0-0.06 code = 6028296221) LYMPH x10^3 (test code 1.62 10*3/uL 1.32-3.29 = 731-0) MONO x10^3 (test code 0.67 10*3/uL 0.33-0.92 = 742-7) EOS x10^3 (test code = 0.19 10*3/uL 0.03-0.39 711-2) BASO x10^3 (test code 0.03 10*3/uL 0.01-0.07 = 704-7) Lab Interpretation Abnormal (test code = 36613-8) [facility]. METABOLIC PANEL (76077)2021-12-21 21:51:38 Test Item Value Reference Range Interpretation Comments NA (test code = 137 mmol/L 135-145 2506014632) K (test code = 4.2 mmol/L 3.5-5 7032262666) CL (test code = 100 mmol/L 98-108 9622327763) CO2 TOTAL (test code = 33 mmol/L 23-31 H 0319322505) AGAP (test code = 2-16 3183366057) BUN (test code = 15 mg/dL 7-23 5321524540) GLUCOSE (test code = 102 mg/dL 70-110 1891779578) CREATININE (test code = 0.83 mg/dL 0.5-1.04 9953252179) TOTAL BILI (test code = 2.4 mg/dL 0.1-1.1 H 4479799682) CALCIUM (test code = 8.9 mg/dL 8.6-10.6 6505714337) T PROTEIN (test code = 6.6 g/dL 6.3-8.2 4136472996) ALBUMIN (test code = 4.0 g/dL 3.5-5 6884929784) ALK PHOS (test code = 101 U/L 34-122 5141370567) ALTv (test code = 20 U/L 5-35 1742-6) AST(SGOT) (test code = 32 U/L 13-40 0215104284) eGFR (test code = mL/min/1.73m2 2056956777) LISANDRO (test code = LISANDRO) Association of Glomerular Filtration Rate (GFR) and Staging of Kidney Disease* + --+ --+ ------+| GFR (mL/min/1.73 m2) ?| With Kidney Damage ?| ?Without Kidney Damage+ --------+ --------+ +| ?>90 ?| ?Stage one ?| ? Normal ?+ ---+ ---+ -------+| ?60-89 ?| ?Stage two ?| ? Decreased GFR ? + --+ --+ ------+| ?30-59 ?| ?Stage three ?| ? Stage three ? + --+ --+ ------+| ?15-29 ?| ?Stage four ? | ? Stage four ?+ ---+ ---+ -------+| ?<15 (or dialysis) ? ?| ?Stage five ? | ? Stage five ?+ ---+ ---+ -------+ *Each stage assumes the associated GFR level has been in effect for at least three months. ?Stages 1 to 5, with or without kidney disease, indicate chronic kidney disease. Notes: Determination of stages one and two (with eGFR >59mL/min/1.73 m2) requires estimation of kidney damage for at least three months as defined by structural or functional abnormalities of the kidney, manifested by either:Pathological abnormalities or Markers of kidney damage (including abnormalities in the composition of the blood or urine or abnormalities in imaging tests). Lab Interpretation Abnormal (test code = 79811-3) [facility] [place] [facility] Bi[facility] [id number] 12:13:37 Test Item Value Reference Range Interpretation Comments Correction History (test e3pezXOzKLMvtAZ1PBI code = 9843) yNWStp7hcm0IvgBFiaP EdUWewrEQbkxXzxb75i IJ7uC76DW5kUODhIrN3 JEVegnR8Zhz3YJSeXAW xjMWgL396u3obb8zrdu UvrRV9gYrbVBDnabbmB aY8NPdmONEzffnsUFk0 OPprXUZwqBI2RKKjuHB xT4AlQHNuHL0vjjw7YZ H9AOumVOTmDlR1PNVgf LFoWQWriSviLEomm074 JLQ3LgKsTXVmvqQarDt tqD4zVmRxDGDPfIjrZY GyhE6ypEEhEIAwKlRno sFaeYWnXIKvSYU1XFBw Vb2hG4NuXWlxbmTuviH qMU7kVo4qCXDjHHIkBD BatcNkH8EhCXD6aPHmX 7JwbIniS2ScNOSzgs0l HHqqOKSquU3bwwJqSmV cvOBzTOV3tFGrkVGphJ IsrxS2qYFybOJwUGYjF VXcZ4EyTLv1qC0hYNzb WEEugOScKPCnb8J1NEe kh4JjfTudyxMdDBFgHQ MomJVjmu3ydSHjffCyY RqwysUulIsyotcxv5Su YXMgcHJldmlvdXNseSB agHG6POAmDPTne9HnxU Whg7VrIWPui26ijG7yU 9H8ULUnoH1dRLKwQF3w C8QpbmshnoFtOZ4bDLL XSP4atSl4GNI3RDArEM etZC1fIXN1GvI4UxTdQ jIuXHBhcn0= Submitted Clinical History l4njrRKwPWEutSY7TWA (test code = 34252) lVAGwm8rkw4CcfEMulV LjGGzshSTpgdGoci42l MS5uE82XI0nBRUcCdA6 KEVoctG1Tvf0FDMoKIK nvPSfK516x7mcq6zkwg FrjEK6tTciSUQcyrnfM gL9UFjjNHNkiuvaWAc8 TIabRZFrtHD9QTPdlLA zG8AmJOBdBF3axhc6ZX W8DFncKYCoLhJ6ERPap KZjLDLlzXakRMvat486 DPT9NrLrPTKfhfYyhGe uoJ6zSfVpHFDHJyIOlK RutE20fqZgGWilHFImi rJrvf6jELS3fdMoqlYu aWdvIHZzIHNjYXIgXHB ylsXWMC6ylJEktMAqWr Y0spUgawMtxG9aPtObB VDur0Snc8Idq2biwzJi OBT5KqQxUYAstn6= Diagnosis (test code = 34) p7ltrGPmQDAsuAG4WAW dYLYjk3ucy4OfiTPerI ZzEXiykZKtbeHhto30t EU4eV83UF2yOXEcOgR0 NXQveiC1Hnf1DSBbESE koRWnE811l9hxl8mjqx PaiAI0CDDvNOBdZ4QzY R7tGFFrgWPxL31qcAQl CPP0RGFpPCNfzFWuOHU mVOF6MZJrjKBtI7eeOU PhJD0kffqfJRfqXEtwB YCrlNF3HZDtqUAnD4Zo YNHeBFwcOBClpnr6LrM zKe9gaQUfvXheGMclMP JkXHBsYWluXGZzMjBcY 9WmIMU7QINeiP3fWQdn ZnQgcHJveGltYWwgcHJ uuSqouMOgIOX4nvXhYs yzPLDddFd8ZaGbvAekL zIwXGNmMCBEZXJtYWwg Diuqgy9ljXPcsH7jzZe oKRCeC9pedw78ciIqe5 Nox7Tuw7beIVTrCMRtE 8BugbjfCEMjVR1jNGAa IHByZXNlbnQgYXQgdGl nf4SyCQDlY9QkNjN5lu JmpEs6x7LftODqbJVwc F63qpUeXRmgAGYfvyCm gb1yCFToc0IqwMDhwbZ rIxfiVY9xqHssWCKJHU SzI97maWWmxR2sgFHuw Q== Comment (test code = 9835) j9dszRDfVVCxnRD4GMQ xUCUtc8qwd0CslVWqnH KwVDqjzJKjqeXzqn81h RC0lI91QT3bCOTnZgL8 PMIcenX2Isb1RBKmTXB rjMMvV346n9chl9bwvf HvoEA8lFnsUGAewikcP lO9ZNelUFOvubogELl8 DEsjGICveBL3BPQpwEV lL8KsSLJxLU8wxte3WT E0DWavYLRsQuM0YCKax SLbLAUpjAgqYCfoc420 GSW4KcNmCJMfggYwgQq gxD2iEzRtZRZCCME0fX 9ucyByZXZlYWwgYSBwd E1zeEEvbO7tl9tur2Bu b9kdubK9wzQjmiZgjWU nIAE9nGDoJwvdrPCeQP T2PtD7fRqzCOZbb4tlb mcgZGVybWlzIHdpdGgg r4RwDJJvmNYbIFvpDGH nnTNoNBGvWyKyz0caRW nuBGUzItMqi2rkn1EqZ XFrJuTttGTqoZFeN4iu ratpwdTatcNiUm1qKCu aFSGydVJqWFU4khU6ke PjEBWJYXFdLOTavk8tn NTjadJbnnP0kDLoBNxc GZ1isV5lnBnzjVFwREW mFP6mpRSlHYIejrJcr9 ZxQ6cbzNigssK3sJSnZ HNwYXJzZSBwZXJpdmFz K1VzSMVrlOndiMhuzAi ebCevH5q5nUCroJ6rpK o1pnT6EP7bSPAtYWn0f V4mKSsbFVSpjXYgQHDl i1H7IQHeUIW0eF8hxcA rWBWcCMVvGL3jT8O2MA TgVOLwiVOxwZ3mUCyve N8idQGzqr8jGYykANM3 rPwgKTyfc0G0LU1mxMP gcHJvbGlmZXJhdGlvbi QjlmZbi7PhtCNmvuNuS legHK1nCXSbAAFob8Rq CiTaL0jdWMJztMrbHhR utLMqxnHaOLksmeE6hv ZrLKGmVMaknE2ozFPno e8vEDclFdTwI5ZeNV2d G8EmbTYmauK6aNJmlN0 qllzfOgrhANIpu8M5KI BvciBiYXNlbWVudCBtZ C5gywQzHRO3rVtdb2Bh rB8eMyHmrYTeuR== Gross Description (test s2cfrVCvDPGkbZEIUXl code = [id number]) wMVxhbnNpXHNwbHRwZ3 FbisxfUTfbWV4aAQ9sg YcjaXCvbPQmZA3WZISx ZmYxXHBhcGVydzEyMjQ tCVOgaOHzbLM2SLAiFV 1hcmdsMTgwMFxtYXJnc fP8IYTdoSWhZ4RyIOBv WP9xbdpkILL0EKemkB3 wppJQVkrmJz1jsGWenO tcZjFcZmNoYXJzZXQwX MTkxGvwEXOqEWj9eE8M MqvwA31ba8M2Xfw5LMR gNGXlD2KkWB1iZIQibW SzL96OPobpQRV2BDQFJ qbtCXDfVG4Wp4umAQZk kFDaYDS3TLcyeEXxQNR yGDMbTSa3PISnMWfuiD RyNB8ccNxsVtuqlQruw 2VjdCBcXGlkIDUxMDAy BUhqMHIdJL5EJxMbJPI rTZV8GfuaUIv0LLn4YL 7QLrFyRFUrIUA2RLMoO iKnHPz2HZuxUR4NEYIt RKI2RYPiFXAnGUGrEDO hPYj5EUKtWAoqDBPfdG FsIFxcZnMgMTAgXFxmY aBfSLNlSWgqvnZ9UOSq YWluXGJcZnMyMCBBOlx sJCWhKXdwdLlpvR2yGC LtD27nv5BNd4GdJT1TN Nd7zaSiqcgsfC7wRKGf zaVtHRpnoIIwK5adKkr sHpDoClGvGKBVp2urAS EcLEJ8PIKsf3ffvXLiR HByZXRpYmlhOlxiMFxj ZjAgIEEgcGFsZSBwaW5 lIOXznX7hqGVtF2nmRm yrxRG0LW2aXVK7osoxM cOvFuWoI53vsA7bMPdp dVR9SQGoXV0bQCWeJVJ naKHmnhYjWNG7tC0wMC hlIHNwZWNpbWVuIGlzI Fwwc9UvIZMtiAYmM5Wp WMvlJC32xZCzxJuev6J hqZq2uQHqHUamJDRnXl FtJULxe4BjZ7P1DZNwV Gtkl5giZAFmELhca3Go IPrEZDNQNH6BEA6luNH 1YYbXI7SBY5sFxATpOM I7iLY4UHXTVvigyVB8i WN1oB99YTMsLYDyfKJd KSxlI640D102QXPgTEa ri4hsTBVsGSegg7LtRM zQJINXDY0FIP0azEI1Q IsTA4RDDZqhKJWoWuyp iPBIWCZ6JOahjNztbRd 8p2burXZnn1y4PPewNW D5wMijvMMdqqsaiEDut VgbouJaLV9OPVQozYXS SQC2PS8mQEb5BEdnJXA eM1SqP4QgygWchJQbHV LymrEva0mlYGF0XIRmz XVsdDBcZnMxNlxwYXJ9 BCIyWWghWH1BDFWaQXU 1NTbvuT74iGVqOC7QPT AnAPhcBYJuGYJeabP2T BOrlEUlRMV0IY1ioKfp zPPysuepgoR0FF1ZdG= = Biomarker Block(s) (test x3tldJFhABIpiIQ9XRT code = 9841) tESVxt5vuz6TrcWMmgE FgTIzacWBazgTipc23s RC4lG71QB9hCAAuIfB8 KQTjbeF8Mil4JNTuVAV lfVGjU971p5wln1glze PtgCB2cJlbMQUufawpH xD7YZuaIXAyysaxXAs4 RIqzBMRtqTO9MDKniKC mD6KmHUTlUL8smok3FL J2YKhlCSEyYrS4QLKej YQlMSWpdZwaEOdim216 WFL4VnGjUULybiPxiFo pxZ5aEuOcLBJXZUlfBP J9 Disclaimer (test code = n6rvbFKtLXOesIJqPaF 9844) bCBBtAXYnc3ejXPGldA FuZzEwMzNcZnRuYmpcd YXwLQPmQzTea8dnj729 sGIuc6osLIIoWyQ7qWX gAYLwnXXeP333BWAtLS wha2zqj3TsMFJcsFElq 2G0ZDKDcoxxdWg3yCsw I24cz2Z5NnakF8xwVAG yRANfU8TkBT6xCKVrIo i6USF8QZI8VHGhXEQlT 8RyRU2qBSFowJIoTTa0 d1ahbUctCVYyFBG2g3t uZBivvkTuOB8riq3wkL d4k4vshgIhUUAlMOKmj WEHXIYsL6VbtBotVf0l mEm4hIneVmwsUXW9Ggj 3WJ4qjx89acj6hNmfPB OqucaxZwM5YPzfFSCzm qrdPOl5BLgrQFWldRX4 JSUdrCNgS4SdBOLkOI1 tsdy6PNI6PMdnTFIcVv I3CZJjxERiZSGqfMgxY Qziz915VNA9WmSeWG2g T2Ncq3T1wH9luFYwOMX cyDKlTgLgCBFqix0unF YbHVpmb3DxYHJ1irD3g EYsuYIkPHVjHK79Btvo e9NeAxtxTRH7ERArskV np7Vsi4rzNyPwneUoZ3 ywE1HyZXUqYYPaUERsO nSpmdPbn3Npt8SmnWUq fMf5k7gfPXVhNFIulKj sw9ulBAQ6FCNiE7N3pH Ftf6lqHCgfMKVxxRR3e bE7QWZsoGUeH5FokP7h HBEwKJ1cdyg8u9kqJTQ 2TYliPSMmUpH5bhR5LK BcaGVhZGVyeTcyMFxmb 911VMM3EfGnPJRdt1Sd W4VdgOxqN79ehPxnZ86 gYHXgqUjebQ0uvRkxzQ 5cZjBcZnMyNFxxbFxwb WEuesuaRKfvdcM9NWbo dcjeJKNsWEhmL6hpYdO oUBIrwBbsJCzse6MeIW PsNWMpTlniciW4NJHNd 40wQBMid3EyRZAjjV9k oYFcDVhebeIbxKR6XEi hdmUgYmVlbiBkZXZlbG 9hAAIrLD3bALLyudHla g6puqYxKTQuIKDzE6Hc cmlzdGljcyBkZXRlcm1 wunXvKYC8UJBYAZ8PLZ DjDOLhr34tAZDqnEqmx C3fsSAevqMnEOJjf8Ww dM5koMFZMYNqQ7jzKS7 qJBuzu7CxrUAipJBllV F3YPTvf9PlBxZkfhIec OPyhJAvG5OxiHklH5dd AVCuHEBatdYrkJNqd8M oVAUjdDH7cGRjIO6GMh SXb98bBQPiJBGAmoHnZ KEbvToccMQ4feV5rZ1m LiBJZiBhcHBsaWNhYmx iNNKyz499pd5xdkG3QB BaKUQbpeyfj4OvFZNdQ BKlzQ24MPIeOMLhlr1l iwbhjYNffkZsW7Qjegw 5oA8jNCRsHFxkHNWgCH ZzMjJcbGFuZzEwMzNca GljaFxmMVxkYmNoXGYx CVxdC0shTvCoHgFiIlp wYXJ9 [facility] Interpretation 2021-09-06 12:13:37 Test Item Value Reference Range Interpretation Comments Correction History (test x2cqhVYkLJBohZS3YMN code = 9843) eXSLpk4xbm2NpnALzoH VbFAoyoWDfcpTjvq65o ZI2oU76KR4nVUKfXcB3 NGDjiiX0Ddu7QSIiIHV loWDwO731s3brt4gcsz HckCY9lZntWIMwwkzcT iE8XUkmGHCbpqaoEAu8 XGmwETOumUG0UKLrmEQ dG5FqIFEaTM4zwgh1VL I8PHtaNVPzKeT6DMSsw WRtHSNbiBxrWNymr953 LVE2GaApFWNmjmXbfIb atR7hDbDcPFHGnRnlEK NtdC0bnXLzEBZuSoIfe wOmoAZbHBTsFLF0EPGd Cv2nE0NyEEtxnsEhijD jKA6qCr3bJCCmZKGdDB YwkjMgN2ByVOI3dOSqG 0XenKqiO9FcIEBtzc8h GRaoRZLhqZ2ozmUbAdJ jrBHaRTR7wIFukIDktE SprpM9rWUzqWDiMAPwR QUdJ6RaLBw0bM5bVDha PYWcnPFgKTDdi0M9BDq yu4ZqzPdvhkZwNOCtYI HqdEWwvi8bdGSftwPnF KdjttZviYvtuagwt3Mx YXMgcHJldmlvdXNseSB mlOG5LSFuYSLfr6PhdH Ees2ReWUAwr00zpD3hG 7L0KDFclB5wCDOpZY8s E3ZdgjroieEdJY6pAHX DEI1zgYt2SPB2FNQfLN roHQ5tCVL1DxB3KuFvZ jIuXHBhcn0= Submitted Clinical History b0fbkLXsIQYjxWI4FRA (test code = 32588) gPOXud3let9TspOFkwX JeGIslrVHnbsFvmm60x XH7kK88XY7dPLGoBkF8 RMFcehR5Gtt6JBPvLDY vsIJuR978d0top5bwsn KmbWQ7sZufLXHuubdvG tE6JTtsTRJiunouWGx5 PNtbJXOtkZO6MJWqpTF wE3VjNDHdYV4qtsa6JN M6EJwkGELhKzV0AZHft HGxCUVrcKghRYkdw221 IAG9BmIzTADfmqUmhHj vaY1hNtJuKJMMEqSLkE RurS50gaTcSMqrWOItx fIqxr6yTDQ5weFmawMi aWdvIHZzIHNjYXIgXHB xalEXKM7giMLpyGFkVq Z9caQmwbBzeC2rFuBuT JOaz6Bau3Iyj2dvbaQj XVQ1WtCeXBEacr4= Diagnosis (test code = 34) p2wsbGEtQINabLD6SRF iZZCna7snt0LvsXOrhU IgNYlckMDiliFoip94e FH3rP42PS3zFLCpJaR7 WEXiafX3Pfn7OZTeHZF rwOZaY509q3vub0aadq QrxLB4VESlOLPjJ9BdV S8aYZAjqYDiO34csRZi HOV4XHBtFMZvzKPqQDL pUVX5LIVtlMByS7moUO HrVT5dghqrBKldXKmrR OOkoVC6XRNeqQTtR9Pd QJVpZZwfVAVrwtb7NiB wPn1ksEWqnLwyJEriFA JkXHBsYWluXGZzMjBcY 5YoBTC3ZPHmrD6fOWlb ZnQgcHJveGltYWwgcHJ xcDzrjKJuVDR8wnNeFx ftWEFugKj4YpOxsDgsY zIwXGNmMCBEZXJtYWwg Mnyhdw1xtVUlhD8apJo jWMRlI6lsgv85xdEvr7 Xyc5Nib4msJGEjSAEsW 4ItjitwUZYrQD5yBOIj IHByZXNlbnQgYXQgdGl mj8ZvDXCaA9NfDpJ5fj WmqSm0j5GgzCUsqSUtm X32dwSiDGrtDFDqmgQc zy4vLTNvm6JceRMgcbZ iVbdtOA5svRjlIMIJOY LxI10toQIkgF1ymVFsp Q== Comment (test code = 9835) y9rrlWTdHWBbiVL7IDG vOVJvb3mwn0GdePFfiF QrLDyifFHcqbVveh26h LP1gB90DL6lGQUqHfY5 EFOxnsD8Fil4GXUgDQS keUBiZ883j9jes4vcfq AfsUO1iZwkUHHyizuqI rR8GXtfSQKnmrtpAUi1 RHxdYRPegBR0MWAijPW nA0HsLJAoKW7ysne9IE Y4HTspIMUcIvT8UINhb KUmZAKvbFnrIIhkq773 LXA9TqUuGFCtdbXnwYm cbL3zThWmADPCESX1oB 9ucyByZXZlYWwgYSBwd R3ecPPigI6uh8ftc4Xs f6ysszP9szLqffAycHD wWDN7hSKiMlfqyFQaFD B5VaD7mVenJMMhr8zdf mcgZGVybWlzIHdpdGgg j8SdSZIojWZlCMerNZH gxAJeYYVeFmYzb7gbTD oyPITvRkCyl1tyk9PuF VVdGkDiyOQjnATwK4rg alyiijAbphIfSj5vRRe hQBGwhIRhBJV9gcN2xi MeICDRHEAnDHQqya4iv GKdauFdiyN5eXPeVRou SY0zjX9isZqqtRExEMZ eVA2tdHTvQOOggsYpl0 JxE5jcuAtoqfB0rPCgL HNwYXJzZSBwZXJpdmFz I3OgQJVmvCgwrZnofXd rsZldF0s2aTRbvS5lzN f4kzT6SB2oGWDhEXg9m V2vARcrVJPewTPnALFa g5S1BTImRXB8gY8aaqI nLMInTKSwUX2pQ5M5TH LvQHTwiNEdwD6gDFjiw O2ggNEkwg2sTHtrHGV7 bQpxWFqnn9V1FP3mzZT gcHJvbGlmZXJhdGlvbi VsnpRlb3ArjJQmziSaP wujOJ8yBRQsPUJkw6Jc LhRmS8jaELQihWuzQrY wuYQpkcPaQHzqbyY0wx QzYDUkPXnevG3bxHNyq x9lYOxwPxWhL3HbCV0b N3HdwKZrfeX9cWMkpL0 qrrbbFtnkPEKuc8D7XX BvciBiYXNlbWVudCBtZ S8rjxDdGSU7xEuul6Fc xL8zUiIdqYYpwB== Gross Description (test x2aaiHFyLWFiaMKDJUq code = [id number]) wMVxhbnNpXHNwbHRwZ3 UeyfwzLHkzPR7eEZ9vz JlniWAmmZSwGG2TAWBh ZmYxXHBhcGVydzEyMjQ kVGBiqVDttUG8JOSiAH 1hcmdsMTgwMFxtYXJnc cZ5QWUztJQmW2PuTFTz XA8dewzqQYZ9WJtkxM9 pqbUSTucmUb1ifMXgmU tcZjFcZmNoYXJzZXQwX BYjzUzhPEQmCSb8qU8O PtdrZ41ti6V7Rum6TZT zARCbN4QeEP2yEMAszN SgI60LXyesLHT2GTHZS ccjGQAxFZ3Lj7hfMNWf rQFeZBA8DUppcZDuRYQ yJAKjJIp1EWWzCQeveF ExOP5xmQbiSmqslOfly 2VjdCBcXGlkIDUxMDAy BQncBRSnMS0ORsHoMKY fQBT1VguiWTg4ADe8CT 5KFsNaEVPeAAF8IASsO wXwZOp3SMmpFT4INILz NHK6NADwDIIfQBDcYVY vJEs4LLZsPQctKZCueS FsIFxcZnMgMTAgXFxmY hJqDCNzTXvnrzF8IMBv YWluXGJcZnMyMCBBOlx iBTCdSWeztMmplE5aRU XrD26qj2BYu9NrSB0OV Qy6zbPfcmphoQ7wBLYl udZmBXlmlJKjB9yhLfk nZnXxWxFzNWQIs7tlRP RmVKU1TRAiu7ijxOLhC HByZXRpYmlhOlxiMFxj ZjAgIEEgcGFsZSBwaW5 gTLIpbP0pgAWwM2qtGg emnPV9GV9dOTK5fsklP fOqEyPtZ65ijI8bYHuo mWC8KAIrIO7cUUSjHIS yhNHpieCgLUZ6lP9xAE hlIHNwZWNpbWVuIGlzI Zkid5RuIRImeGMuH6Dd GXyrFL98fEKzyWvmq4O pjVi2oVRkAImpJPLnYe GqZLUix7GcK1X0TNSaB Hzeg1lsLDYiFPkuc5Jr NAxCIMAHGK6VNI1ryUL 5ISdQH1RZO1dXuRIxOA R7uOM4ZINWRryjeJL2u SD4fX41ARKnYCUwxKUg LVhtW656Z712VPRmLMe jy4ncRDKvOOddq7LlQR yNAWYTKJ4NPK5hxSF4M FiKH6XPJWzpCQMgTujs nLNBXVM8PRustUtwyHz 6b9gasXFit0e4VMdgEI Q4cNcwgJVmclcddTBai YqmkeKkWO6BFHYarTZC LHV1ZP9lGSs7BMpoOAS fF7AoY9HwskVqmBSmFO NwzqCwn6zxPSR8HNZns XVsdDBcZnMxNlxwYXJ9 IHRvNNmxQF5NELZvRQH 9URxohB10oPSwRC6IJN MbEXskJGPcVFPefgF9D VNtvTWnJFD2IG5tmXgm qGNusizgqnB6WP6JrT= = Biomarker Block(s) (test m6venZFwHNFleXH6COP code = 9841) tDFQzw3jhk8DrhLVdsI ImSEcjcFXhzzOpzy94d IE3vU83DT0nDHDqXrC8 PHGpzsC8Kki5NJOdKPE irZGzJ956g8lat6soeg HqaSI5jYwgDTSbaxzlU aD6CUvpALDqisyyLIw8 EWooJDAzfTW6BMGqaNM tA1DiCCVrQL9ueoj6FM H9GMjrKWFaPkI9LUOmx LIzWIPyjVslHBsyn544 KDH5MaReDZQmndWliVf zaF9dJnIeRJEWTThcXR J9 Disclaimer (test code = j4gfqGAhMEZnaXOuSjQ 9853) oMNSxHTYke1cpBECqeX FuZzEwMzNcZnRuYmpcd JTpJXGrDsIxj2hmi789 nBDdb2axALRjYiW6aBZ nIHVfjXGkR082AUCzBU goc8mor9WkWQLlgFIjw 5I4VNZXtubhaZr9jWgi D17uo2F3TlkfP8orSPH pOLKsU3BoUS0hSRDxXs i1WBY1SNA9GQWiTGXfN 7ZiUE8yGDKigRDxVYz8 r9yptZgoWENkBCB4u6n dIMhadnGzLA3qei4naD x1s0hvjzXyTRWqPJJfp PLFIPAyV2EepJqaAo4p tQp4tDwoPhghZES1Wpk 0EC3rvf53maq3pHsbEG CvzubjGgX5QPmpJFNkd nzoBLk6DNyuKGCzcLL0 SROfbIPxC5QsRQZuNT4 zkke9DNT9QExhVDGuYh E0VHDvjLJpRDUbkUngR Hhej911PTI2EqRkFJ8z A2Ycq1M7pU6nbXTrPUC kfHLuFlOyPTEabx9pfW JmKMrmt1IpZEI0rhH4s EUwvCGlBKKfLQ62Xyzf y9XkGjfeSDW9AWCoqlS kw3Nxv4hgIuMsbvXqW9 vgT3AnLGAlHPCkAHAnD gZkmtJsd8Hte7DyeTLg kFs8v1myCKKlXRYxdDj zm8vbZEU2CPMwT3T7kN Mfv5xnSOzhMMNijHN2q rM0BYDhqMKoU1CfyH2s OECiLO6htfx4j8jaESZ 2TLtxQTNzBtT3duI2MO BcaGVhZGVyeTcyMFxmb 397VUN0OjEqCOPft8Ii G0GqfAbyJ17bnTidU37 dCJYkfEwrzX9hdUiqjB 5cZjBcZnMyNFxxbFxwb YCdtploTYnvbiA9IKlt ynddZTCvGZlzN3txFyU hGFOuuPjuXYnbs8ZwWX BeNOThQppkxzO0QMPAa 97iRSVid4QdCUTsqB1c kEWaFJizplFknXF9XYy hdmUgYmVlbiBkZXZlbG 3wEMQkKF0hMXYhpcPlr a2orhSbIROfIGZuV6Uq cmlzdGljcyBkZXRlcm1 qecQrFBJ7ZMYKVF2ANY CqNOBlp25lNWHiqIpgh O7bpONumoYqZRNsj6Zf nL4yjDVFUJNgH7pfDU1 uFSsrr8YhaHRfvHQmbL U5RFLab0LdRmWkxfSjg QGqhMCbS8DecLqmF5rf ZYSlXSNwunBqdPOjf3O kGDDciPP4yJVmFZ2DOi IUg31dVYKaFADYgdEzG KYiwZtgaUK4azZ0uP8o LiBJZiBhcHBsaWNhYmx jUFXwm736go6fvdM2II TcEVKcnopnc0JrEOBiY RDezM50IXNeDORepz1g bxxshCWiajYuB1Mnpxj 5zH7qOKVhZRzaCPFeXL ZzMjJcbGFuZzEwMzNca GljaFxmMVxkYmNoXGYx DLkvL1kqInUzEiXrHaq wYXJ9 [facility] Interpretation 2021-08-22 12:04:07 Test Item Value Reference Range Interpretation Comments Materials Received (test j6nqaTEqGFAlyYSnRyIi code = 9973) BDZdEJJhy6lpXAEgeTCt ZzEwMzNcZnRuYmpcdWMx FCSxEkPdt7hsa423bSSj c5fsSJYjUbQ8vPBzPEPi rRPsM204XKUhRUdvb9kn w4VoAAGqdPNwv5R2GPME uuqxxXp0wGdmG55oo7V5 TivyL8rrAHKgPIVwQ2Sb YA3kEVCmPcm7ZDG0YGG0 OYWcWGUhO6DmHE3gNBCs gASrVOr8h1rjfWniWYBf ZXO7q8kwKCzeqhTkFR7p wo1svGf5j0hybkEhWLIu XBZhbOBNOGOlS7UdaIeq Yh8qsUx2rUizVzlhGZH5 Ayp9UZ4yea69vzz6hOsl QDUkyojwYyY3VClcLQNj tmstOHi5AKkaBBPxaJqx MFxtYXJncjcyMFxtYXJn uBU6DMVaiJGfV8GoPJLl CCsaNACvwov6ZcVfUy3l aMQwjCbbFBuvg8pra1qd jQQvTyu1XDQaJrTsCrqw KGljn9Afd9dhHIDnol9b DYG7yRBgmItpy3V7jCLi YGFcaOJeqnAlYPGjgf70 aBZglHLgyHQshf7jkoXd wKYgkYVnQTW6zMDgtoJa BJDkmABdAPOgEK0ipMJu OGYkzD7ftvmzMIWuImUh xvxxKEWclCunmqBaYk0v qXgfKDF6OOkeI2ejeR5h TyT6FDyiW5cifD0iJCh3 UEvtiNY7LWRciP5lTA1j qtjsx9zeFlKmPT3tsnxi r4krWiRzZY7xtfb3l5ag JXU5CBlsXFSzAlP5jkM2 NDBcaGVhZGVyeTcyMFxm v307FUN5WvWoILNak1Tx R8NihJdrZ94biUjaG68i NBXppNqjtM2epBecdS2x TnCjMaFdPYv0oz46WLw3 cxanuOujWKn2qgXvNPRu OGJ9JEFouIPqJNHuJ5a2 luBvNVOrESK1WPJheWVs HQRyA1t8gwItPFE2WZp2 cnBhZGRmdDNcdHJwYWRk YjBcdHJwYWRkZmIzXHRy nCCpoYDpgREehF6hkZkb JSMjfJGzqX1wRIQ1UPIg cmgzMjBcdHJoZHJcbHRy ol40JAScgrMvnXTbiIqk vCCsTSF2WGCbNYRhHETx UZQ3OZWpGoBovzTvCWga bGJyZHJiXGJyZHJzXGJy YSH0UDUtYkHzsvFiGJrh bGJyZHJsXGJyZHJzXGJy RMS6KAFzGyAnlgHgXCvq bGJyZHJyXGJyZHJzXGJy KVH8FVQgSdHwwtTqSIsm bHBhZHQxMFxjbHBhZGZ0 V1wbqPLfVNJbRTyvnSTd HPAmZ4lofJIsKXqmSOKv cGFkZmwzXGNscGFkYjBc S9nzXUXgVqOnD6OcgLw0 MDAwXGNsdmVydGFsdFxj cKLbXAJ6USSaBNJtDUFk ZUR6AWOqEnYvraTdFKcm bGJyZHJiXGJyZHJzXGJy LOO5DUXyDtKxcmOqNQzo bGJyZHJsXGJyZHJzXGJy OHQ5SMGoDfHtrbOjDCqd bGJyZHJyXGJyZHJzXGJy WRI5IMAfYcFfkpMqYUji bHBhZHQxMFxjbHBhZGZ0 R5lpbJUoITCxLMzubBUx MCXtA9rnkTLwFMmgHFUg cGFkZmwzXGNscGFkYjBc E3omSKSkUiDfC1PyaPt1 NjAwXGNsdmVydGFsdFxj dDRwWXH9EKQxUOOjTRKe HUS8BIGsLvWanwWdWAng bGJyZHJiXGJyZHJzXGJy OTH0KRRqCfHpfeZkDVuw bGJyZHJsXGJyZHJzXGJy CVS3ISUgUrBphbCpANas bGJyZHJyXGJyZHJzXGJy LSB9NGYfStUhibUpWTqt bHBhZHQxMFxjbHBhZGZ0 O7wtzAZhSGTqMJvnfWLl PLBaZ7cocIIuIXzyAMFi cGFkZmwzXGNscGFkYjBc B2lhHSZtZsCpL8IwpCq1 FkImMOPmmvPzyA41Gdyj y6GoHSWfZPE8ENnnHCez bFxwbGFpblxmMVxmczIw QUohomyvGWWnJYjxW2bl CrPnFAYjoEjgHZqbr5Xk XGYxXGNmMlxmczIwXGIg SBLmLEXamV6cPdbsT5Zh tU0oBDuhSireT1dxUNAf b0CgwI0wUUcshQSczyqx MVxmczIwXGxhbmcxMDMz LLpeA5ioDtNaPXKknLdi FFvve6EjJLHeKRZjXkdf qhJoXZt4kzQeBHWxkPyf mEQrKFlnbfKmlDdiy8Ty ctQggRamTMJyTHe0qoCu rrtdgWf1aLBcwBtdAFRu yGhjpK4oAxNqGdKkQUkh bGFpblxmMVxmczIwXGxh botaVTWuKNehP0uxGvYn QSElbNhkKAllj5QlUBVo GPRgBihbeaNvCDCqP81q bGVjdGVkXHBsYWluXGYx XGZzMjBcbGFuZzEwMzNc aGljaFxmMVxkYmNoXGYx UPcnP2ivBwIhT6HfSNTx PtXmxTAzV9ztN5HynPli YXJkXGludGJsXHNzcGFy QEI3lLNitfVssTIbhSEr RUFeWXpwUYV2cXOyjerz dIMosqdtITrsrcB8ZEBr YWluXGYxXGZzMjBcbGFu ZzEwMzNcaGljaFxmMVxk GiMjXJUdXWipZ0qbRaUv F8DkJGEbIiMgFnNYUXQa aXZlZFxwbGFpblxmMVxm czIwXGxhbmcxMDMzXGhp K6esTkAmQCYlaFibHRvk x2BaHPLrDFDiAlyuuyJx FNr6sqVoUAFblPhzkU62 Meyadi10KPVel2jdHBNo D9GlhXOqPFXzeSFqBHux MDhcdHJwYWRkZmwzXHRy cGFkZHIxMDhcdHJwYWRk ZnIzXHRycGFkZHQwXHRy uLAyAWG9T5f8cwDgMUQz MDm5xdJqPCCfAaVxySXt FUM8SDn3MqsprdU7cETq W3t4JgduwpZzEDweeWEq li97PENvmuKbpBUqrQwy bIRcHFO8ARJaMYCpGXJy TZQ7JWJhBySbshFxPRxk bGJyZHJiXGJyZHJzXGJy FFD0ZAXdUcBkijJrVQaf bGJyZHJsXGJyZHJzXGJy GTY4VFHcJxUbqgVtOCjf bGJyZHJyXGJyZHJzXGJy NNR3LWRmVaJwhxDnUKjx bHBhZHQxMFxjbHBhZGZ0 N6plzUCfNFXyNAglbEIh HQCiO6atyJFdLZwlUGAj cGFkZmwzXGNscGFkYjBc T9miFRXwLqSnT5IwbCp8 MDAwXGNsdmVydGFsdFxj dFMuWBQ4MFZrISNmZYWc QNI9NYRzUdNwfhCiHOhy bGJyZHJiXGJyZHJzXGJy PRC2PQCkMaMxkrIpNKic bGJyZHJsXGJyZHJzXGJy RTG1PQYuGaDadpGwGIyc bGJyZHJyXGJyZHJzXGJy DXP6XNHwUkCcufZnYRtx bHBhZHQxMFxjbHBhZGZ0 F2ktaFQdPODxXDbswTXj OWOoZ7xcbLTyMEozNXLf cGFkZmwzXGNscGFkYjBc I3zdFWLuChAwH8BojOt2 NjAwXGNsdmVydGFsdFxj uCIzSVI2VCAiVCXnPXMw MIV3PHAhZgZtaxDpKSzy bGJyZHJiXGJyZHJzXGJy ZSR3IPSiAoEvdtYkIKbl bGJyZHJsXGJyZHJzXGJy JLS8CDCpIvXzgpHcUBju bGJyZHJyXGJyZHJzXGJy SRI1GPYsKrDnmeJgYWvv bHBhZHQxMFxjbHBhZGZ0 C7nbfEZdTMUdXLvtcDCm VENsL3eewCHeWSobGFSy cGFkZmwzXGNscGFkYjBc M4roYADjRrSwP0IhgJk0 TuOoZYTvyyBwxJ55Bpcr k0AbDJBpTQR4IQrqKRni bFxwbGFpblxmMFxmczI0 XHBsYWluXGYxXGZzMjBc bGFuZzEwMzNcaGljaFxm VKltHiPlXCMxHTexK5tb EeHqG4PnXALlNhNiZX5f TABvVb5qJey1MDHpFUCW RQYmDCLCN5LVQgiuHDPD C3UsgSgkxD5pDtAkGuYb CMquSA8oNSCiI4pjbXCj KDDlRBUlU2ouBuAgcG5b aFxmMVxjZjJcZnMyMFxs dHJjaFxjZWxsXHBhcmRc gO95Onhlq8ImMHXrZEN6 MFxzMFxxbFxwbGFpblxm ZFrjatH0NAOmRNilOUXt XGZzMjBcbGFuZzEwMzNc aGljaFxmMVxkYmNoXGYx EBqtC0uuNaIvA7OoBUCl AtPrEz5mBq7gVVBnYVJa YWluXGYxXGZzMjBcbGFu ZzEwMzNcaGljaFxmMVxk UlCwVCQbWHguO5paAjYk E1NyJTGkOzTkkTCwC8ie B5LdkZuhVDWjLWpnhFMf PLYyaEQoKNB9yUObqoNo eHsulGyglF4xLoRhGlQd NFxwbGFpblxmMVxmczIw RSyadzzjKLGxQMllT5mu XuOcIGTomJjjQLinu6Pw XGYxXGNmMlxmczIwIDUv MTEvMjAyMlxwbGFpblxm MVxmczIwXGxhbmcxMDMz NEtfS4jnZvLePGZlfKnd ZPnah9VtFGAfNGEhIxcl wcMcBSn7vtYgAGRozCnn aC27Habnso43WMMbzgMk q5DuCYKlGEI8TYvkIHia bFxwbGFpblxmMFxmczI0 XHBsYWluXGYxXGZzMjBc bGFuZzEwMzNcaGljaFxm WAmjJlNrLRAbYBbeD5sj ZjFcZnMyMFxwYXJ9 Diagnosis (test code = u5wbnRBxSTXygEM6YxNy 34) JEOwq7gef2YhkPWfjBNs NJhqiXWcpvFpdq19oJJ2 oF20HY1wHFBkYpW0MUWb yfP0Lbq9GVWdRJXoaJSr N929p1ckq7odsnSvcYA8 QDIeASSyC9YqQR8bKQZv dFGwK61sfFEoCOS1JZEr ZKQjkJJqRIPiJLC3JJNh wBWrH2rhAVJkZC9zrqcr QHuvPXucWFGaeHW3STPj qVUzN6FaVYAyVPgzDFUt bza6AcYuHs8onYCfbYsc MFxwYXJkXHBsYWluXGZz HaLxZ7ZgLQ62oVEwLXPo ZMvPNmCkCjX4ECopKPBN SbdoYDHZUC3RB9WfOXIi FETQXLGxz7jcQZY9FDRr h40kNt0fSe2fITIjPYcm cGFyXGNmMFxwYXJcbGk3 MjBcbGluNzIwIExlZnQg cHJveGltYWwgcHJldGli lWUvDLCjN8llzafsy2hg rrBkhVX5JWMbNVJ0IXVQ WoAEQZq3BCDindubyNI2 AIXsaAmoBAB1SYBNcTra xHUndWAeqIGpvV13crDr kr4hxCAszsM5dU4oQGXm t74jVABnDzdmIBuwuKsu i2TpPBCcaWLyYKlaOGOg YWX5JO1fRDQkN2Ygr2Yf riyjp6BqZHOaKVUcukBk k52pKPIobtWjDV14XSF7 FMZkpzrjcAZaBTphYD0v HWHePZOtqSfql2DpRMWf G5PjOmdpwQ9uFGXwp08j mPK4SPEcgTmyVVPxiAUk dMhtSDVkjLphgDWoz2No KDOrf6ygIKsytIoaDHVo UWrbkZYqcPCvmwGsj20r BG1bOCMxbiL7Y449nsJn GIV7hJWxxjzskAGne3Rv fMNkmNA5wZNqpXNfHFDw VQMmWOyzlrRtYdGly0eg x1TgXRCpG5KdpnmeOCOr FFNqaYNsnBEtN0lhbich pl3syHafGTQQHCFaT55s bPZylH2arQQoOShiPYtt bL7tMULkkzUZLk9EYczj YXJ9 Comment (test code = u6rcwGYyOUHxmYD0CtUt 9835) AUPcq8aml4IhuKPtnHXq LJjgdSGzezEokt08eIZ6 gT17RR1zJBJwLqZ0TGVf uoU4Lnb0IBHhVZNqiIAd H092a6szd3znplRwsHT6 aNhqPMDpminhNyG5QRns KUQdgbbrBXk4BDdgIDBt vGZ4ZEEawQWmL5LlHUEh LY1crni2MNU4JGbyUYFm ReA4SBFeeJSnCHFgxEme ORelh373KJJ9AeXcYACk kzDlkRzstD2dRnRtPQOL MSV6wX6zgjFhVWXiXJpq AE6gNN7pq3WbwYPjYfPm sOWlqN28xsYhnr7vhIQe viF9aJ3hVJitwTdtNs4u RHigD3j0l3lcI8srCHC7 eXBpYSBhbmQgdmVycnVj c0MqHFCwAJV9zqZsECQn vwDlf2DwP4fnqSmlhyG8 nAUkUPQxrk1qfRWhgQKl w3OwrvFzpwJwy0XdueTt UPe2dISxn6jrj6Rfu5Y6 dGljIGluZmlsdHJhdGUs DGH1mUEzyxFhbthpySjb BGNjl0QvTAdbsDTlaPYd zPP8mR6fTiVRdAlihKWf uY2xFAWdf8bdH2cfKMDc ebRzhWD2fK3gAZjzKG0l O9Qya9CqjV2rEQxhVGY0 Biomarker Block(s) (test d8maqBUtDWLrjDI1KzDw code = 9841) DMAdn1tof9FwkWPmrHDe QFnjwGWzooQofj08iHE2 hM94OQ8pCIIxIhW7ADSn suS7Ooc1ZCCnGJBpaSOd M853n9oxo3xgtvLwvWJ7 hMqiDQGuzdlmYbQ4FSuj CJAbsmoqSJs0FLewOIKg oOO0NLZwuRApD1FcOQKb MQ8nvjq3BZY7IXvkQTOw ZsQ8HAWvrRYhNTHbuCjs YBgom719DBP2RxJmQITp foQyqYdxvN8hLvCuYIUT J2AtfGFduR== Disclaimer (test code = e9ffeCHaLWMcuHQuFeVb 9844) QQKaWPOxk7rvFIGmgXKb ZzEwMzNcZnRuYmpcdWMx FNBwRcNva8nqk407fZAh w2jjGBWyAwR9lIReASSq rEEmO999DJCnYXhks4lx w1QbLPEtkCWji7Z4IQEJ ouwfhBg6pDabI68hx2J7 FzqaG9amVEIcBDHpV4Lq EJ5bRBSnHlb8VAE1ZQJ6 WSXgCXYmN7JeRI5kANBw vCFxEQw5x7sxfZycAGNw JKK9g6kgVHffjqCmCP6j ix9vlPs0t6zasoCqTZZx TGDfkGFGRDLeR5OcoFgf Vt7sfNj7iAuxArbySTM4 Qfq3WK1bng26jny2jDub KOWkditqBaG8OSkgXYYj zuahHZd1HOqdKXNfeGX2 VDDgoRNeT7HjSVTcEP9d vxo8MSH7TBqxJWItJjU0 NDBcaGVhZGVyeTcyMFxm s769TWJ3HyRgFB9qX1Lw m0U3rW7zbSEyVZPkcPWx HmGjNOExha5teDSlTMnm x7YjZSP5zfY6wXXhfXNg WKQcHV16Uvgdn5VyIttt PCY4BNIgcqHlp5Eft3bl TtGxooAyB2hrB3ZaDUSc NCRxVFJqEkXsraTjx3Bi k9RhpRGbcFi5e7vjEXAj BYEgnMwuu0uuKIV9BPJs K5P6lFByf4okVMkkMHEx nBG9qhI7HKGxeETfJ4Lo cY8kBSMpGZ2wasi5o3ih GIV7UUmhDIGqEuO3piW9 NDBcaGVhZGVyeTcyMFxm n711TMJ6WuWcADJzp2Rl C4GipYtoW23zhMilK74y TZWvmFijqQ1nhEukuA0h ZjBcZnMyNFxxbFxwbGFp svdmJQdvhnA7VOfyjqja MKFiNYiwL0rxYjTwXZLi gHsmFCdju0DrVKRbUGAd TaisjeO9UKMRg65tHREe u6IeGLOwbO3fbNOvYCbp qiYgcNL3LZmzcmDxLpLg zoQlVUNhiL9sHPDpET5o OGMgiaVkqh5gkaRgTPRm JCFwS9InpzyhnJvfjqYa NWMdfd3ocfOxXVB5UETQ JM0ANAZnUKYkf68qOHPx xBldaZ4laECodxIiYWYz l6MjxQ7mpWDEBOBqX6fg XP2bEMbnb3LtnSJlsTIl uEA4TLMix4OfOgFsrtMu zGOndRNwK3CikRewT6tm QGPpLLPixrQqfLKtt2Fo VROnvOA4vTXiZX4CDaXI t99zUXYuLOLSjtKuTUWe sYusgIE4xmE9yE4rGaTT ZiBhcHBsaWNhYmxlLCBj v986kc1zlaI9CSCyPCBa agirs2FuEGRxJCRvzN85 DWXzUJBuel2hymkepBLs xpLcU6Iflhk2fI6tVDZf YWluXGYxXGZzMjJcbGFu ZzEwMzNcaGljaFxmMVxk HsRiJEFcXYlaP8cgNpHz ZnMyMlxwYXJ9 [facility] Interpretation 2021-08-22 12:04:07 Test Item Value Reference Range Interpretation Comments Materials Received (test u2djnWUwZIPwdULzAhMb code = 9973) XUGoUAQjh1gyUWKaxUJm ZzEwMzNcZnRuYmpcdWMx FRJnAhWnl5oru207rSXj n0xjOSJvRgN9gSMwLZTc kFBlQ187IBAnPBzyb0nb y7BkZFBseOLdi6I1BYUZ plizaNt6vUjuI26ti0K1 QqueM8wrATIfPAOnB0Nd UM4oLXKeQof7KZY3LMR2 TGXxAROyK0TvTH3rIUBe fOTqPNd2k6pebFysKFKu TQV3s7ccDCvzmfMpLN7z wx3kvDb6v9tojoAaQZZk TWGamVAAQDElI3OyhSyr Vn3ccMe3bBlhXmbuPCC6 Hjt4NW4uak12dpb7eSuf GYIlywuiSoA2YJytVJSo zyjtDHn9CGnuXXXrwRgt MFxtYXJncjcyMFxtYXJn mOX8WHGcaNVpK3CwJSMz PIagBTCclir8UeUbHx2h gCLahOtpKCwgx7fwe1fq uBJdAxu5TXFsNqLwUnai CWufm2Xzt8luJSPbtu5p EKJ2sWDiaCyff1H9vIKl USEumTVubbYqMSBjlr16 sONrdHJugCLxal7gsoQx aUXagLYqSSN4zFSqrtZx EGPfrVKzEHCdFJ1trPXa TEZtvZ5ibjaxQHLlMxZl urczNBDzpJhsjnRfGk1v hLaeFBN0TWmiW5zowS1n PdW4VRtvH9dulA3iOJw8 YSltvRG7ZREvkS9gJU1q zltnx5rzUqUsXB9yisrl e5ntNfHqRN9wmaz0y3jg EXF0WIvzNCFjHqG6bbP4 NDBcaGVhZGVyeTcyMFxm x212YZS7AfDvYCWue9Mo X8TjnFwsO64lhFpkA40d LZNxmLthkV7ihDkimN7f UrMwDvLsACi2lo35WWf1 pgawgFpdHDn6nhIdIHOo DGK1SXIojVFlECQwX0m8 riReBOUmVSN6UKXbtWXs PLLcQ8i5orNyAOI4LXn6 cnBhZGRmdDNcdHJwYWRk YjBcdHJwYWRkZmIzXHRy cYQnyQBwoMGiaN1cfCss LTLugJKqcV8mPQF2MFJs cmgzMjBcdHJoZHJcbHRy pq09IGSacmQerPYknOjm wDIbCID7QZWbNHUkFFPi HSA3ZJOoJuUpijDgEDny bGJyZHJiXGJyZHJzXGJy MTN9DQDnBcXnlhQaABbl bGJyZHJsXGJyZHJzXGJy CIV0GYDuQwZkzuOkUNfq bGJyZHJyXGJyZHJzXGJy FYE0HORjRhCkzsUpXXfc bHBhZHQxMFxjbHBhZGZ0 L8yuoGHgNTClIByrwKZc LMAuZ8qxuQLgSDhgTCBc cGFkZmwzXGNscGFkYjBc A7glCANkAfYdA8SibEa3 MDAwXGNsdmVydGFsdFxj kPZaSAA6RPZrNJRcVXQx MWB2UGNuGsYggoDrDGmf bGJyZHJiXGJyZHJzXGJy PKY8WHKsXpQgzqUmMVfo bGJyZHJsXGJyZHJzXGJy KKI5YQDeXkRshaUkHUcs bGJyZHJyXGJyZHJzXGJy WLV7QHUjQpTubqAcYKyb bHBhZHQxMFxjbHBhZGZ0 M7watORuCXEwKZafjZLa VIAbJ5mskTRtJIfkYUNu cGFkZmwzXGNscGFkYjBc N8xuPMNbGdHhA3PcpHq7 NjAwXGNsdmVydGFsdFxj vVQmHEP3EFNrKSIvEZJt ZDT9MVEvKyDusnCqXEes bGJyZHJiXGJyZHJzXGJy XNZ7UVLeBhXlzcAoEWpc bGJyZHJsXGJyZHJzXGJy MIV0BSKuOzOjrrUcWJjq bGJyZHJyXGJyZHJzXGJy XQH7XFDeQwSpekEjIOce bHBhZHQxMFxjbHBhZGZ0 J7lbhOIyLLWbBAxlwVUh BMDiF9qctKStUQvsJTLx cGFkZmwzXGNscGFkYjBc H0csKQZjMhYzH3XrkUm0 NtZwKOTyhrRyvZ74Lugh c3OiAWDoAWT5OWgiTXok bFxwbGFpblxmMVxmczIw XHmvxenlOAYmRVetZ6ug IyTkMCEdsOrjNHlsy4Mw XGYxXGNmMlxmczIwXGIg VBVqATPidY4pNoclJ7Kn qO2uYApiXdheW1dtKNHo l4EoaM1xVSfifARoqnvc MVxmczIwXGxhbmcxMDMz UIncH7sgLoUbNTQyuHzs ZKqfh3NlCWEeXSIxLonc wpGaFGr4joFzZICxcFbh gJEdWGhxccZwtBvem6Hs gcTzkWpxETZoBJz0qyXd cpnrxMr6iMBgrUnsDKEi eGiffB3pQgEzWnZbBPqz bGFpblxmMVxmczIwXGxh vbmiPDFhONhgY4faDvJt RLTzzBhqGKgbz6WzMVHq PLHdYbfjdgLnLNOsA61y bGVjdGVkXHBsYWluXGYx XGZzMjBcbGFuZzEwMzNc aGljaFxmMVxkYmNoXGYx GGtaI9xxQnXeM1UpYNFl VoPpbBDuL1xhT2UyeMdi YXJkXGludGJsXHNzcGFy JZM7rHYhqnPvoVYaoIWc XNXnVQscRYY0hZDnlxcu wCKlrqdnRXropsT0GDTj YWluXGYxXGZzMjBcbGFu ZzEwMzNcaGljaFxmMVxk JaCnELAyINzyK9igVdUj A3WwJLZsQyDxHqVCMJGj aXZlZFxwbGFpblxmMVxm czIwXGxhbmcxMDMzXGhp E3noKfYcRNForGscTLst i5WwJKGyRLOiZcjcgdTg WSf2kgKkFKFocBclzM58 Zxldgu73CFUut4wlZJXn Z9VgtKDoGLLtzOCcSRwr MDhcdHJwYWRkZmwzXHRy cGFkZHIxMDhcdHJwYWRk ZnIzXHRycGFkZHQwXHRy eGCoNTY5M5y0gxMvMCTf IGi7jrCpRUJfAdMpwENe GDM0CNb2KphafdI7aSGg A1o2AqhkcaEmETcysCNh cv48DUFiaqTdbNIbwHpt qIXtXWL6ORCxHTMbDKWk XSC2ANDqCwIwjuRgHYqm bGJyZHJiXGJyZHJzXGJy VLJ4HLWlWpOaopVfBVfg bGJyZHJsXGJyZHJzXGJy JMZ4CUBiSqBddfYjQRli bGJyZHJyXGJyZHJzXGJy NNJ5WZUzMlOpouZqVXrp bHBhZHQxMFxjbHBhZGZ0 Y1gogCKdXKHzULgmbQPl WTVdH5nejVOiUTzjWCZi cGFkZmwzXGNscGFkYjBc D3tkKEVlWmXnE2PoyBa2 MDAwXGNsdmVydGFsdFxj gYKzEAE7SPXpNIZjRNMo ZGM7UWDyEmRxkfClRQfp bGJyZHJiXGJyZHJzXGJy AWB3UZRlJlVoieZyVDng bGJyZHJsXGJyZHJzXGJy QND8AVYmXoRhpzRmFLpy bGJyZHJyXGJyZHJzXGJy YSM9HVXbMkZdbuXaCYhw bHBhZHQxMFxjbHBhZGZ0 A9lbhWQoKRUdMAdcqVEn GSAyT5wioVSvWEnsHSQz cGFkZmwzXGNscGFkYjBc S8etGYTwXnOnL3TbpPu4 NjAwXGNsdmVydGFsdFxj yTPeWIL7CWYwIKDxNPDt LNN5AKXcXpKcxsZvJHio bGJyZHJiXGJyZHJzXGJy JFS7MIEwVpHlchCdLRws bGJyZHJsXGJyZHJzXGJy APX9GLEtZjCnumIiRQpp bGJyZHJyXGJyZHJzXGJy WVH8AZFlFvCguzVnRJcy bHBhZHQxMFxjbHBhZGZ0 F8zsgHEbAKSlTJlbqXRr JNMgZ8ekgVGwKLcnZZMe cGFkZmwzXGNscGFkYjBc G7dmDHGyQdLtT8BfxDa6 OjSnZUIgznOmfG49Rxxt f4HhKJDtOYX6IBdbAGue bFxwbGFpblxmMFxmczI0 XHBsYWluXGYxXGZzMjBc bGFuZzEwMzNcaGljaFxm DUmlPmVhTEBoAOclH3nx TiYvS0MzQFVsNcHgCY9g RKIfLw2rDxk6ZIJoIPGZ XELeOJBME2TBNayoRCLV W7LabIlpaX6zYyXjMkUh TPrwIP8aBDVaB6hppRSj EYWnXDRgL4xmZxMorZ9c aFxmMVxjZjJcZnMyMFxs dHJjaFxjZWxsXHBhcmRc sA30Sfgtd9PdUKKcLKW8 MFxzMFxxbFxwbGFpblxm KDeowbE2STRcJIvhDMAx XGZzMjBcbGFuZzEwMzNc aGljaFxmMVxkYmNoXGYx INmfS8zgEbOeD4SwMYIe InMlDo7gAj3jCPHvHNLs YWluXGYxXGZzMjBcbGFu ZzEwMzNcaGljaFxmMVxk DnFgGZRdPOrtE8eeLaWm M5LnBMUbSsPtmKKtM4dj E2HqoLnsRUJpXKmxxDBq EFJssOWzCNO8qFYzmaTs iJrjeBmxxC3jOwShJvSu NFxwbGFpblxmMVxmczIw RZsprxikPXDmNDvkP9ml CyFxVXBvxEsdXHhbv5Ro XGYxXGNmMlxmczIwIDUv MTEvMjAyMlxwbGFpblxm MVxmczIwXGxhbmcxMDMz AJlvX6svFiMsFJSvpYoo WBwpr7BbEBNlPYGzCcrq viAyIFw9pkFlWTMscCeh gN94Toxxzf33YQIjyqKk p8DpHVPwEDJ4TCkrLKje bFxwbGFpblxmMFxmczI0 XHBsYWluXGYxXGZzMjBc bGFuZzEwMzNcaGljaFxm TKdfQiDbBVGzHOyiS7tm ZjFcZnMyMFxwYXJ9 Diagnosis (test code = x9azwIZfFARodBN6SuQq 34) ZWGow4bcw0RlfPIikHVo MQsphUUucqAntd96cJK6 uF17CD0oZPQyNcL5KKOm reT1Tye7NIPcGOTkkMXd Z558f4qgi5yjldRvkNH5 JXWiPXKgB6PhET0wVSRc xKFjE04faCIgRVL9CYLh KPIcqZJcBOBnJOR2GQZb pKElO7ofSZXaKP2gkqol ZOfyQThsKAYnhKP0AQHi ySQbD7TkPSXfPOlkQEHz thj9PzGsZi7beVHcjDig MFxwYXJkXHBsYWluXGZz PwTvO3DmCZ51kJBpEUKp JOdYVxRcRlF0HIjdWXTP XomvYDJBRG9XH9VmNCAb JCTPKGLfi6jyDHF9KQTc o55pNg5pFa6iUVFmHLht cGFyXGNmMFxwYXJcbGk3 MjBcbGluNzIwIExlZnQg cHJveGltYWwgcHJldGli vLEdRCWiO6tbavukf4ko izBsrIW7BORmFTI7PAVW TzKRIXw1LIStalwgjZI5 DOJqgNjpCBE3VLOCtQyt oILfkTQzyCGjoE63cxIb ya1yqZXiwvF0rR9nAVXt d48oOWXcFcglLXqwqCrd j5TjLDTeoVKfBKweOICg XUJ4NV3fPWZgI3Aig4Xa ykhdz0CwPGQuQKMyfvQu b60sXLKdsoTaJT38NNZ0 VRKspenzgSFcOPozOF4b TVUyGSXhrDbnf5SwOVGx T9TaSaisvY4nCSXiy65i jZF4XJPelKrhWTUrmLSz mAoyUTXlvBjvgURpf8Mc VCUxp9xsJIfxcQdmMGXd GWedkXIoaYGhtzWgu84b MA5xZCPrtwD3B794tdPv OKO1jLNhcvwktDNck3Bg zUZmkYS3uCUloXWnUOMb FINvLNvazxJkBcPce1rs t3GxDIRoA3KeitvcVJUs RXBnnAEzcYTaI9ljhipp zi5hhTzmZJSJOXJrZ92e hTTquZ1suBRgQMyeXIhz zG6uAUJwkgEDJe9JPhna YXJ9 Comment (test code = [id number] 9835) QCTli1ydo7TqfUWcfJXe TUfdwPYlwxGvrp14jCM3 hT35LL4qPBFrFfZ3KXKu vkD8Cdc3DYKfTNKfuYLf T337v4ioc5bpkdCnrJZ3 dTngCKQehevrIkD5PHws ZWTfufqpXNa0FPuzUAMn tFZ2PKFntMCjF3VgDFDp EO6wuyn9FIG4AEniQGIc CmD0HMHyxSEeJIUhtBbl AWldi438KVU5FbDxZLMa gxRkdZogjQ8jByKrMHNF TOD7oH3ykaCpGCBxOSei DT8oUT2ou4OdoGKxHyQo sTDusO41ubMmep7zqGLc iwI7cI7uYVrzuPezNt2f MMaaW9r8s6vhD8ejUXU1 eXBpYSBhbmQgdmVycnVj j6MpBOKiNHB9tzMnOTVe quSup0PqG2dmsYucwnI2 fTNgAYEuoh7wrRPabLEz j8PospRmdlLyn1RkoxMu WAy8xCZyb4qei3Zub9I8 dGljIGluZmlsdHJhdGUs XPW2dJHixgEljihaxGtk NQVad6EvEMirnZRrbSIm bLB3pF3fBcSXkWuabTTb bT9rXKVsf6zwJ4hgBHDm xuLzoZG9pT6oYShhNS4l A7Abl2VprM0qHDdcBHN6 [employer](s) (test i7fleZBkWTYflVV3BeGw code = 9841) XSGpd6nsr6SvzMDviNOk CIysjLWuujRatb54oIS8 sL39DY6uXSGnPqV5FHRk cgJ6Qyx4KQObMGWrlKHs O290q4qve3ksrqMvlUJ7 xQetXLZwcqtvZmT6MVss LFQqpnyaYPc1ZXpuQICh lBQ4YMBgnZOvH1KtZWZw UR5amsa7DZG0JRnwMXLu YkI3OWFnvENtGSSlbQhe EQvsg290HDT0DvPgUGWg tlDkdFnjwE8kZcJbCIFJ B1SjnHNiyO== Disclaimer (test code = s1fzyUQvPNPbpTGqEdIt 9844) PKSbYETcm0qxMXXbeESz ZzEwMzNcZnRuYmpcdWMx BONjSeFfk4xfh864pHYi p3fpGZIgOsV2hDZoEBPt eSKeL985XNDwUDwic6eg x4QkHOWhuJJqx4S7YLJB umrjyBi7eDsbW09kd0X0 ZbzyS0ifVJVhNPKdX6Qn GC6xZIXfXur2CQY8UYT3 WBMxIGLtM3YnMC3rSRLe qCJmLVw1d1djdBdpKXAw NNY4z9llTIqsuvKyWW1v jw7ogMu8y1idzyRcESKd RZSrxMRWFJDeQ6WhvVyu Sn4urMk1iTsmXobnOJQ2 Ypd8UO4tgt21jhc3nEvm BPBlfqnjEoZ3URlnYIGv ximrKZb2LXbkGXYoiFO6 STEisOKqO4EgSRGrMP1b dap2DEM7ZXtrLLTpOvC8 NDBcaGVhZGVyeTcyMFxm v515UYC8KjEyAJ4nJ1Zs d8T7iE0uhLFpVLJrcIQg XoLgHGZcka5amNKlBPaz m0OnULE3aaC0zAAtlCIy EOUgLI37Xieuq8PsGvfw DXE6NQYhylYft8Rhr1iu IlImtiQvO2biQ4TuVNLc SMDbTZOsZuXfssXhm2Tu w8GmkUTsaAh7b8wkBZPo CBQwpNugr0aeHSX8SWVf P0W0rHNod8flQAbwKADv kAH5tfI9LEXypDIbQ5Lz uS8zVOYuBK2scfv0g1yl FOO7DMwlCBDfVnK0kzH7 NDBcaGVhZGVyeTcyMFxm q118EJF7SuRcRQSbg7Wn P7OvkSgwT26cxAxuP29t EFNkvSdopH2qnBxtuN6y ZjBcZnMyNFxxbFxwbGFp gztwXDnqkpZ7VEkfrvbs YUNdYBzhG7jbXrYuFBTc rZzaRPach0UbHPTmSFKr RnstqxN6FJKVf97uDZQg n4IlXCBjtI3yuEYcBMzo zhHbsIS3HNaxgmLsBbTa amHkZNIusO5qKZNkCB5s XRMpidXxoa7doxXpYTEv DQBqX4WzkgzeyZfcftZm ZJPltd0nbzIjZIB6ZGHL UL1RINFmTIMwb04mKSUx sQlhcQ8hiXLegjVgPWXp x6DufV7agFOTQUVwM9mj MX2yPTbcy1JodTJvtIOu xPX9HZCmw8DyDrQlvnPf lUVvrIQcG2AeiDfhN1hz BBAxXNBretHpgRLye7Tg YCCroMY9zMIwVC9CRsGZ v02pXZWpCQVJasKwYPCj eSftlMN4jzN5nZ9kJcUK ZiBhcHBsaWNhYmxlLCBj g501mn5wfzU7FGLpRKAm thcwg8AbZFHhQNWdhT40 OTGwOWRbef0lqalubYCj kfSlX5Jvqzv8fZ9oCRAh YWluXGYxXGZzMjJcbGFu ZzEwMzNcaGljaFxmMVxk RgZtETDyAMbvU1wiOnGq ZnMyMlxwYXJ9 [facility] METABOLIC [id number] 06:31:00 Test Item Value Reference Range Interpretation [...] APPLICABLE FOR DIALYSIS PATIEN TS. BASIC METABOLIC [id number] 06:27:00 Test Item Value Reference Range Interpretation [...] APPLICABLE FOR DIALYSIS PATIEN TS. CT, CTANGIO [id number] 12:08:00FINAL REPORT CLINICAL HISTORY: Stroke TECHNIQUE: Initially, [...] acute infarctor hemorrhage. No evidence for a [place] proximal branch vessel occlusion. No evidence of hemodynamically significant stenosis in the cervical carotid or vertebral arteries by NASCET criteria. Signed: Escobar Joshua MDReport Verified Date/Time: 08/21/2018 12:08:39 Reading Location: [facility] C[address] Room [address], CAROTID, [id number] 12:08:00FINAL REPORT CLINICAL HISTORY: Stroke TECHNIQUE: Initially, [...] acute infarctor hemorrhage. No evidence for a [place] proximal branch vessel occlusion. No evidence of hemodynamically significant stenosis in the cervical carotid or vertebral arteries by NASCET criteria.Signed: Escobar Joshua MDReport Verified Date/Time: 08/21/2018 12:08:39 Reading Location: [facility] B1 C013V Neuro Reading Room HEMOGLOBIN [id number] 07:01:00 Test Item Value Reference Range Interpretation Comments HEMOGLOBIN A1C (BEAKER) (test code = 5.9 % 4.3-6.1 368) TSH/FREE T4 IF [id number] 06:21:00 Test Item Value Reference Range Interpretation Comments THYROID STIMULATING HORMONE 2.41 uIU/mL 0.35-4.94 (BEAKER) (test code = 772) VITAMIN B12 AND [id number] 06:21:00 Test Item Value Reference Range Interpretation Comments VITAMIN B12 (BEAKER) (test code = 341 pg/mL 213-816 774) FOLATE (BEAKER) (test code = 362) 3.9 ng/mL >=7.0 L BASIC METABOLIC [id number] 06:02:00 Test Item Value Reference Range Interpretation [...] FOR DIALYSIS PATIEN TS. Specimen slightly ictericLIPID [id number] 06:02:00 Test Item Value Reference Range Interpretation [...] Specimen slightly ictericCBC W/PLT COUNT & AUTO [id number] 05:29:00 Test Item Value Reference Range Interpretation [...] % 0-1 PERCENT (BEAKER) (test code = 0777)"
[2021-12-24] MEDS ORDERED: NA CHLORIDE 0.9% 1,000 ML ONE (12:25)
[2021-12-24] MEDS ORDERED: ONDANSETRON 4 MG/2 ML VIAL ONE ×2 (12:25→17:50)
[2021-12-24] MEDS ORDERED: FENTANYL CITR 100 MCG/2 ML ONE (12:25)
[2021-12-24] MEDS ORDERED: NA CHLORIDE 0.9% 500 ML ONE (12:25)
[2021-12-24 12:53] LABS: Absolute Lymphocytes (CBC) 1.3 K/uL (0.7-4.9); Lymphocytes % 15.2 % (15.3-44.8); MCV 92.7 fL (80-100); MPV 8.6 fL (7.6-11.3); RBC Red Blood Cell Count 5.08 M/uL (3.86-4.86)
[2021-12-24 12:58] LABS: SARS-CoV-2 Antigen Rapid Res Negative (Negative)
--- NOTE | 2021-12-24 12:58 | RAD REPORT ---
EXAM DESCRIPTION: RAD - Chest Single View - 12/24/2021 12:42 pm CLINICAL HISTORY: COUGH Chest pain. COMPARISON: Chest Pa And Lat (2 Views) dated 08/25/2019; Chest Single View dated 08/20/2018; Chest Sin gle View dated 07/01/2018; Chest Pa And Lat (2 Views) dated 04/11/2017; CHEST PA AND LAT 2 VIEW dated 10/25/2012 FINDINGS: Portable technique limits examination quality. Mild interstitial pulmonary edema seen. The heart is moderately enlarged in size. No displaced fractu res. IMPRESSION: Mild CHF.
[2021-12-24 13:08] LABS: Albumin 3.1 g/dL (3.4-5.0); Bilirubin Direct 0.4 mg/dL (0-0.2); Bilirubin Total 2.7 mg/dL (0.2-1.0); Magnesium 1.9 mg/dL (1.8-2.4); Potassium 3.9 mmol/L (3.5-5.1); Protein, Total 7.3 g/dL (6.4-8.2); Troponin High Sensitivity 11.1 pg/mL (<58.9)
[2021-12-24 13:12] LABS: Protime INR 1.57
--- NOTE | 2021-12-24 13:56 | RAD REPORT ---
EXAM DESCRIPTION: CT - Head C Spine Cap W Con - 12/24/2021 1:46 pm CLINICAL HISTORY: Trauma, head and neck injury. Chest, abdomen and pelvis pain. fall COMPARISON: Head C Spine Mpr Wo Con dated 12/20/2021; Thoracic Spine W/o Cont dated 12/20/2021; Spine Barbara mbar Wo Con dated 12/20/2021 TECHNIQUE: CT head without contrast. CT cervical spine without contrast with coronal and sagittal reformatted images. CT chest, abdomen and pelvis with IV contrast (approximately 100 mL nonionic IV contrast) with urena l and sagittal reformatted images of the spine. All CT scans are performed using dose optimization technique as appropriate and may include automated exposure control or mA/KV adjustment according to patient size. FINDINGS: CT HEAD WITHOUT CONTRAST: No intracranial hemorrhage, hydrocephalus or extra-axial fluid collection. Mild generalized brain atr ophy is seen. No areas of brain edema or midline shift. Left vertebral atherosclerosis The paranasal sinuses and mastoids are clear. The calvarium is intact. CT CERVICAL SPINE WITHOUT CONTRAST: No fracture or subluxation. Mild multilevel cervical degenerative changes. The prevertebral soft tiss ues are normal in thickness. CT CHEST, ABDOMEN, PELVIS WITH CONTRAST: The lungs are clear.No pneumothorax or pericardial/pleural fluid. No evidence of intra-abdominal visceral injury, free fluid or free air. Fibroid uterus. Sigmoid diverticulosis without diverticulitis. No acute fracture is evident. IMPRESSION: Negative for acute traumatic findings.
[2021-12-24 14:47] LABS: Urine Blood 1+ (Negative); Urine Glucose Negative (Negative); Urine Protein Negative (Negative); Urine pH 5.5 (5.0-7.0)
--- NOTE | 2021-12-24 15:07 | EDPHYS ---
Physician Documentation [facility] Name: Sigifredo Kiran Age: 86 yrs Sex: Female : 1935 Arrival Date: 12/24/2021 Time: 11:56 Bed 15 Private MD: MARK Physician Eric Barboza HPI: 12/24 14:59 This 86 yrs old Female presents to ER via EMS with complaints of fall and rocio pain since thursday. 14:59 The patient presents with pain that is acute, and decreased range of motion. The rocio symptoms are located in the low back, coccyx area. The pain does not radiate. The problem was sustained during a fall, while walking. Onset: The symptoms/episode began/occurred 5 day(s) ago. Modifying factors: The patient symptoms are alleviated by remaining still, the patient symptoms are aggravated by any movement, bending. Associated signs and symptoms: Pertinent positives: weakness. Historical: - Allergies: 12:06 Levaquin; jd3 12:06 PENICILLINS; jd3 - Home Meds: 12:06 atorvastatin 20 mg Oral tab 1 tab once daily [Active]; metoprolol [Active]; jd3 levothyroxine oral [Active]; Xarelto Oral [Active]; Vitamin B-12 Oral [Active]; - PMHx: 12:06 Atrial Fib; CVA; Diverticulitis; Hypertension; Hypothyroidism; jd3 - Immunization history:: Adult Immunizations up to date, Client reports receiving the 2nd dose of the Covid vaccine. - Social history:: Smoking status: Patient/guardian denies using tobacco, but has a distant history of tobacco abuse. - Family history:: not pertinent. ROS: 14:59 Constitutional: Negative for fever, chills, and weight loss, Eyes: Negative for injury, rocio pain, redness, and discharge, ENT: Negative for injury, pain, and discharge, Neck: Negative for injury, pain, and swelling, Cardiovascular: Negative for chest pain, palpitations, and edema, Respiratory: Negative for shortness of breath, cough, wheezing, and pleuritic chest pain, Abdomen/GI: Negative for abdominal pain, nausea, vomiting, diarrhea, and constipation, : Negative for injury, bleeding, discharge, and swelling, Skin: Negative for injury, rash, and discoloration, Neuro: Negative for headache, weakness, numbness, tingling, and seizure, Psych: Negative for depression, anxiety, suicide ideation, homicidal ideation, and hallucinations, Allergy/Immunology: Negative for hives, rash, and allergies, Endocrine: Negative for neck swelling, polydipsia, polyuria, polyphagia, and marked weight changes, Hematologic/Lymphatic: Negative for swollen nodes, abnormal bleeding, and unusual bruising. 14:59 Back: Positive for injury or acute deformity, decreased range of motion, pain at rest, pain with movement, of the lumbar area, left low back and right low back. 14:59 MS/extremity: Positive for deformity, pain, tenderness, of the buttocks. Exam: 14:59 Constitutional: This is a well developed, well nourished patient who is awake, alert, rocio and in no acute distress. Head/Face: Normocephalic, atraumatic. Eyes: Pupils equal round and reactive to light, extra-ocular motions intact. Lids and lashes normal. Conjunctiva and sclera are non-icteric and not injected. Cornea within normal limits. Periorbital areas with no swelling, redness, or edema. ENT: Nares patent. No nasal discharge, no septal abnormalities noted. Tympanic membranes are normal and external auditory canals are clear. Oropharynx with no redness, swelling, or masses, exudates, or evidence of obstruction, uvula midline. Mucous membranes moist. Neck: Trachea midline, no thyromegaly or masses palpated, and no cervical lymphadenopathy. Supple, full range of motion without nuchal rigidity, or vertebral point tenderness. No Meningismus. Chest/axilla: Normal chest wall appearance and motion. Nontender with no deformity. No lesions are appreciated. Cardiovascular: Regular rate and rhythm with a normal S1 and S2. No gallops, murmurs, or rubs. Normal PMI, no JVD. No pulse deficits. Respiratory: Lungs have equal breath sounds bilaterally, clear to auscultation and percussion. No rales, rhonchi or wheezes noted. No increased work of breathing, no retractions or nasal flaring. Abdomen/GI: Soft, non-tender, with normal bowel sounds. No distension or tympany. No guarding or rebound. No evidence of tenderness throughout. Female : Normal external genitalia. Skin: Warm, dry with normal turgor. Normal color with no rashes, no lesions, and no evidence of cellulitis. Neuro: Awake and alert, GCS 15, oriented to person, place, time, and situation. Cranial nerves II-XII grossly intact. Motor strength 5/5 in all extremities. Sensory grossly intact. Cerebellar exam normal. Normal gait. Psych: Awake, alert, with orientation to person, place and time. Behavior, mood, and affect are within normal limits. 14:59 ECG was reviewed by the Attending Physician. 14:59 Back: pain, that is moderate, ROM is painful, normal spinal alignment noted, CVA tenderness, is absent, vertebral tenderness, is appreciated at L1, L2, L3, L4, L5 and sacrum, muscle spasm, is appreciated in the left low back, left mid back, right mid back and right low back. Vital Signs: 12:07 BP 103 / 87; Pulse 86; Resp 19 S; Temp 97.9(O); Pulse Ox 95% on R/A; Weight 104.33 kg jd3 (R); Height 5 ft. 5 in. (165.10 cm) (R); Pain 5/10; 19:29 BP 119 / 76; Pulse 89; Resp 19; Pulse Ox 96% on 4 lpm NC; lg3 12:07 Body Mass Index 38.27 (104.33 kg, 165.10 cm) jd3 MDM: 11:59 Patient medically screened. [facility] 15:03 Differential diagnosis: arthritis, strain, fracture, sciatica, contusion, Herniated rocio disc UTI, arthritis, chronic back pain, Fatigue Fracture Joint Injury Ligament Injury Neoplasm Obesity Osteoarthritis Osteomalacia Osteoporosis ruptured disc, Scoliosis. Data interpreted: cane packer: rate is 86 beats/min, rhythm is regular, Pulse oximetry: on room air is 95 %. Test interpretation: by ED physician or midlevel provider: ECG, plain radiologic studies. Counseling: I had a detailed discussion with the patient and/or guardian regarding: the historical points, exam findings, and any diagnostic results supporting the discharge/admit diagnosis, lab results, radiology results, the need for further work-up and treatment in the hospital. 15:04 Data reviewed: vital signs, nurses notes, lab test result(s), EKG, radiologic studies, [facility] CT scan, MRI, plain films. 12/24 12:02 Order name: Basic Metabolic Panel; Complete Time: 13:53 [facility] 12/24 12:02 Order name: CBC with Diff; Complete Time: 13:53 [facility] 12/24 12:02 Order name: LFT's; Complete Time: 13:53 [facility] 12/24 12:02 Order name: Magnesium; Complete Time: 13:53 [facility] 12/24 12:02 Order name: NT PRO-BNP; Complete Time: 13:53 [facility] 12/24 12:02 Order name: PT-INR; Complete Time: 13:53 [facility] 12/24 12:02 Order name: Troponin HS; Complete Time: 13:53 [facility] 12/24 12:02 Order name: XRAY Chest (1 view); Complete Time: 13:53 [facility] 12/24 12:02 Order name: Lipase; Complete Time: 13:53 [facility] 12/24 12:02 Order name: SARS RAPID; Complete Time: 13:53 [facility] 12/24 12:02 Order name: CT Traumagram (Head C Spine CAP W Con) [facility] 12/24 12:07 Order name: Head C Spine Cap W Con; Complete Time: 14:18 [facility] 12/24 14:47 Order name: Urine Dipstick-Ancillary; Complete Time: 14:54 [facility] 12/24 14:58 Order name: Urine Culture [facility] 12/24 12:02 Order name: EKG; Complete Time: 12:03 [facility] 12/24 12:02 Order name: Cardiac monitoring; Complete Time: 14:23 [facility] 12/24 12:02 Order name: EKG - Nurse/Tech; Complete Time: 14:23 [facility] 12/24 12:02 Order name: IV Saline Lock; Complete Time: 12:46 [facility] 12/24 12:02 Order name: Labs collected and sent; Complete Time: 12:46 [facility] 12/24 12:02 Order name: O2 Per Protocol; Complete Time: 12:46 [facility] 12/24 15:03 Order name: Spine Lumbar Wo Con EDPA 12/24 17:10 Order name: MRI; Complete Time: 17:34 [facility] 12/24 12:02 Order name: O2 Sat Monitoring; Complete Time: 12:46 [facility] 12/24 12:02 Order name: Urine Dipstick-Ancillary (obtain specimen); Complete Time: 14:47 [facility] EC:59 Rate is 77 beats/min. Rhythm is regular. QRS [place] is Normal. MD interval is normal. QT rocio interval is normal. No Q waves. T waves are Normal. No ST changes noted. Clinical impression: Atrial Fibrillation and No evidence of ischemia. Interpreted by me. Reviewed by me. Administered Medications: 12:53 Drug: fentaNYL (PF) 50 mcg Route: IVP; Site: right antecubital; em6 13:30 Follow up: Response: No adverse reaction; RASS: Alert and Calm (0) em6 16:11 Follow up: Response: No adverse reaction; RASS: Alert and Calm (0) em6 12:53 Drug: Zofran (Ondansetron) 4 mg Route: IVP; Site: right antecubital; em6 13:30 Follow up: Response: No adverse reaction em6 12:54 Drug: NS 0.9% 500 ml Route: IV; Rate: bolus; Site: right antecubital; em6 13:30 Follow up: Response: No adverse reaction; IV Status: Completed infusion; IV Intake: em6 500ml 14:39 Drug: NS 0.9% 1000 ml Route: IV; Rate: 125 ml/hr; Site: right antecubital; em6 16:11 Follow up: Response: No adverse reaction em6 15:39 Drug: Decadron - Dexamethasone 10 mg Route: IVP; Site: left antecubital; em6 16:14 Follow up: Response: No adverse reaction em6 15:40 Drug: Rocephin (cefTRIAXone) 1 grams Route: IV; Rate: per protocol; Site: left em6 antecubital; 16:14 Follow up: Response: No adverse reaction em6 17:45 Drug: Zofran (Ondansetron) 4 mg Route: IVP; Site: left antecubital; em6 19:20 Follow up: Response: No adverse reaction; Marked relief of symptoms lg3 17:45 Drug: Dilaudid (HYDROmorphone) 1 mg Route: IVP; Site: left antecubital; em6 19:20 Follow up: Response: No adverse reaction; Marked relief of symptoms lg3 Disposition Summary: 12/24/21 15:07 Hospitalization Ordered Hospitalization Status: Inpatient Admission rocio Provider: Victoriano Nava cha Location: Telemetry/MedSurg (Inpatient) rocio Condition: Fair rocio Problem: new rocio Symptoms: have improved rocio Bed/Room Type: Standard rocio Room Assignment: 429(12/24/21 19:26) mw Diagnosis - Fall on same level, unspecified rocio - Low back pain - intractable, non-ambulatory rocio - Chronic atrial fibrillation rocio - Obesity, unspecified rocio - UTI/ Urinary tract infection, site not specified 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
--- NOTE | 2021-12-24 15:07 | ER ---
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 she was seen Thursday jd3 and again Thursday related to the pain in her left hip. all scans have been negative, but the pt reports continued pain. she called her primary, Dr. Nava, who was supposed to call the ER doc today to get her admitted for pain control.". Coronavirus screen: At this time, the client does not indicate any symptoms associated with coronavirus-19. Ebola Screen: No symptoms or risks identified at this time. Initial Sepsis Screen: Does the patient meet any 2 criteria? No. Patient's initial sepsis screen is negative. Does the patient have a suspected source of infection? No. Patient's initial sepsis screen is negative. Risk Assessment: Do you want to hurt yourself or someone else? Patient reports no desire to harm self or others. Onset of symptoms was December 20, 2021. 11:58 Acuity: CLARI 3 jd3 11:58 Method Of Arrival: EMS: [facility] j Historical: - Allergies: 12:06 Levaquin; jd3 12:06 PENICILLINS; jd3 - Home Meds: 12:06 atorvastatin 20 mg Oral tab 1 tab once daily [Active]; metoprolol [Active]; jd3 levothyroxine oral [Active]; Xarelto Oral [Active]; Vitamin B-12 Oral [Active]; - PMHx: 12:06 Atrial Fib; CVA; Diverticulitis; Hypertension; Hypothyroidism; jd3 - Immunization history:: Adult Immunizations up to date, Client reports receiving the 2nd dose of the Covid vaccine. - Social history:: Smoking status: Patient/guardian denies using tobacco, but has a distant history of tobacco abuse. - Family history:: not pertinent. Screenin:00 Abuse screen: Denies threats or abuse. Nutritional screening: No deficits noted. em6 Tuberculosis screening: No symptoms or risk factors identified. Fall Risk Fall in past 12 months (25 points). IV access (20 points). Total Chapin Fall Scale indicates High Risk Score (45 or more points). Fall prevention measures have been instituted. Side Rails Up X 2 Placed Close to Nursing Station Frequent Obs/Assessments Occuring Family Present and informed to notify staff if the need to leave the bedside As available patient and family educated on Fall Prevention Program and Strategies. Assessment: 12:00 General: Appears in no apparent distress. comfortable, Behavior is calm, cooperative. em6 Pain: Complains of pain in back Pain does not radiate. Pain currently is 8 out of 10 on a pain scale. Quality of pain is described as sharp, Pain began 2-3 days ago. Is continuous. Neuro: Bronson Agitation-Sedation Scale (RASS): 0 - Alert and Calm Level of Consciousness is awake, alert, obeys commands, Oriented to person, place, time, situation. Cardiovascular: Denies chest pain, Heart tones present Patient's skin is warm and dry. Respiratory: Airway is patent Respiratory effort is even, unlabored, Breath sounds are clear bilaterally. GI: No signs and/or symptoms were reported involving the gastrointestinal system. : No signs and/or symptoms were reported regarding the genitourinary system. EENT: No signs and/or symptoms were reported regarding the EENT system. Derm: No signs and/or symptoms reported regarding the dermatologic system. Musculoskeletal: No signs and/or symptoms reported regarding the musculoskeletal system. 13:00 Reassessment: Patient appears in no apparent distress at this time. No changes from em6 previously documented assessment. Patient and/or family updated on plan of care and expected duration. Pain level reassessed. Patient is alert, oriented x 3, equal unlabored respirations, skin warm/dry/pink. 14:00 Reassessment: Patient appears in no apparent distress at this time. No changes from em6 previously documented assessment. Patient and/or family updated on plan of care and expected duration. Pain level reassessed. Patient is alert, oriented x 3, equal unlabored respirations, skin warm/dry/pink. 15:00 Reassessment: Patient appears in no apparent distress at this time. No changes from em6 previously documented assessment. Patient and/or family updated on plan of care and expected duration. Pain level reassessed. Patient is alert, oriented x 3, equal unlabored respirations, skin warm/dry/pink. 17:00 Reassessment: patient return from MRI . Pain: Complains of pain in back. Neuro: Level em6 of Consciousness is awake, alert, obeys commands, Oriented to person, place, time, situation. Respiratory: Airway is patent Respiratory effort is even, unlabored. 18:00 Reassessment: Patient appears in no apparent distress at this time. Patient and/or em6 family updated on plan of care and expected duration. Pain level reassessed. Patient is alert, oriented x 3, equal unlabored respirations, skin warm/dry/pink. Vital Signs: 12:07 BP 103 / 87; Pulse 86; Resp 19 S; Temp 97.9(O); Pulse Ox 95% on R/A; Weight 104.33 kg jd3 (R); Height 5 ft. 5 in. (165.10 cm) (R); Pain 5/10; 19:29 BP 119 / 76; Pulse 89; Resp 19; Pulse Ox 96% on 4 lpm NC; lg3 12:07 Body Mass Index 38.27 (104.33 kg, 165.10 cm) jd3 ED Course: 11:56 Patient arrived in ED. bd 11:58 Dante Wiseman, COOKIE is Primary Nurse. jd3 11:59 Eric Barboza MD is Attending Physician. rocio 12:00 Patient has correct armband on for positive identification. Placed in gown. Bed in low em6 position. Call light in reach. Side rails up X2. Adult w/ patient. phototypesetting equipment monitor on. Pulse ox on. NIBP on. Warm blanket given. 12:05 Triage completed. jd3 12:07 Arm band placed on. jd3 12:44 XRAY Chest (1 view) In Process Unspecified. EDMS 12:45 Inserted saline lock: 22 gauge in left antecubital area, using aseptic technique. Blood jd3 collected. 13:48 Head C Spine Cap W Con In Process Unspecified. EDMS 15:05 Victoriano Nava MD is Hospitalizing Provider. rocio 19:30 No provider procedures requiring assistance completed. Patient admitted, IV remains in lg3 place. intact, No redness/swelling at site. Administered Medications: 12:53 Drug: fentaNYL (PF) 50 mcg Route: IVP; Site: right antecubital; em6 13:30 Follow up: Response: No adverse reaction; RASS: Alert and Calm (0) em6 16:11 Follow up: Response: No adverse reaction; RASS: Alert and Calm (0) em6 12:53 Drug: Zofran (Ondansetron) 4 mg Route: IVP; Site: right antecubital; em6 13:30 Follow up: Response: No adverse reaction em6 12:54 Drug: NS 0.9% 500 ml Route: IV; Rate: bolus; Site: right antecubital; em6 13:30 Follow up: Response: No adverse reaction; IV Status: Completed infusion; IV Intake: em6 500ml 14:39 Drug: NS 0.9% 1000 ml Route: IV; Rate: 125 ml/hr; Site: right antecubital; em6 16:11 Follow up: Response: No adverse reaction em6 15:39 Drug: Decadron - Dexamethasone 10 mg Route: IVP; Site: left antecubital; em6 16:14 Follow up: Response: No adverse reaction em6 15:40 Drug: Rocephin (cefTRIAXone) 1 grams Route: IV; Rate: per protocol; Site: left em6 antecubital; 16:14 Follow up: Response: No adverse reaction em6 17:45 Drug: Zofran (Ondansetron) 4 mg Route: IVP; Site: left antecubital; em6 19:20 Follow up: Response: No adverse reaction; Marked relief of symptoms lg3 17:45 Drug: Dilaudid (HYDROmorphone) 1 mg Route: IVP; Site: left antecubital; em6 19:20 Follow up: Response: No adverse reaction; Marked relief of symptoms lg3 Medication: 19:30 VIS not applicable for this client. lg3 Intake: 13:30 IV: 500ml; Total: 500ml. em6 Outcome: 15:07 Decision to Hospitalize by Provider. rocio 19:30 Admitted to Med/surg accompanied by tech. lg3 19:30 Condition: stable 19:30 Instructed on the need for admit, Demonstrated understanding of instructions. 21:11 Patient left the ED. lg3 Signatures: Dispatcher [employer] EDMS Gianna Storm Jabari, Eric, MD MD rocio Wiseman, Dante, RN RN jd3 Molly Salas, COOKIE RN lg3 Pilar Armijo RN RN em6 Corrections: (The following items were deleted from the chart) 14:39 14:39 NS 0.9% 1000 ml IV at 125 ml/hr in left antecubital em6 em6
[2021-12-24] MEDS ORDERED: dexAMETHasone 10 MG/ML VIAL ONE (15:36)
[2021-12-24] MEDS ORDERED: CEFTRIAXONE 1000 MG/VIAL ONE (15:36)
--- NOTE | 2021-12-24 17:09 | RAD REPORT ---
EXAM DESCRIPTION: MRI - Lumbar Spine Wo Compa- 12/24/2021 4:56 pm CLINICAL HISTORY: r/o fracture Pain, radiculopathy, difficulty with ambulation. COMPARISON: <Comparisons> FINDINGS: Vertebral body heights are within normal limits. No aggressive marrow pattern is observed. No fracture is suspected. The conus medullaris terminates at a normal level. No thickening of the cauda equina or clumping of n erve roots seen. L1-2 level: 5 mm retrolisthesis of L1 on L2. Central disc protrusion is present with mild facet and l igamentum flavum hypertrophy. Mild central canal narrowing is seen. L2-3 level: Moderate central disc protrusion is present with 4 mm degenerative retrolisthesis. Modera te facet and ligamentum flavum hypertrophy is seen resulting in moderate to severe canal stenosis. Si gnificant left-sided exit foraminal stenosis is also present. L3-4 level: Moderate posterior disc bulge is seen with significant facet and ligamentum flavum hypert rophy. Moderately severe central canal stenosis is evident. L4-5 level: Moderate posterior disc bulge is seen with advanced facet hypertrophy bilaterally, greate r on the left. Moderate central canal stenosis. L5-S1 level: 5 mm degenerative anterolisthesis is present. Mild to moderate posterior disc bulge with moderate facet and ligamentum flavum hypertrophy. Moderate central canal narrowing is seen with bila teral lateral recess narrowing no significant exit foraminal stenosis. IMPRESSION: No acute fracture or other acute lumbar spine abnormality detected. Severe central canal stenosis is present with left-sided exit foraminal stenosis at L2-3. Additional levels of spondylosis are present throughout the lumbar spine as detailed.
[2021-12-24] MEDS ORDERED: HYDROMORPHONE HCL 1 MG/ML INJ ONE (17:50)
[2021-12-24] MEDS ORDERED: ONDANSETRON 4 MG/2 ML VIAL IV PRN (18:32)
[2021-12-24] MEDS ORDERED: RIVAROXABAN 20 MG TABLET PO SCH (21:00)
[2021-12-24] MEDS: NA CHLORIDE 0.9% 1,000 ML IV SCH (22:07)
[2021-12-24] MEDS: FAMOTIDINE 20 MG/2 ML VIAL IV SCH (22:08)
[2021-12-24 22:34] VITALS: BMI 38.2
[2021-12-25 03:43] LABS: Absolute Lymphocytes (CBC) 0.7 K/uL (0.7-4.9); Hematocrit 45.8 % (36.0-45.0); Lymphocytes % 10.7 % (15.3-44.8); MCV 92.1 fL (80-100); MPV 8.9 fL (7.6-11.3); RBC Red Blood Cell Count 4.97 M/uL (3.86-4.86)
[2021-12-25 03:57] LABS: Potassium 4.4 mmol/L (3.5-5.1)
[2021-12-25] MEDS: FAMOTIDINE 20 MG/2 ML VIAL IV SCH (08:14)
[2021-12-25] MEDS: CEFTRIAXONE 1,000 MG in NA CHLORIDE 0.9% 50 ML IVPB SCH (08:14)
[2021-12-25] MEDS: MORPHINE 2 MG/ML SYR IV PRN ×3 (10:39→23:40)
--- NOTE | 2021-12-25 17:11 | EKG ---
Test Date: 2021-12-24 Test Time: 13:57:32 Rn Psychiatric: MEASUREMENT RESULTS: Intervals: Rate: 77 RI: QRSD: 126 QT: 356 QTc: 402 [place]: P: RI: QRS: -34 T: -16 INTERPRETIVE STATEMENTS: Atrial fibrillation Left axis deviation Right bundle branch block Abnormal ECG Compared to ECG 03/24/2019 21:24:41 Left-axis deviation now present Right bundle-branch block now present Electronically Signed On 12-25-21 17:06:56 CDT by Tomy Menezes
[2021-12-25] MEDS: RIVAROXABAN 20 MG TABLET PO SCH (17:13)
[2021-12-25] MEDS: NA CHLORIDE 0.9% 1,000 ML IV SCH (17:14)
[2021-12-25] MEDS ORDERED: LORAZEPAM 1 MG TABLET PO PRN (20:31)
[2021-12-25] MEDS ORDERED: RIVAROXABAN 20 MG TABLET PO SCH (21:00)
[2021-12-25] MEDS ORDERED: RIVAROXABAN 10 MG TABLET PO SCH (21:00)
[2021-12-25] MEDS: ATORVASTATIN 10 MG TAB PO SCH (21:15)
[2021-12-26] MEDS: LEVOTHYROXINE SOD 0.088 MG TAB PO SCH (06:20)
[2021-12-26] MEDS ORDERED: METOPROLOL TAR 25 MG TAB PO SCH (09:00)
[2021-12-26] MEDS: FAMOTIDINE 20 MG/2 ML VIAL IV SCH (09:47)
[2021-12-26] MEDS: CEFTRIAXONE 1,000 MG in NA CHLORIDE 0.9% 50 ML IVPB SCH (09:47)
[2021-12-26] MEDS: METOPROLOL TAR 25 MG TAB PO SCH (09:47)
--- NOTE | 2021-12-26 13:01 | HP ---
Date of Admission: 12/24/2021 Chief Complaint: Back and leg pain, unable to walk. History Of Present Illness: The patient states her problem started over the weekend when she fell in her house. She had difficulty weightbearing after this time and had significant pain in the lower b ack down into her leg on the right. She was seen in the emergency room. No fractures were noted. T he patient was discharged. She then went the next day because of increasing pain to another ER, jace jansen also confirmed that there were no fractures in the area and to continue with analgesics. Over the next few days, she still had problems and the family stated she could not turn in bed. She could not weight bear and is not capable of taking care of herself. She therefore, was advised to come back t o the ER and this is what she did. In the ER, the workup showed no fractures. However, the MRI did confirm significant stenosis, but the patient has had a prior history of this. The main complaint is severe pain in the lumbosacral area radiating down to the right leg and difficulty with weightbearin g and turning; however, as long as she is lying still, she states she is fine. Past Medical History: Significant back problems including a diagnosis of stenosis, but has been seen and treated with various modalities prior to the fall, was capable of taking care of herself. CAD, atrial fibrillation, seen by Cardiology for this, and hypertension, good control. Social History: Nonsmoker, nondrinker. Family History: Noncontributory. Physical Examination: General: Patient is a rather obese elderly female, in no acute distress as long as she is not moving . Vital Signs: Slightly elevated blood pressure, otherwise stable vital signs on numerous occasions. Head and Neck: Normocephalic. Pupils equally reacting to light and accommodation. Fundi negative. Trachea midline. Thyroid not palpable. ENT: Negative. Chest: Clear to P and A. Cardiovascular: PMI midclavicular line. Heart: Sounds normal. Peripheral pulses present and equal bilaterally. Abdomen: No organomegaly. Obese. Bowel sounds normal. Extremities: Decreased motion of the lower extremities, specially the right leg. Sensation is prese nt. Upper extremities normal. Slight tenderness in the lumbosacral area. Rectal/Pelvic: Deferred. Impression: Contusion of the back; significant lumbar stenosis; hypertension, controlled; coronary a rtery disease with atrial fibrillation by history. Plan: Patient will be admitted. Physical Therapy will need to be consulted. She requires pain cristy gement and depending on her response in the next day or so, she may need to go to the outpatient and/ or inpatient rehab unit. HR/DES Voice ID: [id number]
[2021-12-26] MEDS: NA CHLORIDE 0.9% 1,000 ML IV SCH (14:17)
--- NOTE | 2021-12-26 16:20 | RAD REPORT ---
EXAM DESCRIPTION: MRI - Hip Left W/Wo Cont - 12/26/2021 4:11 pm CLINICAL HISTORY: pain History of fall, left hip pain, pelvic pain. COMPARISON: Lumbar Spine Wo Con dated 12/24/2021 FINDINGS: Abnormal diminished T1 signal and elevated T2 signal is seen in both sacral ala. Linear ve rtically-oriented linear T1 signal abnormality noted in both sacral ala suggests bilateral sacral ins ufficiency fracture. Both hips are intact. No hip fracture or AVN. No intrapelvic mass or hematoma. Sigmoid diverticulosis without diverticulitis. No pathologic post-contrast enhancement seen. IMPRESSION: Bilateral sacral insufficiency fractures are suspected.
[2021-12-26] MEDS: RIVAROXABAN 20 MG TABLET PO SCH (17:30)
--- NOTE | 2021-12-26 19:52 | PN ---
Date of Progress Note: 12/26/2021 The patient states she feels slightly better today. She has undergone some PT. The pain seems to be more localized into the left hip, which is what is limiting her movement and weightbearing. Her blo od sugars have been borderline and has a history of this and the patient's vital signs have been stab le. The Ativan did work to calm things down. She is awaiting insurance decision for SNF. In the [facility], I will obtain an MRI of the left hip. HR/MODL Voice ID: [id number] Report ID: [id number]
[2021-12-26] MEDS: ATORVASTATIN 10 MG TAB PO SCH (21:51)
[2021-12-26] MEDS: MORPHINE 2 MG/ML SYR IV PRN (22:00)
[2021-12-27] MEDS: MORPHINE 2 MG/ML SYR IV PRN ×3 (03:50→22:11)
[2021-12-27] MEDS: LEVOTHYROXINE SOD 0.088 MG TAB PO SCH (06:08)
[2021-12-27 06:11] LABS: Potassium 3.7 mmol/L (3.5-5.1)
[2021-12-27] MEDS: NA CHLORIDE 0.9% 1,000 ML IV SCH ×2 (06:32→09:53)
[2021-12-27] MEDS: FAMOTIDINE 20 MG/2 ML VIAL IV SCH (09:00)
[2021-12-27] MEDS: METOPROLOL TAR 25 MG TAB PO SCH (09:54)
[2021-12-27] MEDS: CEFTRIAXONE 1,000 MG in NA CHLORIDE 0.9% 50 ML IVPB SCH (09:54)
[2021-12-27] MEDS ORDERED: BISACODYL E.C. 5 MG TAB PO ONE (12:31)
[2021-12-27] MEDS: RIVAROXABAN 20 MG TABLET PO SCH (17:25)
--- NOTE | 2021-12-27 17:52 | PN ---
Date of Progress Note: 12/27/2021 Patient states she feels slightly more comfortable today and actually can roll over somewhat with an effort in bed. PT is slowly progressing. There is no notification as yet on her acceptance in SNF. However, the MRI of the hip revealed no hip fractures; however, did suggest bilateral sacral insuffi ciency fractures. Therefore, Orthopedic consult was also obtained and pending on the orthopedic cons ult and the insurance issue, patient will remain in hospital for further PT and pain control. Probab ility of staying over the weekend is likely and possible transfer on Thursday. HR/MODL Voice ID: [id number] Report ID: [id number]
--- NOTE | 2021-12-27 18:29 | RAD REPORT ---
EXAM DESCRIPTION: RAD - Abdomen W Erect - 12/27/2021 5:51 pm CLINICAL HISTORY: constipation COMPARISON: No comparisons FINDINGS: Nonobstructive bowel gas pattern. No acute osseous abnormality.Visualized lungs are unrema rkable.No abnormal calcifications. Surgical clips in the right upper quadrant. Cardiomegaly. IMPRESSION: Nonobstructive bowel gas pattern.
[2021-12-27] MEDS: ATORVASTATIN 10 MG TAB PO SCH (21:50)
[2021-12-27] MEDS: FAMOTIDINE 20 MG TAB PO SCH (21:50)
[2021-12-28] MEDS: LEVOTHYROXINE SOD 0.088 MG TAB PO SCH (06:02)
[2021-12-28] MEDS ORDERED: FAMOTIDINE 20 MG TAB PO SCH (09:00)
[2021-12-28] MEDS: CEFTRIAXONE 1,000 MG in NA CHLORIDE 0.9% 50 ML IVPB SCH (09:57)
[2021-12-28] MEDS: METOPROLOL TAR 25 MG TAB PO SCH (10:05)
[2021-12-28] MEDS: FAMOTIDINE 20 MG TAB PO SCH ×2 (10:05→20:31)
[2021-12-28] MEDS: MORPHINE 2 MG/ML SYR IV PRN ×2 (10:08→17:59)
[2021-12-28] MEDS: RIVAROXABAN 20 MG TABLET PO SCH (17:33)
[2021-12-28] MEDS: BISACODYL E.C. 5 MG TAB PO SCH (17:47)
[2021-12-28] MEDS: ATORVASTATIN 10 MG TAB PO SCH (20:31)
[2021-12-28] MEDS: ENSURE HIGH PROTEIN 237 ML CAN PO SCH (20:31)
--- NOTE | 2021-12-28 20:39 | PN ---
Date of Progress Note: 12/28/2021 Patient seems somewhat better today as far as moving her legs. However, she still complains of signi ficant pelvic pain with attempts to sit or stand. Her body seems to be functioning quite well ____ produced a bowel movement. Urination continues as before. Her KUB is negative for an ileus. I discussed the case with Dr. Roberson, who will see her in the next day and depending on the insurance status, still plan on transferring her to a SNF at the beginning of the week to continue her rehab. We will add protein drinks to her and we have stopped the IV fluids and will switch to p.o. medicati ons and also encouraged to take some Ativan in the hopes that this will speed up the muscle spasm in the area. Abdomen is soft, nontender. Minimal tenderness in the lumbosacral area. HR/MODL Voice ID: [id number] Report ID: [id number]
[2021-12-29 03:51] LABS: Absolute Lymphocytes (CBC) 1.9 K/uL (0.7-4.9); Hematocrit 46.8 % (36.0-45.0); Lymphocytes % 20.5 % (15.3-44.8); MPV 8.5 fL (7.6-11.3); RBC Red Blood Cell Count 4.98 M/uL (3.86-4.86)
[2021-12-29] MEDS: LEVOTHYROXINE SOD 0.088 MG TAB PO SCH (06:11)
[2021-12-29] MEDS: BISACODYL E.C. 5 MG TAB PO SCH (08:39)
[2021-12-29] MEDS: ENSURE HIGH PROTEIN 237 ML CAN PO SCH ×2 (08:39→20:34)
[2021-12-29] MEDS: METOPROLOL TAR 25 MG TAB PO SCH (08:39)
[2021-12-29] MEDS: FAMOTIDINE 20 MG TAB PO SCH ×2 (08:40→20:33)
[2021-12-29] MEDS: CEFTRIAXONE 1,000 MG in NA CHLORIDE 0.9% 50 ML IVPB SCH (08:40)
[2021-12-29] MEDS: RIVAROXABAN 20 MG TABLET PO SCH (17:04)
[2021-12-29] MEDS: CODEINE 30MG/APAP 300MG TAB PO PRN (18:28)
[2021-12-29] MEDS: MORPHINE 2 MG/ML SYR IV PRN (20:33)
[2021-12-29] MEDS: ATORVASTATIN 10 MG TAB PO SCH (20:33)
[2021-12-30] MEDS: LEVOTHYROXINE SOD 0.088 MG TAB PO SCH (05:46)
[2021-12-30] MEDS: METOPROLOL TAR 25 MG TAB PO SCH (08:03)
[2021-12-30] MEDS: ENSURE HIGH PROTEIN 237 ML CAN PO SCH ×2 (08:04→20:28)
[2021-12-30] MEDS: CEFTRIAXONE 1,000 MG in NA CHLORIDE 0.9% 50 ML IVPB SCH (08:04)
[2021-12-30] MEDS: BISACODYL E.C. 5 MG TAB PO SCH (08:04)
[2021-12-30] MEDS: FAMOTIDINE 20 MG TAB PO SCH ×2 (08:04→20:29)
[2021-12-30] MEDS: CODEINE 30MG/APAP 300MG TAB PO PRN ×3 (08:07→21:49)
[2021-12-30] MEDS: RIVAROXABAN 20 MG TABLET PO SCH (17:28)
[2021-12-30] MEDS: ATORVASTATIN 10 MG TAB PO SCH (20:29)
--- NOTE | 2021-12-31 03:13 | CON ---
Date of Consultation: 12/29/2021 History: This is my first time seeing Ms. Kiran to my knowledge. She is an 86-year-old female who a pproximately 1 week ago fell, and she said, when she landed, she landed in the seated position and af ter that was unable to get up, walk, or ambulate. She has been seen in the emergency department [facility] times by report of Dr. Nava with complaints that she had extreme pain and inability to walk. She has had diagnostic procedures and has had 2 MRIs, one of her back as well as one of her pelvis. The one of her pelvis demonstrates possible vertical fractures at both the right and left sacrum. T hese were nondisplaced with some degree of bony edema, most likely representing nondisplaced sacral f ractures. Also, she does have MRI of the lumbar spine, which demonstrates stenosis as well as other changes, which can be seen on the MRI and report. I was consulted by Dr. Nava and I do not treat sacral fracture or spine as I believe the sacrum should also be included in the spine. However, I se e her by his request for her hips. On physical examination, she is able to move her legs fairly easi ly in bed with flexion and extension of her hips as well as circumduction of the hips not causing winter n. She denies any numbness or tingling in both of her legs. It should be noted that she does not gonzalez ve any bowel or bladder dysfunction other than incontinence which she has had since before this incid ent. She says she has difficulty whenever she tries to sit in bed as the pain is in the pelvic regio n, not specifically localizing into her low back. However, definitely could be consistent. She says she does not have any numbness or tingling when she is sitting on the side, but she does have pain, which sometimes does go around the trochanter down the lateral aspect of the thigh to the knee. Assessment: This is an 86-year-old female now with fairly significant pain from the fall. The etiol ogy of this pain is most likely from acute changes of the sacrum, consistent with small nondisplaced cracks. However, the patient does have moderately severe lumbar stenosis and this could possibly hav e been made worse by swelling associated with the fall. She does not show any overt sign of cauda eq uina. However, she could have some symptoms arising from the stenosis or perhaps impingement on an e xiting nerve root. Her pain is primarily on the left. Assessment with regard to her hips and pelvis , she apparently has limited pathology with no need to be nonweightbearing with regard to her sacrum. I believe she should work toward standing and walking, although I have seen these displays late in the past, but something I typically treat would probably not anticipate any displacement as she has h ad these for a week with no sign of overt change at this time. May consider doing a repeat CT scan i n approximately 1 week with regard to her spine. I definitely do not see spine at all and the patien t and family are advised that does need to have a visit to a physician who does and definitely told h im of the signs and symptoms of cauda equina syndrome or radicular symptoms. They state they underst and things as presented. /DES Voice ID: [id number] Report ID: [id number]
[2021-12-31] MEDS: LEVOTHYROXINE SOD 0.088 MG TAB PO SCH (05:43)
[2021-12-31] MEDS: CODEINE 30MG/APAP 300MG TAB PO PRN ×2 (06:23→15:37)
[2021-12-31] MEDS: BISACODYL E.C. 5 MG TAB PO SCH (09:00)
[2021-12-31] MEDS: CEFTRIAXONE 1,000 MG in NA CHLORIDE 0.9% 50 ML IVPB SCH (09:00)
[2021-12-31] MEDS: FAMOTIDINE 20 MG TAB PO SCH ×2 (09:20→21:25)
[2021-12-31] MEDS: METOPROLOL TAR 25 MG TAB PO SCH (09:21)
[2021-12-31] MEDS: ENSURE HIGH PROTEIN 237 ML CAN PO SCH ×2 (09:26→21:26)
[2021-12-31] MEDS: CEPHALEXIN 500 MG CAP PO SCH ×2 (14:19→21:25)
--- NOTE | 2021-12-31 16:16 | RAD REPORT ---
EXAM DESCRIPTION: US - Urinary Bladder - 12/31/2021 4:01 pm CLINICAL HISTORY: Urinary retention/urinary incontinence FINDINGS: Prevoid bladder volume 184 cc No ascites IMPRESSION: Prevoid bladder volume 104 cc
[2021-12-31] MEDS: RIVAROXABAN 20 MG TABLET PO SCH (17:16)
--- NOTE | 2021-12-31 19:21 | PN ---
Date of Progress Note: 12/31/2021 The patient states she feels slightly better today. Her feet are a lot better. Yesterday, she was c omplaining of discomfort in the soles of her feet; however, she states today notices on the lateral a spect of the right foot. She is also urinating frequently and her abdomen is soft. Not sure whether she had a bowel movement in the past 24 hours. Her vital signs are stable. Rocephin was discontinu ed and she was started on Keflex. Discussed the case with her spinal surgeon, Dr. Medina in regard to whether she needs a decompression as her symptoms extreme pain in the back area and the i nability to weightbearing with possibility of requiring a decompression of the spinal stenosis. Diag nosis is more likely at this time than the sacral pathology. In this case, I feel that transferring her to a higher level of care for a spinal surgery evaluation is indicated and we will put this in mo tion today. HR/MODL Voice ID: [id number] Report ID: [id number]
[2021-12-31] MEDS: ATORVASTATIN 10 MG TAB PO SCH (21:25)
[2022-01-01] MEDS: CODEINE 30MG/APAP 300MG TAB PO PRN ×3 (01:40→23:47)
[2022-01-01] MEDS: LEVOTHYROXINE SOD 0.088 MG TAB PO SCH (05:53)
[2022-01-01] MEDS: METOPROLOL TAR 25 MG TAB PO SCH (08:41)
[2022-01-01] MEDS: FAMOTIDINE 20 MG TAB PO SCH ×2 (08:41→21:06)
[2022-01-01] MEDS: CEPHALEXIN 500 MG CAP PO SCH ×2 (08:41→21:00)
[2022-01-01] MEDS: ENSURE HIGH PROTEIN 237 ML CAN PO SCH ×2 (08:42→21:00)
[2022-01-01] MEDS: BISACODYL E.C. 5 MG TAB PO SCH (08:43)
[2022-01-01] MEDS: RIVAROXABAN 20 MG TABLET PO SCH (18:17)
[2022-01-01] MEDS: ATORVASTATIN 10 MG TAB PO SCH (21:06)
[2022-01-02] MEDS: LEVOTHYROXINE SOD 0.088 MG TAB PO SCH (05:16)
[2022-01-02] MEDS: CEPHALEXIN 500 MG CAP PO SCH ×2 (09:02→21:00)
[2022-01-02] MEDS: FAMOTIDINE 20 MG TAB PO SCH ×2 (09:02→21:00)
[2022-01-02] MEDS: METOPROLOL TAR 25 MG TAB PO SCH (09:02)
[2022-01-02] MEDS: ENSURE HIGH PROTEIN 237 ML CAN PO SCH ×2 (09:03→20:18)
[2022-01-02] MEDS: CODEINE 30MG/APAP 300MG TAB PO PRN ×2 (09:10→20:16)
[2022-01-02] MEDS: RIVAROXABAN 20 MG TABLET PO SCH (17:06)
[2022-01-02] MEDS: ATORVASTATIN 10 MG TAB PO SCH (20:17)
--- NOTE | 2022-01-02 21:46 | PN ---
The patient states she actually sat on the edge of the bed for a brief time. It is the first time neel dyer has been able to do that. She states it was brief and then the severe pain kicked in. She still c annot do any weightbearing. The continues to be satisfactory. Urinary output is good, al though she is clinically a little bit dry. She is now eating well solids, but taking a fair amount o f fluids. Vital signs were stable and awaiting disposition. She has been accepted at [facility]. However, we will refer if the spinal surgeon Dr. Medina could evaluate her further at ; however, her situation at present is tight and she is on the transfer list. Depending on her progress the abilit y to transfer her and disposition will be made. HR/MODL Voice ID: [id number] Report ID: [id number]
[2022-01-03] MEDS: LEVOTHYROXINE SOD 0.088 MG TAB PO SCH (05:42)
[2022-01-03] MEDS: FAMOTIDINE 20 MG TAB PO SCH ×2 (09:07→21:55)
[2022-01-03] MEDS: CEPHALEXIN 500 MG CAP PO SCH (09:07)
[2022-01-03] MEDS: ENSURE HIGH PROTEIN 237 ML CAN PO SCH ×2 (09:08→21:55)
[2022-01-03] MEDS: CODEINE 30MG/APAP 300MG TAB PO PRN (09:08)
[2022-01-03] MEDS: METOPROLOL TAR 25 MG TAB PO SCH (09:08)
--- NOTE | 2022-01-03 13:40 | RAD REPORT ---
EXAM DESCRIPTION: CT - Head Brain Wo Cont - 01/03/2022 1:33 pm CLINICAL HISTORY: ams Headache, drowsiness COMPARISON: Head Brain Wo Cont dated 03/24/2019; Ct Stroke Brain Wo Cont dated 08/20/2018 TECHNIQUE: All CT scans are performed using dose optimization technique as appropriate and may inclu de automated exposure control or mA/KV adjustment according to patient size. FINDINGS: No intracranial hemorrhage, hydrocephalus or extra-axial fluid collection.Mild generalized brain atrophy is present with moderate periventricular and deep white matter chronic microvascular i schemic changes.No areas of brain edema or evidence of midline shift. Left vertebral atherosclerosis. The paranasal sinuses and mastoids are clear. The calvarium is intact. IMPRESSION: No acute intracranial abnormality.
[2022-01-03] MEDS: RIVAROXABAN 20 MG TABLET PO SCH (16:47)
[2022-01-03] MEDS ORDERED: DOCUSATE NA 100 MG CAP PO PRN (20:37)
[2022-01-03] MEDS: ATORVASTATIN 10 MG TAB PO SCH (21:55)
[2022-01-03] MEDS: ACETAMINOPHEN 325 MG TABLET PO PRN (22:11)
--- NOTE | 2022-01-03 22:25 | PN ---
Date of Progress Note: 01/03/2022 The patient continues to slow progress. She states she is still quite uncomfortable when sitting, bu t feels that she is able to do more than she could couple of days ago. There are no peripheral leg p roblems and she will stay in bed holding onto the rails. She also can sit up with the back being pro pped up, which is more than she could do a few days ago. Physical therapy has been continued. I fee l that at this stage conservative management is preferable to a surgical procedure and the patient ag anmol with this. Therefore, I feel she could be transferred to a SNF for further PT for the next 5-7 days and if progress is not being made then the possibility of surgical procedure will be rediscussed with the spinal surgeon. At this stage, I feel she could rehab with good possibility of avoiding th e procedure, which will consist of correction of the spinal stenosis. Vital signs are stable. Good intake and output. I feel could be transferred if bed is available. HR/MODL Voice ID: [id number] Report ID: [id number]
--- NOTE | 2022-01-03 22:39 | PN ---
Correction: Instead of being transferred today, she could be discharged today to SNF unit. HR/MODL Voice ID: [id number] Report ID: [id number]
[2022-01-04] MEDS: LEVOTHYROXINE SOD 0.088 MG TAB PO SCH (05:40)
[2022-01-04 06:03] LABS: Absolute Lymphocytes (CBC) 2.3 K/uL (0.7-4.9); Hematocrit 44.2 % (36.0-45.0); Lymphocytes % 31.8 % (15.3-44.8); MPV 8.2 fL (7.6-11.3); RBC Red Blood Cell Count 4.86 M/uL (3.86-4.86)
[2022-01-04 06:15] LABS: Potassium 4.2 mmol/L (3.5-5.1)
[2022-01-04] MEDS: ENSURE HIGH PROTEIN 237 ML CAN PO SCH ×2 (09:00→21:59)
[2022-01-04] MEDS: FAMOTIDINE 20 MG TAB PO SCH ×2 (10:31→21:58)
[2022-01-04] MEDS: DOCUSATE NA 100 MG CAP PO SCH (10:31)
[2022-01-04] MEDS: METOPROLOL TAR 25 MG TAB PO SCH (10:31)
[2022-01-04] MEDS: ACETAMINOPHEN 325 MG TABLET PO PRN ×2 (10:35→21:58)
[2022-01-04] MEDS: RIVAROXABAN 20 MG TABLET PO SCH (17:26)
[2022-01-04] MEDS: ATORVASTATIN 10 MG TAB PO SCH (21:58)
[2022-01-05] MEDS: LEVOTHYROXINE SOD 0.088 MG TAB PO SCH (04:47)
[2022-01-05 05:35] LABS: Absolute Lymphocytes (CBC) 2.2 K/uL (0.7-4.9); Hematocrit 45.8 % (36.0-45.0); Lymphocytes % 31.1 % (15.3-44.8); MCV 93.6 fL (80-100); MPV 8.9 fL (7.6-11.3)
[2022-01-05 05:48] LABS: Potassium 4.3 mmol/L (3.5-5.1)
[2022-01-05] MEDS: ACETAMINOPHEN 325 MG TABLET PO PRN ×3 (06:12→23:16)
[2022-01-05] MEDS: METOPROLOL TAR 25 MG TAB PO SCH (08:25)
[2022-01-05] MEDS: ENSURE HIGH PROTEIN 237 ML CAN PO SCH ×2 (08:25→21:00)
[2022-01-05] MEDS: DOCUSATE NA 100 MG CAP PO SCH (08:25)
[2022-01-05] MEDS: FAMOTIDINE 20 MG TAB PO SCH ×2 (08:25→21:30)
[2022-01-05] MEDS ORDERED: BISACODYL E.C. 5 MG TAB PO PRN (16:32)
[2022-01-05] MEDS: RIVAROXABAN 20 MG TABLET PO SCH (17:19)
[2022-01-05] MEDS: ATORVASTATIN 10 MG TAB PO SCH (21:30)
[2022-01-06 04:07] LABS: Absolute Lymphocytes (CBC) 2.4 K/uL (0.7-4.9); Hematocrit 45.3 % (36.0-45.0); Lymphocytes % 31.2 % (15.3-44.8); MCV 94.1 fL (80-100); MPV 8.9 fL (7.6-11.3); RBC Red Blood Cell Count 4.81 M/uL (3.86-4.86)
[2022-01-06] MEDS: ACETAMINOPHEN 325 MG TABLET PO PRN ×2 (06:10→17:21)
[2022-01-06] MEDS: LEVOTHYROXINE SOD 0.088 MG TAB PO SCH (06:10)
[2022-01-06] MEDS: ENSURE HIGH PROTEIN 237 ML CAN PO SCH (09:00)
[2022-01-06 09:53] VITALS: O2SAT 93
[2022-01-06] MEDS: METOPROLOL TAR 25 MG TAB PO SCH (10:07)
[2022-01-06] MEDS: DOCUSATE NA 100 MG CAP PO SCH (10:07)
[2022-01-06] MEDS: FAMOTIDINE 20 MG TAB PO SCH (10:07)
[2022-01-06 17:04] VITALS: BP 114/74; TEMP 97.8
[2022-01-06] MEDS: RIVAROXABAN 20 MG TABLET PO SCH (17:21)
== END 2022-01-06 19:48 | DRG 552 ==
LOC: ER 11:05 → ERHOLD 15:09 → 4TH 20:21
PROVIDERS: ADMIT Family Medicine; ATTEND Family Medicine
DX: S32.10XA Unspecified fracture of sacrum, initial encounter for closed fracture (principal); I48.20 Chronic atrial fibrillation, unspecified; M48.061 Spinal stenosis, lumbar region without neurogenic claudication; E03.9 Hypothyroidism, unspecified; I25.10 Atherosclerotic heart disease of native coronary artery without angina pectoris; I10 Essential (primary) hypertension; E66.9 Obesity, unspecified; S30.0XXA Contusion of lower back and pelvis, initial encounter; Z88.1 Allergy status to other antibiotic agents; Z68.38 Body mass index [BMI] 38.0-38.9, adult; Z79.01 Long term (current) use of anticoagulants; Z86.73 Personal history of transient ischemic attack (TIA), and cerebral infarction without residual deficits; Z79.890 Hormone replacement therapy; Z79.899 Other long term (current) drug therapy; Z20.822 Contact with and (suspected) exposure to COVID-19; W18.30XA Fall on same level, unspecified, initial encounter; Y93.01 Activity, walking, marching and hiking; Y92.9 Unspecified place or not applicable
CPT/HCPCS: 36415; 70450; 71045; 71260; 72125; 72148; 74019; 74177; 76857; 80048; 80076; 81003; 83036; 83690; 83735; 83880; 84443; 84484; 85025; 85610; 87077; 87086; 87088; 87186; 87811; 93005; 97110; 97116; 97161; 97530; 99285; A9577; J1100; J1170; J2270; J2405; J3010; J7030; J7040; Q9967; U0003

== ENCOUNTER 2022-09-15 18:12 | Emergency (ER) | payer OTHER ==
--- OUTSIDE RECORDS SUMMARY | 2022-09-15 18:15 | XMS REPORT | Continuity of Care Document ---
:1935 Author Organization [facility] t Address [address] [place] [address] Care Team Providers Name Role Phone Abi Cuba MD Primary Care Physician [phone] SYSTEM, PROVIDER NOT IN Attending Clinician Unavailable Rex Beltre Attending Clinician REX HOLCOMB Attending Clinician Unavailable Joe Peterson RN Attending Clinician Unavailable Abi Cuba MD Attending Clinician Tonya Quick MD Attending Clinician Shyam Willoughby MD Attending Clinician Pamela Miller MD Attending Clinician Samuel Pickard MD Attending Clinician Victoriano Nava MD Attending Clinician GE DIAZ Attending Clinician Unavailable REX HOLCOMB Admitting Clinician Unavailable GE DIAZ Admitting Clinician Unavailable Payers Payer Name Policy Type Policy Number Effective Date Expiration Date S ource Problems Condition Condition Condition Status Onset Resolution Last Treating Co mments Source Name Details Category Date Date Treatment Clinician Date Stroke Stroke Disease Recurre [address] [facility] ([facility]rebrum[facility] (cerebrum) nce 5-10 Barbara kes 00:00: Medical 00 Center Allergies, Adverse Reactions, Alerts Allergy Allergy Status Severity Reaction(s) Onset Inactive Treating Comm ents Source Name Type Date Date Clinician Penicill Propensi Active Unknown - Uni vers ins ty to See comments 9-10 ity of adverse 00:00: [place] reaction 00 Medical s Branch LEVOFLOX DRUG Active Unknown-Cmnt Un víctor ACIN INGREDI 9-10 ity of 00:00: [place] 00 Medical Branch PENICILL Drug Active Unknown-Cmnt Un víctor INS Class 9-10 ity of 00:00: [place] 00 Medical Branch Levoflox Propensi Active Unknown - Uni vers acin ty to See comments 9-10 ity of adverse 00:00: [place] reaction 00 Medical s Branch Levoflox Propensi Active Univer s acin ty to 5-18 ity of adverse 00:00: [place] reaction 00 [facility] Penicill Drug Active Swelling Other Univer s ins Allergy 5-10 reaction( ity of 00:00: s): [place] 00 Shortness of [facility] breath, n swollen Cancer tongue Center Penicill Propensi Active [facility]10 [facility] adverse 00:[facility]: Medical reaction 00 Center s Penicill Propensi Active [facility] to 5-10 [facility] adverse 00:00: Medical reaction 00 Center s NO KNOWN Drug Active Univers ALLERGIE Class ity of S [facility] Social History Social Habit Start Date Stop Date Quantity Comments Source History [facility] o f Alcohol Frequency [facility] History [facility] o f Alcohol Std Drinks [facility] History [facility] University o f Alcohol Binge Pa [facility] Exposure to 2021-12-11 2021-12-21 Not sure University of SARS-CoV-2 (event) 00:00:00 14:55:00 [facility] Alcohol intake 2021-08-28 2021-08-28 Ex-drinker University of 00:00:00 00:00:00 (finding) [facility] Tobacco Comment 2021-08-28 2021-08-28 Very light smoker Un iversity of 00:00:00 00:00:00 - consider social [facility] smoker [facility] Center Alcohol Comment 2021-08-28 2021-08-28 occasional social Un iversity of 00:00:00 00:00:00 - not in last 30 [facility] Cigarettes smoked 2021-08-28 2021-08-28 Univers ity of current (pack per 00:00:00 00:00:00 [place] Chloe Lew ) - Reported Cancer Ce nter Cigarette 2021-08-28 2021-08-28 University of pack-years 00:00:00 00:00:00 [facility] Tobacco use and 2021-08-28 2021-08-28 Smokeless tobacco Un iversity of exposure 00:00:00 00:00:00 non-user [facility] [place] History of tobacco 1954-04-13 1972-04-12 Smoker Univer sity of use 00:00:00 00:00:00 [facility] [place] Sex Ass[birth year] At [birth year] Universit y of 00:00:00 00:00:00 [facility] Smoking Status Start Date Stop Date Source Tobacco smoking [facility] [place] consumption unknown Medical Bran ch Ex-smoker 2021-08-28 00:00:00 2021-08-28 [place] o f Pa CORTEZ 00:00:00 [facility] Medications Ordered Filled Start Stop Current [...] tablet 12/21/21 at 1500, BERTRAM acetaminoph 2021- No 4647 1{tbl} Take 1 U nivers en-codeine 12-21 tablet by ity of 300-30 mg 00:00: 04:59 mouth [place] tablet 00 :00 every 6 Medical (six) Branch hours as needed for Pain (scale 7-10) for up to 7 days. Indication s: acute pain cholecalcif Yes Take by Uni vers alicia, 5-18 mouth. ity of vitamin D3, 13:34: Pa (REPLESTA 51 ORAL) [facility] cyanocobala Yes 2500mg Take 2,500 Univers min, 5-18 mg by ity of vitamin 13:34: mouth [place] B-12, 51 daily. (VITAMIN Anderso B-12 ORAL) [facility] cholecalcif Yes Take by Uni vers alicia, 5-18 mouth. ity of vitamin D3, 13:34: Pa (REPLESTA 51 ORAL) [facility] cyanocobala Yes 2500mg Take 2,500 Univers min, 5-18 mg by ity of vitamin 13:34: mouth [place] B-12, 51 daily. (VITAMIN Anderso B-12 ORAL) [facility] cholecalcif Yes Take by Uni vers alicia, 5-18 mouth. ity of vitamin D3, 13:34: Pa (REPLESTA 51 ORAL) [facility] cyanocobala Yes 2500mg Take 2,500 Univers min, 5-18 mg by ity of vitamin 13:34: mouth [place] B-12, 51 daily. (VITAMIN Anderso B-12 ORAL) [facility] levothyroxi Yes Univer s ne 4-04 ity of (SYNTHROID, 00:00: [place] LEVOTHROID) 00 88 mcg Anderso tablet [facility] levothyroxi Yes Univer s ne 4-04 ity of (SYNTHROID, 00:00: [place] LEVOTHROID) 00 88 mcg Anderso tablet [facility] levothyroxi Yes Univer s ne 4-04 ity of (SYNTHROID, 00:00: [place] LEVOTHROID) 00 88 mcg [facility] metoprolol Yes Univers succinate 4-03 ity of (TOPROL XL) 00:00: [place] 25 mg 24 hr 00 [facility] metoprolol Yes Univers succinate 4-03 ity of (TOPROL XL) 00:00: [place] 25 mg 24 hr 00 tablet [facility] metoprolol Yes Univers succinate 4-03 ity of (TOPROL XL) 00:00: [place] 25 mg 24 hr 00 [facility] atorvastati Yes Univer s n (LIPITOR) 3-10 ity of 10 mg 00:00: [place] tablet 00 [facility] atorvastati Yes Univer s n (LIPITOR) 3-10 ity of 10 mg 00:00: [place] tablet 00 [facility] atorvastati Yes Univer s n (LIPITOR) 3-10 ity of 10 mg 00:00: [place] tablet 00 [facility] Xarelto 20 Yes Univers mg tablet 3-07 ity of 00:00: [place] 00 [facility] Xarelto 20 Yes Univers mg tablet 3-07 ity of 00:00: [place] 00 [facility] Xarelto 20 Yes Univers mg tablet 3-07 ity of 00:00: [place] 00 [facility] levothyroxi Yes 75ug Take [address] [facility] [facility] ne 5-13 mcg by [facility] (SYNTHROID, 14:48: mouth Medic al LEVOTHROID) 48 Every Center 75 MCG morning on tablet an empty stomach. rivaroxaban Yes Take by [facility] (XARELTO) 5-13 mouth [facility] 20 mg Tab 14:48: daily with Me dical tablet 48 dinner. [place] metoprolol Yes 25mg QD Take [address] (TOPROL-XL) 5-13 by mouth Luke s 25 MG 24 hr 14:48: daily. Medi kitty tablet 48 [place] levothyroxi Yes 75ug Take [address] ne 5-13 mcg by [facility] (SYNTHROID, 14:48: mouth Medic al LEVOTHROID) 48 Every Center 75 MCG morning on tablet an empty stomach. rivaroxaban 2018-0 Yes Take by [facility] (XARELTO) 5-13 mouth [facility] 20 mg Tab 14:48: daily with Me dical tablet 48 dinner. Center metoprolol 2019-0 Yes 25mg QD Take [address] (TOPROL-XL) 5-13 by mouth Luke s 25 MG 24 hr 14:48: daily. Medi kitty tablet 48 Center metoprolol 2019-0 Yes 25mg QD Take [address] (TOPROL-XL) 5-13 by mouth Luke s 25 MG 24 hr 14:48: daily. Medi kitty tablet 48 Center levothyroxi 2018-0 Yes 75ug Take [address] ne 5-13 mcg by [facility] (SYNTHROID, 14:48: mouth Medic al LEVOTHROID) 48 Every Center 75 MCG morning on tablet an empty stomach. rivaroxaban 2018-0 Yes Take by [facility] (XARELTO) 5-13 mouth [facility] 20 mg Tab 14:48: daily with Me dical tablet 48 dinner. Center Immunizations Ordered Filled Immunization Date Status Comments [facility] e Immunization Name Name SARS-COV-2 COVID-19 2020-06-17 Completed Unive rsity of MODERNA 12+ YRS 00:00:00 [facility] VACCINE Branch SARS-COV-2 COVID-19 2020-05-20 Completed Unive rsity of MODERNA 12+ YRS 00:00:00 [facility] VACCINE Branch Vital Signs Vital Name Observation Time Observation Value Comments Source Systolic blood 2021-12-22 00:10:00 132 mm[Hg] Univer sity of pressure [facility] Diastolic blood 2021-12-22 00:10:00 96 mm[Hg] Unive rsity of pressure [facility] Heart rate 2021-12-22 00:10:00 96 /min [facility] Respiratory rate 2021-12-22 00:10:00 17 /min [facility] Oxygen saturation in 2021-12-22 00:10:00 94 /min [facility] Arterial blood by [facility] Pulse oximetry Branch Body temperature 2021-12-21 19:21:00 36.83 Nayely [facility] Body weight 2021-12-21 19:21:00 106.595 kg [facility] Systolic blood 2021-08-28 18:18:50 132 mm[Hg] Lyly sity of pressure [facility] Diastolic blood 2021-08-28 18:18:50 86 mm[Hg] [facility] of pressure [place] MD [facility] Heart rate 2021-08-28 18:18:50 66 /min [facility] MD [facility] Body temperature 2021-08-28 18:18:50 36.89 Nayely [facility] MD [facility] Respiratory rate 2021-08-28 18:18:50 14 /min [facility] MD [facility] Oxygen saturation in 2021-08-28 18:18:50 98 /min [facility] blood by Pa hankins Pulse oximetry [facility] Procedures Procedure Date / Time Performing Clinician Source Performed URINALYSIS 2021-12-21 22:22:00 Rex Holcomb [facility] TROPONIN I 2021-12-21 21:26:[facility]. METABOLIC PANEL 2021-12-21 21:26:00 Rex [facility] ([id number]) [facility] CBC WITH DIFF 2021-12-21 21:26:00 Rex Holcomb [facility] PROTHROMBIN TIME / INR 2021-12-21 21:26:00 Rex Holcomb [facility] N-TERMINAL PRO-BNP 2021-12-21 21:26:00 Rex [facility] COVID-19 (ID NOW RAPID 2021-12-21 21:26:00 Rex Holcomb [facility] TESTING) [facility] XR HIPS 2 VW LEFT 2021-12-21 20:03:41 Rex Holcomb [facility] XR PELVIS <3 VW 2021-12-21 20:03:41 Rex Holcomb [facility] CONSENT/REFUSAL FOR 2021-12-21 19:14:07 [facility]REATMENT [facility] PATHOLOGY BIOPSY 2021-08-28 18:43:00 Abi Cuba [facility] INTERPRETATION [facility] Center PATHOLOGY OUTSIDE 2021-07-03 00:00:00 Pamela Miller [facility] INTERPRETATION [facility] Plan of Care Planned Activity Planned Date Details Comments Source Future Scheduled 2022-09-05 COVID-19 Vaccination Uni versity of [place] Test 12:20:41 (3 - Moderna series) MD Atif guad[facility] [code = COVID-19 Center Vaccination (3 - Moderna series)] Future Scheduled 2021-09-13 COVID-19 Vaccination [...] Clinicians Facility Department ID 2021-08-13 Outpatient SYSTEM, [facility] [id number] 17:18:16 PROVIDER Elton pulliam 2021-12-21 2021-12-21 Emergency Holcomb, [facility] [id number] Univers 14:24:00 21:32:00 Rex GALVAN 350.1.13.10 i ty of WIN 4.2.7.2.686 [facility] [id number] [facility] 084 Branch 2021-12-21 2021-12-21 Emergency X HOLCOMB, [facility] ERT [id number] Univers 14:24:00 21:32:00 REX rodriguez [facility] 2021-09-05 2021-09-05 Telephone Malit, 1.2.840.1 [id number] Univers 00:00:00 00:00:00 Joe Barry 17526.1.1 i ty of 3.412.2.7 [place] .3.528183 .8 [facility] 2021-09-05 2021-09-05 Telephone Jhonnymonica, 1.2.840.1 [id number] Univers 00:00:00 00:00:00 Joe Barry 18196.1.1 i ty of 3.412.2.7 [place] .3.417608 MD Anderson [facility] 2021-08-28 2021-08-28 Office Bereket, 1.2.840.1 [id number] Univers 13:30:00 14:03:55 Visit Abi 71629.1.1 ity of 3.412.2.7 [place] .3.869751 MD Anderson [facility] 2021-08-28 2021-08-28 NPR JENNY Quick, 1.2.840.1 [id number] Univers 13:00:00 13:00:00 Castaneda 31310.1.1 ity of 3.412.2.7 [place] .3.501439 MD Anderson [facility] 2021-08-28 2021-08-28 Travel 1.2.840.1 [id number] Univers 00:00:00 00:00:00 11009.1.1 350.1.13.41 ity of 3.412.2.7 2.[place].7.3.698 [place] .3.577205 084.8 MD Anderson [facility] 2021-08-21 2021-08-21 Lab Shyam Willoughby 1.2.840.1 [id number] Univers 00:00:00 00:00:00 Pamela Hall 35554.1.1 ity of n 3.412.2.7 [place] .3.009652 MD Anderson [facility] 2021-08-14 2021-08-14 Orders Neeraj, 1.2.840.1 [id number] Univers 00:00:00 00:00:00 Only Samuel 11519.1.1 ity of 3.412.2.7 [place] .3.759199 MD Anderson [facility] 2021-08-022021-08-02 [facility], 1.2.840.1 [id number] Univers 00:00:00 00:00:00 Orders Victoriano Fong 78285.1.1 ity of 3.412.2.7 [place] .3.110978 MD Manuel8 [facility] Results Test Description Test Time Test Comments Results Result Comments Source TROPONIN I 2021-12-21 22:14:37 Test Item Value Reference Range Interpretation Comme nts TROPONIN I (test code = 0.007 ng/mL See_Comment [Au tomated message] The [id number]) system which ge nerated this result tra [...] biotin. Lab Interpretation Normal (test code = 44170-8) [facility] [id number] 22:05:34 Test Item Value Reference Range Interpretation Comments NT-proBNP (test code 1390 pg/mL See_Comment H [Autom ated = 5761927035) message] The system which generated this result transmitted reference range : <=450. The reference range was not used to interpret this result as normal/abnormal . LISANDRO (test code = LISANDRO) Biotin has been reported to cause a negative bias, interpret results relative to patient's use of biotin. Lab Interpretation Abnormal (test code = 77880-4) [facility] / [id number] 22:00:01 Test Item Value Reference Range Interpretation [...] tions. Lab Interpretation (test Abnormal code = 94197-1) [facility] WITH [id number] 21:55:19 Test Item Value Reference Range Interpretation Comments WBC (test code = See_Comment [Automated 2890-2) message] The sy stem which generated this result transmitted reference range : 4.30 - 11.10 10*3/?L. The reference range was not used to interpret this result as normal/abnormal . RBC (test code = See_Comment [Automated 789-8) message] The sy stem which generated this [...] RDW-SD (test code = 45.1 fL 39-49.9 36372-6) RDW-CV (test code = 13.2 % 12-15.5 788-0) PLT (test code = See_Comment L [Automated 777-3) message] The sy stem which generated this result transmitted reference range : 166 - 358 10*3/ ?L. The reference r jessi was not used to interpret this result as normal/abnormal . MPV (test code = 10.5 fL 9.5-12.9 08657-4) NRBC/100 WBC (test See_Comment [Automat ed code = 3211564848) message] The system which generated this result transmitted reference range : 0.0 - 10.0 /100 WBCs. The refer ence range was not u sed to interpret th is result as normal/abnormal . NRBC x10^3 (test code See_Comment [Auto mated = 4221226892) message] The s ystem which generated this result transmitted reference range : 10*3/?L. The reference range was not used to interpret this result as normal/abnormal . GRAN MAT (NEUT) % 63.8 % (test code = 770-8) IMM GRAN % (test code 0.40 % = 0018528219) LYMPH % (test code = 23.1 % 736-9) MONO % (test code = 9.6 % 5905-5) EOS % (test code = 2.7 % 713-8) BASO % (test code = 0.4 % 706-2) GRAN MAT x10^3(ANC) 4.47 10*3/uL 1.88-7.09 (test code = 7032304588) IMM GRAN x10^3 (test 0.03 10*3/uL 0-0.06 code = 4876080424) LYMPH x10^3 (test code 1.62 10*3/uL 1.32-3.29 = 731-0) MONO x10^3 (test code 0.67 10*3/uL 0.33-0.92 = 742-7) EOS x10^3 (test code = 0.19 10*3/uL 0.03-0.39 711-2) BASO x10^3 (test code 0.03 10*3/uL 0.01-0.07 = 704-7) Lab Interpretation Abnormal (test code = 33993-1) [facility] ([id number])2021-12-21 21:51:38 Test Item Value Reference Range Interpretation Comments NA (test code = 137 mmol/L 135-145 4076838294) K (test code = 4.2 mmol/L 3.5-5 3962245103) CL (test code = 100 mmol/L 98-108 2300340287) CO2 TOTAL (test code = 33 mmol/L 23-31 H 1069212655) AGAP (test code = 2-16 2084449807) BUN (test code = 15 mg/dL 7-23 5523469681) GLUCOSE (test code = 102 mg/dL 70-110 4831195859) CREATININE (test code = 0.83 mg/dL 0.5-1.04 4247280935) TOTAL BILI (test code = 2.4 mg/dL 0.1-1.1 H 2773427316) CALCIUM (test code = 8.9 mg/dL 8.6-10.6 2218253409) T PROTEIN (test code = 6.6 g/dL 6.3-8.2 6962525168) ALBUMIN (test code = 4.0 g/dL 3.5-5 4432708050) ALK PHOS (test code = 101 U/L 34-122 8553359748) ALTv (test code = 20 U/L 5-35 1741-6) AST(SGOT) (test code = 32 U/L 13-40 9010198419) eGFR (test code = mL/min/1.73m2 0609901166) LISANDRO (test code = LISANDRO) Association of [...] tests). Lab Interpretation Abnormal (test code = 93450-8) [facility] Bi[facility] [id number] 12:13:37 Test Item Value Reference Range Interpretation Comments Correction History (test c4obpKSnIZPehOX2HLM code = 9843) bTDCdw2fcx5EwzAHnoE BwMBpwoDTqdkCezp71y OC7lQ98FW1pPYAwGtG6 LXGbrsX3Tvh8WGZsBQQ kpLGgU700c2cqs8jpmw WujMD3hSqgLCPhybtwQ zJ0LWvgYVBrjqgcZZl5 ERaxHUNqxLG8CEKseOV uC1EsCIWqRA2epnf3NU C6FQktFSYgHdA9GUDhj ENxHSBdsPqcTTnvh945 NUC3BnSbMMEchsMzgJp jkB2oUxUjQRETaZukGT XeeM1qgEYxRRFhIoSys iNfqTHaVGAkFBL2PIGs Ju6mC9MaLJztzcNmdrU iCK0oFy0uYRVzQCGdJW KaysVuF6HbMRD4jYKiA 7ZazPtrX9RoWGEybq7l WFopZDDhmZ0tlgYkUlT bmCRdVVZ3xBRhwOWejD LijiD1oIJkmSNuGIUhG HDhD6UmNPg1mJ9sGNvq LLIqeKFwXMIkv4O8MVy jh7DozBwaxsPdPBNlBT AamAMruv1vgXYzqfDaD IiqtbTyqIwspzwrc4Jy YXMgcHJldmlvdXNseSB ocYP3GPInXOUhy7FrrU Jqs2LdVMRij85wpI5pC 7Q5TKVbrM6uKBHuBK7p T6RzkexfkuMbKP7pQQL JSD6epQd1YVW8ZTGuBK cbJU9sBBM0WpC7XzIvZ jIuXHBhcn0= Submitted Clinical History q5cclZGrIVGzzRH4RTC (test code = 05883) xTDCon7wug7ZlbVZpjK OdPGzbiTQjlpSxoe99g QG3fZ21YB1eSMMnIfX3 ZHXsnjV6Ege6GQHeLYM tjMOzC555v9eez3ejif PfxNY3nBhjHHIgysysT uI3JNpwOQVzlktgCBd3 NEjhCXRpaDT5ZKIqxRT aA8PgTVSxZS0mbrw6SO O1GZmeBHLyHjQ1ZGZbm VQvKSLonFnnIHkey742 HCC4EhMcHBGikmZvmVs mdX9fDnRsPDIHBcOVcF XbxJ36qmYmQJnvULHkw nSlww2dNGV7vkCpcnRo aWdvIHZzIHNjYXIgXHB aezDZRW3dvVCxaSXgHs X9kaHdwaIcbN8jJiAdE THzb6Ypy9Six4sswfZu HID3GyUxDKWekj3= Diagnosis (test code = 34) l6yyaRGsXNSvvSO3YFJ fRRAtq3lpl8QcvNUerN OuFQdgqBFimnYqsi01r QV3rR53AO0qRFKpHmS0 TFUvbpN5Lgd6KQTfNIU ouPKeL826r6uyh2ypgo ZeqMG6TVYbULZgG1XnX X8jTPCeaTDzD92bjFTb SML7YRZjCCHlrJGeOKI zFZV8DLPwqWGyD9ekRH ZjEW2orwomIFysBScoM AOgkNC7IPFwkBOhU7Fc AMBqFGqfPWExurz1VnV bXe6syZXcrIgsUTrxAP JkXHBsYWluXGZzMjBcY 2VqETD6EXKenV2wDXqu ZnQgcHJveGltYWwgcHJ ezXauwCKmZRQ4enZlLd gwQSEaeQh3ImIjmBsrL zIwXGNmMCBEZXJtYWwg Lcunqq1eeXUzfT6kxCs dEIZxH1afeu01fdCfs7 Raq0Nib9xkTEGqMDFhK 7SlksmuKBMmXO6hUZXr IHByZXNlbnQgYXQgdGl gw4GlYGXhR6BiYaJ9qg FgvHv1v3GmzQCjoKLwe S67fmUnHQlcIZZijuKw ba1iXPBgu3FpwWIujcM tFyajGM5jdEniDKTNAX FwQ11mfEIovI5ynGFid Q== Comment (test code = 9835) k3ykgKFhBWDhlEI0IAT tPHYto5nja1DxuKJwiN BcRHlnhGSqdkWwre03h EF3iS36GL6zJIKkDaE8 WHXigrN8Sgd7CENlFWC krFZzF399u7acj1xhwd GutMV4lIzlQGOruqyoI xX4YPwmDPFusojbYWh8 BNshKNQmwCM3OULzjSN hW3SaSOXuNO5jgfb7QC H2LKxjKFZzEvR2CUOeo SUuRGXvtDjrMNriz927 XKH2FmIePRTblwQrqCx sdO3bDgFuVHNBJEM4iO 9ucyByZXZlYWwgYSBwd V5nqYXbtU9bu7qox5Oq g4msndI8ojKeutPqoWV lIMA1jZNsNwvawANtPG L3NrE2jKyxATWps2bht mcgZGVybWlzIHdpdGgg q4OxAMXqsQDlKSlbTNF joPUoSYIfRiTta8xqRM wzAFEeEgSwa9mxo9IdY UHtNtAkbLNzlRUoM9fx mmceylEwrpAeAs9kZKx iVJFuvCBmOEP5qjI1ht XnCBKNLFWnDTSipc7qq ANnzvAaioQ6hLYxSUao AP5kqE1wbIjilBYwWZM dBW7diWGiLNHmxqQsh7 KcA4gfpEyoccG6vFYjU HNwYXJzZSBwZXJpdmFz N2OyMUJilRkkbKtkxEm xsVriV5b0iOPsdI2frT x2euD5ZI2sXRYbBRs9r M0zBIunLNOpgXQtDEAz z4T5UJQiYHR6mG5mryK fULMaQFDiZN3dV1J7XC DeWIVxvPMzoV4zIThcp B7enEHtzb9sPIncXLI8 uOyeBDtfl8J3NU2pjON gcHJvbGlmZXJhdGlvbi NbtjZnl1QtmABbxmYeR qabTJ5nKHYbPLVlg9Wd NcToF3owWZMhtBnnSnW sxGBlvcYqVGxonbB7xq UmJIOmXDnyfA1oyWCby i4sKGkcQtQdM0MgPH3a Q3MubOMemfF1wCTglI7 mmrghYzhoFJPln1M7AS BvciBiYXNlbWVudCBtZ C6mboQxJOG0pIxpa6Ex xM2sLkFpvBOcsW== Gross Description (test w0bcdQXmGSIvzQQCLFk code = [id number]) wMVxhbnNpXHNwbHRwZ3 UzlgoiHChlFB8dPP5xg VlewKDwvGSfAN6FNLKr ZmYxXHBhcGVydzEyMjQ aSOVhiNBgzVM6XTQqAU 1hcmdsMTgwMFxtYXJnc dE2DPYamJXaV5EwMDUf AD9jehyrKMF3WWqsfE8 jayMMXytyGk0ujLOszX tcZjFcZmNoYXJzZXQwX QDfaTdoLSEqWOw6cV6R WxvoF31vz9R0Xmq3PSE tQNWyJ5OoEG4tSRHpdL JpP77JCobtYHV6BNQZB howLHFgYY3Yj3wmHHFu fXXhUAP4WHjevDBdJPG zXDViMLc1XLBeBTrcqR RlPS3mcSvjSpyjjBydo 2VjdCBcXGlkIDUxMDAy ZJbxIBArTE8NYsBoHQJ tNZO3YadxYRe7YGw2UQ 3YOnEvBONaMUZ8RNNwA tXpGHk8CQbyUI7JOAYh UBO9GKCeFPOyYOBwHOP hDYk8IWMaXIfeDSCpaU FsIFxcZnMgMTAgXFxmY qYwYQDzEFbiruU6XOFa YWluXGJcZnMyMCBBOlx zGQSeZEbdjIpneW1cAH HiD41dj0UGb3RrLL4LG Hh7ntGvxdpibZ3yIFMo bhYbZTlzyFFtE7jaDtn lCbLtMfDlAHEGc6erHR VmPOA4YKMly4kaxLShT HByZXRpYmlhOlxiMFxj ZjAgIEEgcGFsZSBwaW5 gJWWniK9qmQTqX0svKv cuoQS5QU5pGFG7mmqkI cVlEhWhC90qhX7hUBfw zOO7LIDjCI9pINTkEMX zyXOxmqGmGBF3qI8iMU hlIHNwZWNpbWVuIGlzI Mbqh5KqSFHmoJNpW7Gy GDplKN83iKMrhNpif6P coOi8fNUkKDrxTGEjEq LlFKYwb0NqQ3I3FVGtY Gfpi7xzBREpOSfdb9Sb USnHUUMBCZ8ORX7vhCY 8FTpGO1HQD8bQrLVwNM P8xDK6NMVMXdqtmKJ0x BF3oG94CINdBPSctYZy IOjrM653D462HSXzASq ab9lhTQGpCNqwr0NqFL sAFZNGZM6PYB6pbCP9O BvDK5GXLSodZJNqVtzd kCODOAI8IOfooReaxLs 5f7xfpIGhu5j1KMqjUQ P1sUwlaSGtubzorUSjr OveuxWpWZ3ZEDGqgIOY JAP0FY3lEAu0PGmjXJM eB2MwE2PkvxMnyVOuVD HhsvCgj6qoSFB2GZLrg XVsdDBcZnMxNlxwYXJ9 FRZdORoiPK6ASLVsBVX 0RTxjoN33vMKfPL0HGP WcAXcwSIDiZUPvxcU5M QXroMLbFKL0OZ8biUsm mYIhvpvupcX0BV7GsU= = Biomarker Block(s) (test c9topDPmPBYfaIT3JEB code = 9841) kYFRon6wqg7FxeCPphU PnHHakfNWtdaKnjx59e OQ5gY98VV6yAXLwVnL0 BSIiukR1Tgi3AQTkZAY szBFlS484o0aop9kobn LgbXM0mYzxLYSlqoqfY gR0HHdeAUFrndszZYx5 KOxhIHSajQB7SWLnxUG gS4TbDSXpSD8pbsn6QQ U8JFboLMPmWjV1MBCdd LNoVYDurRhtZYgeg064 AMI9WgJiIAEianGnmQh zmD8nDmZoCEBHXAzdVI J9 Disclaimer (test code = [id number] 9819) qZOZnJZVnw9mbWIYnxJ FuZzEwMzNcZnRuYmpcd CUqUMPmLsWzf8fhi107 mBMkk8fpQPOmRnC4nFD vPEIphYWqA740BZRlIG pnh7quw0SaMNXymVOct 2O9AHTUfnnrpIr0yFvr K98qa9A9KsqnB6ouEGG lURMrB0JuXI8rOVOiLp t5WLK6HQI8QEJuQFKlC 0KgJA7sUCKcdVRvAMu5 b3rybCmmNRNyOHO2a4j eNInowmAyLI3oes5reP d5q8nhznKhBVLdEJSfh RILGNRwM4PlfOrnUy9p mQj0pKsuVlbpAIT8Rpx 3RG6bnh46lca4pSuhFQ PcgwexUbR5FQncBCHkm zhzTHm1DKicHTBugVL3 QFIodJHjM6CsBGWyDB8 xsqw8HTH1KQzoJOCoPx H1WQAzxSYvYONcvUqzY Aasc992NQU5FgGfHN9b L1Kwh3S6yM0jtGYnOOO yrAJnFfAdZLXtut3trV PeEFnhv8XgVCV7wyB1v ZTgfJPtEJRuME75Kaks c8UjAhyxPAT5DJLdqpY oc0Mpj9mbApVpqkRfJ9 fiK9VvTBAoGTPgMDJaF aMlolJkl3Vcb2GngWXu sWp5w0kcVPVsCRNqpBb tt3hiGEK5UAUgK4L2nV Dnq3woPTgyNJRndVA1z eH6PQChqVKwL2VhmT9s XMTjDP6dydb9l3ebHTL 1MIymZZUgFcO5ybV2PO BcaGVhZGVyeTcyMFxmb 830CBL2ZbWiUSKbc9Vf W5QycTlqK10nsPyxF20 zYWIusQzfqT8sgIdrsH 5cZjBcZnMyNFxxbFxwb MYwcweyLKasidJ5XJkf ozcyWXAxFGltR1lcSmS yZIAcrSecEDwmy4PrUU SuUNUhIvrahvP2BSQKp 71uVIQlb2NqZFUriO4j eUGaGHsvxhIieXY7KXd hdmUgYmVlbiBkZXZlbG 3xHMLeRA2fYWTgrqQph e3wchHiLSHdEXWzE0Nj cmlzdGljcyBkZXRlcm1 avuWrUMI8XUILJX5UOZ YfVLEgy88oBSRqfBdyg T1seLBqauHhXGXof8Dq jW1uqIQEZBItD1umUY8 xPRfjx0BcxXXlxXKtdT L9SGMco6NsRzXanaLib EIlqWAhI1SbdMvwM5sp KMPcYAAukrJvfIRli8V gIRNyvHU6iINpDD8VZm IGy57tTQVqXASObkSfQ KWvxKftyTV3ihU2uV0q LiBJZiBhcHBsaWNhYmx vFZWse375km6cxfQ8QA OfJQFfyfwns6UpQYGcG INfoN22EJLqQDPaoe0n bhszdYWdgyZhP7Hpdgr 9aQ3wOIImSBskBQWgGC ZzMjJcbGFuZzEwMzNca GljaFxmMVxkYmNoXGYx SKenZ7jjCcMvBzEmWfe wYXJ9 [facility] 2021-09-06 12:13:37 Test Item Value Reference Range Interpretation Comments Correction History (test x2pdrWSxSEWjlHR3RSN code = 9843) qDCHzd8nwv6WlxBZliJ MyCZnfnAMrsuZkyo65c TB0aO14PF6jMXEbWfQ4 SERnlhN9Ltk3ZPKtNLU kyBSeI416a1cdf7fcer MtpQV2rCpaGSJhciqeY rV8ATxsAEUgprmsIRq9 BIsqUIEauLX1ZWIwmRT iR8LsQAPaQK5pmdi1JJ E0ENezTPPpDkT3YELfa XIeQTUmtQhiHIuaq042 OUE2HoBmHBHilnFinZg wbE9oXiYtBFJClRwvHY AvxS8qxLBlGMRfAxDql kLbaPAuYQRoIZJ9GPJo Dr2mL9XrCTbkvjRxcjJ eAJ3cDr1nSTFzUKSoTU QyjnVbD6IkHSA0pQHoB 4ZbjSapL1YeUNOxak0w FPqoEFRqbC4jztQsRwK gcWBnLJZ7mKCeyJKycC AutuO4pKOpyEImZQUdV SYaJ3LzZIg3pA7aQQev PEUzxLUxDBIrz4E4QBq vn6LdlJroapFkTTFvFC YjiBWhhw5uyHPlwhOtI VxxffFscDzmpzrti9Bk YXMgcHJldmlvdXNseSB qaXP4ERXcSYMdk6SdiN Ajr1BaPNBfn47umU7lJ 9O5EMXumC2kVUIvSA6o S2JdktkzsoHuUF1lGZA JNI0qxUa7QKY8GBToHO alGN2nDEM8PlM2CoWmO jIuXHBhcn0= Submitted Clinical History m2qvjQHeXAYydGC7WQG (test code = 28167) fBABge7ufs3ShzBAgiB RaIQmqmKXtaxEumz99i QX5qS61XN4pYMVuTrT9 VURdeqI7Fwv0WPXjCDD quRWwB512i8hxx6zxpj WthAY1zAerPYOlziqsH zX8QDzlDZMkpzvmQPj3 JFapJWDzeCN8CXPuuMG gE3SzTBZySL9obys1JH V8PJvuJJYpQsM9ADJsq XToGMKbkIcfNKcqg692 ZTN0GnOqJDUtzsOyhDi dwT3uLpXfCXRGLkKNyS QgbD30lcJgNRkeMPUvs mQsnw1tPKO5rtNiruGk aWdvIHZzIHNjYXIgXHB rtdEMNO5coSHqfISmAv N0lsVmbqPjjK4wVlLvZ BXaw6Kfj1Erc9dxjmRh DDN6YwXtPFAzzw0= Diagnosis (test code = 34) j7nvgQKuNEQtrOK7LZP kGTWiu2tog4UbzVElfB KwQNocnZWjncBltc72z RT0tG14IS7aJQUeMaE4 RBTnisO8Vrq4CIBqAWB sdASrC793z7ota3hisw YzsBW3RJViGVJdE3QuC F8kFSKaeYJdV51xuNPa POR1EFRfZLKefMWdOTN bQNP2ELDykUUgU5euGA LcBZ7lfldyATijIBxbA PTjyTK5PIUtyNBhT3Sl YQNtJQkqHMKeplv6GaR tOb6cgHBakZyeUMjlUY JkXHBsYWluXGZzMjBcY 0NeINI7ZOSjxQ8mEMnl ZnQgcHJveGltYWwgcHJ fhPzcfWQoXUT5ozBsDd csCFAqdYv5QhKwiLflK zIwXGNmMCBEZXJtYWwg Wpgpub6vbHYteW8haBh oAELwK0oetf90qrKdg1 Ovy8Gnz7duDTTgIABuC 5SpncqoINWaNQ0cWVTv IHByZXNlbnQgYXQgdGl nh4OpQSYwN9XlLpT9xx DbeXs6o1HtuYBmdIKuk T64boWnQYkuIYIfsuXl km5lIKZnh9DmhVYwzrY zSfayDK6abIkwVDBLLP GxE67odOHziP7loSYhb Q== Comment (test code = 9835) a8wkdBBmPSLvaMY4WUQ jGYOhk5tkf3ZssKOfxA XvVPgxiCPxoaAjbl76q RO2gI67AC2aIRVqXuW5 RKLkoqN7Qip1IGNkSBP hoTExO985i4nsm5ncud MvwIV4qQleAPBlskviK eY4GEnfYKQytemnDPo5 GCqzJKUqjXY8KFTecBV nZ1QsHLKgIZ3ygza4KN S6QLzhYUJyYgA0VDAws CRqDPQdbQesFRxib508 WWK5TvCwNFVkkwNayDl elY8cOqIzIZHWCNO6bS 9ucyByZXZlYWwgYSBwd Q6htIKubD6wn4ysd7Ob e2ouyxU1rwObhdRwbZL sPNP0xETmWfxuuKIcCB C8YmQ6qDfmVBHis2qnk mcgZGVybWlzIHdpdGgg q2NbFWMkzLJeSEomBYV nrYDhTHCfAjIew1jbYL tgSEHcYtAod8zyp8WyL GGdAfLurNIflCVeQ3se ocqhjfIpfeTlCu9jEKb gQBCbsELvHID0cdE4fh XvSBNDJUVnIQYvgx9hx TJlwbZsshB6rBFaIUyw RG9jtQ1ksUhuvKQsGGY rQH4urHFxCNRvagFnu8 GvN1olbQmcyxN8cUIzQ HNwYXJzZSBwZXJpdmFz F7AvPFIseOfuuQhrtEz mvWfgZ6a0jMPktL1tcZ y1amU8XI5yRNClTSg0t M8xDIhuVYNkxVRaQHOs n0Z0BIZpROD1cW8mjeF fORJxKVAbZU9sF8I1WB IqARTwiPMeuX0oOJmxe N9nhQSgew0nKYikTAG4 iNarJKzoz6N8BA2afUC gcHJvbGlmZXJhdGlvbi FxmjPhc4DdwUDoasIyP wanEU3iYGDpVJNjj9Rl UnEjN4srSHKbbImkTjS xgZOftfEoCCaicgD3qi TbXYVeFYialL3haVCxi w3xCWzmYyQpK6WwWU2i O5GozUPnqxO5nWKzoN1 pyrrlSkzgWEQzp7D1CN BvciBiYXNlbWVudCBtZ Z5bikElJVT9qOxem7Ne kZ5uXaZyiWNgaI== Gross Description (test y5ckmAJqEZDhfZUSDFp code = [id number]) wMVxhbnNpXHNwbHRwZ3 MccrveTEnoTO2nVD9zb OnmdLHrvDHjQF7UXOSx ZmYxXHBhcGVydzEyMjQ hDPCujTWpqEF1OXVpZC 1hcmdsMTgwMFxtYXJnc iY2IPPmlQTyW3LeCYVb GK6yikyhENV0GKzzlR5 ghyYNNevkCr7gwENeeI tcZjFcZmNoYXJzZXQwX OKolUzoRYQcJOj2zW6G CuqeY06iq9K1Rpk9QKZ pOASdH7LbNH5cEQUenG GiT09FKvusLSJ4MVYKO pcbKSNiQZ8Af1sfTSLz tODgLNS9YJrgvFOaURM cTPJcMDw9RJXkSNclbY OkZV1uhBwrYhwfyEdgd 2VjdCBcXGlkIDUxMDAy PWtfUSFfTB4PAfMfFPD cMJV5VyufTKq2RPj7QM 0ZVpCuNZGfOLC7MCFcR jPvQFi8SWnuJZ5KXTKr LSC9XKKsYKFvQBLfEAB zDZc6QDDeYRriDTVvxP FsIFxcZnMgMTAgXFxmY eUlUCDvLTfcupV5CENm YWluXGJcZnMyMCBBOlx wFGDgFOfyjRpqdU7xJK FhL90zh8IIj8BbDH4IJ Rg9jkKoasjcnT8dUCJs ktAtOGxrfSQnU6gqMkx aYgNpNkMbCYUZp8uoIU AkMCU6LEBms8hfxDCxX HByZXRpYmlhOlxiMFxj ZjAgIEEgcGFsZSBwaW5 tFKCwlC7ysPPbJ4xxMy jvtLO7HI5rLHT9comfA bIeThDbN11mjC6fNSbr xZA0IHFtNK4gMDFxPKK fnFFtkdObTHZ1sA2nPA hlIHNwZWNpbWVuIGlzI Rglz9CnHDEqzJLvI2Yd MZtvNS87gNLtcEpkh2S xrLf6bVGyWDefBLFoJj TlVSSxd5WjX9H6NTUiM Ghjs4rmLPJwAVcmd6Ws OLsUUPSCLE6XRW0vhZE 0SRdJJ0DAO4pKaJGaCT X7xNX3WMFJRksomHD6d IX8oI29WVJjMMUtnMXq QYmtU786X261KEPcNVp yl9meACEwODszy5SeCY mEXGTSHM6HCY0qgDK3J NlVX6ZNAVzjGJWuMsrm kYWHNVJ6XQnthFwrnKa 0f4gajEHon0j0RPxvHV O6hYnefMNiuljsyAQdg MsmsgTzSE7QSSNotWMR RHV0GP7jCTz6AZigWFU zF9ZtP3TsmiWckLJpBN CysvVpg5gvHEI5TBHpg XVsdDBcZnMxNlxwYXJ9 LMApIDsmAF6GYMXeKKE 1SMvnbV85vRLzGR6RUV ZgLWmkNGRoBFMiqpV1I GWurRIyXMP5CB0ylMmr rCKmtqljldU7BP2ReB= = Biomarker Block(s) (test m2qooREoUJDnmBN4QQP code = 9841) cJOBpt2cmq3PtyNXzyS PgQGyrlUMqptRipm90m UI5xS48UT1iKVSqRjV5 VBVtfpD0Ezg3HKCiSMR miTWpZ540z0vez6hnrf MnjZV1mFvfWHNkiwfcR vU5YOjbDDWwaukwJYw9 LZygWTTlzGK3PEWkoEG qZ8IiEDDmJD1zvio5ZT M1NVesXIMkRtI0UDTwx ZPjXIBvoGdsLAysg472 VAQ5TgBcYBPzeoUpiVf olM9zGpMmQWCXJYglFO J9 Disclaimer (test code = u9ouoNNhABJtcMLlIuU 9844) yGTAqVSUcl0ulYSUheD FuZzEwMzNcZnRuYmpcd LZoNYXlTiQac7hhd133 gLKxp4igTYSpOkR3zES vLOItzHGpE085IBCgXY ble2lmz7RjOZAbfSOns 6R7JYOJkirtmQn6oBzs X53bk6G5UuqwW5bsNQK zBDEdA4JbDC4yGRQlKv j1BGL1KIX0WIOkVQSbS 6NgYX0rKGRckPRxGBv6 e7zdzWbbNFCjFIU6h0s jCEassbVrAS1spi5flY a7j9kmmxCfYNRlAXLyp FEJDXJfN1HsgLrxHz7b dHr6aNjrVqacSBC7Upu 1JG5kpm84bpp2sJimVI OgqgsaQcC7NCtvOZRku btrCRz4EOjxXVYkvVW1 BTWqtYOpP8MmZYDgGX7 lskn6PLD5FYyjGNJePl O5EXQuiEHnKOTljXesK Yycw277VNY2BdCzUY4b V2Ius3Q8fC3lcFQzRXB hvUYbDnRoZQHslu8omK CvZStwg5XhLKZ3kiO7m RQcjWLkAHKaJW53Cwnk d6HvNyiuMNW8VENszwW av5Qwj3kcWaClovTzH3 zxZ8VmVKOaSDQfHDWzO kBplhUkp7Ikb7FgaDZc mLz7d4wkMTUdUPFjaAt um7scSRW3KSSyQ6B0gW Orc4uyYCguQBFnvLN0b lD2VRSatHFwX0MkoH9j MPOvGK4zwmr9r3eoMQS 4DQrwYOKpZaZ4ycD1LQ BcaGVhZGVyeTcyMFxmb 904ODP4GxOjVHYno3Ge R4PvtVumD77xwLgqA88 nNBJviIlalC3guOknoH 5cZjBcZnMyNFxxbFxwb NHnrvznKZinksG1BWts asenWZSoBTfwH1kiUoD rMRFsvPymXSrgl9YcFY XgQFZyLgzjfzG3OVTTw 58yGZQtm9YuUHPntL5f wPHfWHwfcdTitFX6EKe hdmUgYmVlbiBkZXZlbG 3gVJHnJQ0hRSKqcdClu f4bfsTyOMJqQHRuE9Uz cmlzdGljcyBkZXRlcm1 tiqDbTMK9DMLEAK5YSZ TpVDNju61lVIQncAsaw O0ehKPgckJjSFLef9Jg mO6baPYPATFrP5srTJ2 lGTuwy2FdgXTdnHIjrV W6MECxj1RyZnJpwyRur BUgoZRiM6LrvAhbS4dr ZJBlNVWjluMriJEuu2U nAMDvgWC6mBItZO1FQl KAt12lRFBfPHSCgnKtE GXyoYokgWU3htB6nR5o LiBJZiBhcHBsaWNhYmx oQUSrr735zl3dgkZ9QO FcMGGrduvpz2OoSKIrB TCywU41KOBxYPKjzu3q dmfxoMBfarDhV0Qidgd 2cV2yVAKnVTxvPUNhZT ZzMjJcbGFuZzEwMzNca GljaFxmMVxkYmNoXGYx VGmtB2vtZxMaPeEeVvy wYXJ9 [facility] 2021-08-22 12:04:07 Test Item Value Reference Range Interpretation Comments Materials Received (test g0ombZPiFCQpvTQeYdFk code = 9973) WKTgASNyz8nmXFKhjBDi ZzEwMzNcZnRuYmpcdWMx DGIzEpMet5iei037pPFo l9lwDFYoNcA1rRLxZKIy cIDpV655NYBjIRddt4xt d9RuJKHktOVgy0M5HCGZ knqzmKq0zKuyW23up5K3 NztdR2ebQROiNQKeP7Hi US9yQAIyOns3TBZ7ZXW4 NBCeCWJpD9CgEQ4gWIVc pPQyGWy0l5nozCywCAPi BSW3y1yhEQjnzgMbXJ5q uc9pcPk0v7waguJsYQZj LOXtoRUAYVSjX2VweRnj Dq2vbVl9fKrdOprhXPB3 Uti4TT2wfb03rye2nVbh ZEYqmgnwDxI0HCniHCAw fwtjOSm5DLyzIDKjpInu MFxtYXJncjcyMFxtYXJn eTV3GMEymJAvJ2ZlZFYx THhqARBasfu4SoEeIq2d mRJkwKyeABuey6nfd8xx bVXmIsm3DEHhHePlErfn ZSjlp3Zfy4cdWFOuir9r GRY0mFMxcCiqo3Y7aLYq IAVqhXTafiQvEOEmcx05 pUEujGTsbQAunk6esfBp qOKhrPAsWCJ4mQKxruZu VVGytHRfPWYbWZ6wsOEz WVVkmR2ywwncXVWlOqKp qppaKTNxjPnzoxPyCk8d eCmdHIO4PRjgM2dizF3g DeX8ULtyA0tiwF8yIAh6 SKiebSJ3YVJwbF4wSM5x hiwwf9woReSkPP1ojipb u6kePxJiCT1wnqi0z3sh FAO4HAjhDXBrNrU6ysF3 NDBcaGVhZGVyeTcyMFxm y852ERV7GnRqCFKbc1Vc S5AlbOwbQ92dkRmxD50q GWVvvPxuoF3nhJmvdV0k UxCjYcEpLNg1tq70GOr5 xaorwFmoXRm0zzKmNPCu TCI1ITTroEAaZBThL1s2 blMkABHbYPK7ICXhjDWd ATLkE3p3mlVwIVZ2NQz2 cnBhZGRmdDNcdHJwYWRk YjBcdHJwYWRkZmIzXHRy zIBqeLHtxOSjtI7naFpr QYHnlOIygT1yXDE7NZMi cmgzMjBcdHJoZHJcbHRy nj13GPTtozPuaTEpxIes nQYxBSX5IZYtOTVtZPXd GKI3YAZuTbYzdhFrXIqy bGJyZHJiXGJyZHJzXGJy DYE2QIKsKuVlogStFUdg bGJyZHJsXGJyZHJzXGJy PGD7MJDqUsChzvXyTIgz bGJyZHJyXGJyZHJzXGJy IBH5ROBvXbMebvAoIWyg bHBhZHQxMFxjbHBhZGZ0 I0zkpDTbOMQfVDnghIJr EFMwU2aqbBRwRKqmPLPf cGFkZmwzXGNscGFkYjBc D4kgNGQiLhRvK1NszBq0 MDAwXGNsdmVydGFsdFxj qFZlJAR1BLSuQXNbLODz PBU5BYMpVgVkcyEdMNuq bGJyZHJiXGJyZHJzXGJy NOD6FGQwIiBqttGpKFdf bGJyZHJsXGJyZHJzXGJy ZFY9YHBaZeLrvuYjQKnv bGJyZHJyXGJyZHJzXGJy KIB6HOZuRiYoifUqKXyr bHBhZHQxMFxjbHBhZGZ0 U9sxiXCmYYStHJytsPRj MPJuC4qjoDXoLMzdBSVw cGFkZmwzXGNscGFkYjBc M4jiIROgPyGxJ7DbnHi9 NjAwXGNsdmVydGFsdFxj lEUfFWN6YFEzHSWcRMSr TLA0HKPtXnEuaiEwMPoj bGJyZHJiXGJyZHJzXGJy MCI3ADGoHbGmmrQfAQux bGJyZHJsXGJyZHJzXGJy HSW8YVYxOzJinmZeGLee bGJyZHJyXGJyZHJzXGJy KTJ9CIQiLhKvkzYkHOkn bHBhZHQxMFxjbHBhZGZ0 H5uvyYYkKRYnDVqomDNd ADXbO6tdkGEfAExvQWWm cGFkZmwzXGNscGFkYjBc S8lgRQNxBsMaB8MecAj1 EdApMGMsfoSyfJ39Iwqu k9LyNCHuHDS3PQomCIqo bFxwbGFpblxmMVxmczIw EWnkvujjXVJrGKecL9yp OsBeIZYweQczMGcha0Ru XGYxXGNmMlxmczIwXGIg ODRrTTOstM9eYlozH1Ga hN3yMZqrVlgiD9bwNJFj b9ZvaS1gTLiziEOplewb MVxmczIwXGxhbmcxMDMz ZLvaM9xcUyDfBETlzHlw SIvcu7PgFBXcXKXnJyvi khKjFOu6zrCpSYXowAur yMSbTNsuqvZwwRbty8Eh bbWdeJqgEFOrRQi3psZr dpumuKg5xPNaiDaqWKBq dKeyuS7qLuNnVcAuPSaj bGFpblxmMVxmczIwXGxh rwvrFLLqKQmbS1nnHlIf FFCgaMkpAFryf7AdCAWd NGZzEhmccyXgTMPbZ00f bGVjdGVkXHBsYWluXGYx XGZzMjBcbGFuZzEwMzNc aGljaFxmMVxkYmNoXGYx XEuxZ4yqJtNnL9UpZGRr VeEfhLOwV2egO7EijOjr YXJkXGludGJsXHNzcGFy FXB7gEMkolXtbHTrkRYf JPKmDAwiOBX7qSMzgmab dONulhxuSHjbyvZ7JRLt YWluXGYxXGZzMjBcbGFu ZzEwMzNcaGljaFxmMVxk PdIzFNJwDHlsI8gxVlEd Y9VlQRZiElXfFdXMPRGw aXZlZFxwbGFpblxmMVxm czIwXGxhbmcxMDMzXGhp Z6fxTnXgCUOeiXfzTDwo i3CwGGEnHJZrTtdmpuKv MIe6ggWzREHvlGievN67 Tkmgkd96QBIoy3ddHSNs L9QcmIIpFLUrfRHdIXny MDhcdHJwYWRkZmwzXHRy cGFkZHIxMDhcdHJwYWRk ZnIzXHRycGFkZHQwXHRy mAYvVCB1U8w0dpMqEGIc XWf7vyFaWSJmUqOfyGPq ANR7KYr0NeijweR9eNSn D2w2IuwroqAcVXlctHHl ds05BCJxycKqdNIykBtv yXYdIRT0MMUlDBDtFEHu EXX1HVUjFkUbcnEdGAhx bGJyZHJiXGJyZHJzXGJy TVE6VYKnFeDalfOvTNgt bGJyZHJsXGJyZHJzXGJy RJC6SXVlInMlalMkUYeg bGJyZHJyXGJyZHJzXGJy VJV8UWBiSjEsgcDtKIhh bHBhZHQxMFxjbHBhZGZ0 H6mjgIMyXDZfLUrrwCBu WOKcV0gohEXaSMvxGTEk cGFkZmwzXGNscGFkYjBc U8ftMGDmGtZfK5HykTv9 MDAwXGNsdmVydGFsdFxj uOPjMSX7FRGjREHfXXFo LWN7UDHcWiPbzbYnLMtd bGJyZHJiXGJyZHJzXGJy VYH7CXQfKmOkwoAmDUzf bGJyZHJsXGJyZHJzXGJy XGB9LYLfCqRnmlLoELzq bGJyZHJyXGJyZHJzXGJy RXN3WJCkEvAkdjHsYZvu bHBhZHQxMFxjbHBhZGZ0 X0tjoLJxSAHzHVpyoHYe MXMnH7aqqFIuWZbnVKTx cGFkZmwzXGNscGFkYjBc G9xcDTQyRsGdF8RlrRs6 NjAwXGNsdmVydGFsdFxj iBKdMDB9VWDwWVMxPRFp AQF4NVElRyYyzjQtKFdu bGJyZHJiXGJyZHJzXGJy VED7HTMwPrAbnbNyHYcx bGJyZHJsXGJyZHJzXGJy EMI4QGRbTrRyfhFyAChn bGJyZHJyXGJyZHJzXGJy KAY2VCXfCjAsibXaEAea bHBhZHQxMFxjbHBhZGZ0 I7fytVNfHWBiFOszdGSm APYjT2wenJTyYJjxSEXx cGFkZmwzXGNscGFkYjBc J2ogTJHhOuVgY2CgtUt1 JgCgLVVcssSgeA04Wfqi w2PtSKQoMKU2GXbvGZah bFxwbGFpblxmMFxmczI0 XHBsYWluXGYxXGZzMjBc bGFuZzEwMzNcaGljaFxm NEvoRlCsFBCpBJtyR3hq PrPwV2KqDEOzPsAcUG5q PUFlRh3lKlq1DFAqQQVI UMFvSMYJZ5EYHbsgSJZI P7NrmMoxrD5tWsKiPcJc ZLleLV6sXEWjL6psjUYr JDObRMHrL9nvSzWioC1g aFxmMVxjZjJcZnMyMFxs dHJjaFxjZWxsXHBhcmRc hC47Cempi3FsXZBpPRJ1 MFxzMFxxbFxwbGFpblxm GFvbroX0QCPnFXulLXRm XGZzMjBcbGFuZzEwMzNc aGljaFxmMVxkYmNoXGYx ITesG7geMoDyL6RnUFLv XlWvNp7gNm9jOOBfAMDx YWluXGYxXGZzMjBcbGFu ZzEwMzNcaGljaFxmMVxk QoXwRKErJWiiJ6btDuDu J6IcHFFeGgWftSZnH5xe Z9OrxYzaNGTpEHqmwKTn XQBuiUCnMVY3fYRircPl fKhtzDdayG2sUlMqIwUf NFxwbGFpblxmMVxmczIw AUifzefkLXCjAYrpO1lq XbWxDVVxaVurIRwkv6Um XGYxXGNmMlxmczIwIDUv MTEvMjAyMlxwbGFpblxm MVxmczIwXGxhbmcxMDMz LQhtC4ubWcBnJGThsOue BJjwv3DbRLIrMCJhEhqz fiVjXLc1diLbBREjkMhy nM90Spgmbf74ZUKkazVr n8MzBFIdPYY7ETezUIcw bFxwbGFpblxmMFxmczI0 XHBsYWluXGYxXGZzMjBc bGFuZzEwMzNcaGljaFxm YWjbLzKlBTFaVMobE4iy ZjFcZnMyMFxwYXJ9 Diagnosis (test code = t3kbrJFzFAVqeSZ1JhKt 34) JNMfa2zuh3XxjXDbqEXc RAmqsAOvjuRbcd78wEE5 dY67ZD7kKDEfNbL5KVXw glH6Bhz1QOZyIMGlaWXm R975g6ens5cmxgMpjJB5 ICSmXJBfC1ZuZV8cDOWe qLWdK48lmNRcEVW2KNGi BKNlwYOgNFLvLEX0MLQf vQFfM1crIIFmZC8tldqw BCexCWgxAOVrdYT6VJMs uTCdY9XjAASdJJavMYKo ell8YlKbNx8ciHEqsLci MFxwYXJkXHBsYWluXGZz NqBlC2QlWG73hARwYTNy RYlQMqMtDdA2GSzyZAHC GgkjLNHOPF6FB2ZaCVEq YZFSMIUor1unUXK9KSAv z03hNw6eEh2sZIJwEObx cGFyXGNmMFxwYXJcbGk3 MjBcbGluNzIwIExlZnQg cHJveGltYWwgcHJldGli uLGnJNWdN2sibgohb9jy cvKoqOE1TVUcHLH3LOCK LkTJDSz8ZUIvrlnkwPZ7 GRJuoWtiOAM9XVPWcDud lUDaqUCujQVvbP03lkIm rk8xxQYzstU2cD6qQNJl o60wODVwQktlZTxreSou g2VkTHNelOHxDPnxTJGm DZW3LL2rUPSxB6Fsu6Zp jsnwi8OqSGEfLAJfavUq x88uGEYzywPxWR29JER9 LUKmiewlkACyLXgmAA3i TBWoRAFocBnov9LxGSRg O6TsOncjpU6mCLDij75z dQR2KGZfbWwdHNLewVTa qOycLDEfzThlmHQpo0Bk TGGox0edUOwjaEhtZDTz RSbsiXTpvUJhqpAli70k IG9gYRAtmnA5A326rxUg XIW6uAMljxtqnZTqe5Fd fCWhcAV9nPChhGEeOFQe GZVpZDnjdsFxGqBnl7it y0RrKNCyL7SpruejTVIm SJOogIGobOGkA1kmnkcg kx5edPokVAVIKOUyL32a gBRhmF4myMHbEAjyRVhu gV9dENQillLLYj9WJyej YXJ9 Comment (test code = d8uiwMPnEMGdxTT6CfAb 9835) QCAoh1psp7WuyTRskYPk XGtwvUFuvaOfad02xAP7 pA09MD6sEJNuYjC3EYRs fmI4Bsd6HFDfWKMdyUPe L637v8yua4bunyEswFV9 nDxfTJOyisciGfB2FTnt YCTndzytZBr3OWxeFIPg pKO6FJWveMNdX3AdJSAc QR5txzr7MKZ6XWfgVWQv HnQ9SQIqmGZoNMWwpMmz ZYdis703WHR4VnInQEVr khOoyEjmxH9kPyPkHXXR IDK7lP4unpCkHFLvWBnf DO3pCO9at1QljMMwXnUg oZDmdX33nsTval9sjHJq ghU3gM9fQKpmuMklQj0o TPibP9s0j7acS7iwIZK9 eXBpYSBhbmQgdmVycnVj z8ZhMOXyHCU5sgFaVJRc ggZzk2YzH4hgxKnmlwP4 sLLyFUOfon7dvEZcpAHt j9VlwoTvzjFmu4OnimPl WVf5cDNzx3xjf5Tok9J8 dGljIGluZmlsdHJhdGUs PXI0mXOhusGhqorseZoc BRPqg3EkDIipvJMzmRQb kUJ4vK2tGoRYiOmukHNx qZ2wWJDfx8mbQ9bxKXFm uzKtyNJ1nE2vMYkwWB6z Q1Gay0EsaS0mUTrwAWB3 Biomarker Block(s) (test o6dqsQKnPFKqdNJ8XvXe code = 9841) PLVui5dvx2BetEEigXKh AGhghBOthmPxpx81pBL2 xF66AG5oDWQePmL1JHPi ffS6Wpn2OUDvTZVioXMh E488s1jlm8nyvaXuyEP9 bYqoZMEslgvoXhY8RMzh EZJecbkvXMi9BHqhWEXq lZE2AGCyoYYhQ5UuKDZf AD6oiit9CPW5TGigVRCj CxI7VKBrhIXvIWHorMiw SSoge528BRJ1FiOkLLLy gdSzxJehmX2gCcDqZERL T4LcsHIwfY== Disclaimer (test code = p7jqvIXjBEBqmEJaTqQz 9886) MKUbVGLio8bfAYOakRCe ZzEwMzNcZnRuYmpcdWMx WYVoYjQrc8ytj071sIZu j3naZGGuDlF0uSOdXMJd cGZhJ923XIJkDXskc2ho n7FyHBPwcZIrb9Q1LXVP dhjuuDj4zDfbK13ta7Z4 CcflB8fgNSKiXTJtN6Sa NZ4vENPkUcn9SPV1IOY0 AMUoCXSmY2UwMD3lRIEh sCZyLLy8v8tuyYxbKUHs ENG9l8aoRWlweoCtVD5a ey9slIy7j2wnykZfIQUp PZLqvEVMPLLnS9NwsAdz Bb8sqIl6oFykMfxdPDG2 Ubu1TO7nqk76agu9qKvo HOJvtgmhWiR4LQviQXGp vydlRZp9OYrnFPWrjRP4 JLSorTZhS8DuEZVpJS9l xab1MEA7GMlmBCGbEwH5 NDBcaGVhZGVyeTcyMFxm l157JFH9UsArGQ3yU4Gz w3Y9lF6dyWYzEUQfjCOj NjJbFBXcay7hnCPhEUru c0VrJXP2viR2tHJwpZJm ZGRxXZ06Vbyjm4EaHlka RXG6VTBbbnCjz4Oop9ur PzWitmXhU8jbZ8AjCRVf MAYrYCOaHjPvqkYff5Pz d0RguBKjzUa4z7zsDGBo DJKnqOrjw9osXMQ4LLMx R4T8jSVqp7jlNZorPPEi cBH2znP0LLTptTNzU5Gy jQ3jKAVwOZ8ntmz1a3sq ANY3FOgbWYGpChN1xpQ5 NDBcaGVhZGVyeTcyMFxm t479NAM8YqSfGJMmi8Xo V0KzgXobR65jxKgcE66f KDVosUmxaB5auAcsmJ5v ZjBcZnMyNFxxbFxwbGFp hicqSDbdfhW3UHzdleel OQPnDRhzG4pjKhWzAPUb wSomSIkwv8NkYIHlXPCs JxffpxF2KAKQb60gWRPv k2MlZMVqpG1rlILrASdc eiSaqIT7EPaywiIwLuEe ugGpEKQhsW1bPAGqWI0e PIVzvnXrbp0bkgXjMEPd DFVrE1PsocebrGrahgBc CHSowd8lddTdYET4EBBT GT8TVOCoLEMsg30kSDKd uKofqS5zhCHgzmFfPKUj z1CipP6feRDZGGOsN3ng XO9nHKndx2TdpNTzlOMv vUN1ECUlc4IyMiIydpFj fBMgfJVvT1UcmVbdC3fc NISfSSVodwFetVSyr5Rw DUFezWB7bEWuDU7DJcHD e07hCUDvSIARgkIdSIYc nJiusNH5aqM3xS2sAcKY ZiBhcHBsaWNhYmxlLCBj k156ze5nkyH9UFTfFSXg nqvsw2GyXJCqYDEdrZ39 FZFqLGEduo0wstrtySCq obEmW0Rfzsh2hW0eLBQs YWluXGYxXGZzMjJcbGFu ZzEwMzNcaGljaFxmMVxk QvDzPPLiQTmpS0vkCfMf ZnMyMlxwYXJ9 [facility] Interpretation 2021-08-22 12:04:07 Test Item Value Reference Range Interpretation Comments Materials Received (test q1nnxNOvFKYcbIUcXfQn code = 9973) MIVfVOOmp5ifUGGlkKYc ZzEwMzNcZnRuYmpcdWMx PVFzTtYil2qlz986yVMc r2knCHQaNfO6bTAtURYr eGIqV617YVLjVCbll5js s6OvTTNxxKIpp5W7YRRQ lnyiiFu1bRonQ47sd3H0 AdhvO7bvJITiCTYeG7Gn TM9cKGGaBnb6EMH3HST2 KMZfGJTmL8IeDY2hIZXv cHScBJj4t5ttrGgyFYYe KRJ1q0ayLPohnyRoLE4z to6gnLb2j5licvCcTZPr MITbmHNRPXUtO7LfgKtb Sy7xdSe4wRcmJpmnVWI3 Mwz7NG7ksw70ydt9zHbe OJMcwlnzEuJ0WNhqZRBf ryjmIDq3DGzfDQAogUzy MFxtYXJncjcyMFxtYXJn zIB1QSJatIWlV9OfULZc NEvmITXjzvk3QoOxWw1j cAJfyJytFFeob0ahk5gd bFUyYqi9GXTeOrEfWjkr LWdfu6Zez4kvBTUalo6e PJW0sDPcyNral0D0iVBd LQVsuKLqbkPfDHSazs17 uLZhkLCvhYNiwr4lxfWs fXQfoQRjLTZ2fDQafoEh ABRtcXGkHCHoGD9eqAPe JVPtoP0yqmikOWQlWhIa qlptETPrjPokbrTdKb4w eKbcEBL0KZwbD6wnfB8s NzQ3RGkaF8ihcP8bJVt5 BQlzsTX4NUKeiK6iBI0q qdhxx9bmTiZuWK0gxfzv b8qyHnFnXB6okra2m2ic IUE6QZbcEIDgPcK0hrS7 NDBcaGVhZGVyeTcyMFxm n387PEB6QjOtSLScq1Jq B0XsiRrtN60coYxnS93m WIDnoPnatH2amQobqI3w QsSfFnXwOTz1tr50OXa5 etxceOaqBUa3gkBfSBSg LQX7HSBsaNVzMQRoJ2j9 teQoKNSkQPW9HPNixKKn HLGoL1z1upQqIGW2WEv7 cnBhZGRmdDNcdHJwYWRk YjBcdHJwYWRkZmIzXHRy vQDfcKPvqCGtgN0deOqy YOBrtDTggT8vTYB0VWTb cmgzMjBcdHJoZHJcbHRy sq90TFBqrjVawCHaeEzr lWZvOFT8DVWnUUKkLRSx GGQ8WCMuNpAuxgFnOJqi bGJyZHJiXGJyZHJzXGJy AXZ7BNTlYsXvbdLnNLyb bGJyZHJsXGJyZHJzXGJy HFB6HLIgEoCvaiTvLCkf bGJyZHJyXGJyZHJzXGJy DQD5OYMpNdZvihShRBls bHBhZHQxMFxjbHBhZGZ0 S0iocQGjPGPmTBhltZOx HKZdS8fhbBJbDXjlHGEs cGFkZmwzXGNscGFkYjBc U8ifKPQaHcYgP8LxjYn1 MDAwXGNsdmVydGFsdFxj lDKrSEV7VOTwMFImHAHh HYL3BURaRvNcrtSeWWtt bGJyZHJiXGJyZHJzXGJy WGF6QRCwYcUeqoBhZPbe bGJyZHJsXGJyZHJzXGJy MHI2YWJgZpOtjgUuAMbx bGJyZHJyXGJyZHJzXGJy KAV3ODNnQnKxfoUuEIqj bHBhZHQxMFxjbHBhZGZ0 S0ovuATjKBZrMNjlhSLx SBOdR1tbgSPpAAovNMBd cGFkZmwzXGNscGFkYjBc Q9zeUPGbRwIfG9XtaWp2 NjAwXGNsdmVydGFsdFxj iOVbZES1IYOcDZAkCFUw DYK4YWBtGwNqyrMiBNop bGJyZHJiXGJyZHJzXGJy MAM9KBJwLuCsuoIcTSem bGJyZHJsXGJyZHJzXGJy YRB4ZTExHtJmsuAyZFxa bGJyZHJyXGJyZHJzXGJy KZT2ZWVfYhVjlzDmTYmd bHBhZHQxMFxjbHBhZGZ0 G8zlbVYmDHRuSFserCFd LJMyD0pfvHNhHPyrPWQp cGFkZmwzXGNscGFkYjBc D3duXPZuJaNhK3QedMd8 TsGnWTQowrDwiB71Ykvy y1VjTDQjCEH9ROukWNrh bFxwbGFpblxmMVxmczIw OAlpluexVPOmONcnN1tq GfMfUIXyeUulOIhzi3Iq XGYxXGNmMlxmczIwXGIg FQTrEHFfwK0uUoytL0Li yN5mKRbbOumfG0jdQIGy a1LxyD7pWCsweZNbkwrd MVxmczIwXGxhbmcxMDMz WZwnZ4grRaPoBVDooXio SJgcu2HnIHOhMRWxAjqs cjHrLEg6rcNcFMTwvUqg gXHiGHcomeZgpDsgt3Lw hiDdeKfuGUEiMZs9plOa ypoclWy6rOPbqCvrYIUk yNugnU4pKgWnOtUjGZqn bGFpblxmMVxmczIwXGxh rfidVDJtVZgeN4kpSfZz RECmoBcbLEuih2PxPQXa AGZwGlblweVzAHLxH00l bGVjdGVkXHBsYWluXGYx XGZzMjBcbGFuZzEwMzNc aGljaFxmMVxkYmNoXGYx PRlcN3itKqKxL2CaCKWh GpEzbIAgZ1pfY7ZebVwf YXJkXGludGJsXHNzcGFy TEG7tFSbkuLncJSpuDNn PXTmUCpwZXN1uVKfbbma bAUihyzbHUojqoS2HPYo YWluXGYxXGZzMjBcbGFu ZzEwMzNcaGljaFxmMVxk PfKrNLEaUGcpX7xfMzZh Q2BgXUFdBkPrIaOYHERe aXZlZFxwbGFpblxmMVxm czIwXGxhbmcxMDMzXGhp Y9oeBrOwEOQwbUlsINig j3WsHFOuJLAoClnbkiFx MHj7grRuNNBuoJpbuB20 Jdzqqh89GCUon1fqPNEk T8SxjZCqRBRpqPMlWQru MDhcdHJwYWRkZmwzXHRy cGFkZHIxMDhcdHJwYWRk ZnIzXHRycGFkZHQwXHRy gBFvVMH5P5u2ujPyVMNj IWv1iiFeZJIxKhAuoRHb LEH6IQt3RiqgjzI7iVPx T0z9IierprXpEKqisUAt uy63EVHincIkwJMhvZxn lYRwMYH7IIUpVHLpFYPk MWU9XKIzSsUzdsLcQTbl bGJyZHJiXGJyZHJzXGJy GUD3SEYpCtZeccUfBOnf bGJyZHJsXGJyZHJzXGJy PMR3XRSvLsCgkpVtYMxa bGJyZHJyXGJyZHJzXGJy CQW8AURqFfBpqkNqGIxj bHBhZHQxMFxjbHBhZGZ0 M6pmtLFrPZInFMlaqKXi QOOiP9iysMBeSHmmQPMy cGFkZmwzXGNscGFkYjBc I0rkGFMoPcFuG8KjjGl1 MDAwXGNsdmVydGFsdFxj aALtHUT5KAHkTTVuKYBu FNN6FJEjCoMjifPyYFfh bGJyZHJiXGJyZHJzXGJy WOD6CPPmLbNklmGrBYzv bGJyZHJsXGJyZHJzXGJy FRO4XNVlSwTswgJjLLrt bGJyZHJyXGJyZHJzXGJy SPU9BIRmCmIohvKoLKjt bHBhZHQxMFxjbHBhZGZ0 C8lgbOJcPCDfRQiikFZu QYYxZ0bwmJEdEQveFOEn cGFkZmwzXGNscGFkYjBc W4qoUYBgVlAvF7HwiEq7 NjAwXGNsdmVydGFsdFxj dKLyJWA2IEUjOBXaXMNv WKW0CLXsCcVopmVlUZta bGJyZHJiXGJyZHJzXGJy ADS0RRZpEyPfbzXuFDpl bGJyZHJsXGJyZHJzXGJy KKD1YIFuHwDqzpDvAMzl bGJyZHJyXGJyZHJzXGJy KSX8PVAwFsFfusShNTze bHBhZHQxMFxjbHBhZGZ0 R1cjzTLlMOHvYVjyeUQi VYOiF6lriXZzTAdeVXXl cGFkZmwzXGNscGFkYjBc I9bfERRkGoUhX9PlgTx2 LnRwDIPolrRndS17Wpbe v8VpLNIpRGE6ZDkgFTlg bFxwbGFpblxmMFxmczI0 XHBsYWluXGYxXGZzMjBc bGFuZzEwMzNcaGljaFxm DRidKmOdORNyGWobE8he BiAzT0VcHPTlXqWmVR4v MYTlHh6xOxg5CUClEPRD LILcSNXFN8ILVieyBBDI G0LgiJabbN0cOtPxJcJm MXcsWB3cGZFeO9qdqNSp WOLrSSGbH2ngHlZicX4o aFxmMVxjZjJcZnMyMFxs dHJjaFxjZWxsXHBhcmRc qR06Rjnfv9ZtWZNbEEF2 MFxzMFxxbFxwbGFpblxm QFtivaY0LWObVQnrEULi XGZzMjBcbGFuZzEwMzNc aGljaFxmMVxkYmNoXGYx SQmmH3oxHyOoX7XpIFPj PgSmAi2nMe5fDNJqIANd YWluXGYxXGZzMjBcbGFu ZzEwMzNcaGljaFxmMVxk DjWgSQMnAWeiV7ieRoSt M7JeMVQbSzBaaKArU1vh D9HknSqcHYTbZLsazLPa ZMTneAKjMFC8pDUvzqTg wVmdlZjrdJ4sDeRlPwOf NFxwbGFpblxmMVxmczIw VWzcmixtLATtSFmfF0vw OlUxGUMzdEslVUrwu6Xi XGYxXGNmMlxmczIwIDUv MTEvMjAyMlxwbGFpblxm MVxmczIwXGxhbmcxMDMz HIxwJ7ynRlBvNVFyrHqp IOyra7OzXJKkGLMwSqhd vpVaXMa9eiGvIYHtqTlx eU48Mhhzla72DHPpocKy g6BbGXLnAJU6LLkuSNjz bFxwbGFpblxmMFxmczI0 XHBsYWluXGYxXGZzMjBc bGFuZzEwMzNcaGljaFxm RWgdKrZpMGBmBEmeF5zf ZjFcZnMyMFxwYXJ9 Diagnosis (test code = l8ukuWPdCSRrqVC2HsKx 34) HRFxr1eql6BabOSbaHCr YSvwlJPthlZpzr48kII1 sV20FB8fNXNsQbN1URWm mdG8Rxz0KDOpARUngPCn R438t2myg0wfvkJdxJJ8 BWIeMSCdI3PaRQ2nJVLm mZAaN74ajTGjMRN6HSSd WRHdgWNjVJSfUIY9JDLx xUAsK2heKYQpSY9cxvrz YBpxMGemADKywWM9NRMh pJGxO4YcGLSwUNrmRAKa npu3ZnZjSh2ptUGzbHku MFxwYXJkXHBsYWluXGZz PwFsA7DyAH99bCGlUAAq OQrXBfPuDnT3UMiiNCWH DukvOYAYDO6HZ5KgZZXc TVWKBJOmj5yiIFP5EMUr r78pVh7mXq7yEZCyYKut cGFyXGNmMFxwYXJcbGk3 MjBcbGluNzIwIExlZnQg cHJveGltYWwgcHJldGli fXIcTYRhC2yrxzscx3ks ezBgbQV5JEDqBOH4GVJT MjFYFKo2OAYzhdqyvIF2 LKNcgTnlMCE5RTTScNax bULjwJLizZFddT71svHt hl3fqWZjmaS4mJ6tAZIx d03sEMVuJpddSBxjeWpk r4XrDGNbbJSjCUnuRLSn GPO4KY4vFAQiC1Nfx8Zz iniav9LmBKToAPWbrlUa a55jHDRtrdMfNR01AHA8 NIDvpiihaOFmFSzzAR9h SBFpKOAgcFaug1RiQHZx E6YdTkeooM7tTGCwv54h hRC5IEQicNbiDNVhyIJg rIzlOMOypTjwdMIup2Kx KUJow5woMHmkfYwyCCXf HRzvwNQejCQxfsDim26j DS7vTRFmniN5U374ebSx WTE4cPOnoolnrVCzz2Rt lLPofKS6oEHmcANiBCMb QVYdZLnolnIdZuKyb8cm o6BjZYEcC5FfipbpWMYy FNMvdTJbkDTfP9ahbvvb ry8qpOtgUWSOWMWjT54x zCZmqO2msJIiRFobRXlu aS6dLKSxgfMQHd6GUkkv YXJ9 Comment (test code = f1zdlFDaDYLnfOI8TmOn 9835) BSIbb6hds3RaeZSkxJRr NPxleALsjeJzin94cUY0 dQ20TJ9kZSDvPrV1ROBf vnB5Zxk9TAXxRCUakTWp R704i6gsd5lalrBsrJQ2 oFrgIHCnzhrzCaW9INyd JADtnufkEOk1BFmsHJXx xNZ7PBUdyAWfI7ChKJRl GQ9ajxw4BJW9OMyrPZFv LdA5HUWkaDTqYLCfcAxr NVfuy266OBR9HnToTPDe qmEjcQrbsV6zIxPpQBCX STM1nY6vzjDuGDCvALnk SN3aBB4kg5VujXYcQeKy zHXpmT76apIrjn0nsSNv weG9lK1mXFvvxRwzEl7k JZsgM0d1d5nfF0csGJD9 eXBpYSBhbmQgdmVycnVj k6WfCIKiQNQ9riYfFQAr joHwf5ZoF9rayPaymoK1 tKMjQTBrzl2jaELwcAKu k1XjvfJygxBvs3EguuGs ZId9uSJpq4sfc1Xql7J2 dGljIGluZmlsdHJhdGUs YRZ5dSXvmaItrtvduFwu WLSjz2MnKRkdwFTrcUFm fZY2hE3rQfMGdLratDHb cT4dIYBim3ssL8xfIFIa cpWtuWA1kU5wDDdrWI1j D9Ohp3AtiH9uAIhhGOI9 Biomarker Block(s) (test s6wxcOWxZIDikGV1SxYd code = 9841) BTZkm2kqm8FpnFRejFHm HWaxhESblbQaka91lUQ6 fL11MK9tOLQiVuK4LRBq yeI5Mem4NTMmIHVhfKLj O703v1tkw2rnpsToqXB8 rCvyEPHjvchbXkI0NLbo IKNrjsnwSOh0GArfOCVa qRQ1AYRwvEBiV6VzFLLn DM7hgmk6TUA6JNwlBNDb XtX2NEZzsSFwGHZvtMas FWrcp001YOM2RgVwSVHw jtFygSgvyF0vFnFaITZE S0RqlWYkkH== Disclaimer (test code = x9xcuAYhMYOryBSbYaUo 9844) TBDjOOMft8idCPHhnWUd ZzEwMzNcZnRuYmpcdWMx UZAgEqClk8ylf672fHAy v4onHNYwKpV3nWEtAWVf vJWqE429HEUgBGpru4lt z0CkGLJqeZCda9X5ISMZ uobpsVp0gBnzF94gw5D9 DzgqT5bdXTQkVZRgT1Jz XN7sAQUlImq5JVI4BDE0 UXLfKZYqR3TpOV6rBZQh nATnILn6r4pfeUmuUHSk KBO3l6znHLtwryXfKB1y wr7rfQu5j0oxhmAiWBFv HHIiaCPNDIHtK7VihOxa Qh6ljUq3kXxlCpldPIE0 Mqu2SP8yxp07sjv8oTrk TXIkshqbRsL3WHnhWFHu cdcpDQk6AGstWTGgcNC6 JHUjaYGiN7DdVRDxBG8y rre4RBV0ENliOWLeDkK7 NDBcaGVhZGVyeTcyMFxm k312TFJ2NjBaKC8tX4Ze v7C9bV4qfZSdPDKqkLEo SaGvVUJwro6zmLDyMZdh x6QoIKD3xpC1ySXwwUDa MNCbCJ33Gwjpg4IoFgcl KCJ2PVFrczHek6Yid0ku CyWnrgFlG0laR4BqMSPq XNNyXOCoFkQtcuXhq9Ia u6NjeBZnmBv3i4xjNOJf OWGldUfic4njTDA1RKZs C0A6xGMpn0lbFTnrGISo dXF2pgE4WNAjlRPzE7Ot rJ9xIVNuWY8vnhl5o0rk VJW6RQizXIMbQaP0dhN9 NDBcaGVhZGVyeTcyMFxm z780UAO9CtHzQZVbh1Vm S2GdqInbF27paShxA14u IDRysKcafL0agStdbF0h ZjBcZnMyNFxxbFxwbGFp xtahSEygnvK6VOqenigp NLBcWVxxL9ppCbHzSQGq cDqxFJugl8VcPHVtQUOt AidxaoC3HKNQh37qPSEk h8MzTWHwgQ9muQTaRFvq abSqsPW3PPfzezKcZiHq baUnIKBibF5lVWJdIU2k LOFibqTvql1wplPqZEEf HEVzC0JfnkeqgHeuksSh XBSxvm4xphZoXIC9GXNU MZ4VPHMlJOAxn27nORGa fHxbwJ0rhUHjiaNcWGOc m0VwhT6ibLEWUTMcW5ov CV3xNWtvl5UvfRSyjLHo iRT1FHAyf7ZoIzBgigVz kDEmyBHeX2TrhEazC2nu TUKdWQKgleLmvCQkb7Kd ORCgyLJ6vLAmIG7QJhED u03zNJZkAKPYxcKdAXBg lKrgvVP0heI4qX3zNzCW ZiBhcHBsaWNhYmxlLCBj x027sy3yzdF7VYJiOAMj gzhzd4AnEGJlSHXydF20 KXXcESXjmb6xcrtppWAw ngQnI1Tvxod2bB4fRCKq YWluXGYxXGZzMjJcbGFu ZzEwMzNcaGljaFxmMVxk BiDpFEYmOOvjD8ejInAf ZnMyMlxwYXJ9 [facility] [id number] 06:31:00 Test Item Value Reference Range Interpretation [...] APPLICABLE FOR DIALYSIS PATIEN TS. BASIC METABOLIC [id number] 06:27:00 Test Item Value Reference Range Interpretation [...] APPLICABLE FOR DIALYSIS PATIEN TS. CT, CTANGIO [id number] 12:08:00FINAL REPORT CLINICAL HISTORY: Stroke TECHNIQUE: Initially, [...] acute infarctor hemorrhage. No evidence for a gambell of Hernandez proximal branch vessel occlusion. No evidence of hemodynamically significant stenosis in the cervical carotid or vertebral arteries by NASCET criteria. Signed: Escobar Joshua [facility] CENTER[facility]ort Verified Date/Time: 08/21/2018 12:08:39 Reading Location: [address] Neuro Reading Room CT, CAROTID, [id number] 12:08:00FINAL REPORT CLINICAL HISTORY: Stroke TECHNIQUE: Initially, [...] acute infarctor hemorrhage. No evidence for a gambell of Hernandez proximal branch vessel occlusion. No evidence of hemodynamically significant stenosis in the cervical carotid or vertebral arteries by NASCET criteria.Signed: Escobar Joshua MDReport Verified Date/Time: 08/21/2018 12:08:39 Reading Location: [address] Neuro Reading Room HEMOGLOBIN [id number] 07:01:00 Test Item Value Reference Range Interpretation Comments HEMOGLOBIN A1C (BEAKER) (test code = 5.9 % 4.3-6.1 368) TSH/FREE T4 IF [id number] 06:21:00 Test Item Value Reference Range Interpretation Comments THYROID STIMULATING HORMONE 2.41 uIU/mL 0.35-4.94 (BEAKER) (test code = 772) VITAMIN B12 AND [id number] 06:21:00 Test Item Value Reference Range Interpretation Comments VITAMIN B12 (BEAKER) (test code = 341 pg/mL 213-816 774) FOLATE (BEAKER) (test code = 362) 3.9 ng/mL >=7.0 L LIPID [id number] 06:02:00 Test Item Value Reference Range Interpretation [...] High 160-189 Very High >=190 Specimen slightly ictericBASIC METABOLIC [id number] 06:02:00 Test Item Value Reference Range Interpretation [...] APPLICABLE FOR DIALYSIS PATIEN TS. Specimen slightly ictericCBC W/PLT COUNT & AUTO [id number] 05:29:00 Test Item Value Reference Range Interpretation [...] % 0-1 PERCENT (BEAKER) (test code = 2801)"
--- OUTSIDE RECORDS SUMMARY | 2022-09-15 18:15 | XMS REPORT | Clinical Summary ---
:[address] [facility] MD [facility] Address [address] [place] [address] Care Team Providers Name Role Phone Abi Cuba MD Primary Care Provider Victoriano [...] daily. ORAL) Active Problems Not on file Surgical History Surgery Date Site/Laterality Comments APPENDECTOMY 194 Child COLONOSCOPY 2016 BRONCHOSCOPY 1989 CHOLECYSTECTOMY 2009 KNEE ARTHROPLASTY 2014 SHOULDER SURGERY 2004 Medical History Medical History Date Comments Hypertension 1979 Personal history of stroke 2018 Irregular heart beat 1994 Tooth disorder 1959 Diverticulitis 2005 Urinary incontinence 1989 Arthritis 1994 Disorder of thyroid gland 1974 Squamous cell carcinoma in situ of skin 2021 Social History Tobacco Use Types Packs/Day Years Used Date Smoking Tobacco: Former Cigarettes 0.3 5 /04/1954 - 04/12/1972 Smokeless Tobacco: Never Comments: Very light smoker - consider s ocial smoker Alcohol Use Standard Drinks/Week Comments Not Currently 0 (1 standard drink = 0.6 oz pure occasi onal social - not in last 30 alcohol) years Sex Assigned at Date Recorded Not on file Job Start Date Occupation Industry Not on file Not on file Not on file Obstetrics History Last Filed Vital Signs Not on file Plan of Treatment Health Maintenance Due Date Last Done Comments COVID-19 Vaccination (3 - Moderna series) 08/12/20202020, 05/20/2020 Results Not on fileafter 09/15/2021 Insurance Payer Benefit Plan / Subscriber ID Effective Phone Address T ype Group Dates [facility] MEDICARE [id number] 2021-Prese [address] Medicare HEALTHCARE ADVANTAGE [place] [employer] [id number] (Home) [place] [address] Sigifredo Kiran Personal/Family Self [address] [place] [address] (Home) [place] [address] 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
[2022-09-15 18:51] LABS: Absolute Lymphocytes (CBC) 2.2 K/uL (0.7-4.9); Hematocrit 41.3 % (36.0-45.0); Lymphocytes % 40.2 % (15.3-44.8); MCV 94.5 fL (80-100); MPV 8.5 fL (7.6-11.3); RBC Red Blood Cell Count 4.37 M/uL (3.86-4.86)
--- NOTE | 2022-09-15 18:59 | RAD REPORT ---
EXAM DESCRIPTION: RAD - Chest Single View - 09/15/2022 6:53 pm CLINICAL HISTORY: SWELLING Chest pain. COMPARISON: Chest Single View dated 12/24/2021; Chest Pa And Lat (2 Views) dated 08/25/2019; Chest Sin gle View dated 08/20/2018; Chest Single View dated 07/01/2018 FINDINGS: Portable technique limits examination quality. Mild interstitial pulmonary edema. The heart is mildly enlarged. No displaced fractures. IMPRESSION: Mild CHF.
[2022-09-15 19:07] LABS: Magnesium 2.1 mg/dL (1.6-2.4); Potassium 3.8 mEq/L (3.5-5.1); Troponin High Sensitivity 12.5 pg/mL (<58.9)
--- NOTE | 2022-09-15 20:30 | RAD REPORT ---
EXAM DESCRIPTION: US - Extrem Venous W Compress Higinio - 09/15/2022 8:15 pm CLINICAL HISTORY: SWELLING Bilateral leg edema and swelling. COMPARISON: <Comparisons> TECHNIQUE: Real-time sonographic interrogation of the left and right lower extremity deep venous sys tems was performed. FINDINGS: Normal compressibility, flow augmentation, phasic flow and spontaneous flow is identified in both the left and right lower extremity deep venous systems. IMPRESSION: No sonographic evidence of left or right lower extremity deep venous thrombosis.
--- NOTE | 2022-09-15 20:31 | RAD REPORT ---
EXAM DESCRIPTION: US - Lower Extremity Arterial Bilat - 09/15/2022 8:15 pm CLINICAL HISTORY: SWELLING COMPARISON: <Comparisons> TECHNIQUE: Bilateral lower extremity arterial Doppler examination was performed with cornelia nagy FINDINGS: Triphasic and biphasic waveforms are seen throughout both lower extremity arterial systems to the lev el of the dorsalis pedis arteries. No high-grade stenosis or occlusion is visualized. IMPRESSION: No evidence of significant peripheral vascular disease.
[2022-09-15] MEDS ORDERED: FUROSEMIDE 40 MG/4 ML VIAL ONE (21:28)
--- NOTE | 2022-09-15 21:50 | ER ---
Nurse's Notes [facility] Name: Sigifredo Kiran Age: 87 yrs Sex: Female : 1935 Arrival Date: 09/15/2022 Time: 18:12 Bed 18 Private MD: Victoriano Nava Diagnosis: Acute pulmonary edema;Edema, unspecified-lower extremity Presentation: 09/15 18:17 Chief complaint: BLE swelling, SOB and fatigue x 1 week. Coronavirus screen: At this hb time, the client does not indicate any symptoms associated with coronavirus-19. Ebola Screen: No symptoms or risks identified at this time. Initial Sepsis Screen: Does the patient meet any 2 criteria? No. Patient's initial sepsis screen is negative. Does the patient have a suspected source of infection? No. Patient's initial sepsis screen is negative. Risk Assessment: Do you want to hurt yourself or someone else? Patient reports no desire to harm self or others. Onset of symptoms was September 09, 2022. 18:17 Method Of Arrival: Ambulatory hb 18:17 Acuity: CLARI 3 hb Historical: - Allergies: 18:17 Levaquin; hb 18:17 PENICILLINS; hb - Home Meds: 18:22 atorvastatin 20 mg Oral tab 1 tab once daily [Active]; Xarelto Oral [Active]; hb levothyroxine oral [Active]; metoprolol [Active]; - PMHx: 18:17 Atrial Fib; CVA; Diverticulitis; Hypertension; Hypothyroidism; hb - PSHx: 18:22 Cholecystectomy; Appendectomy; Tonsillectomy; Knee Replacement - Right; Bicep Tendon hb Repair - Left; Rotator Cuff - Left; - Immunization history:: Adult Immunizations up to date. - Social history:: Smoking status: Patient denies any tobacco usage or history of. Screenin:59 [facility] ED Fall Risk Assessment (Adult) History of falling in the last 3 months, kl including since admission No falls in past 3 months (0 pts) Confusion or Disorientation No (0 pts) Intoxicated or Sedated No (0 pts) Impaired Gait No (0 pts) Mobility Assist Device Used Yes (1 pt) Altered Elimination No (0 pt) Score/Fall Risk Level 0 - 2 = Low Risk Oriented to surroundings, Maintained a safe environment. Abuse screen: Denies threats or abuse. Nutritional screening: No deficits noted. Tuberculosis screening: No symptoms or risk factors identified. Assessment: 18:42 General: Appears in no apparent distress. comfortable. Pain: Denies pain. Neuro: Level sg5 of Consciousness is awake, alert, obeys commands, Oriented to person, place, time, situation, Appropriate for age. Cardiovascular: Capillary refill < 3 seconds Patient's skin is warm and dry. Respiratory: Airway is patent Trachea midline Respiratory effort is even, unlabored, Respiratory pattern is regular, symmetrical, Breath sounds are clear bilaterally. GI: Abdomen is round non-distended. : No signs and/or symptoms were reported regarding the genitourinary system. EENT: No signs and/or symptoms were reported regarding the EENT system. Derm: No signs and/or symptoms reported regarding the dermatologic system. Musculoskeletal: Swelling present in bilateral lower legs. 19:15 Reassessment: Patient appears in no apparent distress at this time. Patient and/or jb4 family updated on plan of care and expected duration. Pain level reassessed. Patient is alert, oriented x 3, equal unlabored respirations, skin warm/dry/pink. 20:13 Reassessment: Patient appears in no apparent distress at this time. Patient and/or jb4 family updated on plan of care and expected duration. Pain level reassessed. Patient is alert, oriented x 3, equal unlabored respirations, skin warm/dry/pink. 21:59 Reassessment: Patient and/or family updated on plan of care and expected duration. Pain kl level reassessed. Patient is alert, oriented x 3, equal unlabored respirations, skin warm/dry/pink. Patient states feeling better. Patient states symptoms have improved. Vital Signs: 18:17 BP 138 / 99; Pulse 75; Resp 20; Temp 97.8(TE); Pulse Ox 100% on R/A; Weight 108.86 kg; hb Height 5 ft. 6 in. ; Pain 8/10; 20:13 BP 136 / 80; Pulse 90; Resp 15; Pulse Ox 99% ; jb4 21:59 BP 161 / 90; Pulse 82; Resp 18; Pulse Ox 97% on R/A; kl 18:17 Body Mass Index 38.74 (108.86 kg, 167.64 cm) hb 18:17 Pain Scale: Adult hb ED Course: 18:13 Patient arrived in ED. am2 18:13 Victoriano Nava MD is Private Physician. am2 18:16 Nicol Thurman FNP-C [facility]. kb 18:16 Cameron Reyes MD is Attending Physician. kb 18:17 Arm band placed on. hb 18:20 Triage completed. hb 18:32 Virginia Ling, RN is Primary Nurse. sg5 18:48 EKG done, by ED staff, reviewed by Nicol PAULSON. em1 18:52 Inserted saline lock: 20 gauge in right antecubital area, using aseptic technique. sg5 Blood collected. 18:54 XRAY Chest (1 view) In Process Unspecified. EDMS 20:17 US Lower Extremity Arterial Bilateral In Process Unspecified. EDMS 20:17 US Extremity Venous W Compression Higinio In Process Unspecified. EDMS 21:49 Victoriano Nava MD is Referral Physician. kb 22:00 No provider procedures requiring assistance completed. IV discontinued, intact, kl bleeding controlled, No redness/swelling at site. Pressure dressing applied. Administered Medications: 21:25 Drug: Furosemide IVP 40 mg Route: IVP; Site: right antecubital; jb4 Outcome: 21:50 Discharge ordered by MD. kb 22:00 Discharged to home ambulatory. kl 22:00 Condition: improved 22:00 Discharge instructions given to patient, Instructed on discharge instructions, follow up and referral plans. medication usage, Demonstrated understanding of instructions, follow-up care, medications, Prescriptions given X 1. 22:01 Patient left the ED. kl Signatures: Dispatcher [employer] EDKY Nicol Thurman FNP-C FNP-Ruthie Haeny RN RN kl Martinez, Eric em1 Dolores Patel RN RN True Mcmillan RN RN jb4 Kateryna Rao am2 Virginia Ling, RN RN sg5 Corrections: (The following items were deleted from the chart) 18:22 18:17 BP 138 / 99; Pulse 75bpm; Resp 20bpm; Pulse Ox 100% RA; 108.86 kg; Height 5 ft. 6 hb in.; BMI: 38.7; Pain 8/10, Adult; hb
--- NOTE | 2022-09-15 21:50 | EDPHYS ---
Physician Documentation [facility] Name: Sigifredo Kiran Age: 87 yrs Sex: Female : 1935 Arrival Date: 09/15/2022 Time: 18:12 Bed 18 Private MD: Victoriano Nava ED Physician Cameron Reyes HPI: 09/16 00:00 This 87 yrs old Female presents to ER via Ambulatory with complaints of Leg Swelling. kb 00:00 The patient presents with swelling. The complaints affect the right leg and left leg. kb Context: the patient can fully bear weight, the patient is able to ambulate. Onset: The symptoms/episode began/occurred 2 week(s) ago. Modifying factors: The symptoms are alleviated by nothing. the symptoms are aggravated by nothing. Associated signs and symptoms: Pertinent positives: swelling. Treatment prior to arrival includes: no previous treatment. Severity of symptoms: At their worst the symptoms were moderate, in the emergency department the symptoms are unchanged. The patient has not experienced similar symptoms in the past. The patient has not recently seen a physician. Pt reports intermittent swelling to bilateral lower extremities for about 2 weeks, became worse today. Denies shortness of breath, chest pain, injury. Historical: - Allergies: 09/15 18:17 Levaquin; hb 18:17 PENICILLINS; hb - Home Meds: 18:22 atorvastatin 20 mg Oral tab 1 tab once daily [Active]; Xarelto Oral [Active]; hb levothyroxine oral [Active]; metoprolol [Active]; - PMHx: 18:17 Atrial Fib; CVA; Diverticulitis; Hypertension; Hypothyroidism; hb - PSHx: 18:22 Cholecystectomy; Appendectomy; Tonsillectomy; Knee Replacement - Right; Bicep Tendon hb Repair - Left; Rotator Cuff - Left; - Immunization history:: Adult Immunizations up to date. - Social history:: Smoking status: Patient denies any tobacco usage or history of. ROS: 23:56 Constitutional: Negative for fever, chills, and weight loss. kb 23:56 Cardiovascular: Positive for edema. 23:56 All other systems are negative. Exam: 23:56 Constitutional: This is a well developed, well nourished patient who is awake, alert, kb and in no acute distress. Head/Face: Normocephalic, atraumatic. ENT: Moist Mucous membranes Cardiovascular: Regular rate and rhythm with a normal S1 and S2. No gallops, murmurs, or rubs. No pulse deficits. Respiratory: Respirations even and unlabored. No increased work of breathing. Talking in full sentences Abdomen/GI: Soft, non-tender. No distention Skin: Warm, dry with normal turgor. Normal color. MS/ Extremity: Pulses equal, no cyanosis. Neurovascular intact. Full, normal range of motion. Neuro: Awake and alert, GCS 15, oriented to person, place, time, and situation. Moves all extremities. Normal gait. 23:56 Cardiovascular: Edema: 2+ edema to level of left ankle and right ankle, pedal edema. 23:56 ECG was reviewed by the Attending Physician. Vital Signs: 18:17 BP 138 / 99; Pulse 75; Resp 20; Temp 97.8(TE); Pulse Ox 100% on R/A; Weight 108.86 kg; hb Height 5 ft. 6 in. ; Pain 8/10; 20:13 BP 136 / 80; Pulse 90; Resp 15; Pulse Ox 99% ; jb4 21:59 BP 161 / 90; Pulse 82; Resp 18; Pulse Ox 97% on R/A; kl 18:17 Body Mass Index 38.74 (108.86 kg, 167.64 cm) hb 18:17 Pain Scale: Adult hb MDM: 18:16 Patient medically screened. kb 23:57 Differential diagnosis: DVT, CHF, renal insufficiency. Data reviewed: vital signs, kb nurses notes. Consideration of Admission/Observation Escalation of care including admission/observation considered. admission considered, but pt prefers to go home. States she will call Dr Horta for follow up in the morning and will return for chest pain or shortness of breath. States she will rest better at home and does not want to be admitted. Counseling: I had a detailed discussion with the patient and/or guardian regarding: the historical points, exam findings, and any diagnostic results supporting the discharge/admit diagnosis, lab results, radiology results, the need for further work-up and treatment in the hospital. ED course: Pt has no chest pain or shortness of breath. Resp even and unlabored with O2 sat 99% on room air. Pt has no increased work of breathing. Pt understands risks of going home. Pt given strict return precautions. Verbal understanding received. . 09/15 18:22 Order name: Basic Metabolic Panel; Complete Time: 19:10 kb 09/15 18:22 Order name: CBC with Diff; Complete Time: 18:56 kb 09/15 18:22 Order name: Magnesium; Complete Time: 19:10 kb 09/15 18:22 Order name: NT PRO-BNP; Complete Time: 19:10 kb 09/15 18:22 Order name: Troponin HS; Complete Time: 19:10 kb 09/15 18:22 Order name: XRAY Chest (1 view); Complete Time: 19:01 kb 09/15 18:22 Order name: US Lower Extremity Arterial Bilateral; Complete Time: 20:41 kb 09/15 18:22 Order name: US Extremity Venous W Compression Higinio; Complete Time: 20:41 kb 09/15 18:22 Order name: EKG; Complete Time: 18:23 kb 09/15 18:22 Order name: Cardiac monitoring; Complete Time: 20:13 kb 09/15 18:22 Order name: EKG - Nurse/Tech; Complete Time: 18:48 kb 09/15 18:22 Order name: IV Saline Lock; Complete Time: 19:09 kb 09/15 18:22 Order name: Labs collected and sent; Complete Time: 19:09 kb 09/15 18:22 Order name: O2 Per Protocol; Complete Time: 19:08 kb 09/15 18:22 Order name: O2 Sat Monitoring; Complete Time: 19:08 kb Administered Medications: 21:25 Drug: Furosemide IVP 40 mg Route: IVP; Site: right antecubital; jb4 Disposition Summary: 09/15/22 21:50 Discharge Ordered Location: Home kb Condition: Stable kb Diagnosis - Acute pulmonary edema kb - Edema, unspecified - lower extremity kb Followup: kb - With: Victoriano Nava MD - When: 2 - 3 days - Reason: Recheck today's complaints, Continuance of care, Re-evaluation by your physician Followup: kb - With: Emergency Department - When: As needed - Reason: Worsening of condition Discharge Instructions: - Discharge Summary Sheet kb - Pulmonary Edema, [id number] kb - Peripheral Edema kb Forms: - Medication Reconciliation Form kb - Thank You Letter kb - Antibiotic Education kb - Prescription Opioid Use kb Prescriptions: - Lasix 20 mg Oral Tablet - take 1 tablet by ORAL route 2 times per day; 20 tablet; Refills: 0, Product kb Selection Permitted Addendum: 09/18/2022 15:59 Co-signature as Attending Physician, Cameron Reyes MD I reviewed the patient's care r t provided by the Advanced Practice Provider and agree with the diagnosis and treatment plan. Signatures: Dispatcher [employer] Nicol Knapp, CABINETMAKER APPRENTICE-C CABINETMAKER APPRENTICE-Dolores Martínez RN RN hb True Mcmillan RN RN jb4 Cameron Reyes MD MD rt
[2022-09-15 23:07] VITALS: TEMP 97.8
[2022-09-15 23:09] VITALS: BP 161/90; O2SAT 97
--- NOTE | 2022-09-17 07:21 | EKG ---
Test Date: 2022-09-15 Test Time: 18:40:47 [employer] Dispatcher: ALANA MEASUREMENT RESULTS: Intervals: Rate: 90 CO: QRSD: 120 QT: 380 QTc: 464 [place]: P: CO: QRS: 17 T: 61 INTERPRETIVE STATEMENTS: Atrial fibrillation Low voltage QRS Right bundle branch block Abnormal ECG Compared to ECG 12/24/2021 13:57:32 Low QRS voltage now present Left-axis deviation no longer present Electronically Signed On 09-17-22 07:15:04 CDT by Tomy Menezes
== END 2022-09-15 22:01 | disposition home or self-care (01) ==
LOC: ER 18:12
DX: J81.0 Acute pulmonary edema (principal); I10 Essential (primary) hypertension; I48.91 Unspecified atrial fibrillation; Z79.01 Long term (current) use of anticoagulants; E03.9 Hypothyroidism, unspecified; Z88.0 Allergy status to penicillin; Z88.1 Allergy status to other antibiotic agents
CPT/HCPCS: 93005; 85025; 80048; 36415; 83735; 84484; 83880; 71045; 93925; 93970; 96374; 99284; J1940

== ENCOUNTER 2023-11-05 18:20 | Inpatient (IN) | payer OTHER ==
--- OUTSIDE RECORDS SUMMARY | 2023-11-05 18:22 | XMS REPORT | Clinical Summary ---
Author Name Unknown Organization [facility] Address [address] [place] [address] Care Team Providers Care Equity Structurer Name Role Phone Abi Cuba MD Primary Care Provider [phone] Victoriano Nava MD Unavailable [phone] Allergies Active Allergy Reactions Criticality Noted Date Comments Levofloxacin 08/28/2021 Penicillins Anaphylaxis,Swelling High 08/20/2018 Other reaction(s): Shortness of breath, swollen tongue Medications Medication Sig Dispensed Refills Start Date End Date Status Xarelto 20 mg tablet 06/17/2021 Acti ve metoprolol succinate (TOPROL XL) 25 mg 24 hr tablet 07/14/2021 Active levothyroxine (SYNTHROID, LEVOTHROID) 88 mcg tablet 07/15/2021 Active atorvastatin (LIPITOR) 10 mg tablet 06/20/2021 Active cholecalciferol, vitamin D3, (REPLESTA ORAL) Take by mouth. Active cyanocobalamin, vitamin B-12, (VITAMIN B-12 ORAL) Take 2,500 mg by mouth daily. Active Surgical History Surgery Date Site/Laterality Comments APPENDECTOMY 194 Child COLONOSCOPY 2016 BRONCHOSCOPY 1989 CHOLECYSTECTOMY 2009 KNEE ARTHROPLASTY 2014 SHOULDER SURGERY 2004 Medical History Medical History Date Comments Hypertension 1980 Personal history of stroke 2018 Irregular heart beat 1994 Tooth disorder 1959 Diverticulitis 2005 Urinary incontinence 1989 Arthritis 1994 Disorder of thyroid gland 1974 Squamous cell carcinoma in situ of skin 2021 Social History Tobacco Use Types Packs/Day Years Used Date Smoking Tobacco: Former Cigarettes 0.3 18 0 04/13/1954 - 04/12/1972 Smokeless Tobacco: Never Comments:Very light smoker - consider social smoker Alcohol Use Standard Drinks/Week Comments Not Currently 0 (1 standard drink = 0.6 oz pure alcohol) occasional social - not in last 30 years Sex and Gender Information Value Date Recorded Sex Assigned at Not on file Gender Identity Not on file Sexual Orientation Not on file Job Start Date Occupation Industry Not on file Not on file Not on file Obstetrics History Plan of Treatment Health Maintenance Due Date Last Done Comments COVID-19 Vaccine ( season) 12/12/202210/2020, 05/20/2020 Influenza Vaccine 12/13/2023 Care Teams Equity Structurer Relationship Specialty Start Date End Date Abi Cuba MD [email or web address] PCP - General Dermatology 08/14/21 Victoriano Nava MD [address] [place] [phone] [email or web address] PCP - External Primary Care Provider Family Practice 08/28/21
[2023-11-05 19:11] LABS: Absolute Eosinophils 0.1 K/uL (0-0.5); Absolute Lymphocytes (CBC) 0.5 K/uL (0.7-4.9); Absolute Monocytes 0.6 K/uL (0.1-1.3); Absolute Neutrophil 5.3 K/uL (1.8-8.0); Basophils % 0.4 % (0-1.3); Eosinophils % 0.8 % (0-4.4); Hematocrit 43.8 % (36.0-45.0); Hemoglobin 14.9 g/dL (12.0-15.0); Lymphocytes % 8.1 % (15.3-44.8); MCH 32.6 pg (27.0-35.0); MCV 95.7 fL (80-100); MPV 8.9 fL (7.6-11.3); Monocytes % 9.3 % (3.3-12.3); Neutrophils % 81.4 % (41.7-73.7); Platelets 116 thou/uL (152-406); RBC Red Blood Cell Count 4.58 M/uL (3.86-4.86); Red Cell Distribution Width 14.1 % (12.1-15.2)
[2023-11-05 19:20] LABS: PT Prothrombin Time 19.4 SECONDS (9.4-12.5); PTT, Activated Partial Thromb 40.2 SECONDS (24.3-36.9); Protime INR 1.76
[2023-11-05 19:26] LABS: Albumin 3.1 g/dL (3.4-5.0); Albumin/Globulin Ratio 0.8 (1.1-1.8); Anion Gap 10.1 mEq/L (5.0-15.0); Bilirubin Direct 0.4 mg/dL (0-0.2); Bilirubin Indirect, Calculated 1.2 mg/dL (0.2-0.8); Bilirubin Total 1.6 mg/dL (0.2-1.0); Globulin 3.8 g/dL (2.3-3.5); Magnesium 1.9 mg/dL (1.6-2.4); Potassium 4.1 mEq/L (3.5-5.1); Protein, Total 6.9 g/dL (6.4-8.2); Troponin High Sensitivity 13.3 pg/mL (<58.9)
--- NOTE | 2023-11-05 19:46 | RAD REPORT ---
EXAM DESCRIPTION: Molly Single View11/05/2023 7:24 pm CLINICAL HISTORY: Dizziness and weakness COMPARISON: April 2023 FINDINGS: The lungs appear clear of acute infiltrate. The heart is mildly to moderately enlarged IMPRESSION: No acute abnormalities displayed
--- NOTE | 2023-11-05 20:07 | RAD REPORT ---
EXAM DESCRIPTION: CT - Head Brain Wo Cont - 11/05/2023 7:52 pm CLINICAL HISTORY: Dizziness COMPARISON: April 2023 TECHNIQUE: Computed axial tomography of the head was obtained. IV contrast was not requested. All CT scans are performed using dose optimization technique as appropriate and may include automated exposure control or mA/KV adjustment according to patient size. FINDINGS: An intracranial bleed is not seen Prominence of the ventricles unchanged likely related cerebral atrophy. No extra-axial fluid collection is noted. Mild to moderate low-density areas within periventricular, deep and subcortical white matter likely r epresent ischemic changes secondary to small vessel disease. Fluid within the sinuses/ mastoids is not seen. Partially calcified scalp lesions again demonstrated IMPRESSION: No acute intracranial abnormality is seen If patient's symptoms persist MRI of the brain would be recommended
[2023-11-05 20:20] LABS: Specific Gravity 1.017 (1.005-1.030); Sqamous Epithelial <5 /HPF (None Seen); Urine Bacteria <20 /HPF (<20); Urine Bilirubin NEGATIVE (Negative); Urine Blood 1+ (Negative); Urine Clarity Extremely Turbid (Clear); Urine Color Light-Yellow (Yellow); Urine Culture Reflex Order REFLEXED; Urine Glucose NEGATIVE (Negative); Urine Ketones NEGATIVE (Negative); Urine Microscopic Reflex YN ORDER UMIC; Urine Mucus Slight /HPF (None Seen); Urine Nitrite 2+ (Negative); Urine Protein NEGATIVE (Negative); Urine Urobilinogen Normal (Normal); Urine WBC >50 /HPF (<5); Urine WBC Clump Rare /HPF (None Seen); Urine pH 7.5 (5.0-7.0)
[2023-11-05] MEDS ORDERED: ACETAMINOPHEN 325 MG TABLET ONE (20:33)
--- NOTE | 2023-11-05 20:37 | ER ---
Nurse's Notes [facility] Name: Sigifredo Kiran Age: 88 yrs Sex: Female : 1935 Arrival Date: 11/05/2023 Time: 18:20 Bed 5 Private MD: Diagnosis: Weakness;Dizziness and giddiness;UTI/ Urinary tract infection, site not specified Presentation: 11/04 18:26 Chief complaint: Patient states: ELLIS and off/on for a few days. Dizziness and weakness ll1 started today. Chief complaint: EMS states: VSS, A fib rate 80's. Coronavirus screen: Client denies travel out of the [place] in the last 14 days. At this time, the client does not indicate any symptoms associated with coronavirus-19. Ebola Screen: Patient denies travel to an Ebola-affected area in the 21 days before illness onset. Initial Sepsis Screen: Does the patient meet any 2 criteria? No. Patient's initial sepsis screen is negative. Does the patient have a suspected source of infection? No. Patient's initial sepsis screen is negative. Risk Assessment: Do you want to hurt yourself or someone else? Patient reports no desire to harm self or others. Onset of symptoms was November 02, 2023. 18:26 Method Of Arrival: EMS [facility] 18:26 Method Of Arrival: EMS: [facility] 18:26 Acuity: CLARI 3 ll1 Triage Assessment: 18:29 General: Appears uncomfortable, Behavior is calm, cooperative, appropriate for age. ll1 Pain: Complains of pain in head Pain currently is 3 out of 10 on a pain scale. Quality of pain is described as aching. Neuro: Reports dizziness, headache weakness. 19:15 Pain: Also complains of. Pain: Pain began 1 day ago. rg5 19:15 Headache History: Denies prior headaches. rg5 21:40 Pain:. rg5 Historical: - Allergies: 18:28 Levaquin; ll1 18:28 PENICILLINS; ll1 - PMHx: 18:28 Atrial Fib; CVA; Diverticulitis; Hypertension; Hypothyroidism; ll1 - PSHx: 18:28 Appendectomy; Bicep Tendon Repair - Left; Cholecystectomy; Knee Replacement - Right; ll1 Rotator Cuff - Left; Tonsillectomy; - Immunization history:: Adult Immunizations up to date. - Infectious Disease History:: Denies. - Social history:: Smoking status: Patient denies any tobacco usage or history of. Screenin:56 [facility] ED Fall Risk Assessment (Adult) History of falling in the last 3 months, kc6 including since admission Yes- fall prone (multiple falls) (3 pts) Confusion or Disorientation No (0 pts) Intoxicated or Sedated No (0 pts) Impaired Gait Yes (1 pt) Mobility Assist Device Used Yes (1 pt) Altered Elimination No (0 pt) Score/Fall Risk Level 3 or more points = High Risk. Abuse screen: Denies threats or abuse. Denies injuries from another. Nutritional screening: No deficits noted. Tuberculosis screening: No symptoms or risk factors identified. Assessment: 18:50 General: Appears in no apparent distress. comfortable, well groomed, well developed, kc6 Behavior is calm, cooperative, appropriate for age. Neuro: Level of Consciousness is awake, alert, obeys commands, Oriented to person, place, time, situation, Appropriate for age Documentation Supervisor are equal bilaterally Moves all extremities. Full function Gait is steady, Speech is normal, Facial symmetry: tongue is midline, Pupils are PERRLA, Intact Reports dizziness, headache weakness in right arm and left arm since today. Cardiovascular: Capillary refill < 3 seconds. Respiratory: Airway is patent Trachea midline Respiratory effort is even, unlabored, Respiratory pattern is regular, symmetrical. GI: No signs and/or symptoms were reported involving the gastrointestinal system. : No signs and/or symptoms were reported regarding the genitourinary system. EENT: No signs and/or symptoms were reported regarding the EENT system. Derm: No signs and/or symptoms reported regarding the dermatologic system. Skin is intact, is healthy with good turgor, Skin is pink, warm \T\ dry. Musculoskeletal: No signs and/or symptoms reported regarding the musculoskeletal system. Circulation, motion, and sensation intact. Capillary refill < 3 seconds, Range of motion: intact in all extremities. 19:37 General: Appears in no apparent distress. comfortable, Behavior is calm, cooperative, rg5 appropriate for age. Neuro: Level of Consciousness is awake, alert, obeys commands, Oriented to person, place, time, Reports dizziness, headache. Cardiovascular: Denies chest pain. Respiratory: Airway is patent Trachea midline Respiratory effort is even, unlabored, Respiratory pattern is regular, symmetrical. GI: Abdomen is round non-distended, Abd is soft and non tender X 4 quads. : No signs and/or symptoms were reported regarding the genitourinary system. EENT: No deficits noted. Derm: No signs and/or symptoms reported regarding the dermatologic system. Musculoskeletal: Range of motion: intact in all extremities. 20:30 Reassessment: Patient and/or family updated on plan of care and expected duration. Pain rg5 level reassessed. Patient is alert, oriented x 3, equal unlabored respirations, skin warm/dry/pink. 11/05 00:00 Reassessment: No changes from previously documented assessment. rg5 03:30 Reassessment: No changes from previously documented assessment. rg5 04:30 Reassessment: No changes from previously documented assessment. rg5 05:45 Reassessment: Patient and/or family updated on plan of care and expected duration. Pain rg5 level reassessed. Patient is alert, oriented x 3, equal unlabored respirations, skin warm/dry/pink. Vital Signs: 11/04 18:35 BP 146 / 77; Pulse 71; Resp 18; Temp 98.2; Pulse Ox 96% on R/A; Weight 102.06 kg; ll1 Height 5 ft. 5 in. ; Pain 4/10; 19:36 BP 136 / 112; Pulse 121; Resp 17; Temp 98; Pulse Ox 96% on R/A; Pain 0/10; rg5 20:28 BP 163 / 91; Pulse 102; Resp 18; Pulse Ox 94% ; vc1 21:00 BP 118 / 65; Pulse 95; Resp 17; Temp 98; Pulse Ox 96% on R/A; Pain 2/10; rg5 22:00 BP 103 / 69; Pulse 97; Resp 17; Pulse Ox 95% ; vc1 23:00 BP 113 / 82; Pulse 96; Resp 11; Pulse Ox 95% ; vc1 11/05 00:30 BP 124 / 93; Pulse 87; Resp 17; Temp 98; Pulse Ox 96% ; Pain 0/10; rg5 01:30 BP 126 / 79; Pulse 99; Resp 18; Pulse Ox 98% ; Pain 0/10; rg5 02:30 BP 134 / 86; Pulse 95; Resp 17; Pain 0/10; rg5 03:00 BP 152 / 96; Pulse 94; Resp 18; Temp 98; Pulse Ox 98% on R/A; Pain 0/10; rg5 03:28 BP 129 / 96; Pulse 87; Resp 18; Pulse Ox 99% ; Pain 0/10; rg5 04:30 BP 142 / 98; Pulse 86; Resp 17; Pulse Ox 97% on R/A; Pain 0/10; rg5 05:40 BP 143 / 98; Pulse 87; Resp 17; Pulse Ox 98% on R/A; rg5 11/04 18:35 Body Mass Index 37.44 (102.06 kg, 165.1 cm) ll1 11/04 18:35 Pain Scale: Adult ll1 19:36 Pain Scale: Adult rg5 21:00 Pain Scale: Adult rg5 11/05 00:30 Pain Scale: Adult rg5 01:30 Pain Scale: Adult rg5 02:30 Pain Scale: Adult rg5 03:00 Pain Scale: Adult rg5 03:28 Pain Scale: Adult rg5 04:30 Pain Scale: Adult rg5 Jazmine Coma Score: 11/04 20:41 Eye Response: spontaneous(4). Motor Response: obeys commands(6). Verbal Response: kb oriented(5). Total: 15. ED Course: 18:22 Patient arrived in ED. mr 18:28 Triage completed. ll1 18:29 Arm band placed on. ll1 18:38 Patient placed in an exam room, on a stretcher. ll1 18:39 Nicol Thurman FNP-C is [facility]. kb 18:39 José Manuel Ramesh MD is Attending Physician. kb 18:47 Emma Pulliam RN is Primary Nurse. kc6 18:56 Patient has correct armband on for positive identification. Bed in low position. Call kc6 light in reach. Side rails up X2. Adult w/ patient. glass ribbon machine operator assistant on. Pulse ox on. NIBP on. Door closed. Noise minimized. Lights dimmed. Warm blanket given. Pillow given. 18:56 Inserted saline lock: 20 gauge in right antecubital area, using aseptic technique. kc6 Blood collected. Flushed with 10 mL NS. 19:00 Report given to COOKIE Hawthorne \T\ COOKIE Conrad. kc6 19:25 Chest Single View XRAY In Process Unspecified. EDMS 19:54 CT Head Brain wo Cont In Process Unspecified. EDMS 20:36 Deion Mcconnell MD is Hospitalizing Provider. kb 21:39 Resting quietly. Awaiting bed assignment. rg5 21:39 No provider procedures requiring assistance completed. Flushed right antecubital rg5 Patient admitted, IV remains in place. intact, No redness/swelling at site. 21:44 Provided Education on: needs for admit. rg5 Administered Medications: 20:50 Drug: Acetaminophen PO 650 mg PO once Route: PO; vc1 21:49 Follow up: Response: Pain is decreased rg5 20:50 Drug: Meclizine PO 25 mg PO once Route: PO; vc1 21:49 Follow up: Response: No adverse reaction rg5 20:50 Drug: Ondansetron IVP 4 mg IVP once; over 2 minutes Route: IVP; Site: right antecubital;vc1 21:49 Follow up: Response: No adverse reaction rg5 21:34 Drug: Rocephin IV 1 grams IV at calculated rate once; Given slow IV push per pharmacy rg5 instructions Route: IV; Rate: calculated rate; Site: right antecubital; 21:49 Follow up: IV Status: Completed infusion rg5 Medication: 21:41 VIS not applicable for this client. rg5 Outcome: 20:37 Decision to Hospitalize by Provider. kb 21:39 Admitted to ER Hold. Please see [facility] for further documentation. rg5 21:39 Condition: stable 21:39 Instructed on the need for admit, 11/05 06:31 Patient left the ED. rg5 Signatures: Dispatcher [employer] EDMS Nicol Thurman, PIE MAKER-C PIE MAKER-Ckb Denisha Pettit, Reg Reg mr Avril Mayes, RN RN ll1 Kamini Raymond RN RN vc1 Emma Pulliam RN RN [id number] Teddy Armstrong, RN RN rg5 Corrections: (The following items were deleted from the chart) 11/04 18:38 18:35 Pulse 71bpm; Resp 18bpm; Pulse Ox 96% RA; Temp 98.2F; 102.06 kg; Height 5 ft. 5 ll1 in.; BMI: 37.4; Pain 4/10, Adult; ll1
--- NOTE | 2023-11-05 20:37 | EDPHYS ---
Physician Documentation [facility] Name: Sigifredo Kiran Age: 88 yrs Sex: Female : 1935 Arrival Date: 11/05/2023 Time: 18:20 Bed 5 Private MD: ED Physician José Manuel Ramesh HPI: 11/04 20:42 This 88 yrs old Female presents to ER via EMS with complaints of Headache, Dizziness. kb 20:42 Pt is an 88 year old female who presents for weakness, headache, dizziness that started kb 3 days ago and has progressively gotten worse. Daughter states pt was unable to get out of bed this morning due to the symptoms. Denies shortness of breath, chest pain. . Historical: - Allergies: 18:28 Levaquin; ll1 18:28 PENICILLINS; ll1 - PMHx: 18:28 Atrial Fib; CVA; Diverticulitis; Hypertension; Hypothyroidism; ll1 - PSHx: 18:28 Appendectomy; Bicep Tendon Repair - Left; Cholecystectomy; Knee Replacement - Right; ll1 Rotator Cuff - Left; Tonsillectomy; - Immunization history:: Adult Immunizations up to date. - Infectious Disease History:: Denies. - Social history:: Smoking status: Patient denies any tobacco usage or history of. ROS: 20:32 Constitutional: As per HPI kb Exam: 18:55 ECG was reviewed by the Attending Physician. kb 20:33 Constitutional: This is a well developed, well nourished patient who is awake, alert, kb and in no acute distress. Head/Face: Normocephalic, atraumatic. ENT: Moist Mucous membranes Cardiovascular: Regular rate Respiratory: Respirations even and unlabored. No increased work of breathing. Talking in full sentences Abdomen/GI: Soft, non-tender. No distention Skin: Warm, dry with normal turgor. Normal color. MS/ Extremity: Pulses equal, no cyanosis. Neurovascular intact. Full, normal range of motion. 20:33 Neuro: Orientation: to person, place, time \T\ situation. Mentation: is normal, able to follow commands, Motor: moves all fours, strength is 4/5 in the right leg and left leg, Strength is 3/5 in the right arm and left arm, Vital Signs: 18:35 BP 146 / 77; Pulse 71; Resp 18; Temp 98.2; Pulse Ox 96% on R/A; Weight 102.06 kg; ll1 Height 5 ft. 5 in. ; Pain 4/10; 19:36 BP 136 / 112; Pulse 121; Resp 17; Temp 98; Pulse Ox 96% on R/A; Pain 0/10; rg5 20:28 BP 163 / 91; Pulse 102; Resp 18; Pulse Ox 94% ; vc1 21:00 BP 118 / 65; Pulse 95; Resp 17; Temp 98; Pulse Ox 96% on R/A; Pain 2/10; rg5 22:00 BP 103 / 69; Pulse 97; Resp 17; Pulse Ox 95% ; vc1 23:00 BP 113 / 82; Pulse 96; Resp 11; Pulse Ox 95% ; vc1 11/05 00:30 BP 124 / 93; Pulse 87; Resp 17; Temp 98; Pulse Ox 96% ; Pain 0/10; 5 01:30 BP 126 / 79; Pulse 99; Resp 18; Pulse Ox 98% ; Pain 0/10; 5 02:30 BP 134 / 86; Pulse 95; Resp 17; Pain 0/10; 5 03:00 BP 152 / 96; Pulse 94; Resp 18; Temp 98; Pulse Ox 98% on R/A; Pain 0/10; 5 03:28 BP 129 / 96; Pulse 87; Resp 18; Pulse Ox 99% ; Pain 0/10; 5 04:30 BP 142 / 98; Pulse 86; Resp 17; Pulse Ox 97% on R/A; Pain 0/10; 5 05:40 BP 143 / 98; Pulse 87; Resp 17; Pulse Ox 98% on R/A; [facility] 11/04 18:35 Body Mass Index 37.44 (102.06 kg, 165.1 cm) 1 11/04 18:35 Pain Scale: Adult ll1 19:36 Pain Scale: Adult rg5 21:00 Pain Scale: Adult rg5 11/05 00:30 Pain Scale: Adult rg5 01:30 Pain Scale: Adult rg5 02:30 Pain Scale: Adult rg5 03:00 Pain Scale: Adult rg5 03:28 Pain Scale: Adult rg5 04:30 Pain Scale: Adult rg5 Jazmine Coma Score: 11/04 20:41 Eye Response: spontaneous(4). Motor Response: obeys commands(6). Verbal Response: kb oriented(5). Total: 15. MDM: 18:39 Patient medically screened. kb 20:41 Differential diagnosis: cerebral vascular accident, dehydration, abnormal electrolytes. kb Data reviewed: vital signs, nurses notes. Consideration of Admission/Observation Patient was admitted/placed on observation. Escalation of care including admission/observation considered. Management of patient was discussed with the following: Hospitalist: Dr Mcconnell accepts pt for admission. Historians other than the Patient: Daughter/Son: daughter. Counseling: I had a detailed discussion with the patient and/or guardian regarding the historical points, exam findings, and any diagnostic results supporting the discharge/admit diagnosis, lab results, radiology results, the need for further work-up and treatment in the hospital. 11/04 18:40 Order name: Basic Metabolic Panel; Complete Time: 19:27 kb 11/04 18:40 Order name: CBC with Diff; Complete Time: 19:27 kb 11/04 18:40 Order name: Hepatic Function; Complete Time: 19:27 kb 11/04 18:40 Order name: Magnesium; Complete Time: 19:27 kb 11/04 18:40 Order name: Protime (+inr); Complete Time: 19:21 kb 11/04 18:40 Order name: Ptt, Activated; Complete Time: 19:21 kb 11/04 18:40 Order name: Troponin High Sensitivity; Complete Time: 19:27 kb 11/04 18:40 Order name: Urinalysis w/ reflexes; Complete Time: 20:47 kb 11/04 20:49 Order name: Urine Culture EDMD 11/04 22:53 Order name: CBC with Automated Diff EDMD 11/04 22:53 Order name: CBC with Automated Diff EDMD 11/04 22:53 Order name: Comprehensive Metabolic Panel EDMD 11/04 22:53 Order name: Comprehensive Metabolic Panel EDMD 11/04 18:40 Order name: CT Head Brain wo Cont; Complete Time: 20:09 kb 11/04 18:40 Order name: Chest Single View XRAY; Complete Time: 19:51 kb 11/04 18:40 Order name: Cardiac monitoring; Complete Time: 18:48 kb 11/04 18:40 Order name: EKG - Nurse/Tech; Complete Time: 18:56 kb 11/04 18:40 Order name: IV Saline Lock; Complete Time: 18:56 kb 11/04 18:40 Order name: Labs collected and sent; Complete Time: 18:56 kb 11/04 18:40 Order name: NPO; Complete Time: 18:48 kb 11/04 18:40 Order name: O2 Per Protocol; Complete Time: 18:48 kb 11/04 18:40 Order name: O2 Sat Monitoring; Complete Time: 18:48 kb 11/04 20:09 Order name: Vital Signs; Complete Time: 20:40 kb EC:55 Rate is 91 beats/min. Rhythm is irregularly irregular. QRS [place] is Normal. QRS interval kb is normal at 118 msec. QT interval is normal at 428 msec. Administered Medications: 20:50 Drug: Acetaminophen PO 650 mg PO once Route: PO; vc1 21:49 Follow up: Response: Pain is decreased rg5 20:50 Drug: Meclizine PO 25 mg PO once Route: PO; vc1 21:49 Follow up: Response: No adverse reaction rg5 20:50 Drug: Ondansetron IVP 4 mg IVP once; over 2 minutes Route: IVP; Site: right antecubital;vc1 21:49 Follow up: Response: No adverse reaction rg5 21:34 Drug: Rocephin IV 1 grams IV at calculated rate once; Given slow IV push per pharmacy rg5 instructions Route: IV; Rate: calculated rate; Site: right antecubital; 21:49 Follow up: IV Status: Completed infusion rg5 Disposition Summary: 11/05/23 20:37 Hospitalization Ordered Notes: Hospitalization Status: Observation Provider: Deion Mcconnell Condition: Stable kb Problem: new kb Symptoms: are unchanged kb Bed/Room Type: Standard Location: Telemetry/MedSurg (observation)(11/06/23 02:55) Room Assignment: 230(11/06/23 02:55) Diagnosis - Weakness kb - Dizziness and giddiness kb - UTI/ Urinary tract infection, site not specified kb Forms: - Medication Reconciliation Form kb - SBAR form kb - Leadership Thank You Letter kb Addendum: 11/07/2023 19:00 Co-signature as Attending Physician, José Manuel Ramesh MD I reviewed the patient's care r n provided by the Advanced Practice Provider and agree with the diagnosis and treatment plan. Signatures: Dispatcher [employer] Nicol Knapp HRIS ANALYST-C HRIS ANALYST-Ckb Ruthie Mayes, RN RN kl José Manuel Ramesh MD MD rn Bryson, James, RN RN jb4 Avril Mayes RN RN ll1 Kamini Raymond RN RN vc1 Teddy Armstrong, RN RN rg5 Corrections: (The following items were deleted from the chart) 11/04 18:41 18:40 Head Brain Wo Cont+CT.RAD.BRZ ordered. EDMS EDMS 18:41 18:41 Chest Single View+RAD.RAD.BRZ ordered. EDMS EDMS 20:48 20:37 Telemetry/MedSurg (observation) kb jb4 20:48 20:37 kb jb4 11/05 02:55 11/04 20:48 [facility] ER [facility] jb4 kl 11/05 02:55 11/04 20:48 ERHOLD- jb4 kl
[2023-11-05] MEDS ORDERED: MECLIZINE HCL 12.5 MG TAB ONE (20:42)
[2023-11-05] MEDS ORDERED: ONDANSETRON 4 MG/2 ML VIAL ONE (20:42)
[2023-11-05] MEDS ORDERED: NA CHLORIDE 0.9% 50 ML ONE (21:31)
[2023-11-05] MEDS ORDERED: CEFTRIAXONE 1000 MG/VIAL ONE (21:31)
[2023-11-05] MEDS ORDERED: GLUCAGON 1 MG/VIAL IM PRN (22:49)
[2023-11-05] MEDS ORDERED: D50W 25 GM/50 ML SYRINGE IV PRN (22:49)
--- NOTE | 2023-11-05 22:57 | P.HP ---
Certification for Inpatient Patient admitted to: Observation With expected LOS: <2 Midnights Practitioner: I am a practitioner with admitting privileges, knowledge of patient current condition, hospital course, and medical plan of care. Services: Services provided to patient in accordance with Admission requirements found in Title 42 Section 412.3 of the Code of Federal Regulations Patient History Date of Service: 11/05/23 Reason for admission: Dizziness lower back pain and mental status History of Present Illness: And is 88 years of age admitted from home by patient's daughter she has been having severe back pain apparently she has a history of fall sacral fractures in the past she was feeling dizzy not feeling well for the past 1 or 2 days she ambulates with a walker brought here to the emergency room diagnosed with a urinary tract infection has a history of A-fib Allergies levofloxacin [From Levaquin] Allergy (Intermediate, Verified 12/24/21 21:41) Unknown Penicillins Allergy (Verified 12/24/21 21:41) Shortness of breath, swollen tongue Home Medications: Metoprolol Tartrate [Lopressor*] 25 mg PO DAILY WITH BREAKFAST 02/16/14 Rivaroxaban [Xarelto] 20 mg PO DAILY 6PM 02/16/14 Levothyroxine [Synthroid*] 88 mcg PO DAILY 05/22/18 Atorvastatin Calcium [Lipitor*] 10 mg PO BEDTIME 03/25/19 - Past Medical/Surgical History Diabetic: No -: BRONCHITIS -: CHRONIC BACK PAIN -: OSTEOARTHRITIS -: HTN -: AFIB -: MRSA (MORE THAN 5 YRS AGO) -: HYPOTHYROIDISM -: CATARACT SX BILATERAL EYES -: CHOLECYSTECTOMY -: SHOULDER/RIGHT ROTATOR CUFF -: APPENDECTOMY -: R KNEE ARTHROPLASTY -: I/D BACK -: CHOLECYSTECTOMY -: ROTATOR CUFF - Family History Mother -: Heart disease - Social History Alcohol use: Yes CD- Drugs: No Caffeine use: Yes Review of Systems 10-point ROS is otherwise unremarkable General: Weakness Musculoskeletal: Back Pain Physical Examination - Vital Signs Temperature: 98 F Blood Pressure: 103/69 Pulse: 103 Respirations: 14 Pulse Ox (%): 98 - Physical Exam General: Alert, In no apparent distress, Oriented x3 HEENT: Atraumatic Neck: Supple Respiratory: Clear to auscultation bilaterally Cardiovascular: No edema, Regular rate/rhythm, Normal S1 S2 Gastrointestinal: Normal bowel sounds, Soft and benign Musculoskeletal: No clubbing, No swelling Integumentary: No rashes, No breakdown Neurological: Normal speech, Normal strength at 5/5 x4 extr - Studies Laboratory Data (last 24 hrs) 11/05/23 11/05/23 11/05/23 18:56 18:56 18:56 WBC 6.50 Hgb 14.9 Hct 43.8 Plt Count 116 L PT 19.4 H INR 1.76 APTT 40.2 H Sodium 135 L Potassium 4.1 BUN 14 Creatinine 0.81 Glucose 124 H Magnesium 1.9 Total Bilirubin 1.6 H AST 37 ALT 34 Alkaline Phosphatase 98 Assessment and Plan - Problems (Diagnosis) (1) UTI (urinary tract infection) Current Visit: Yes Status: Acute Plan: Patient is 88 years of age admitted with altered mental status bit dizziness pain in the back with her daughter uses a walker to walk found to have a urinary tract infection may account for her symptoms has A-fib is on Xarelto and has a normal white count complaining of some headache we will plan to admit for observation IV antibiotic allergic to penicillin and levofloxacin was given ceftriaxone in the emergency room does not seem to have a reaction with that urine cultures blood cultures ambulate physical therapy Qualifiers: Urinary tract infection type: acute cystitis - Advance Directives Does patient have a Living Will: Yes Does patient have a Durable POA for Healthcare: Yes
[2023-11-05] MEDS: NA CHLORIDE 0.9% 1,000 ML IV SCH (23:00)
[2023-11-06] MEDS ORDERED: NA CHLORIDE 0.9% 1,000 ML ONE (00:11)
[2023-11-06] MEDS ORDERED: D10W 125 ML IV PRN (04:57)
[2023-11-06] MEDS ORDERED: ONDANSETRON 4 MG/2 ML VIAL IV PRN (05:00)
[2023-11-06 06:30] LABS: Absolute Monocytes 0.7 K/uL (0.1-1.3); Absolute Neutrophil 3.2 K/uL (1.8-8.0); Basophils % 0.4 % (0-1.3); Eosinophils % 0.6 % (0-4.4); Hematocrit 43.5 % (36.0-45.0); Lymphocytes % 19.9 % (15.3-44.8); MCH 33.1 pg (27.0-35.0); MCHC 34.5 g/dL (32.0-36.0); MCV 96.1 fL (80-100); MPV 9.1 fL (7.6-11.3); Monocytes % 13.8 % (3.3-12.3); Neutrophils % 65.3 % (41.7-73.7); Nucleated Red Blood Cells % 0.3 % (0-0); Platelets 111 thou/uL (152-406); RBC Red Blood Cell Count 4.52 M/uL (3.86-4.86)
[2023-11-06 06:38] VITALS: BMI 38.2
[2023-11-06 07:26] LABS: Albumin 3.1 g/dL (3.4-5.0); Albumin/Globulin Ratio 0.8 (1.1-1.8); Bilirubin Total 1.4 mg/dL (0.2-1.0); Globulin 3.7 g/dL (2.3-3.5); Protein, Total 6.8 g/dL (6.4-8.2)
[2023-11-06] MEDS: INSULIN REGULAR (HUMAN) 100 UNIT/ML SQ SCH (07:30)
[2023-11-06] MEDS: MORPHINE 2 MG/ML SYR IV PRN (09:10)
[2023-11-06] MEDS: ACETAMINOPHEN 500 MG TAB PO PRN (17:06)
[2023-11-06] MEDS: CEFTRIAXONE 1,000 MG in NA CHLORIDE 0.9% 50 ML IVPB SCH (18:09)
--- NOTE | 2023-11-06 19:16 | P.PN ---
Subjective Date of Service: 11/06/23 Chief Complaint: Dizziness lower back pain and mental status Patient states she feels better today compared to yesterday. No recorded fever. Daughter reports patient has poor oral intake. Physical Examination - Vital Signs Temperature: 99.5 F Blood Pressure: 149/81 Pulse: 87 Respirations: 18 Pulse Ox (%): 92 - Physical Exam General: In no apparent distress, Other (Awake and interactive) HEENT: Mucous membr. moist/pink, Sclerae nonicteric Neck: Supple, JVD not distended Respiratory: Clear to auscultation bilaterally, Normal air movement Cardiovascular: No edema, Regular rate/rhythm, Irregular heart rate/rhythm Gastrointestinal: Soft and benign, Non-distended, No tenderness Musculoskeletal: No swelling Integumentary: No rashes, No cyanosis Neurological: Normal speech, Other (No focal motor deficit) - Studies Laboratory Data (last 24 hrs) 11/06/23 11/06/23 11/05/23 05:58 05:58 18:56 WBC 4.90 Hgb 15.0 Hct 43.5 Plt Count 111 L PT 19.4 H INR 1.76 APTT 40.2 H Sodium 137 Potassium 4.0 BUN 13 Creatinine 0.75 Glucose 94 Magnesium Total Bilirubin 1.4 H AST 41 H ALT 33 Alkaline Phosphatase 93 11/05/23 11/05/23 18:56 18:56 WBC 6.50 Hgb 14.9 Hct 43.8 Plt Count 116 L PT INR APTT Sodium 135 L Potassium 4.1 BUN 14 Creatinine 0.81 Glucose 124 H Magnesium 1.9 Total Bilirubin 1.6 H AST 37 ALT 34 Alkaline Phosphatase 98 Assessment And Plan - Current Problems (Diagnosis) (1) UTI (urinary tract infection) Current Visit: Yes Status: Acute Qualifiers: Urinary tract infection type: acute cystitis (2) Atrial fibrillation Current Visit: No Status: Chronic (3) Hypertension Current Visit: No Status: Chronic (4) Hypothyroid Current Visit: No Status: Chronic - Plan Acute cystitis without hematuria Urine culture is growing gram-negative rods. Continue IV Rocephin Follow urine culture. Follow blood culture. Hypertension Resume home medications. Hypothyroidism Continue home medication. Chronic atrial fibrillation Resume home dose metoprolol and Xarelto Impaired mobility PT evaluation DVT prophylaxis: Patient is on Xarelto. Advanced directive: Full code
[2023-11-06] MEDS: ATORVASTATIN 20 MG TAB PO SCH (20:44)
[2023-11-07] MEDS: LEVOTHYROXINE SOD 0.088 MG TAB PO SCH (06:03)
[2023-11-07 07:14] LABS: Absolute Lymphocytes (CBC) 1.4 K/uL (0.7-4.9); Absolute Monocytes 0.9 K/uL (0.1-1.3); Absolute Neutrophil 2.8 K/uL (1.8-8.0); Basophils % 0.9 % (0-1.3); Eosinophils % 0.5 % (0-4.4); Hematocrit 45.3 % (36.0-45.0); Hemoglobin 15.4 g/dL (12.0-15.0); Lymphocytes % 26.5 % (15.3-44.8); MCH 32.8 pg (27.0-35.0); MCV 96.2 fL (80-100); MPV 8.7 fL (7.6-11.3); Monocytes % 17.6 % (3.3-12.3); Neutrophils % 54.5 % (41.7-73.7); Nucleated Red Blood Cells % 0.3 % (0-0); Platelets 105 thou/uL (152-406); RBC Red Blood Cell Count 4.71 M/uL (3.86-4.86); Red Cell Distribution Width 14.2 % (12.1-15.2)
[2023-11-07 07:29] LABS: Anion Gap 7.1 mEq/L (5.0-15.0); Potassium 4.1 mEq/L (3.5-5.1)
[2023-11-07] MEDS: METOPROLOL TAR 25 MG TAB PO SCH (08:24)
--- NOTE | 2023-11-07 14:00 | P.PN ---
Subjective Date of Service: 11/07/23 Chief Complaint: Dizziness lower back pain and mental status Patient is more awake and interactive today. She desires to get up and walk. No recorded fever. Physical Examination - Vital Signs Temperature: 97.9 F Blood Pressure: 137/72 Pulse: 83 Respirations: 16 Pulse Ox (%): 93 - Physical Exam General: Alert, In no apparent distress, Oriented x3 HEENT: Mucous membr. moist/pink Neck: JVD not distended Respiratory: Clear to auscultation bilaterally, Normal air movement Cardiovascular: No edema, Normal S1 S2, Irregular heart rate/rhythm Gastrointestinal: Soft and benign, Non-distended Musculoskeletal: No swelling Integumentary: No cyanosis Neurological: Normal speech, Normal strength at 5/5 x4 extr Assessment And Plan - Current Problems (Diagnosis) (1) UTI (urinary tract infection) Current Visit: Yes Status: Acute Qualifiers: Urinary tract infection type: acute cystitis (2) Atrial fibrillation Current Visit: No Status: Chronic (3) Hypertension Current Visit: No Status: Chronic (4) Hypothyroid Current Visit: No Status: Chronic - Plan Acute cystitis without hematuria Urine culture is growing gram-negative rods. Organism identification and antibiotic sensitivity is still pending. Patient is clinically improved. Continue IV Rocephin Follow urine culture. Blood cultures have yielded no growth. Hypertension Continue home medications. Hypothyroidism Continue home medication. Chronic atrial fibrillation Resume home dose metoprolol and Xarelto Impaired mobility PT evaluation. DVT prophylaxis: Patient is on Xarelto. Advanced directive: Full code
--- NOTE | 2023-11-07 14:31 | EKG ---
Test Date: 2023-11-05 Test Time: 18:53:52 Green Pipefitter: YAZAN MEASUREMENT RESULTS: Intervals: Rate: 91 MO: QRSD: 118 QT: 348 QTc: 428 [place]: P: MO: QRS: -50 T: 17 INTERPRETIVE STATEMENTS: Atrial fibrillation Left axis deviation Low voltage QRS Right bundle branch block Abnormal ECG Compared to ECG 04/14/2023 21:25:12 Left-axis deviation now present Electronically Signed On 11-07-23 14:30:02 CDT by Norman Husain
[2023-11-07] MEDS: RIVAROXABAN 20 MG TABLET PO SCH (17:57)
[2023-11-07] MEDS ORDERED: PHENOL 1.4% ORAL SPRAY 180ML MM PRN (19:52)
[2023-11-07] MEDS ORDERED: HYDRALAZINE HCL 20 MG/ML VIAL IV PRN (20:55)
[2023-11-07] MEDS: METOPROLOL TAR 25 MG TAB PO ONE (21:54)
--- NOTE | 2023-11-08 14:05 | P.PN ---
Subjective Date of Service: 11/08/23 Chief Complaint: Dizziness lower back pain and mental status Patient states she feels much better. She currently has no complaints No recorded fever. Physical Examination - Vital Signs Temperature: 97.1 F Blood Pressure: 123/73 Pulse: 79 Respirations: 16 Pulse Ox (%): 94 - Studies Microbiology Data (last 24 hrs): 11/05/23 19:45 Clean Catch Urine [place] Count - Final >100,000 CFU/ML. 11/05/23 19:45 Clean Catch Urine - Final Escherichia Coli Assessment And Plan - Current Problems (Diagnosis) (1) UTI (urinary tract infection) Current Visit: Yes Status: Acute Qualifiers: Urinary tract infection type: acute cystitis (2) Atrial fibrillation Current Visit: No Status: Chronic (3) Hypertension Current Visit: No Status: Chronic (4) Hypothyroid Current Visit: No Status: Chronic - Plan Acute cystitis without hematuria Urine culture: Pansensitive E. coli. Organism identification and antibiotic sensitivity is still pending. Patient is clinically improved. IV Rocephin transition to oral cefdinir. Blood cultures have yielded no growth. Hypertension Continue home medications. Hypothyroidism Continue home medication. Chronic atrial fibrillation Continue home dose metoprolol and Xarelto Impaired mobility Unsteady gait Continue PT. Anticipating rehab placement DVT prophylaxis: Patient is on Xarelto. Advanced directive: Full code Disposition: Social service consult to evaluate for rehab placement.
[2023-11-08] MEDS: CEFDINIR 300 MG CAP PO SCH (17:22)
[2023-11-08 17:38] VITALS: O2SAT 97
[2023-11-08] MEDS ORDERED: CEFDINIR 300 MG CAP PO SCH (21:00)
--- NOTE | 2023-11-09 14:45 | P.PN ---
Subjective Date of Service: 11/09/23 Chief Complaint: Dizziness lower back pain and mental status Patient has no new complaint No recorded fever. No issues overnight. Physical Examination - Vital Signs Temperature: 97.4 F Blood Pressure: 129/59 Pulse: 65 Respirations: 16 Pulse Ox (%): 95 Assessment And Plan - Current Problems (Diagnosis) (1) UTI (urinary tract infection) Current Visit: Yes Status: Acute Qualifiers: Urinary tract infection type: acute cystitis (2) Atrial fibrillation Current Visit: No Status: Chronic (3) Hypertension Current Visit: No Status: Chronic (4) Hypothyroid Current Visit: No Status: Chronic - Plan Acute cystitis without hematuria Urine culture: Pansensitive E. coli. Organism identification and antibiotic sensitivity is still pending. Patient is clinically improved. IV Rocephin transition to oral cefdinir. Blood cultures have yielded no growth. Hypertension Continue home medications. Hypothyroidism Continue home medication. Chronic atrial fibrillation Continue home dose metoprolol and Xarelto Impaired mobility Unsteady gait Continue PT. Anticipating rehab placement director of volunteer services assisting with arrangement for SNF placement DVT prophylaxis: Patient is on Xarelto. Advanced directive: Full code
[2023-11-09] MEDS: ENSURE HIGH PROTEIN 237 ML CAN PO SCH (16:57)
[2023-11-10 06:07] LABS: Absolute Eosinophils 0.1 K/uL (0-0.5); Absolute Lymphocytes (CBC) 1.6 K/uL (0.7-4.9); Absolute Monocytes 0.5 K/uL (0.1-1.3); Basophils % 0.7 % (0-1.3); Eosinophils % 2.9 % (0-4.4); Hematocrit 44.3 % (36.0-45.0); Hemoglobin 15.2 g/dL (12.0-15.0); Lymphocytes % 37.8 % (15.3-44.8); MCH 32.7 pg (27.0-35.0); MCHC 34.3 g/dL (32.0-36.0); MCV 95.5 fL (80-100); MPV 9.2 fL (7.6-11.3); Monocytes % 12.3 % (3.3-12.3); Neutrophils % 46.3 % (41.7-73.7); Nucleated Red Blood Cells % 0.1 % (0-0); Platelets 83 thou/uL (152-406); RBC Red Blood Cell Count 4.64 M/uL (3.86-4.86); Red Cell Distribution Width 13.8 % (12.1-15.2)
[2023-11-10 06:19] LABS: Anion Gap 7.7 mEq/L (5.0-15.0); Potassium 3.7 mEq/L (3.5-5.1)
[2023-11-10 07:45] LABS: Blood Morphology Comment NOT SEEN (NOT SEEN); Platelet Estimate DECR; White Blood Cell Scan OK (OK)
--- NOTE | 2023-11-10 11:49 | P.PN ---
Date of Service: 11/10/23 Subjective: feeling some improvement each day wanting to go home; feels like she would do well enough at home vs SNF has not worked with PT today no new issues overnight afebrile ROS: 10 point ROS as noted above, otherwise negative Physical Exam: GEN: Alert, oriented, NAD HEENT: Normal conjunctiva, sclera anicteric CV: Regular rate and rhythm, no edema Pulm: Nonlabored respirations on room air, clear bilaterally ABD: Soft, nontender, nondistended Neuro: Normal speech, normal affect vitals reviewed Problem List: UTI Hypertension Hypothyroidism Chronic atrial fibrillation on anticoagulation Impaired mobility Unsteady gait UTI Urine cx (11/04): Pansensitive E. coli. Blood cx (11/04): No growth IV Rocephin (11/04-11/07) deescalated to oral cefdinir (11/07) continue cefdinir for ~10 more days (end date: 11/18/23) clinically improved. Hypertension Continue home medications. Hypothyroidism Continue home synthroid Chronic atrial fibrillation on anticoagulation Continue home metoprolol and Xarelto Impaired mobility Unsteady gait Continue PT. SNF placement - pending auth wanting to go home; feels like she would do well enough at home will see how she does with PT today, if doing well, monitor overnight and possible dc home tomorrow VTE: home xarelto Code: Full Dispo: SNF vs home with HH - Pending SNF auth Will she how she does with PT today. Possibly home tomorrow with HH if she does well with PT. Time Spent Managing Pts Care (In Minutes): 45
--- NOTE | 2023-11-11 12:18 | P.PN ---
Date of Service: 11/11/23 Subjective: no issues overnight wanting to go home doesn't know how well she would do at home since she been out of bed much wants to see how she does with PT before making a decision afebrile ROS: 10 point ROS as noted above, otherwise negative Physical Exam: GEN: Alert, oriented, NAD HEENT: Normal conjunctiva, sclera anicteric CV: Regular rate and rhythm, no edema Pulm: Nonlabored respirations on room air, clear bilaterally ABD: Soft, nontender, nondistended Neuro: Normal speech, normal affect vitals reviewed Problem List: UTI Hypertension Hypothyroidism Chronic atrial fibrillation on anticoagulation Impaired mobility Unsteady gait UTI Urine cx (11/04): Pansensitive E. coli. Blood cx (11/04): No growth IV Rocephin (11/04-11/07) deescalated to oral cefdinir (11/07) continue cefdinir for ~10 more days (end date: 11/18/23) clinically improved. Hypertension Continue home medications. Hypothyroidism Continue home synthroid Chronic atrial fibrillation on anticoagulation Continue home metoprolol and Xarelto Impaired mobility Unsteady gait Continue PT. SNF placement - pending auth wanting to go home; feels like she would do well enough at home will see how she does with PT today, if doing well, possible dc home VTE: home xarelto Code: Full Dispo: SNF vs home with HH - Pending SNF auth Will she how she does with PT today. Possibly home with HH if she does well with PT. Time Spent Managing Pts Care (In Minutes): 45
[2023-11-11 12:37] VITALS: BP 121/77; TEMP 97.2
[2023-11-11] MEDS ORDERED: ENSURE MAX PROTEIN 330 ML LIQUID PO SCH (21:00)
--- NOTE | 2023-11-12 07:19 | P.DS ---
Admission Date: 11/06/23 Discharge Date: 11/11/23 Disposition: DC HOME/HOME HEALTH CARE Reason for Admission: Dizziness lower back pain and mental status Brief History of Present Illness: 88 yo F, PMH: a-fib on chronic anticoagulation, hypertension, hypothyroidism Patient presented to ED with severe back pain. she has a history of fall sacral fractures in the past she was feeling dizzy not feeling well for the past 1 or 2 days she ambulates with a walker brought here to the emergency room diagnosed with a urinary tract infection Hospital Course: Problem List: UTI Hypertension Hypothyroidism Chronic atrial fibrillation on anticoagulation Impaired mobility Unsteady gait Physician discharge instructions: Patient presented with worsening dizziness, headache, weakness for 3 days and was found to have a UTI -french sensitive E.coli. Chest xray / CT head were both negative for any acute findings. Blood cultures without growth since 11/05. Patient had improvement with IV rocephin and continued to improve and deescalating antibiotics to PO Cefdinir. Patient is to complete ~8 more days of cefdinir on discharge for total of 2 week course. (end date: 11/18/23) She was feeling better however still felt a little weak and unsteady on her feet initially, concerned about how she would do at home by herself. She was eval by PT/OT who recommended SNF to which patient was agreeable to. While waiting to hear back from SNF on approval, she worked with PT and her strength improved enough to the point where she felt safe enough to go home and didn't feel like she needed to go to SNF. Family in agreement. Patient was feeling better, dizziness/headache improved, strength improving, and was deemed stable for discharge home. Medications: Cefdinir 300 mg twice daily (end date: 11/18/23) Follow up: PCP 3-5 days Please call to schedule / confirm appointments Physical Exam: GEN: Alert, oriented, NAD HEENT: Normal conjunctiva, sclera anicteric CV: Regular rate and rhythm, no edema Pulm: Nonlabored respirations on room air, clear bilaterally ABD: Soft, nontender, nondistended Neuro: Normal speech, normal affect Vital Signs/Physical Exam: Temp Pulse Resp BP Pulse Ox 97.2 F 73 16 121/77 97 11/11/23 12:00 11/11/23 12:00 11/11/23 12:00 11/11/23 12:00 11/11/23 12:00 Laboratory Data at Discharge: WBC 4.40 thou/uL (4.3-10.9) 11/10/23 05:50 Hgb 15.2 g/dL (12.0-15.0) H 11/10/23 05:50 Hct 44.3 % (36.0-45.0) 11/10/23 05:50 Plt Count 83 thou/uL (152-406) L 11/10/23 05:50 PT 19.4 SECONDS (9.4-12.5) H 11/05/23 18:56 INR 1.76 11/05/23 18:56 APTT 40.2 SECONDS (24.3-36.9) H 11/05/23 18:56 Sodium 139 mEq/L (136-145) 11/10/23 05:50 Potassium 3.7 mEq/L (3.5-5.1) 11/10/23 05:50 BUN 13 mg/dL (7-18) 11/10/23 05:50 Creatinine 0.61 mg/dL (0.55-1.02) 11/10/23 05:50 Glucose 107 mg/dL (74-106) H 11/10/23 05:50 Magnesium 1.9 mg/dL (1.6-2.4) 11/05/23 18:56 Total Bilirubin 1.4 mg/dL (0.2-1.0) H 11/06/23 05:58 AST 41 U/L (15-37) H 11/06/23 05:58 ALT 33 U/L (13-56) 11/06/23 05:58 Alkaline Phosphatase 93 U/L (45-117) 11/06/23 05:58 Home Medications: Metoprolol Tartrate [Lopressor*] 25 mg PO DAILY WITH BREAKFAST 02/16/14 Rivaroxaban [Xarelto] 20 mg PO DAILY 6PM 02/16/14 Levothyroxine [Synthroid*] 88 mcg PO DAILY 05/22/18 Atorvastatin Calcium [Lipitor*] 10 mg PO BEDTIME 03/25/19 Cefdinir [Cefdinir*] 300 mg PO BIDWM 8 Days #16 cap 11/11/23 New Medications: Cefdinir [Cefdinir*] 300 mg PO BIDWM 8 Days #16 cap Physician Discharge Instructions: Physician discharge instructions: Patient presented with worsening dizziness, headache, weakness for 3 days and was found to have a UTI -french sensitive E.coli. Chest xray / CT head were both negative for any acute findings. Blood cultures without growth since 11/05. Patient had improvement with IV rocephin and continued to improve and deescala ting antibiotics to PO Cefdinir. Patient is to complete ~8 more days of cefdinir on discharge for total of 2 week course. (end date: 11/18/23) She was feeling better however still felt a little weak and unsteady on her feet initially, concerned about how she would do at home by herself. She was eval by PT/OT who recommended SNF to which patient was agreeable to. While waiting to hear back from SNF on approval, she worked with PT and her strength improved enough to the point where she felt safe enough to go home and didn't feel like she needed to go to SNF. Family in agreement. Patient was feeling better, dizziness/headache improved, strength improving, and was deemed stable for discharge home. Medications: Cefdinir 300 mg twice daily (end date: 11/18/23) Follow up: PCP 3-5 days Please call to schedule / confirm appointments Followup: Victoriano Nava MD [Primary Care Provider] - Time spent managing pt's care (in minutes): 45
== END 2023-11-11 15:43 | disposition home health service (06) | DRG 690 ==
LOC: ER 18:20 → ERHOLD 22:49 → 2ND 11-06 03:23 → OBSVTOIN 11-06 13:12
PROVIDERS: ADMIT Internal Medicine Sleep Medicine; ATTEND Hospitalist
DX: N30.00 Acute cystitis without hematuria (principal); I48.20 Chronic atrial fibrillation, unspecified; I10 Essential (primary) hypertension; E03.9 Hypothyroidism, unspecified; G89.29 Other chronic pain; M54.9 Dorsalgia, unspecified; B96.20 Unspecified Escherichia coli [E. coli] as the cause of diseases classified elsewhere; Z88.1 Allergy status to other antibiotic agents; Z88.0 Allergy status to penicillin; Z79.01 Long term (current) use of anticoagulants; Z90.49 Acquired absence of other specified parts of digestive tract; Z86.14 Personal history of Methicillin resistant Staphylococcus aureus infection; Z86.73 Personal history of transient ischemic attack (TIA), and cerebral infarction without residual deficits; Z96.651 Presence of right artificial knee joint; Z79.890 Hormone replacement therapy; Z79.899 Other long term (current) drug therapy
CPT/HCPCS: 36415; 70450; 71045; 80048; 80053; 80076; 81001; 82947; 83735; 84484; 85025; 85610; 85730; 87040; 87077; 87086; 87088; 87186; 93005; 96374; 96375; 97116; 97161; 97530; 99285; G0378; J0696; J2270; J2405; J7030; J8597

== ENCOUNTER 2024-08-29 10:55 | Day surgery (SDC) | payer OTHER ==
[2024-08-25 15:31] LABS: Absolute Eosinophils 0.1 K/uL (0-0.5); Absolute Lymphocytes (CBC) 1.8 K/uL (0.7-4.9); Absolute Monocytes 0.6 K/uL (0.1-1.3); Absolute Neutrophil 3.7 K/uL (1.8-8.0); Basophils % 0.4 % (0-1.3); Eosinophils % 2.2 % (0-4.4); Hematocrit 42.5 % (36.0-45.0); Hemoglobin 14.6 g/dL (12.0-15.0); Lymphocytes % 28.8 % (15.3-44.8); MCH 33.7 pg (27.0-35.0); MCHC 34.4 g/dL (32.0-36.0); MCV 97.8 fL (80-100); MPV 9.5 fL (7.6-11.3); Monocytes % 9.5 % (3.3-12.3); Neutrophils % 59.1 % (41.7-73.7); Platelets 123 thou/uL (152-406); RBC Red Blood Cell Count 4.35 M/uL (3.86-4.86); Red Cell Distribution Width 14.1 % (12.1-15.2)
[2024-08-25 15:40] LABS: PT Prothrombin Time 18.3 SECONDS (10-13.0); PTT, Activated Partial Thromb 39.6 SECONDS (27.2-37.4); Protime INR 1.64
[2024-08-25 15:50] LABS: Anion Gap 7.2 mEq/L (5.0-15.0); Potassium 4.2 mEq/L (3.5-5.1)
--- NOTE | 2024-08-25 22:01 | RAD REPORT ---
EXAMINATION: TWO VIEW CHEST XR CLINICAL INDICATION: Female, 89 years old. [facility] Pre-op pending heart catheterization TECHNIQUE: 2 view radiographs of the chest were performed. COMPARISON: 11/05/2023 FINDINGS: The lungs are well inflated and clear. No pneumothorax or sizable effusion. The heart is normal in si ze. Mediastinal contours are unremarkable. IMPRESSION: No acute or significant abnormalities.
[2024-08-29] MEDS ORDERED: NA CHLORIDE 0.9% 500 ML ONE (10:58)
[2024-08-29] MEDS ORDERED: HEPA 1000U/500MLS 2,000 UNIT/1,000 ML BAG IV ONE (11:52)
[2024-08-29] MEDS ORDERED: HEPARIN 10,000 UNIT/10 ML VIAL IV ONE (11:52)
[2024-08-29] MEDS ORDERED: LIDOCAINE 1% 20 ML MDV ONE (11:52)
[2024-08-29] MEDS ORDERED: CLOPIDOGREL 75 MG TABLET ONE (11:53)
[2024-08-29] MEDS ORDERED: MIDAZOLAM HCL 2 MG/2 ML INJ ONE (11:53)
[2024-08-29] MEDS ORDERED: FENTANYL CITR 100 MCG/2 ML ONE (11:53)
[2024-08-29] MEDS ORDERED: ATROPINE SULF 1 MG/10 ML SYR IV ONE (11:53)
[2024-08-29] MEDS ORDERED: VERAPAMIL HCL 10 MG/4 ML VIAL IV ONE (11:53)
[2024-08-29] MEDS ORDERED: TICAGRELOR 90 MG TABLET PO ONE (11:54)
[2024-08-29] MEDS ORDERED: HEPARIN 5000 UNIT/ML 1 ML VIAL ONE (11:54)
[2024-08-29] MEDS ORDERED: ASPIRIN 81 MG CHEWABLE TABLET ONE (11:54)
[2024-08-29] MEDS ORDERED: NITROGLYCERIN/D5W 50 MG/250 ML BTL IV ONE (11:55)
--- NOTE | 2024-08-29 13:40 | OP ---
Date of Procedure: 08/29/2024 Surgeon: MICHAEL OLIVAS Procedures Performed: 1. Selective coronary angiogram. 2. Left heart catheterization. 3. Right heart catheterization. Indication: Aortic valve stenosis evaluation. Access: 1. Right radial artery 6-[place] closed with TR band. 2. Right IJ 7-[place] closed with manual pressure. Complications: None. Bleeding: Less than 50 mL. Total Sedation Time: 1 hour, I used fentanyl and Versed. Description Of Procedure: After risks, benefits, and alternatives were explained, the patient agreed to procedure and signed informed consent. The patient was brought into cardiac catheterization [facility], prepped and draped in usual sterile fashion. Then, I accessed right radial artery using pedi atric micropuncture kit and ultrasound guidance and placed a 6-[place] slender sheath and then I acces sed right IJ using micropuncture kit and ultrasound guidance, and placed 7-[place] pinnacle sheath and then took a 7-[place] balloon-tipped [place] catheter through the IJ access into the right atrium, right ventricle, pulmonary artery and wedge, obtained waveform and pressure and measured the cardiac outpu t using the thermodilutional method and then removed the [place]. IJ access was removed. Manual pressu re was used for closure with good hemostasis. Then, I took a 5-[place] 4.0 catheter through the radial access over a J-wire into the aortic root, crossed the aortic valve, and then exchanged for L [place] catheter, measured simultaneous pressures through the aorta and the LV and pullback did not r ecord any internal gradient. Then, I exchanged for a 5-[place] 4.0 catheter, engaged the left m ain, took standard views, and then in the RCA, took standard views, and then removed the catheter and the sheath, placed TR band with good hemostasis. Findings: 1. Coronary angiogram. a. Left main; large and normal. b. LAD; large vessel, ostial 30%, proximal 30% to 40% stenosis. Diagonal branch is good size ves bin with luminal irregularities. Mid LAD at the takeoff diagonal 2, there is 50% stenosis. Rest of the LAD with luminal irregularities. c. Left circumflex; large and codominant, proximal 30% stenosis and after the takeoff of the OM, there is focal 30% stenosis. d. RCA; it is a codominant circulation, ostial 40% stenosis, mid 50%, distal 30% stenosis. PDA a nd PLB with luminal irregularities. 2. Right heart cath numbers: RA pressure is 5. RV pressure is 26/1, mean of 4. PA pressure was 23/ 10, mean of 14, pulmonary wedge pressure was 9, and LVEDP was 5 mmHg. Cardiac output by thermodiluti onal method was 4.59 L/min. The gradient across the aortic valve is 18 mmHg and the aortic valve are a is 1.2 sq cm. Conclusion: 1. Moderate aortic valve stenosis. 2. Moderate coronary artery disease. Recommendation: Medical management. SR/MODL Voice ID: [id number] Report ID: [id number]
[2024-08-29 15:26] VITALS: BP 138/73; O2SAT 97
--- NOTE | 2024-08-29 16:55 | EKG ---
Test Date: 2024-08-25 Test Time: 14:28:54 Follow Up Clerk: JASON MEASUREMENT RESULTS: Intervals: Rate: 94 CO: QRSD: 116 QT: 362 QTc: 452 [place]: P: CO: QRS: -35 T: -7 INTERPRETIVE STATEMENTS: Atrial fibrillation Left axis deviation Low voltage QRS Right bundle branch block Abnormal ECG Compared to ECG 11/05/2023 18:53:52 No significant changes Electronically Signed On 08-29-24 16:49:31 CDT by Norman Husain
== END 2024-08-29 15:30 | disposition home or self-care (01) ==
LOC: CCL 10:55
PROVIDERS: ATTEND Internal Medicine
DX: I25.110 Atherosclerotic heart disease of native coronary artery with unstable angina pectoris (principal); I35.0 Nonrheumatic aortic (valve) stenosis; I34.0 Nonrheumatic mitral (valve) insufficiency; I65.29 Occlusion and stenosis of unspecified carotid artery; I70.203 Unspecified atherosclerosis of native arteries of extremities, bilateral legs; I48.0 Paroxysmal atrial fibrillation; I11.0 Hypertensive heart disease with heart failure; I50.32 Chronic diastolic (congestive) heart failure; E78.5 Hyperlipidemia, unspecified; Z87.891 Personal history of nicotine dependence; Z79.01 Long term (current) use of anticoagulants; Z88.0 Allergy status to penicillin; Z88.1 Allergy status to other antibiotic agents
CPT/HCPCS: 93005; 85025; 80048; 36415; 85610; 85730; 71046; 93460; 76937; C1893; Q9966; J1644 ×2; J2003; J2250; J3010; J7040; 99152; 99153; J0461